=== PATIENT | female | born 1955 | race Caucasian/White ===

== ENCOUNTER 2020-02-05 10:20 | Emergency (ER) | payer OTHER, SELFPAY ==
--- NOTE | ~2020-02-05 | CT_ITS ---
EXAMINATION: CT orbit BI w con DATE: 02/05/2020 13:03 INDICATION: Periorbital swelling. TECHNIQUE: Computed tomography (CT) of the orbits was performed with 75 mL Omnipaque 350 intravenous contrast. Automated exposure control and iterative reconstruction technique were employed. The dose-l ength product was 172.28 mGy-cm. COMPARISON: None. FINDINGS: There is rightward deviation of the nasal septum. No fracture. There is mild mucosal thicke jesse in the ethmoid sinuses. The mastoid air cells are normal. There is left periorbital soft tissue swelling. The ocular globes, extraocular muscles, and optic nerves are normal. IMPRESSION: 1. Left periorbital soft tissue swelling. Normal orbits. Reviewed, dictated and finalized at location B.
[2020-02-05 10:23] VITALS: BP 138/65; PULSE 76; RESP 20; TEMP 36.1; O2SAT 98
--- NOTE | 2020-02-05 10:52 | ED.SKABFB ---
HPI - Skin/Abscess/Foreign Bdy General Chief complaint: Skin/Abscess/Foreign Body Stated complaint: swelling lt eye, sent by pcp Time Seen by Provider: 02/05/20 10:35 Source: patient Mode of arrival: ambulatory Limitations: no limitations History of Present Illness HPI narrative: Patient presents for evaluation of swelling to her upper left eyelid that has been present for approximately 1 week. Patient states that she had swelling to the right upper upper right eyelid around January 09 and was treated with Bactrim and prednisone and the swelling improved besides a small knot still noted. Patient states for the left she has finished a round of Bactrim and was given a injection of Rocephin and TobraDex ointment to apply inside of the eye by her primary care Dr. Garrison yesterday. Patient states she has been managed by Dr. Garrison as well as Dr. Woods mumps developer at [facility]. She states that she was diagnosed by both providers with cellulitis. Patient states when she awoke this morning the swelling was redness to the left eye so she called Dr. Garrison who told her to come to the emergency department for IV antibiotics and further evaluation. Patient states that she has not followed up with Dr. Woods. Patient reports there is occasional tearing from the left eye but denies any changes of vision or pain or erythema to the left eyeball itself. Patient denies any trauma to the eyes, changes in make-ups or any other application chemicals. Patient denies any fever, chills, nausea, vomiting, diarrhea or any other symptoms. Patient states that she does have control rheumatoid arthritis. Related Data Allergies Allergy/AdvReac Type Severity Reaction Status Date / Time tramadol Allergy Mild unknown Verified 02/05/20 10:39 Antihistamines - Alkylamine Allergy Unknown unknown Verified 02/05/20 10:39 Penicillins Allergy Unknown Diarrhea Verified 02/05/20 10:39 ANESTHETICS Allergy Unknown Nausea and Uncoded 02/05/20 08:15 Vomiting ANTIHISTAMINES Allergy Unknown Palpitation Uncoded 02/05/20 08:15 s Review of Systems Review of Systems: Narrative: CONSTITUTIONAL: Denies fever, chills, or sweats. EYES: Reports left eyelid and occasional clear tearing of eyes swelling denies visual changes, redness. ENT: Denies rhinorrhea, congestion, sore throat, or otalgia. CARDIOVASCULAR: Denies chest pain, palpitations, or edema. RESPIRATORY: Denies cough or dyspnea. GASTROINTESTINAL: Denies abdominal pain, nausea, vomiting, or diarrhea. GENITOURINARY: Denies dysuria or hematuria. SKIN: Denies rash or itching. MUSCULOSKELETAL: Denies back pain, joint pain, or myalgia. NEUROLOGIC: Denies headache, numbness, dizziness, or weakness. PSYCHIATRIC: Denies anxiety or depression. [facility] Social History Social History Smoking status: Never smoker Second hand tobacco smoke exposure: No Alcohol intake: current Exam Narrative: Exam Narrative: GENERAL: Well-appearing, well-nourished, and in no acute distress. HEAD: Normocephalic, atraumatic. EYES: Eyelid: left moderately swollen, eye is shut unless manually opened. slightly erythematous, unable to palpate abscess, swelling noted under right eyelid border. Not very warm. No discharge. No erythema or to sclera or sign of trauma. Right eyelid opens and closes naturally. Swelling not appreciated but patient draws attention to slight tissue change to center of right upper eyelid that can be palpated. Sclera and conjuntiva without redness, drainage, or sign of injury. PERRLA and EOMI. ENT: Nares clear, no rhinorrhea or epistaxis. Mucous membranes moist. Oropharynx without tonsillar hypertrophy exudate or other lesions. Bilateral TMs pearly strickland nonbulging CHEST: Clear to auscultation. No respiratory distress. No wheezes rales or rhonchi HEART: Regular rate and rhythm. EXTREMITIES: Normal range of motion. No edema. SKIN: Warm, dry, no rash. NEURO: No focal de
[2020-02-05 12:04] LABS: Basophils Percent Auto 0.6 % (0.2-1.2); Eosinophils Absolute Auto 0.2 K/mm3 (0-0.3); Eosinophils Percent Auto 2.8 % (0-4.4); Hematocrit 39.7 % (37.0-47.0); Hemoglobin 13.4 g/dL (12.0-15.0); Immature Granulocyte Absolute 0.03 K/mm3 (0.00-0.031); Immature Granulocyte Percent A 0.5 % (0-0.5); Lymphocytes Absolute Auto 1.46 K/mm3 (0.9-3.2); Lymphocytes Percent Auto 22.8 % (18.3-44.2); Mean Corpuscular HGB Conc 33.8 g/dl (32-36); Mean Corpuscular Hemoglobin 30.1 pg (26-34); Mean Corpuscular Volume 89.2 fl (80-100); Mean Platelet Volume 9.6 fl (7.4-10.4); Monocytes Absolute Auto 0.5 K/mm3 (0.1-0.6); Monocytes Percent Auto 7.3 % (2.6-8.5); Neutrophils Absolute Auto 4.2 K/mm3 (1.3-6.7); Platelet Count Result 268 k/mm3 (150-375); Red Blood Count 4.45 M/mm3 (4.2-5.4); Red Cell Distribution Width 12.8 % (11.5-14.5); White Blood Count 6.4 K/mm3 (4.5-10.0)
[2020-02-05 12:24] LABS: Alanine Aminotransferase 24 U/L (4-35); Albumin Level 4.2 g/dL (3.5-5.1); Alkaline Phosphatase 89 U/L (38-126); Anion Gap 6 mmol/L (8-16); Aspartate Amino Transferase 30 U/L (14-36); Bilirubin,Total 0.6 mg/dL (0.2-1.3); Blood Urea Nitrogen 16 mg/dL (7-17); Calcium 9.1 mg/dL (8.4-10.2); Carbon Dioxide 24 mmol/L (22-30); Chloride 106 mmol/L (98-107); Estimated CRCL calculation 86 ml/min; Estimated Glomerular Filt Rate > 60; Glucose 125 mg/dL (65-105); Potassium 4.4 mmol/L (3.4-5.0); Sodium 136 mmol/L (137-145)
[2020-02-05] MEDS: methylPREDNISolone SOD SUCC 125 MG VIAL IV PUSH (12:52)
[2020-02-05] MEDS: IBUPROFEN 600 MG TABLET PO (13:00)
[2020-02-05 13:45] VITALS: BP 132/74; PULSE 76; RESP 16; O2SAT 98
== END 2020-02-05 13:45 | disposition home or self-care (01) ==
PROVIDERS: Physician Assistant; Emergency Provider Emergency Medicine; PCP Family Medicine
DX: H00.036 Abscess of eyelid left eye, unspecified eyelid (principal)
CPT/HCPCS: 36415; 70481; 80053; 85025; 96374; 99284; A9270; J2930; Q9967

== ENCOUNTER 2020-06-10 14:54 | Outpatient (CLI) | payer OTHER, SELFPAY ==
--- NOTE | ~2020-06-10 | XR_ITS ---
EXAMINATION: XR chest 2V EXAM DATE: 06/10/2020 15:11 INDICATION: J06.9 - Acute upper respiratory infection, fever and cough. TECHNIQUE: Frontal and lateral projections of the chest obtained and reviewed. Comparison is made to prior examination from 07/16/2015. FINDINGS: The lungs are clear. There are no pleural effusions. The cardiomediastinal silhouette is within normal limits. There is no pneumothorax suspected. The bones and soft tissues are unremarkab le. Cervical fusion hardware. IMPRESSION: No acute cardiopulmonary findings. Reviewed, dictated and finalized at location B. GE MECHANIC
== END 2020-06-10 14:55 | disposition home or self-care (01) ==
LOC: ANHIMG 14:59
PROVIDERS: PCP Family Medicine
DX: J06.9 Acute upper respiratory infection, unspecified (principal)
CPT/HCPCS: 71046

== ENCOUNTER 2020-11-12 16:36 | Outpatient (CLI) | payer OTHER, SELFPAY ==
--- NOTE | ~2020-11-12 | MM_ITS ---
EXAMINATION: MM screening dimitris BI w rene HISTORY: Screening TECHNIQUE: Craniocaudal and mediolateral oblique 3-D tomosynthesis images were obtained and synthetic 2-D images were generated. CAD analysis was submitted and interpreted. COMPARISON: Comparison to multiple prior studies sequentially, with oldest reviewed study dated 03/10. BREAST PARENCHYMAL COMPOSITION: There are scattered areas of fibroglandular density. FINDINGS: There is no evidence of suspicious mass, calcification, or architectural distortion to sugg est malignancy in either breast. There has been no suspicious interval change. IMPRESSION: 1. No mammographic evidence of malignancy. 2. Recommend routine screening mammography in one year. BI-RADS Category 1: Negative Reviewed, dictated and finalized at location A.
== END 2020-11-12 16:37 | disposition home or self-care (01) ==
LOC: ANHIMG 16:37
PROVIDERS: PCP Family Medicine; Visit Provider Obstetrics & Gynecology
DX: Z12.31 Encounter for screening mammogram for malignant neoplasm of breast (principal)
CPT/HCPCS: 77063; 77067

== ENCOUNTER 2021-04-21 07:15 | Outpatient (CLI) | payer OTHER, SELFPAY ==
[2021-04-21 07:33] LABS: Basophils Absolute Auto 0.1 K/mm3 (0.0-0.1); Eosinophils Absolute Auto 0.3 K/mm3 (0-0.3); Eosinophils Percent Auto 5.4 % (0-4.4); Hematocrit 41.7 % (37.0-47.0); Hemoglobin 13.9 g/dL (12.0-15.0); Immature Granulocyte Absolute 0.02 K/mm3 (0.00-0.031); Immature Granulocyte Percent A 0.4 % (0-0.5); Lymphocytes Absolute Auto 1.29 K/mm3 (0.9-3.2); Mean Corpuscular HGB Conc 33.3 g/dl (32-36); Mean Corpuscular Hemoglobin 30.1 pg (26-34); Mean Corpuscular Volume 90.3 fl (80-100); Mean Platelet Volume 8.9 fl (7.4-10.4); Monocytes Absolute Auto 0.5 K/mm3 (0.1-0.6); Monocytes Percent Auto 8.9 % (2.6-8.5); Neutrophils Absolute Auto 3.1 K/mm3 (1.3-6.7); Neutrophils Percent Auto 59.3 % (45.5-73.1); Platelet Count Result 247 k/mm3 (150-375); Red Blood Count 4.62 M/mm3 (4.2-5.4); Red Cell Distribution Width 12.6 % (11.5-14.5); White Blood Count 5.2 K/mm3 (4.5-10.0)
[2021-04-21 07:50] LABS: Alanine Aminotransferase 31 U/L (4-35); Albumin Level 4.1 g/dL (3.5-5.1); Alkaline Phosphatase 117 U/L (38-126); Amylase 59 U/L (30-110); Anion Gap 6 mmol/L (8-16); Aspartate Amino Transferase 31 U/L (14-36); Bilirubin,Total 0.8 mg/dL (0.2-1.3); Blood Urea Nitrogen 15 mg/dL (7-17); CRP < 0.5 mg/dL (<1.0); Calcium 9.3 mg/dL (8.4-10.2); Carbon Dioxide 27 mmol/L (22-30); Chloride 107 mmol/L (98-107); Estimated Glomerular Filt Rate > 60; Glucose 110 mg/dL (65-110); Lipase 75 U/L (23-300); Magnesium 2.1 mg/dL (1.6-2.3); Potassium 4.3 mmol/L (3.4-5.0); Sodium 140 mmol/L (137-145)
[2021-04-21 07:56] LABS: NT Pro B Type Natriuretic Pept 65 pg/mL (5-100)
[2021-04-21 08:04] LABS: Vitamin D 25 Hydroxy 25.8 ng/mL
--- NOTE | 2021-04-21 08:12 | ECG_ITS ---
Measurements Intervals Spur Rate: 64 P: 51 DE: 152 QRS: 58 QRSD: 101 T: 34 QT: 396 QTc: 410 Interpretive Statements SINUS RHYTHM POSSIBLE LEFT ATRIAL ENLARGEMENT BORDERLINE ECG Electronically Signed On 04-21-2021 8:37:41 [facility] [employer] [employer] by Bucky Mondragon D.O.
[2021-04-21 09:28] LABS: Erythrocyte Sedimentation Rate 13 mm/hr (0-20)
[2021-04-21 09:53] LABS: Folic Acid 10.4 ng/mL (2.76->20)
[2021-04-23 17:36] LABS: CMV IgM Antibody <30.00 AU/mL (<30.00)
[2021-04-23 18:36] LABS: CMV IgG Antibody <0.60 U/mL (<0.60)
[2021-04-24 21:15] LABS: EBV Nuclear Ab Interpretation Past; EBV Virus Capsid Ag IgG Ab >750.00 U/mL (<18.00); EBV Virus Capsid Ag IgM Ab <36.00 U/mL (<36.00)
== END 2021-04-21 07:16 | disposition home or self-care (01) ==
PROVIDERS: PCP Family Medicine; Visit Provider Nurse Practitioner Family
DX: R25.2 Cramp and spasm (principal); Z13.29 Encounter for screening for other suspected endocrine disorder; R53.83 Other fatigue; M25.50 Pain in unspecified joint; R10.12 Left upper quadrant pain; Z13.220 Encounter for screening for lipoid disorders; M79.89 Other specified soft tissue disorders; R00.2 Palpitations; R06.02 Shortness of breath; R94.31 Abnormal electrocardiogram [ECG] [EKG]
CPT/HCPCS: 36415; 71046; 80053; 82150; 82306; 82607; 82746; 83690; 83735; 83880; 84443; 85025; 85652; 86038; 86039; 86140; 86644; 86645; 86664; 86665; 93005

== ENCOUNTER 2021-04-21 08:38 | Outpatient (CLI) | payer OTHER, SELFPAY ==
--- NOTE | ~2021-04-21 | XR_ITS ---
EXAMINATION: XR chest 2V 04/21/2021 09:17 INDICATION: Cough and shortness of breath PROCEDURE: 2 view chest COMPARISON: Comparison to multiple prior studies sequentially, with oldest reviewed study dated 11/2006. FINDINGS: The lungs are clear. The cardiomediastinal silhouette is within normal limits. There are no pleural effusions. There is no pneumothorax suspected. IMPRESSION: 1: NO ACUTE CARDIOPULMONARY DISEASE. Reviewed, dictated and finalized at location A. ORK MGR
== END 2021-04-21 08:39 | disposition home or self-care (01) ==
LOC: ANHIMG 08:43
PROVIDERS: PCP Family Medicine; Visit Provider Nurse Practitioner Family
DX: R05.9 Cough, unspecified (principal)
CPT/HCPCS: 71046

== ENCOUNTER → 2021-05-05 01:57 | Outpatient (CLI) | payer OTHER, SELFPAY ==
[2021-05-05 17:55] LABS: SARS-CoV-2 RNA PCR Negative
== END ==
PROVIDERS: PCP Family Medicine; Visit Provider Physician Assistant Medical
DX: R68.89 Other general symptoms and signs (principal); Z20.822 Contact with and (suspected) exposure to COVID-19
CPT/HCPCS: C9803; U0003; U0005

== ENCOUNTER 2021-05-23 11:54 | Outpatient (CLI) | payer OTHER, SELFPAY ==
--- NOTE | ~2021-05-23 | XR_ITS ---
EXAMINATION: XR chest 2V EXAM DATE: 05/23/2021 12:35 INDICATION: Sjogren's syndrome w keratoconjunctivitis sicca. TECHNIQUE: Frontal and lateral projections of the chest obtained and reviewed. Comparison is made to prior examination from 04/21/2021. FINDINGS: Prominent right epicardial fat pad. The lungs are clear. There are no pleural effusions. The cardiomediastinal silhouette is within normal limits. There is no pneumothorax suspected. The bones and soft tissues are unremarkable. Cervical fusion hardware. IMPRESSION: No acute cardiopulmonary findings. Reviewed, dictated and finalized at location A. COVERER
--- NOTE | ~2021-05-23 | XR_ITS ---
EXAMINATION: XR knee RT 2V EXAM DATE: 05/23/2021 12:34 INDICATION: Sjogren's syndrome w keratoconjunctivitis sicca. Multi joint pain. TECHNIQUE: Frontal and lateral projections of the right knee. Correlation is made to . Contralateral knee same date FINDINGS: No right knee joint effusion. There is mild patellofemoral compartment primary osteoarthr itis. There are no acute fractures or dislocations identified. There is no subcutaneous gas. The so ft tissue is unremarkable. There are no radiopaque foreign bodies. IMPRESSION: Mild right patellofemoral compartment osteoarthritis. Reviewed, dictated and finalized at location A. WORKER GRAIN
--- NOTE | ~2021-05-23 | XR_ITS ---
EXAMINATION: XR hand RT 2V EXAM DATE: 05/23/2021 12:35 INDICATION: Sjogren's syndrome w keratoconjunctivitis sicca. Multi joint pain. TECHNIQUE: Frontal and lateral projections of the right hand. Correlation is made to contralateral h and same date. FINDINGS: There is moderate to severe right 1st carpometacarpal joint primary osteoarthritis. There are no bony erosions identified. There are no acute fractures or dislocations identified. There is no subcutaneous gas. The soft tissue is unremarkable. There are no radiopaque foreign bodies. IMPRESSION: Moderate to severe right 1st CMC osteoarthritis. Reviewed, dictated and finalized at location A. GER EXCHANGE
--- NOTE | ~2021-05-23 | XR_ITS ---
EXAMINATION: XR hand LT 2V EXAM DATE: 05/23/2021 12:35 INDICATION: Sjogren's syndrome w keratoconjunctivitis sicca. TECHNIQUE: Frontal and lateral projections of the left hand. Comparison is made to prior examination from 2010. FINDINGS: There is moderate to severe left 1st carpometacarpal, moderate triscaphe primary osteoart hritis. There are no bony erosions identified. There are no acute fractures or dislocations identifi ed. There is no subcutaneous gas. The soft tissue is unremarkable. IMPRESSION: Moderate to severe left 1st CMC, moderate triscaphe osteoarthritis. Reviewed, dictated and finalized at location A. 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
--- NOTE | ~2021-05-23 | XR_ITS ---
EXAMINATION: XR knee LT 2V EXAM DATE: 05/23/2021 12:35 INDICATION: Sjogren's syndrome w keratoconjunctivitis sicca. Multi joint pain. TECHNIQUE: Frontal and lateral projections of the left knee. Correlation is made to contralateral kn ee same date. FINDINGS: No left knee joint fluid. There is mild patellofemoral compartment primary osteoarthritis. There are no acute fractures or dislocations identified. There is no subcutaneous gas. The soft ti ssue is unremarkable. There are no radiopaque foreign bodies. IMPRESSION: Mild left patellofemoral compartment osteoarthritis. Reviewed, dictated and finalized at location A. N FACTORS ERGONOMIST
--- NOTE | ~2021-05-23 | XR_ITS ---
EXAMINATION: XR foot LT 2V EXAM DATE: 05/23/2021 12:35 INDICATION: Sjogren's syndrome w keratoconjunctivitis sicca. TECHNIQUE: Frontal and lateral projections of the left foot. Comparison is made to prior examination from 2013. FINDINGS: There is severe left 1st metatarsophalangeal joint primary osteoarthritis. This has progre ssed compared to 2014. Tiny inferior calcaneal spur. There are no acute fractures or dislocations alfredo ntified. There is no subcutaneous gas. The soft tissue is unremarkable. There are no radiopaque f oreign bodies. IMPRESSION: Severe left 1st MTP osteoarthritis. Reviewed, dictated and finalized at location A. IAL NEEDS CAREGIVER
--- NOTE | ~2021-05-23 | XR_ITS ---
EXAMINATION: XR foot RT 2V EXAM DATE: 05/23/2021 12:35 INDICATION: Sjogren's syndrome w keratoconjunctivitis sicca. TECHNIQUE: Frontal and lateral projections of the right foot. Correlation is made to contralateral f oot same date. FINDINGS: There is right severe 1st metatarsophalangeal joint primary osteoarthritis. Small to moder ate-sized inferior calcaneal spur. There are no acute fractures or dislocations identified. There is no subcutaneous gas. The soft tissue is unremarkable. There are no radiopaque foreign bodies. IMPRESSION: Severe right 1st MTP osteoarthritis. Reviewed, dictated and finalized at location A. T ENERGY SPECIALIST
== END 2021-05-23 11:55 | disposition home or self-care (01) ==
LOC: ANHIMG 11:58
PROVIDERS: PCP Family Medicine; Visit Provider Physician Assistant Medical
DX: M35.01 Sjogren syndrome with keratoconjunctivitis (principal); M25.549 Pain in joints of unspecified hand; M19.072 Primary osteoarthritis, left ankle and foot; M19.071 Primary osteoarthritis, right ankle and foot; M19.042 Primary osteoarthritis, left hand; M19.041 Primary osteoarthritis, right hand
CPT/HCPCS: 71046; 73120; 73560; 73620

== ENCOUNTER 2021-05-25 07:34 | Outpatient (CLI) | payer OTHER, SELFPAY ==
--- NOTE | 2021-05-29 12:43 | WPDHOLTEREM ---
Holter/Event Monitor Holter/Event Monitor Date of procedure: 05/25/21 Holter/Event Procedure: 48 Hr Holter Monitor Indications: Abnormal EKG Conclusion: 1. 48 hour holter monitor on 05/25/21. 2. Predominant rhythm is sinus rhythm. HR range 51-132 bpm; average HR 75 bpm. 3. There are 63 premature supraventricular complexes and 6 supraventricular couplets. One episode of atrial tachycardia at 129 bpm lasting 5 beats. 4. There is 1 premature ventricular complex. No ventricular tachycardia. 5. No sinoatrial or atrioventricular blocks. No significant pauses greater than 2 seconds. 6. No symptoms available for correlation.
== END 2021-05-25 07:35 | disposition home or self-care (01) ==
PROVIDERS: PCP Family Medicine; Visit Provider Nurse Practitioner Family
DX: R00.2 Palpitations (principal); R94.31 Abnormal electrocardiogram [ECG] [EKG]; R06.02 Shortness of breath
CPT/HCPCS: 93225; 93226

== ENCOUNTER 2021-06-15 08:30 | Outpatient (CLI) | payer OTHER, SELFPAY ==
--- NOTE | 2021-06-15 08:43 | EST_ITS ---
Patient Info Name: Christina Edmond Age: 65 years : 1955 Gender: Female Ht: 65 in Wt: 18 lbs BSA: 0.57 m2 HR: 67 bpm BP: 136 / 86 mmHg Heart Rhythm: Sinus Rhythm Exam Date: 06/15/2021 10:26 AM Exam Location: [facility] Patient Status: Outpatient Admit Date: 06/15/2021 Staff Ordering Physician: Nancy Velazquez NP Attending Provider: Nancy Velazquez NP Exercise Technologist: Kimberly Mullins CT Exercise Physician: Bucky Mondragon DO Exam Type: CA stress test treadmill Study Info Indications R00.2 - Palpitations An exercise stress test was performed. Summary 1. 1. Negative Dell exercise stress test for ischemic ST changes by ECG criteria. 2. 2. Reduced functional capacity, achieving 7 METs of workload. 3. 3. Appropriate HR response to exercise. 4. 4. Appropriate HR recovery at 1 minute post exercise. 5. 5. No imaging with stress testing. 6. 6. Patient informed of the above results. Protocol: [facility] ECG Details Stage: REST Duration (min): 2 min : 28 sec Speed (mph): 0.0 Grade (%): 0 HR (bpm): 76 SBP (mmHg): 136 DBP (mmHg): 86 METS: --- Stage: REST Duration (min): 6 min : 59 sec Speed (mph): 0.0 Grade (%): 0 HR (bpm): 73 SBP (mmHg): 136 DBP (mmHg): 86 METS: --- Stage: STAGE 1 Duration (min): 1 min : 0 sec Speed (mph): 1.7 Grade (%): 10 HR (bpm): 114 SBP (mmHg): 136 DBP (mmHg): 86 METS: --- Stage: STAGE 1 Duration (min): 2 min : 0 sec Speed (mph): 1.7 Grade (%): 10 HR (bpm): 130 SBP (mmHg): 136 DBP (mmHg): 86 METS: --- Stage: STAGE 1 Duration (min): 3 min : 0 sec Speed (mph): 1.7 Grade (%): 10 HR (bpm): 133 SBP (mmHg): 136 DBP (mmHg): 86 METS: --- Stage: STAGE 2 Duration (min): 1 min : 0 sec Speed (mph): 2.5 Grade (%): 12 HR (bpm): 134 SBP (mmHg): 136 DBP (mmHg): 86 METS: --- Stage: STAGE 2 Duration (min): 2 min : 0 sec Speed (mph): 2.5 Grade (%): 12 HR (bpm): 142 SBP (mmHg): 170 DBP (mmHg): 101 METS: --- Stage: STAGE 2 Duration (min): 2 min : 59 sec Speed (mph): 3.4 Grade (%): 14 HR (bpm): 145 SBP (mmHg): 170 DBP (mmHg): 101 METS: --- Stage: RECOVERY Duration (min): 1 min : 0 sec Speed (mph): 0.0 Grade (%): 0 HR (bpm): 123 SBP (mmHg): 177 DBP (mmHg): 83 METS: --- Stage: RECOVERY Duration (min): 2 min : 0 sec Speed (mph): 0.0 Grade (%): 0 HR (bpm): 103 SBP (mmHg): 177 DBP (mmHg): 83 METS: --- Stage: RECOVERY Duration (min): 2 min : 38 sec Speed (mph): 0.0 Grade (%): 0 HR (bpm): 97 SBP (mmHg): 144 DBP (mmHg): 74 METS: --- Rest HR: 73 bpm Peak HR: 145 bpm Rest Sys BP: 136 mmHg Peak Sys BP: 177 mmHg Max Pred HR: 156 bpm % Max Pred HR: 93 % Target HR: 133 bpm Max RPP: 25,665 bpm*mmHg Bauer Score: -2 Termination Reason:
--- NOTE | 2021-06-15 08:43 | ECHO_ITS ---
Patient Info Name: Christina Edmond Age: 65 years : 1955 Gender: Female Ht: 65 in Wt: 165 lbs BSA: 1.87 m2 HR: 67 bpm BP: 161 / 93 mmHg Technical Quality: Good Exam Date: 06/15/2021 9:13 AM Exam Location: [facility] Patient Status: Outpatient Admit Date: 06/15/2021 Staff Ordering Physician: Nancy Velazquez NP Septic Cleaner: Safia Siegel RDCS Attending Provider: Nancy Velazquez NP Exam Type: CA echo doppler color flow Study Info Indications R00.2 - Palpitations Complete two-dimensional, color flow and Doppler transthoracic echocardiogram is performed. Summary 1. Complete two-dimensional, color flow and Doppler transthoracic echocardiogram is performed. 2. Left ventricular chamber dimension is normal. 3. Left ventricular systolic function is normal, estimated at 60-65%. 4. The left ventricular diastolic function is grade I diastolic dysfunction. 5. E/e' 12 is mildly elevated. 6. Left atrial chamber dimension is mildly enlarged. 7. There is trace mitral valve regurgitation. 8. There is trace tricuspid valve regurgitation. 9. No pulmonary hypertension, estimated pulmonary arterial systolic pressure is 27 mmHg. 10. There is trace pulmonic regurgitation. Left Ventricle E/e' 12 is mildly elevated. Left ventricular chamber dimension is normal. Left ventricular systolic function is normal, estimated at 60-65%. The left ventricular diastolic function is grade I diastolic dysfunction. Right Ventricle Right ventricular chamber dimension is normal. Right ventricular systolic function is normal. Left Atria Left atrial chamber dimension is mildly enlarged. Right Atria Right atrial chamber dimension is normal. Aortic Valve The aortic valve is trileaflet. There is no aortic valve stenosis. There is no aortic valve regurgitation. Pulmonic Valve There is trace pulmonic regurgitation. Mitral Valve There is no mitral valve stenosis. There is trace mitral valve regurgitation. Tricuspid Valve There is trace tricuspid valve regurgitation. No pulmonary hypertension, estimated pulmonary arterial systolic pressure is 27 mmHg. Pericardium/Pleural There is no pericardial effusion. Inferior Vena Cava Normal inferior vena cava with >50% collapse upon inspiration consistent with normal right atrial pressure, 5 mmHg. Aorta The aortic root size at the sinus of Valsalva is normal. Left Ventricular Outflow Tract Name Value Normal LVOT 2D LVOT Diameter 2.0 cm LVOT Doppler LVOT Peak Gradient 6 mmHg LVOT Mean Gradient 3 mmHg LVOT VTI 22 cm LVOT VTI/AV VTI Ratio 0.8 LVOT Stroke Volume 68 ml LVOT CO 15.0 l/min LVOT CI 8.0 l/min/m2 Pulmonic Valve Name Value Normal PV Doppler ----
== END 2021-06-15 08:31 | disposition home or self-care (01) ==
PROVIDERS: PCP Family Medicine; Visit Provider Nurse Practitioner Family
DX: R00.2 Palpitations (principal); R06.02 Shortness of breath; R94.31 Abnormal electrocardiogram [ECG] [EKG]
CPT/HCPCS: 93017; 93306

== ENCOUNTER 2021-08-31 17:07 | Outpatient (CLI) | payer OTHER, SELFPAY ==
[2021-08-31 17:29] LABS: Basophils Absolute Auto 0.1 K/mm3 (0.0-0.1); Eosinophils Absolute Auto 0.3 K/mm3 (0-0.3); Hematocrit 40.1 % (37.0-47.0); Hemoglobin 13.3 g/dL (12.0-15.0); Immature Granulocyte Absolute 0.01 K/mm3 (0.00-0.031); Immature Granulocyte Percent A 0.2 % (0-0.5); Lymphocytes Absolute Auto 2.11 K/mm3 (0.9-3.2); Lymphocytes Percent Auto 33.8 % (18.3-44.2); Mean Corpuscular HGB Conc 33.2 g/dl (32-36); Mean Corpuscular Hemoglobin 30.4 pg (26-34); Mean Corpuscular Volume 91.8 fl (80-100); Monocytes Absolute Auto 0.5 K/mm3 (0.1-0.6); Monocytes Percent Auto 7.2 % (2.6-8.5); Neutrophils Absolute Auto 3.4 K/mm3 (1.3-6.7); Neutrophils Percent Auto 53.8 % (45.5-73.1); Platelet Count Result 270 k/mm3 (150-375); Red Blood Count 4.37 M/mm3 (4.2-5.4); Red Cell Distribution Width 13.6 % (11.5-14.5); White Blood Count 6.2 K/mm3 (4.5-10.0)
[2021-08-31 17:42] LABS: Alanine Aminotransferase 35 U/L (4-35); Albumin Level 4.4 g/dL (3.5-5.1); Alkaline Phosphatase 122 U/L (38-126); Anion Gap 5 mmol/L (8-16); Aspartate Amino Transferase 37 U/L (14-36); Bilirubin,Total 0.8 mg/dL (0.2-1.3); Blood Urea Nitrogen 17 mg/dL (7-17); CRP < 0.5 mg/dL (<1.0); Calcium 8.8 mg/dL (8.4-10.2); Carbon Dioxide 26 mmol/L (22-30); Chloride 104 mmol/L (98-107); Estimated Glomerular Filt Rate > 60; Glucose 106 mg/dL (65-110); Potassium 4.2 mmol/L (3.4-5.0); Sodium 135 mmol/L (137-145)
[2021-08-31 17:58] LABS: Erythrocyte Sedimentation Rate 11 mm/hr (0-20)
== END 2021-08-31 17:08 | disposition home or self-care (01) ==
LOC: ANHLAB 17:11
PROVIDERS: PCP Family Medicine; Visit Provider Physician Assistant Medical
DX: M06.4 Inflammatory polyarthropathy (principal); Z79.899 Other long term (current) drug therapy
CPT/HCPCS: 36415; 80053; 85025; 85652; 86140

== ENCOUNTER 2022-05-24 07:24 | Outpatient (CLI) | payer MEDICARE, SELFPAY ==
--- NOTE | ~2022-05-24 | DEXA_ITS ---
Bone Density Report Name: MAGEN SEGAL Age: 66 Sex: Female Ethnicity: White Date of : 1955 Indication: postmenopausal; screening for osteoporosis; height loss; hysterectomy; rheumatoid arthritis; Referring Provider: JOSHUA, SUSHIL Pérez Study: Bone densitometry was performed. Exam Date: May 24, 2022 Accession number: [id number] Bone Density: Region BMD T-score Z-score Classification AP Spine(L1-L4) 0.957 -0.8 1.0 Normal Femoral Neck (Left) 0.655 -1.7 -0.2 Osteopenia Total Hip (Left) 0.849 -0.8 0.5 Normal Femoral Neck (Right) 0.674 -1.6 0.0 Osteopenia Total Hip (Right) 0.830 -0.9 0.3 Normal Total Hip Mean 0.839 -0.9 0.4 Normal World Health Organization criteria for BMD impression classify patients as: Normal (T-score at or above -1.0), Osteopenia (T-score between -1.0 and -2.5), or Osteoporosis (T-score at or below -2.5). 10-year Fracture Risk(1): Major Osteoporotic Fracture 12% Hip Fracture 1.6% Reported Risk Factors: [place] (), Neck BMD=0.655, BMI=31.1, rheumatoid arthritis (1) FRAX(R) Version 3.08. Fracture probability calculated for an untreated patient. Fracture probability may be lower if the patient has received treatment. Clinical Information Provided by Patient: Has rheumatoid arthritis Has the following medical conditions: Hysterectomy Patient maximum height was 65 Menopause Age: 51 Drinks caffeinated beverages Onset of menses at age 13 Number of children 5 Impression: The patient has low bone mass, based on the Left Femoral Neck T-score. The patient has an estimated ten-year risk of hip fracture of 1.6% and an estimated ten-year risk of major fracture of 12%, based on the WHO FRAX algorithm. Discussion: BONE DENSITY IS LOW AT ONE OR MORE SKELETAL SITES. This patient's lowest T-score is low at one or more skeletal sites. It meets the World Health Organization's (WHO) criteria for ?low bone mass? (T-score between -1.0 and -2.5). The patient's 10-year risk of fracture as calculated by FRAX is less than the threshold where pharmacological therapy is recommended by the National Osteoporosis Foundation (NOF). However, all treatment decisions require clinical judgment and consideration of individual patient factors, including patient preferences, comorbidities, previous drug use, risk factors not captured in the FRAX model (e.g., frailty, falls, vitamin D deficiency, increased bone turnover, interval significant decline in bone density) and possible under or overestimation of fracture risk by FRAX. The patient should follow a healthful lifestyle (good nutrition with adequate calcium and vitamin D, and appropriate weight-bearing exercise). Follow-Up: Consider repeating this study in 2 to 3 years to reassess this patient's status, or sooner if there
--- NOTE | ~2022-05-24 | MM_ITS ---
EXAMINATION: MM screening dimitris BI w rene HISTORY: Screening TECHNIQUE: Craniocaudal and mediolateral oblique 3-D tomosynthesis images were obtained and synthetic 2-D images were generated. CAD analysis was submitted and interpreted. COMPARISON: Comparison to multiple prior studies sequentially, with oldest reviewed study dated 08/2012. BREAST PARENCHYMAL COMPOSITION: There are scattered areas of fibroglandular density. FINDINGS: There is no evidence of suspicious mass, calcification, or architectural distortion to sugg est malignancy in either breast. There has been no suspicious interval change. IMPRESSION: 1. No mammographic evidence of malignancy. 2. Recommend routine screening mammography in one year. BI-RADS Category 1: Negative Reviewed, dictated and finalized at location B. ESTATE INTERNSHIP
== END 2022-05-24 07:25 | disposition home or self-care (01) ==
LOC: ANHIMG 07:29
PROVIDERS: PCP Family Medicine; Visit Provider Obstetrics & Gynecology
DX: Z12.31 Encounter for screening mammogram for malignant neoplasm of breast (principal); Z78.0 Asymptomatic menopausal state; M85.852 Other specified disorders of bone density and structure, left thigh; M85.851 Other specified disorders of bone density and structure, right thigh
CPT/HCPCS: 77063; 77067; 77080

== ENCOUNTER → 2022-05-28 09:43 | Outpatient (CLI) | payer MEDICARE, SELFPAY ==
--- NOTE | ~2022-05-28 | CT_ITS ---
CT Abdomen and Pelvis with contrast. History: Abdominal pain. Spiral CT of the abdomen and pelvis was performed after the administration of intravenous contrast. 1 00 cc of Omnipaque 350 was administered intravenously without complication. Dose reduction technique was used on this scan by utilizing automated exposure control and iterative reconstruction technique. The dose-length product (DLP) was 820.63 mGy-cm. Findings: Scans through the lung bases demonstrate mild atelectatic change. The liver, spleen, pancreas, gallbladder, adrenals and kidneys are within normal limits. No evidence of aortic aneurysm. No lymphadenopathy is seen. There is no evidence of bowel obstruction. There is no evidence to suggest acute appendicitis or dive rticulitis. Images through the pelvis were performed. Urinary bladder unremarkable. Patient is post hysterectomy. No pelvic mass seen. No ascites is seen. Impression: No significant abnormalities seen. Reviewed, dictated and finalized at location [] WORKER Impression: No significant abnormalities seen.
[2022-05-28 10:01] LABS: Estimated Glomerular Filt Rate > 60
== END ==
PROVIDERS: PCP Family Medicine; Visit Provider Nurse Practitioner Family
DX: R10.12 Left upper quadrant pain (principal); R10.2 Pelvic and perineal pain
CPT/HCPCS: 74177; Q9967

== ENCOUNTER → 2022-11-02 10:33 | Outpatient (CLI) | payer MEDICARE, SELFPAY ==
--- NOTE | ~2022-11-02 | XR_ITS ---
EXAMINATION: XR foot LT min 3V DATE: 11/02/2022 11:10 INDICATION: Left toe pain. TECHNIQUE: 4 views of left foot were obtained. COMPARISON: Left foot radiographs 05/23/2021 FINDINGS: Bone alignment is normal. No fracture. There is severe osteoarthritis of first metatarsopha langeal joint. There is an enthesophyte at plantar aspect of calcaneal tuberosity. IMPRESSION: 1. Severe osteoarthritis of first metatarsophalangeal joint. Reviewed, dictated and finalized at location A.
--- NOTE | ~2022-11-02 | XR_ITS ---
EXAMINATION: XR sacrum coccyx min 2V DATE: 11/02/2022 11:10 INDICATION: Sacrococcygeal disorder, not elsewhere classified. TECHNIQUE: 3 views of the sacrum and coccyx were obtained. COMPARISON: Radiographs 06/02/2015 FINDINGS: There is 4 mm anterolisthesis of L4 on L5 and 3 mm anterolisthesis of L5 on S1. There is mi ld lumbar spondylosis. There is mild osteoarthritis of the sacroiliac joints and hip joints. IMPRESSION: 1. No fracture. 2. Mild osteoarthritis of the sacroiliac joints. No evidence of inflammatory arthropathy. Reviewed, dictated and finalized at location A. IMPRESSION: 1. No fracture. 2. Mild osteoarthritis of the sacroiliac joints. No evidence of inflammatory ar thropathy.
== END ==
PROVIDERS: PCP Family Medicine; Visit Provider Physician Assistant Medical
DX: M53.3 Sacrococcygeal disorders, not elsewhere classified (principal); M19.072 Primary osteoarthritis, left ankle and foot
CPT/HCPCS: 72220; 73630

== ENCOUNTER 2022-11-11 07:47 | Outpatient (CLI) | payer MEDICARE, SELFPAY ==
--- NOTE | ~2022-11-11 | MR_ITS ---
MRI of the brain Clinical History: Headache Technique: Axial and sagittal T1-weighted images were acquired. These were followed by axial T2-weigh radhika, diffusion weighted, gradient, and FLAIR images.. Following intravenous administration of 16 cc M ultiHance gadolinium, T1-weighted fat-sat imaging was performed in the axial and coronal planes. Findings: No abnormal signal seen in the brain parenchyma. No acute infarct, intracranial hemorrhage, or mass lesion. Ventricles and subarachnoid spaces are unremarkable. Orbits are unremarkable. Paranasal sinuses and m astoid air cells are clear. Major intracranial flow voids appear intact. Sagittal midline structures are intact. No abnormal postcontrast enhancement identified. IMPRESSION: Unremarkable exam. Reviewed, dictated and finalized at location M. IMPRESSION: Unremarkable exam.
== END 2022-11-11 07:48 | disposition home or self-care (01) ==
PROVIDERS: PCP Family Medicine; Visit Provider Physician Assistant Medical
DX: R51.9 Headache, unspecified (principal)
CPT/HCPCS: 70553; A9577

== ENCOUNTER 2023-06-20 14:57 | Outpatient (CLI) | payer MEDICARE, SELFPAY ==
--- NOTE | 2023-06-23 12:00 | WPDHOLTEREM ---
Holter/Event Monitor Holter/Event Monitor Date of procedure: 06/20/23 Holter/Event Procedure: 48 Hr Holter Monitor Indications: SVT Conclusion: 1. 48 hour holter monitor on 06/20/22. 2. Predominant rhythm is sinus rhythm. HR range 49-126 bpm; average HR 73 bpm. 3. There are 97 premature supraventricular complexes, 14 supraventricular couplets, 6 supraventricular bigeminy. There are 7 episodes of atrial tachycardia, fastest 185 bpm and longest lasting 10 beats. 4. There is 1 premature ventricular complex. No ventricular tachycardia. 5. No sinoatrial or atrioventricular blocks. No significant pauses greater than 2 seconds. 6. Patient reports palpitations, irregular heart beat, dizziness which demonstrate sinus rhythm, HR range 72-79 bpm.
== END 2023-06-20 14:58 | disposition home or self-care (01) ==
LOC: ANHCARD 14:58
PROVIDERS: PCP Family Medicine; Visit Provider Physician Assistant Medical
DX: I47.19 Other supraventricular tachycardia (principal); I10 Essential (primary) hypertension
CPT/HCPCS: 93225; 93226

== ENCOUNTER 2023-10-20 14:33 | Outpatient (CLI) | payer MEDICARE, SELFPAY ==
--- NOTE | ~2023-10-20 | XR_ITS ---
EXAMINATION: XR shoulder RT min 2V, XR shoulder LT min 2V DATE: 10/20/2023 15:21 INDICATION: Inflammatory polyarthropathy TECHNIQUE: 1. AP internally and externally rotated, AP oblique externally rotated and axillary views of the righ t shoulder were obtained. 2. AP internally and externally rotated, AP oblique externally rotated and axillary views of the lef t shoulder were obtained. COMPARISON: None FINDINGS: Right shoulder: Normal alignment. No fracture. Glenohumeral joint is normal. Minimal right acromioclavicular osteoar thritis. Soft tissues are unremarkable. Partially visualized anterior plate-screw fixation for lower cervical anterior spinal fusion, likely C5-C7. Right lung is clear. Left shoulder: Normal alignment. No fracture. Glenohumeral joint is normal. Mild left acromioclavicular osteoarthri tis. Soft tissues are unremarkable. Visualized portion of the left lung is clear. IMPRESSION: Bilateral acromioclavicular osteoarthritis, mild on the left and minimal on the right. Reviewed, dictated and finalized at location A. IMPRESSION: Bilateral acromioclavicular osteoarthritis, mild on the left and minimal on the right.
--- NOTE | ~2023-10-20 | XR_ITS ---
EXAMINATION: XR lumbar spine 2-3V, XR sacroiliac joints min 3V DATE: 10/20/2023 15:21 INDICATION: Inflammatory polyarthropathy TECHNIQUE: 1. Anteroposterior and lateral views of the lumbar spine, and cone-down lateral view of the lumbosacr al junction were obtained. 2. AP and left and right oblique views of the bilateral sacroiliac joints were obtained. COMPARISON: None. FINDINGS: 10 degrees lumbar dextroscoliosis. For millimeter anterolisthesis L4 on L5. Vertebral body heights ar e normal. Moderate disc height loss at L4-L5 and mild disc height loss at L2-L3, L3-L4 and L5-S1 and a few of the levels in the lower thoracic spine. Moderate bilateral lower lumbar facet osteoarthritis . Sacral arches are intact. Mild osteoarthritis at the bilateral sacroiliac joints. No erosions to jimenez ggest inflammatory cigarette is. A few phleboliths in the pelvis. IMPRESSION: 1. 10 degrees lumbar dextro scoliosis with mild to moderate spondylosis. 2. Mild bilateral sacroiliac osteoarthritis without erosions to suggest an inflammatory sacroiliitis. Reviewed, dictated and finalized at location A. IMPRESSION: 1. 10 degrees lumbar dextro scoliosis with mild to moderate spondylosis. 2. Mild bilateral sacroiliac osteoarthritis without erosions to suggest an infl ammatory sacroiliitis.
--- NOTE | ~2023-10-20 | XR_ITS ---
EXAMINATION: XR foot RT 2V, XR foot LT 2V DATE: 10/20/2023 15:21 INDICATION: Inflammatory polyarthropathy TECHNIQUE: 1. Dorsoplantar and lateral views of the left foot were obtained. 2. Dorsoplantar and lateral views of the right foot were obtained. COMPARISON: Right foot radiographs dated 05/23/2021 and left foot radiograph dated 11/02/2022 FINDINGS: In bone alignment is normal at both feet. No fractures. No significant change in severe osteoarthriti s at the bilateral first metatarsophalangeal joints. Additional minimal to mild osteoarthritis at a f ew of the bilateral tarsometatarsal and interphalangeal joints. No erosions to suggest inflammatory a rthritis. Moderate-sized bilateral plantar calcaneal spurs. Soft tissues are unremarkable. IMPRESSION: 1. Severe osteoarthritis at the bilateral first metatarsophalangeal joints. Reviewed, dictated and finalized at location A. IMPRESSION: 1. Severe osteoarthritis at the bilateral first metatarsophalangeal joints.
--- NOTE | ~2023-10-20 | XR_ITS ---
EXAMINATION: XR hand RT 2V, XR hand LT 2V DATE: 10/20/2023 15:21 INDICATION: Inflammatory polyarthropathy at the bilateral hands TECHNIQUE: 1. Posteroanterior and lateral views of the left hand were obtained. 2. Posteroanterior and lateral views of the right hand were obtained. COMPARISON: None. FINDINGS: Normal alignment at the bilateral hands. No fractures. Typical pattern of polyarticular osteoarthriti s at the bilateral hands. On the left is severe at the first carpometacarpal joint, moderate at the t riscaphe, first interphalangeal and second and third distal interphalangeal joints and mild at the wr ist, midcarpal joint and several metacarpal phalangeal and remaining interphalangeal joints. On the r ight versus moderate severity at the first carpometacarpal joint and the second-fourth distal interph alangeal joints and mild at the wrist, midcarpal, triscaphe and multiple additional metacarpophalange al and interphalangeal joints. No erosions to suggest inflammatory arthritis. Soft tissues are unrema rkable. IMPRESSION: 1. Typical pattern of polyarticular osteoarthritis greatest at the radial aspect of the carpi as deta iled above. Reviewed, dictated and finalized at location A. IMPRESSION: 1. Typical pattern of polyarticular osteoarthritis greatest at the radial aspec t of the carpi as detailed above.
== END 2023-10-20 14:34 ==
LOC: MICIMG 14:36
PROVIDERS: PCP Family Medicine; Visit Provider Physician Assistant Medical
DX: M06.4 Inflammatory polyarthropathy (principal); M35.01 Sjogren syndrome with keratoconjunctivitis; M53.3 Sacrococcygeal disorders, not elsewhere classified; M19.041 Primary osteoarthritis, right hand; M19.042 Primary osteoarthritis, left hand; M19.071 Primary osteoarthritis, right ankle and foot; M19.072 Primary osteoarthritis, left ankle and foot; M19.011 Primary osteoarthritis, right shoulder; M19.012 Primary osteoarthritis, left shoulder
CPT/HCPCS: 72100; 72202; 73030; 73120; 73620

== ENCOUNTER 2024-06-19 08:42 | Outpatient (CLI) | payer MEDICARE, SELFPAY ==
--- NOTE | ~2024-06-19 | DEXA_ITS ---
Bone Density Report Name: MAGEN SEGAL Age: 68 Sex: Female Ethnicity: White Date of : 1955 Indication: postmenopausal; screening for osteoporosis; height loss; hysterectomy; Referring Provider: JOSHUA, SUSHIL Pérez Study: Bone densitometry was performed. Exam Date: June 19, 2024 Accession number: [id number] Bone Density: Region BMD T-score Z-score Classification AP Spine(L1-L4) 0.933 -1.0 0.9 Normal Femoral Neck (Left) 0.668 -1.6 0.0 Osteopenia Total Hip (Left) 0.842 -0.8 0.5 Normal Femoral Neck (Right) 0.658 -1.7 -0.1 Osteopenia Total Hip (Right) 0.817 -1.0 0.3 Normal Total Hip Mean 0.829 -0.9 0.4 Normal World Health Organization criteria for BMD impression classify patients as: Normal (T-score at or above -1.0), Osteopenia (T-score between -1.0 and -2.5), or Osteoporosis (T-score at or below -2.5). 10-year Fracture Risk(1): Major Osteoporotic Fracture 9.7% Hip Fracture 1.3% Reported Risk Factors: [place] (), Neck BMD=0.658, BMI=32.1 (1) FRAX(R) Version 3.08. Fracture probability calculated for an untreated patient. Fracture probability may be lower if the patient has received treatment. Clinical Information Provided by Patient: Has used the following medications: Vitamin D Has the following medical conditions: Hysterectomy Patient maximum height was 65 Menopause Age: 51 No regular weight bearing exercise Onset of menses at age 13 Number of children 5 Impression: The patient has low bone mass, based on the Right Femoral Neck T-score. The patient has an estimated ten-year risk of hip fracture of 1.3% and an estimated ten-year risk of major fracture of 9.7%, based on the WHO FRAX algorithm. Discussion: BONE DENSITY IS LOW AT ONE OR MORE SKELETAL SITES. This patient's lowest T-score is low at one or more skeletal sites. It meets the World Health Organization's (WHO) criteria for ?low bone mass? (T-score between -1.0 and -2.5). The patient's 10-year risk of fracture as calculated by FRAX is less than the threshold where pharmacological therapy is recommended by the National Osteoporosis Foundation (NOF). However, all treatment decisions require clinical judgment and consideration of individual patient factors, including patient preferences, comorbidities, previous drug use, risk factors not captured in the FRAX model (e.g., frailty, falls, vitamin D deficiency, increased bone turnover, interval significant decline in bone density) and possible under or overestimation of fracture risk by FRAX. The patient should follow a healthful lifestyle (good nutrition with adequate calcium and vitamin D, and appropriate weight-bearing exercise). Follow-Up: Consider repeating this study in 2 to 3 years to reassess this patient's status, or sooner if there is some new clinical indication. Reported by: GUSTAVO on 06/19/2024 9:23:00 AM. Reviewed, dictated and finalized at location ARoxanne JUAN
--- NOTE | ~2024-06-19 | MM_ITS ---
EXAMINATION: MM screening dimitris BI w rene HISTORY: Screening TECHNIQUE: Craniocaudal and mediolateral oblique 3-D tomosynthesis images were obtained and synthetic 2-D images were generated. CAD analysis was submitted and interpreted. COMPARISON: Comparison to multiple prior studies sequentially, with oldest reviewed study dated 04/13. BREAST PARENCHYMAL COMPOSITION: Not dense: There are scattered areas of fibroglandular density. FINDINGS: There is no evidence of suspicious mass, calcification, or architectural distortion to sugg est malignancy in either breast. There has been no suspicious interval change. IMPRESSION: 1. No mammographic evidence of malignancy. 2. Recommend routine screening mammography in one year. BI-RADS Category 1: Negative Reviewed, dictated and finalized at location B. LLIGENCE OFFICER
--- OUTSIDE RECORDS SUMMARY | 2024-06-25 23:35 | XMS_ITS | Clinical Summary ---
Author Organization [facility] [employer] Address [address] [place] [address] Care Team Providers Care Layer Out Name Role Phone Luis Oscar MD Primary Care Provider [phone] Source Comments [facility],non-owned Affiliates and Associated Physician Practices is amultiple site organization consisting of ambulatory clinics and hospital sitesin [place], [place], [place] and [place]. This disclosure is being madepursuant to the Care Everywhere program and may not contain all information available regarding this patient. Last updated 18.[facility] [employer] Allergies Active Allergy Reactions Criticality Noted Date Comments Alkylamines Nausea and/or Vomiting 06/15/2019 Other reaction(s): Nausea Anesthesia S-I-60 04/20/2017 Altaryl 04/20/2017 Hydrocodone Nausea and/or Vomiting,Vomiting 06/15/2019 Reaction: Nausea, ??Vomiting, ?? Other reaction(s): Nausea Reaction: Nausea, ??Vomiting, ?? Morphine Nausea and/or Vomiting,Vomiting 06/15/2019 Reaction: Nausea, ??Vomiting, ?? Other reaction(s): Nausea Reaction: Nausea, ??Vomiting, ?? Oxycodone Nausea and/or Vomiting,Vomiting 06/15/2019 Reaction: Nausea, ??Vomiting, ?? Other reaction(s): Nausea Reaction: Nausea, ??Vomiting, ?? Penicillins Nausea and/or Vomiting 06/15/2019 Other reaction(s): Nausea Medications * Be aware that medications may not be up to date on this document. Alwaysverify current medications with the patient. Medication Sig Dispensed Refills Start Date End Date Status LORazepam (ATIVAN) 0.5 MG tablet Take 1 (one) tablet by mouth at bedtime 03/09/2016 Active Cholecalciferol (vitamin D3) 1.25 MG (92743 UT) capsule Take 1 (one) capsule by mouth every 7 days 10/06/2023 Active losartan (Cozaar) 50 MG tablet 25mg AM and 50mg PM 09/23/2023 Active metoprolol succinate XL 24hr (Toprol XL) 25 MG tablet Take 1 (one) tablet by mouth once daily 10/06/2023 Active rimegepant (Nurtec) 75 MG tablet Take 75 mg by mouth once daily as needed for Migraine Active solifenacin (VESIcare) 5 MG tablet Take 1 (one) tablet by mouth once daily 30 tablet 5 12/01/2023 Active Active Problems No known active problems Family History Medical History Relation Name Comments Breast Cancer after age 50 or unknown Paternal Aunt Relation Name Status Comments Paternal Aunt Social History Tobacco Use Types Packs/Day Years Used Date Smoking Tobacco: Never Smokeless Tobacco: Never Tobacco Cessation:Counseling Given: Not Answered Alcohol Use Standard Drinks/Week Comments Yes 7 (1 standard drink = 0.6 oz pur e alcohol) PHQ-2 Answer Date Recorded Patient Health Questionnaire-2 Score 0 11/28/2023 Sex and Gender Information Value Date Recorded Sex Assigned at Not on file Gender Identity Not on file Sexual Orientation Not on file Last Filed Vital Signs Vital Sign Reading Time Taken Comments Blood Pressure 142/80 12/01/2023 2:03 PM CDT Pulse - - Temperature - - Respiratory Rate - - Oxygen Saturation - - Inhaled Oxygen Concentration - - Weight 81.6 kg (180 lb) 12/01/2023 2:03 PM CDT Height 160 cm (5' 3 ) 12/01/2023 2:03 PM CDT Body Mass Index 31.89 12/01/2023 2:03 PM CDT Plan of Treatment Health Maintenance Due Date Last Done Comments COLOGUARD (AGES 45-75) - COLON CA SCREENING 1955 COLON MONITORING 1955 COLONOSCOPY - COLON CA SCREENING 1955 CT COLONOGRAPHY - COLON CA SCREENING 1955 Colorectal Cancer Screening 1955 FIT - COLON CA SCREENING 1955 FLEX SIG - COLON CA SCREENING 1955 LIPID TESTING 1955 HEPATITIS C SCREENING 11/19/1974 DTAP/TDAP/TD VACCINES (1 - Tdap) 11/24/1975 PNEUMOCOCCAL VACCINE 50+ (1 of 1 - PCV) 2006 ZOSTER VACCINE (1 of 2) 2006 SCREENING FOR DIABETES 05/20/2018 MAMMOGRAM 05/24/2023 05/24/2022, 0607/2020, 06/21/2019, Additional history exists COVID-19 VACCINE ( - season) 2024 06/26/2021, 07/28/2020, 07/07/2020 INFLUENZA VACCINE (#1) 2024 03/14/2021 DEPRESSION SCREENING 06/13/2024 11/15/2023, 03/29/20 22 MEDICARE AWV ? CALENDAR YEAR 2024 Respiratory Syncytial Virus (RSV) Vaccine Pt: or over 60 yrs (1 - 1-dose 75+ series) 11/24/2031 BONE DENSITY TESTING Completed 06/19/2024, 05/24/20 22 HEPATITIS B VACCINE Aged Out No longe r eligible based on patient's age to complete this topic HIB VACCINE Aged Out No longer eligi ble based on patient's age to complete this topic HPV VACCINE Aged Out No longer eligi ble based on patient's age to complete this topic MENINGOCOCCAL (Group B) VACCINE Aged Out No longer eligible based on patient's age to complete this topic MENINGOCOCCAL VACCINE Aged Out No rivera partha eligible based on patient's age to complete this topic Procedures Procedure Name Priority Date/Time Associated Diagnosis Comments DEXA BONE DENSITY 2 SITES 06/19/2024 MAMMO BILAT SCREENING Routine 05/24/2022 Well woman exam from Last 3 Months or Most Recently Relevant to Health Maintenance Results * DEXA BONE DENSITY 2 SITES (06/19/2024) Anatomical Region Laterality Modality Other 06/19/2024 Narrative 06/19/2024 Ordered by an unspecified provider. Scanned Document DEXA ORDERABLES * MAMMO BILAT SCREENING (05/24/2022) Anatomical Region Laterality Modality Breast Bilateral Mammography 05/24/2022 Avinash Henderson MD MAMMO ORDERABLES from Last 3 Months or Most Recently Relevant to Health Maintenance Care Teams Layer Out Relationship Specialty Start Date End Date Luis Oscar MD [address] [place] [address] PCP - General Family Medicine 10/17/12
--- OUTSIDE RECORDS SUMMARY | 2024-06-25 23:35 | XMS_ITS | Encounter Summary ---
Author Organization [facility] Address [address] [place] [address] Care Team Providers Care Occupational Therapy Instructor Name Role Phone Luis Oscar MD Primary Care Provider [phone] Encounter Details Date Type Department Care Team (Late st Contact Info) Description 07/09/2004 Orders Only [facility] [address] [place] [id number] ProviderErma MD Social History Tobacco Use Types Packs/Day Years Used Date Smoking Tobacco: Never Assessed Sex and Gender Information Value Date Recorded Sex Assigned at Not on file Gender Identity Not on file Sexual Orientation Not on file documented as of this encounter Plan of Treatment Not on file documented as of this encounter Procedures Procedure Name Priority Date/Time Associated Diagnosis Comments GROSS + MICRO EXAM [facility] 08/09/2006 1: 00 PM VETERINARY MILK SPECIALIST GROSS + MICRO EXAM [facility] 06/21/2006 9: 00 AM VETERINARY MILK SPECIALIST GROSS + MICRO EXAM [facility] 07/09/2004 8: 00 AM VETERINARY MILK SPECIALIST documented in this encounter Results * GROSS + MICRO EXAM (08/09/2006 1:00 PM VETERINARY MILK SPECIALIST) Result CASE NUMBER [id number] Comment: ORDERING PHYSICIAN ??SUSHIL LEWIS SPECIMEN TYPE ?Uterus DATE OF PROCEDURE ?08/09/2006 SPECIMEN LABELED ? Uterus, cervix PRE-OP DIAGNOSIS ? Menometrorrhagia GROSS DESCRIPTION ? GROSS DESCRIPTION The specimen is received in formalin labeled uterus, cervix patient Christina Hannon, and consists of a uterus with a somewhat elongated cervix, 113 grams. The external os measures 5 x 2.5 cm and exudes some blood. The adnexal vessels are tortuous. The serosal surfaces are smooth. There are 1 cm stumps of proximal ampullary tubes. One tube appears to have been previously ligated. There is a rare mesothelial cyst, up to 4 mm. Longitudinal AP cut section through the uterus shows two mucous cysts high in the endocervical canal, 8 and 12 mm. The anterior lower uterine segment is scarred and thin from previous section. The endometrium is smooth and atrophic, 1.5 mm. The myometrium measures 1.5 to 2 cm. There is a white plaque in the anterior fundal endometrium, 5 mm. There are also some mucous cysts in the portio vaginalis of the cervix. On cut section, the white fundal plaque is superficial. Multiple additional cut sections through the myometrium show no additional lesions. Dictated by ?Robert Clifton M.D. MICROSCOPIC DESCRIPTION The sections from the cervix and endocervix are normal the endometrium is proliferative phase. The sections from the myometrium are normal. DIAGNOSIS Uterus, hysterectomy ? cervix and endocervix with Nabothian cyst of the endocervix ? proliferative phase endometrium ? myometrium with no pathologic findings Dictated by ?Robert Cheek M.D. Gravity Prospecting Observer ? DAVID YOUNG Electronically Signed By ? ROBERT CHEEK MISCELLANEOUS SAMPLES / Unknown 08/09/2006 1:00 PM VETERINARY MILK SPECIALIST 08/09/2006 4:32 PM VETERINARY MILK SPECIALIST Historical Provider LAB - PATHOLOGY/C YTOLOGY ORDERABLES * GROSS + MICRO EXAM (06/21/2006 9:00 AM VETERINARY MILK SPECIALIST) Result CASE NUMBER [id number] Comment: ORDERING PHYSICIAN ??SUSHIL LEWIS SPECIMEN TYPE ?Endometrium,Curetti DATE OF PROCEDURE ?06/21/2006 SPECIMEN LABELED ? Endometrial curettage PRE-OP DIAGNOSIS ? Menorrhagia GROSS DESCRIPTION ? GROSS DESCRIPTION Specimen is received in formalin labeled endometrial curettage for patient Christina Hannon. ??It is two Telfa pads together containing 2 grams of blood clots, mucus and multiple brody curetting tissue strips of 12 mm in length, all used in four cassettes A. Dictated by ?? Robert Clifton M.D. MICROSCOPIC DESCRIPTION The sections from the endometrium show mid proliferative phase. DIAGNOSIS Uterus, endometrium, curettage ? mid proliferative phase Dictated by ?Robert Cheek M.D. Gravity Prospecting Observer ? ZURI ALLEN Electronically Signed By ? ROBERT CHEEK MISCELLANEOUS SAMPLES / Unknown 06/21/2006 9:00 AM VETERINARY MILK SPECIALIST 06/21/2006 1:22 PM VETERINARY MILK SPECIALIST Historical Provider MD LAB - PATHOLOGY/C YTOLOGY ORDERABLES * GROSS + MICRO EXAM (07/09/2004 8:00 AM VETERINARY MILK SPECIALIST) Result CASE NUMBER [id number] Comment: ORDERING PHYSICIAN ??SUSHIL LEWIS SPECIMEN TYPE ?Endometrium,Curetti DATE OF PROCEDURE ?07/09/2004 SPECIMEN LABELED ? Endometrial curettage PRE-OP DIAGNOSIS ? Menorrhagia GROSS DESCRIPTION ? GROSS DESCRIPTION The specimen is in a container of formalin labeled endometrial curettings patient ??Christina Hannon, and consists of approximately 5 grams of 1-5 mm pink hemorrhagic t issue fragments. They are submitted in three cassettes. Dictated by ? Robert Cheek M.D. MICROSCOPIC DESCRIPTION The sections show early secretory phase endometrium. DIAGNOSIS Uterus, endometrium, curettage ? early secretory phase Dictated by ??Robert Cheek MD Gravity Prospecting Observer ? DAVID YOUNG Electronically Signed By ? ROBERT CHEEK MISCELLANEOUS SAMPLES / Unknown 07/09/2004 8:00 AM VETERINARY MILK SPECIALIST 07/09/2004 9:16 AM VETERINARY MILK SPECIALIST Historical Provider LAB - PATHOLOGY/C YTOLOGY ORDERABLES documented in this encounter Visit Diagnoses Not on filedocumented in this encounter Care Teams Occupational Therapy Instructor Relationship Specialty Start Date End Date Luis Oscar MD [address] [place] [address] PCP - General Family Medicine 10/17/12 documented as of this encounter
--- OUTSIDE RECORDS SUMMARY | 2024-06-25 23:35 | XMS_ITS | Encounter Summary ---
Author Organization [facility] Address [address] [place] [address] Care Team Providers Care Manager Clinical Pharmacy Name Role Phone Luis Oscar MD Primary Care Provider [phone] Encounter Details Date Type Department Care Team (Late st Contact Info) Description 07/05/2018 Orders Only [facility] - CROZE MACHINE OPERATOR [address] [place] [address], [address] [place] [id number] Shira Renteria A Well woman exam Social History Tobacco Use Types Packs/Day Years Used Date Smoking Tobacco: Never Smokeless Tobacco: Never Alcohol Use Standard Drinks/Week Comments Not Asked 7 (1 standard drink = 0.6 oz pur e alcohol) Sex and Gender Information Value Date Recorded Sex Assigned at Not on file Gender Identity Not on file Sexual Orientation Not on file documented as of this encounter Plan of Treatment Not on file documented as of this encounter Visit Diagnoses Diagnosis Well woman exam Routine general medical examination at a health care facility documented in this encounter Care Teams Manager Clinical Pharmacy Relationship Specialty Start Date End Date Luis Oscar MD [address] [place] [address] PCP - General Family Medicine 10/17/12 documented as of this encounter
--- OUTSIDE RECORDS SUMMARY | 2024-06-25 23:35 | XMS_ITS | Encounter Summary ---
Author Organization [facility] Address [address] [place] [address] Care Team Providers Care Windows Support Engineer Name Role Phone Luis Oscar MD Primary Care Provider [phone] Reason for Visit * Reason Onset Date Comments Appointment 10/20/2020 Encounter Details Date Type Department Care Team (Late st Contact Info) Description 10/20/2020 Telephone [facility] - LENS GENERATING MACHINE TENDER [address] [place] [address], [address] [phone] Avinash Henderson MD [address] [place] [phone] Appointment Social History Tobacco Use Types Packs/Day Years Used Date Smoking Tobacco: Never Smokeless Tobacco: Never Alcohol Use Standard Drinks/Week Comments Yes 7 (1 standard drink = 0.6 oz pur e alcohol) Sex and Gender Information Value Date Recorded Sex Assigned at Not on file Gender Identity Not on file Sexual Orientation Not on file documented as of this encounter Miscellaneous Notes * Telephone Encounter - Amy Ambriz MA - 10/20/2020 3:03 PM CDT Called patient reviewed we're calling to make annual wellness exam with Dr Henderson.Appointment madeon 10/29/2020@2:20pm documented in this encounter Plan of Treatment Not on file documented as of this encounter Visit Diagnoses Not on filedocumented in this encounter Care Teams Windows Support Engineer Relationship Specialty Start Date End Date Luis Oscar MD [address] [place] [address] PCP - General Family Medicine 10/17/12 documented as of this encounter
--- OUTSIDE RECORDS SUMMARY | 2024-06-25 23:35 | XMS_ITS | Encounter Summary ---
Author Organization [facility] Address [address] [place] [address] Care Team Providers Care Non Destructive Evaluation Technician Name Role Phone Luis Oscar MD Primary Care Provider Encounter Details Date Type Department Care Team (Late st Contact Info) Description 05/25/2022 Orders Only [facility] - SPECIAL EDUCATION CURRICULUM SPECIALIST [address] [place] [address], [address] [place] [phone] Avinash Henderson MD [address] [place] [address] [place] [phone] Well woman exam Social History Tobacco Use Types Packs/Day Years Used Date Smoking Tobacco: Never Smokeless Tobacco: Never Alcohol Use Standard Drinks/Week Comments Yes 7 (1 standard drink = 0.6 oz pur e alcohol) PHQ-2 Answer Date Recorded PHQ2 TOTAL SCORE 0 03/29/2022 Sex and Gender Information Value Date Recorded Sex Assigned at Not on file Gender Identity Not on file Sexual Orientation Not on file documented as of this encounter Plan of Treatment Not on file documented as of this encounter Procedures Procedure Name Priority Date/Time Associated Diagnosis Comments MAMMO BILAT SCREENING Routine 05/24/2022 Well woman exam documented in this encounter Results * MAMMO BILAT SCREENING (05/24/2022) Anatomical Region Laterality Modality Breast Bilateral Mammography 05/24/2022 Avinash Henderson MD MAMMO ORDERABLES documented in this encounter Visit Diagnoses Diagnosis Well woman exam Routine general medical examination at a health care facility documented in this encounter Care Teams Non Destructive Evaluation Technician Relationship Specialty Start Date End Date Luis Oscar MD [address] [place] [address] PCP - General Family Medicine 10/17/12 documented as of this encounter
--- OUTSIDE RECORDS SUMMARY | 2024-06-25 23:35 | XMS_ITS | Encounter Summary ---
Author Organization [facility] Address [address] [place] [address] Care Team Providers Care Cpas Name Role Phone Luis Oscar MD Primary Care Provider [phone] Encounter Details Date Type Department Care Team (Latest Contact Info) Description 10/17/2012 2:25 PM CDT - 10/17/2012 11:59 PM CDT Hospital Encounter [facility] [address] [place] [address] Philippe Powell III, MD [address] [place] [phone] Discharge Disposition: Home or Self Care Social History Tobacco Use Types Packs/Day Years Used Date Smoking Tobacco: Never Assessed Sex and Gender Information Value Date Recorded Sex Assigned at Not on file Gender Identity Not on file Sexual Orientation Not on file documented as of this encounter Miscellaneous Notes * Miscellaneous Scans - Document, Scanned - 10/27/2012 12:55 PM CDT * Miscellaneous Scans - Document, Scanned - 10/27/2012 12:55 PM CDT documented in this encounter Plan of Treatment Not on file documented as of this encounter Procedures Procedure Name Priority Date/Time Associated Diagnosis Comments XR HAND BILAT 2VW Routine 10/17/2012 2:4 1 PM CDT Localized Osteoarthrosis Not Specified Whether Primary Or Secondary, Hand documented in this encounter Results * XR HANDS BILATERAL 2 VIEWS (10/17/2012 2:41 PM CDT) Anatomical Region Laterality Modality Wrist / Hand, Upper Extremity Ra diographic Imaging 10/17/2012 3:4 2 PM CDT Narrative 10/17/2012 3:48 PM CDT TWO VIEW BILATERAL HANDS HISTORY: Osteoarthritis. FINDINGS: There are minimal degenerative changes of the distal interphalangeal articulations notably in the middle finger and little finger on the left and index finger and middle finger on the right. There is a degenerative change of the first carpometacarpal articulations bilaterally and symmetrically and degenerative change of the distal pole of the scaphoid bilaterally. The radiocarpal joints appear normal. DIAGNOSIS: Minimal degenerative changes, as described. Procedure Note Adrian Vizcarra MD - 10/17/2012 TWO VIEW BILATERAL HANDS HISTORY: Osteoarthritis. FINDINGS: There are minimal degenerative changes of the distal interphalangeal articulations notably in the middle finger and little finger on the left and index finger and middle finger on the right. There is a degenerative change of the first carpometacarpal articulations bilaterally and symmetrically and degenerative change of the distal pole of the scaphoid bilaterally. The radiocarpal joints appear normal. DIAGNOSIS: Minimal degenerative changes, as described. Philippe Powell III, MD DIAGNOSTIC IMAGING O RDERABLES documented in this encounter Visit Diagnoses Diagnosis Localized osteoarthrosis not specified whether primary or secondary, hand documented in this encounter Care Teams Cpas Relationship Specialty Start Date End Date Luis Oscar MD [address] [place] [address] PCP - General Family Medicine 10/17/12 documented as of this encounter
--- OUTSIDE RECORDS SUMMARY | 2024-06-25 23:35 | XMS_ITS | Encounter Summary ---
Author Organization [facility] Address [address] [facility] [place] [address] Care Team Providers Care Cns Name Role Phone Luis Oscar MD Primary Care Provider [phone] Encounter Details Date Type Department Care Team (Latest Contact Info) Description 11/15/2023 Travel Social History Tobacco Use Types Packs/Day Years Used Date Smoking Tobacco: Never Smokeless Tobacco: Never Alcohol Use Standard Drinks/Week Comments Yes 7 (1 standard drink = 0.6 oz pur e alcohol) PHQ-2 Answer Date Recorded Patient Health Questionnaire-2 Score 0 11/15/2023 Sex and Gender Information Value Date Recorded Sex Assigned at Not on file Gender Identity Not on file Sexual Orientation Not on file documented as of this encounter Plan of Treatment Not on file documented as of this encounter Visit Diagnoses Not on filedocumented in this encounter Care Teams Cns Relationship Specialty Start Date End Date Luis Oscar MD [address] [place] [phone] PCP - General Family Medicine 10/17/12 documented as of this encounter
--- OUTSIDE RECORDS SUMMARY | 2024-06-25 23:35 | XMS_ITS | Patient Health Summary ---
Author Organization [facility] Address [address] [facility] [place] [address] Care Team Providers Care Airborne Operations Superintendent Name Role Phone Luis Oscar MD Primary Care Provider [phone] [facility],non-owned Affiliates and Associated Physician Practices is amultiple site organization consisting of ambulatory clinics and hospital sitesin [place], [place], [place] and [place]. This disclosure is being madepursuant to the Care Everywhere program and may not contain all information available regarding this patient. Last updated 18.[facility] Allergies * Alkylamines(Nausea and/or Vomiting) * Anesthesia S-I-60 * Altaryl * Hydrocodone(Nausea and/or Vomiting,Vomiting) * Morphine(Nausea and/or Vomiting,Vomiting) * Oxycodone(Nausea and/or Vomiting,Vomiting) * Penicillins(Nausea and/or Vomiting) Medications * Be aware that medications may not be up to date on this document. Alwaysverify current medications with the patient. * LORazepam (ATIVAN) 0.5 MG tablet(Started 03/09/2016) Take 1 (one) tablet by mouth at bedtime * Cholecalciferol (vitamin D3) 1.25 MG (04843 UT) capsule(Started 10/06/2023) Take 1 (one) capsule by mouth every 7 days * losartan (Cozaar) 50 MG tablet(Started 09/23/2023) 25mg AM and 50mg PM * metoprolol succinate XL 24hr (Toprol XL) 25 MG tablet(Started 10/06/2023) Take 1 (one) tablet by mouth once daily * rimegepant (Nurtec) 75 MG tablet Take 75 mg by mouth once daily as needed for Migraine * solifenacin (VESIcare) 5 MG tablet(Started 12/01/2023) Take 1 (one) tablet by mouth once daily 5 refills by 11/30/2024 Active Problems No known active problems Social History Tobacco Use Types Packs/Day Years [...] Mass Index 31.89 12/01/2023 2:03 PM CDT Procedures * DEXA BONE DENSITY 2 SITES(Performed 06/19/2024) * PAP IG LB(Performed 11/15/2023) Performed for Well woman exam * OCCULT BLOOD FECES 1-3 SCREEN POINT OF CARE (AMB)(Performed 11/15/2023) Performed for Colon cancer screening * DEXA BONE DENSITY 2 SITES(Performed 05/24/2022) * MAMMO BILAT SCREENING(Performed 05/24/2022) Performed for Well woman exam * OCCULT BLOOD FECES 1-3 SCREEN POINT OF CARE (AMB)(Performed 03/29/2022) Performed for Colon cancer screening * PAP IG LB+HPV APTIMA(Performed 03/29/2022) Performed for Well woman exam * MAMMO BILAT SCREENING(Performed 11/12/2020) Performed for Well woman exam * OCCULT BLOOD FECES 1-3 SCREEN POINT OF CARE (AMB)(Performed 10/29/2020) Performed for Colon cancer screening * PAP IG LB+HPV APTIMA(Performed 10/29/2020) Performed for Well woman exam * MAMMOGRAPHY ORDER(Performed 06/21/2019) * PAP IG LB + HPV HR(Performed 06/15/2019) Performed for Well woman exam * OCCULT BLOOD FECES 1-3 SCREEN POINT OF CARE (AMB)(Performed 06/15/2019) Performed for Colon cancer screening * PAP IG LB + HPV HR(Performed 05/20/2018) Performed for Well woman exam * OCCULT BLOOD FECES 1-3 SCREEN POINT OF CARE (AMB)(Performed 05/20/2018) Performed for Colon cancer screening * PAP IG LB + HPV HR(Performed 04/20/2017) Performed for Well woman exam * OCCULT BLOOD FECES 1-3 SCREEN POC (AMB) STL(Performed 04/20/2017) Performed for Colon cancer screening * MAMMOGRAPHY ORDER(Performed 04/29/2016) * PAP IG LB + HPV HR(Performed 04/15/2016) Performed for Well woman exam * OCCULT BLOOD FECES 1-3 SCREEN POC (AMB) STL(Performed 04/15/2016) Performed for Colon cancer screening * XR HAND BILAT 2VW(Performed 10/17/2012) Performed for Localized Osteoarthrosis Not Specified Whether Primary Or Secondary, Hand * GROSS + MICRO EXAM(Performed 08/09/2006) * GROSS + MICRO EXAM(Performed 06/21/2006) * GROSS + MICRO EXAM(Performed 07/09/2004) Results * DEXA BONE DENSITY 2 SITES (06/19/2024) Only the most recent of2 resultswithin the time period is included. Anatomical Region Laterality Modality Other 06/19/2024 Narrative 06/19/2024 Ordered by an unspecified provider. Scanned Document DEXA ORDERABLES * PAP IG LB (11/15/2023 10:40 AM CDT) Diagnosis [facility] ACCOUNT BILL Comment: NEGATIVE FOR INTRAEPITHELIAL LESION OR MALIGNANCY. CELLULAR CHANGES ASSOCIATED WITH ATROPHY ARE PRESENT. Specimen Adequacy [facility] ACCOUNT BILL Comment: Satisfactory for evaluation. ??Endocervical component may not be distinguished in cases of atrophy. Clinician Provided ICD10 [facility] ACCOUNT BILL Comment: Z01.419 Z12.11 N39.46 Performed by [facility] ACCOUNT BILL Comment:Chente andrew, Network Solutions Architect (ASCP) Comment . [facility] ACCOUNT BILL Note [facility] ACCOUNT BILL Comment: The Pap smear is a screening test designed to aid in the detection of premalignant and malignant conditions of the uterine cervix. ??It is not a diagnostic procedure and should not be used as the sole means of detecting cervical cancer. ??Both false-positive and false-negative reports do occur. ? . IGLBP CPT Code Automation [facility] ACCOUNT BILL Comment: This liquid based ThinPrep(R) pap test was screened with the use of an image guided system. Pathology/Cytolog y ENTIRE VAGINA / Unknown 11/15/2023 10:40 AM CDT 11/15/2023 Narrative [facility] ACCOUNT BILL - 11/18/2023 1:09 PM CDT No. of containers..01 ThinPrep Vial Resulting Agency Comment Lab Testing performed at: [place] [address] ?? [facility] [phone] Avinash Lewis MD LAB - PATHOLOGY/CYT OLOGY ORDERABLES [facility] ACCOUNT BILL [address] [place] [address] * OCCULT BLOOD FECES 1-3 SCREEN POINT OF CARE (AMB) (11/15/2023 10:31 AM CDT) Only the most recent of5 resultswithin the time period is included. Occult Blood 1 neg Negative [facility] Occult Blood 2 [facility] Occult Blood 3 [facility] Card Lot Number [id number] Card Exp Date [facility] Developer Lot Number [facility] Developer Expiration Date [facility] QC Negative [facility] QC Positive [facility] Stool STOOL SPECIMEN / Unknown 11/15/2023 10:31 AM CDT Avinash Lewis MD LAB - POINT OF CARE ORDERABLES [facility] [address], [address] [place] [address], [facility] [phone] * MAMMO BILAT SCREENING (05/24/2022) Only the most recent of2 resultswithin the time period is included. Anatomical Region Laterality Modality Breast Bilateral Mammography 05/24/2022 Avinash Lewis MD MAMMO ORDERABLES * PAP IG LB+HPV APTIMA (03/29/2022 11:20 AM CDT) Only the most recent of2 resultswithin the time period is included. Diagnosis [facility] ACCOUNT BILL Comment: NEGATIVE FOR INTRAEPITHELIAL LESION OR MALIGNANCY. CELLULAR CHANGES ASSOCIATED WITH ATROPHY AND INFLAMMATION ARE PRESENT. Specimen Adequacy [facility] ACCOUNT BILL Comment: Satisfactory for evaluation. ??Endocervical component may not be distinguished in cases of atrophy. Clinician Provided ICD10 [facility] ACCOUNT BILL Comment: Z01.419 Z12.11 Performed by [facility] ACCOUNT BILL Comment:Jennifer Lewis, Cyto technologist Comment . [facility] ACCOUNT BILL Note [facility] ACCOUNT BILL Comment: The Pap smear is a screening test designed to aid in the detection of premalignant and malignant conditions of the uterine cervix. ??It is not a diagnostic procedure and should not be used as the sole means of detecting cervical cancer. ??Both false-positive and false-negative reports do occur. ? . IGLBP CPT Code Automation [facility] ACCOUNT BILL Comment: This liquid based ThinPrep(R) pap test was screened with the use of an image guided system. Human papillomavirus Aptima Negative Negative [facility] ACCOUNT BILL Comment: This nucleic acid amplification test detects fourteen high-risk HPV types (16,18,31,33,35,39,45,51,52,56,58,59,66,68) without differentiation. Pathology/Cytolog y ENTIRE VAGINA / Unknown 03/29/2022 11:20 AM CDT 03/30/2022 Narrative [facility] ACCOUNT BILL - 04/03/2022 10:09 AM CDT No. of containers..01 ThinPrep Vial Resulting Agency Comment Lab Testing performed at: [address] ??[place] [id number] Avinash Lewis MD LAB - PATHOLOGY/CYT OLOGY ORDERABLES [facility] ACCOUNT BILL [address] [place] [address] * MAMMOGRAPHY ORDER (06/21/2019) Only the most recent of2 resultswithin the time period is included. Anatomical Region Laterality Modality Mammography Scanned Document MAMMO ORDERABLES * PAP IG LB + HPV HR (06/15/2019 2:51 PM STEM LEAD FORMER) Only the most recent of4 resultswithin the time period is included. Diagnosis [facility] INSURANCE BILL Comment: NEGATIVE FOR INTRAEPITHELIAL LESION OR MALIGNANCY. CELLULAR CHANGES ASSOCIATED WITH ATROPHY AND INFLAMMATION ARE PRESENT. Specimen Adequacy [facility] INSURANCE BILL Comment: Satisfactory for evaluation. ??Endocervical component may not be distinguished in cases of atrophy. Clinician Provided ICD10 [facility] INSURANCE BILL Comment: Z01.419 Z12.11 N64.4 Performed by [facility] INSURANCE BILL Comment:Emelyn Bingham, Cytot echnologist (ASCP) Comment . [facility] INSURANCE BILL Note [facility] INSURANCE BILL Comment: The Pap smear is a screening test designed to aid in the detection of premalignant and malignant conditions of the uterine cervix. ??It is not a diagnostic procedure and should not be used as the sole means of detecting cervical cancer. ??Both false-positive and false-negative reports do occur. ? . IGLBP CPT Code Automation [facility] INSURANCE BILL Comment: This liquid based ThinPrep(R) pap test was screened with the use of an image guided system. Human papillomavirus High Risk Negative Negative [facility] INSURANCE BILL Comment: This nucleic acid amplification high-risk HPV test detects thirteen high-risk types (16,18,31,33,35,39,45,51,52,56,58,59,68) without differentiation. Pathology/Cytolog y ENTIRE VAGINA / Unknown 06/15/2019 2:51 PM STEM LEAD FORMER 06/15/2019 N[facility]ative [facility] - 06/19/2019 11:09 AM STEM LEAD FORMER No. of containers..01 ThinPrep Vial Resulting Agency Comment Lab Testing performed at: [address] ??[facility] [id number] Avinash Lewis MD LAB - PATHOLOGY/CYT OLOGY ORDERABLES [facility] INSURANCE BILL [address] [place] [address] * OCCULT BLOOD FECES 1-3 SCREEN POC (AMB) STL (04/20/2017) Only the most recent of2 resultswithin the time period is included. Occult Blood 1 neg Negative Occult Blood 2 Negative Occult Blood 3 Negative Card Lot Number z Card Exp Date z Yes Developer Lot Number z Developer Expiration Date z Yes QC Negative z Negative QC Positive z Stool STOOL SPECIMEN / Unknown 04/20/2017 Avinash Lewis MD LAB - POINT OF CARE ORDERABLES * XR HANDS BILATERAL 2 VIEWS (10/17/2012 2:41 PM CDT) Anatomical Region Laterality Modality Wrist / Hand, Upper Extremity Ra diographic Imaging 10/17/2012 3:42 PM CDT Narrative 10/17/2012 3:48 PM CDT [...] Powell III, MD DIAGNOSTIC IMAGING O RDERABLES * GROSS + MICRO EXAM (08/09/2006 1:00 PM STEM LEAD FORMER) Only the most recent of3 resultswithin the time period is included. Result CASE NUMBER [id number] Comment: ORDERING PHYSICIAN ??AVINASH LEWIS SPECIMEN TYPE ?Uterus DATE OF PROCEDURE [...] myometrium show no additional lesions. Dictated by ?Vicenta Clifton M.D. MICROSCOPIC DESCRIPTION The sections from the cervix and endocervix are normal the endometrium is proliferative phase. The sections from the myometrium are normal. DIAGNOSIS Uterus, hysterectomy ? cervix and endocervix with Nabothian cyst of the endocervix ? proliferative phase endometrium ? myometrium with no pathologic findings Dictated by ?Vicenta Cheek M.D. Technologies Division Chair ? DAVID YOUNG Electronically Signed By ? VICENTA CHEEK MISCELLANEOUS SAMPLES / Unknown 08/09/2006 1:00 PM STEM LEAD FORMER 08/09/2006 4:32 PM STEM LEAD FORMER Historical Provider LAB - PATHOLOGY/C YTOLOGY ORDERABLES Care Teams Airborne Operations Superintendent Relationship Specialty Start Date End Date Luis Oscar MD [address] [place] [phone] PCP - General Family Medicine 10/17/12
--- OUTSIDE RECORDS SUMMARY | 2024-06-25 23:35 | XMS_ITS | Encounter Summary ---
Author Organization [facility] Address [address] [place] [address] Care Team Providers Care Ammonia Worker Name Role Phone Luis Oscar MD Primary Care Provider [phone] Encounter Details Date Type Department Care Team (Late st Contact Info) Description 11/13/2020 Orders Only [facility] - LOMBARDI DEVELOPER [address] [place] [address], [address] [place] [phone] Avinash Henderson MD [address] [place] [address] [place] [phone] Well woman exam Social History Tobacco [...] Associated Diagnosis Comments MAMMO BILAT SCREENING Routine 11/12/2020 Well woman exam documented in this encounter Results * MAMMO BILAT SCREENING (11/12/2020) Anatomical Region Laterality Modality Breast Bilateral Mammography Avinash Henderson MD MAMMO ORDERABLES documented in this encounter Visit Diagnoses Diagnosis Well woman exam Routine general medical examination at a health care facility documented in this encounter Care Teams Ammonia Worker Relationship Specialty Start Date End Date Luis Oscar MD [address] [place] [address] PCP - General Family Medicine 10/17/12 documented as of this encounter
--- OUTSIDE RECORDS SUMMARY | 2024-06-25 23:35 | XMS_ITS | Encounter Summary ---
Author Organization [facility] Address [address] [place] [address] Care Team Providers Care Drop Worker Name Role Phone Luis Oscar MD Primary Care Provider [phone] Encounter Details Date Type Department Care Team (Late st Contact Info) Description 05/17/2017 Orders Only [facility] - MANAGER MASSAGE DEPARTMENT [address] [place] [address], [address] [place] [phone] [place], [place] Well woman exam Social History Tobacco Use [...] facility documented in this encounter Care Teams Drop Worker Relationship Specialty Start Date End Date Luis Oscar MD [address] [place] [address] PCP - General Family Medicine 10/17/12 documented as of this encounter
--- OUTSIDE RECORDS SUMMARY | 2024-06-25 23:35 | XMS_ITS | Encounter Summary ---
Author Organization [facility] Address [address] [place] [address] Care Team Providers Care Hook And Eye Sewing Machine Operator Name Role Phone Luis Oscar MD Primary Care Provider [phone] Reason for Referral * Radiology Services (Routine) - Closed Specialty Diagnoses / Procedures Referred By Abdelrahman aguayo Referred To Contact Diagnoses Well woman exam Procedures MAMMO SCREENING DIGITAL IMAGE BILAT Avinash Henderson MD [address] [place] [phone] [facility] Referral ID Status Reason Start Date Expiration Date Visits Re quested Visits Authorized [id number] Closed 04/20/2017 10/17/2017 1 1 ICIANS ASSISTANT Reason for Visit * Reason Comments Well Women Exam Encounter Details Date Type Department Care Team (Late Contact Info) Description 04/20/2017 11:30 AM PHYSICIANS ASSISTANT Office Visit [facility] Medical [facility] - ADULT HEALTH CLINICAL NURSE SPECIALIST [address] [place] [address], [address] [place] [phone] Avinash Henderson MD [address] [place] [phone] Well woman exam (Primary Dx); Colon cancer screening Social History Tobacco Use Types Packs/Day Years Used Date Smoking Tobacco: Never Smokeless Tobacco: Never Alcohol Use Standard Drinks/Week Comments Not Asked 7 (1 standard drink = 0.6 oz pur e alcohol) Sex and Gender Information Value Date Recorded Sex Assigned at Not on file Gender Identity Not on file Sexual Orientation Not on file documented as of this encounter Last Filed Vital Signs Vital Sign Reading Time Taken Comments Blood Pressure 120/80 04/20/2017 11:31 AM PHYSICIANS ASSISTANT Pulse - - Temperature - - Respiratory Rate - - Oxygen Saturation - - Inhaled Oxygen Concentration - - Weight 66.2 kg (146 lb) 04/20/2017 11:31 AM PHYSICIANS ASSISTANT Height 162.6 cm (5' 4 ) 04/20/2017 11:31 AM PHYSICIANS ASSISTANT Body Mass Index 25.06 04/20/2017 11:31 AM PHYSICIANS ASSISTANT documented in this encounter Progress Notes * Avinash Henderson MD - 04/20/2017 11:36 AM CST Well Woman Yearly Exam HISTORY: Christina Edmond is a 61 y.o. female, No LMP recorded. Patient has had a hysterectomy., here for a Well Woman exam. Patient does not have other gynecological issues or concerns. PUMP RUNNER History: Menses: no menstrual cycles for 10 years, menopause at age 51. Menopausal/Vasomotor symptoms: vaginal dryness no, hot flashes no, night sweats no On HRT: no Screening for STD: no Other pertinent PUMP RUNNER history: Denies domestic violence, history of blood transfusion, and previous STD. She got a tatoo at age 61 of a hemlock tree on right ankle Sexual activity: no, libido- zero none nil ROS: Denies breast pain, discharge, skin changes, pelvic pain, discharge, dyspareunia Denies CP, SOB, N/V, F/C, diarrhea or constipation Last Pap: 2015 Last Mammogram or breast ultrasound: 2016 Last Colonoscopy: 2016 Last Bone Density: several years ago OB History: OB History Para Term AB Living 6 5 5 1 5 SAB TAB Ectopic Multiple Live Births 1 Past Medical History: Past Medical History: Diagnosis Date ??? Rheumatoid arthritis 02/2016 Past Surgical History: Past Surgical History: Procedure Laterality Date ??? Section five times ??? HYSTERECTOMY, LAPAROSCOPIC ASSISTED VAGINAL 2008 ovaries left in and bladder perforation and bladder repaired laparoscopically Allergies: Allergies Allergen Reactions ??? Anesthesia S-I-60 ??? Antihistamine [Altaryl] Family History: Breast cancer yes , colon cancer no , uterine cancer no , ovarian cancer no Social History: Social History Social History ??? Marital status: Spouse name: N/A ??? Number of children: N/A ??? Years of education: N/A Occupational History ??? Not on file. Social History Main Topics ??? Smoking status: Never Smoker ??? Smokeless tobacco: Never Used ??? Alcohol use Not on file ??? Drug use: No ??? Sexual activity: No Other Topics Concern ??? Not on file Social History Narrative Current Outpatient Prescriptions on File Prior to Visit Medication Sig Dispense Refill ??? LORazepam (ATIVAN) 0.5 MG tablet Take 0.5 mg by mouth at bedtime ??? zolpidem (AMBIEN) 5 MG tablet Take 5 mg by mouth nightly as needed for Insomnia No current facility-administered medications on file prior to visit. Other pertinent history: Medical, Surgical, Family, and Social History Reviewed. Allergies reviewed. Review of Systems A comprehensive review of systems was negative except as described in HPI. EXAMINATION BP 120/80 Ht 5' 4 Wt 146 lb BMI 25.06 kg/m2 General Appearance: alert, cooperative, no distress Extremities: no clubbing, cyanosis or edema Neck: No masses, thyroid not enlarged. Lymph Nodes: No cervical, axillary, or inguinal adenopathy Breasts: Symmetric, nontender, no masses or discharge, no skin changes or puckering noted Heart: Regular rhythm, normal S1 and S2, without murmurs or gallops. Lungs: Clear to auscultation bilaterally, no wheezes, rales or rhonchi Abdomen: Soft without mass, non-tender, with normal bowel sounds, no rebound, no guarding Pelvic: External genitalia: normal general appearance Urinary system: urethral meatus normal Vaginal: atrophic mucosa Cervix: absent Adnexa: normal bimanual exam Uterus: absent Rectal: good sphincter tone, no masses, guaiac negative Pap performed. Discharge: scant ASSESSMENT Well Woman Exam ICD-10-CM 1. Well woman exam Z01.419 MAMMO SCREENING DIGITAL IMAGE BILAT PAP IG LB + HPV HR 2. Colon cancer screening Z12.11 OCCULT BLOOD FECES 1-3 SCREEN POC (AMB) STL PLAN See orders, medications, patient instruction Discussed issues related to well woman mammograms and BSE Orders Placed This Encounter ??? MAMMO SCREENING DIGITAL IMAGE BILAT Do not schedule. Standing Status: Future Standing Expiration Date: 04/20/2018 Order Specific Question: Reason for Exam Answer: brerast cancer screening Order Specific Question: Perform Diagnostic mamm if screening abnormal? Answer: Yes Order Specific Question: Perform US breast if screening mamm abnormal? Answer: Yes Order Specific Question: Perform Breast Biopsy if screening mamm is abnormal? Answer: Yes ??? OCCULT BLOOD FECES 1-3 SCREEN POC (AMB) STL ??? PAP IG LB + HPV HR Order Specific Question: Collection Method? Answer: BRUSH-SPATULA Return in about 1 year (around 04/20/2018). Avinash Henderson MD ICIANS ASSISTANT documented in this encounter Plan of Treatment Scheduled Orders Name Type Priority Associated Diagnoses Orde r Schedule MAMMO SCREENING DIGITAL IMAGE BILAT Imaging Routine Well woman exam 1 Occurrences starting 04/20/2017 until 04/20/2018 documented as of this encounter Procedures Procedure Name Priority Date/Time Associated Diagnosis Comments PAP IG LB + HPV HR Routine 04/20/2017 11 :53 AM PHYSICIANS ASSISTANT Well woman exam OCCULT BLOOD FECES 1-3 SCREEN POC (AMB) STL Routine 04/20/2017 Colon cancer screening documented in this encounter Results * PAP IG LB + HPV HR (04/20/2017 11:53 AM PHYSICIANS ASSISTANT) Diagnosis [facility] ACCOUNT BILL Comment: NEGATIVE FOR INTRAEPITHELIAL LESION AND MALIGNANCY. CELLULAR CHANGES ASSOCIATED WITH ATROPHY ARE PRESENT. Specimen Adequacy [facility] ACCOUNT BILL Comment: Satisfactory for evaluation. ??Endocervical component may not be distinguished in cases of atrophy. Clinician Provided ICD10 [facility] ACCOUNT BILL Comment: Z01.419 Z12.11 Performed by [facility] ACCOUNT BILL Comment:Dell Granados, Mortgage Sales Manager ([facility]) Comment . [facility] ACCOUNT BILL Note [facility] [...] Human papillomavirus High Risk Negative Negative [facility] ACCOUNT BILL Comment: This high-risk HPV test detects thirteen high-risk types (16/18/31/33/35/39/45/51/52/56/58/59/68) without differentiation. ?. Pathology/Cytolog y ENTIRE VAGINA / Unknown 04/20/2017 11:53 AM PHYSICIANS ASSISTANT 04/20/2017 Narrative [facility] ACCOUNT BILL - 04/22/2017 5:11 PM PHYSICIANS ASSISTANT No. of containers..01 ThinPrep Vial Resulting Agency Comment [facility] [place] [facility] ??[place]ajal [phone] Avinash Henderson MD LAB - PATHOLOGY/CYT OLOGY ORDERABLES [facility] ACCOUNT BILL [address] [place] [address] * OCCULT BLOOD FECES 1-3 SCREEN POC (AMB) STL (04/20/2017) Occult Blood 1 neg Negative Occult Blood 2 Negative Occult Blood 3 Negative Card Lot Number z Card Exp Date z Yes Developer Lot Number z Developer Expiration Date z Yes QC Negative z Negative QC Positive z Stool STOOL SPECIMEN / Unknown 04/20/2017 Avinash Henderson MD LAB - POINT OF CARE ORDERABLES documented in this encounter Visit Diagnoses Diagnosis Well woman exam- Primary Routine general medical examination at a health care facility Colon cancer screening Special screening for malignant neoplasms, colon documented in this encounter Care Teams Hook And Eye Sewing Machine Operator Relationship Specialty Start Date End Date Luis Oscar MD [address] [place] [address] PCP - General Family Medicine 10/17/12 documented as of this encounter
--- OUTSIDE RECORDS SUMMARY | 2024-06-25 23:35 | XMS_ITS | Encounter Summary ---
Author Organization [facility] Address [address] [place] [address] Care Team Providers Care Ballet Professor Name Role Phone Luis Oscar MD Primary Care Provider [phone] Reason for Visit * Reason Comments Well Women Exam Encounter Details Date Type Department Care Team (Late st Contact Info) Description 06/15/2019 2:00 PM MANAGEMENT TRAINEE MARKETING Office Visit [facility] Medical [facility] - ALCOHOLISM WORKER [address] [place] [address], [address] [place] [phone] Sushil Lewis MD [address] [place] [phone] Well woman exam (Primary Dx); Colon cancer screening; Mastalgia Social History Tobacco Use Types Packs/Day Years [...] Sign Reading Time Taken Comments Blood Pressure 124/80 06/15/2019 2:23 PM MANAGEMENT TRAINEE MARKETING Pulse - - Temperature - - Respiratory Rate - - Oxygen Saturation - - Inhaled Oxygen Concentration - - Weight 77.1 kg (170 lb) 06/15/2019 2:23 PM MANAGEMENT TRAINEE MARKETING Height 162.6 cm (5' 4 ) 06/15/2019 2:23 PM MANAGEMENT TRAINEE MARKETING Body Mass Index 29.18 06/15/2019 2:23 PM MANAGEMENT TRAINEE MARKETING documented in this encounter Progress Notes * Sushil Lewis MD - 06/15/2019 2:37 PM CST Well Woman Yearly Exam HISTORY: Christina Edmond is a 63 year old female, No LMP recorded (lmp unknown). Patient has had a hysterectomy., here for a Well Woman exam. Patient does have other gynecological issues or concerns.Since her 6 weeks ago her left breast has been painful. She thinks it was therebefore he . RIPENING ROOM ATTENDANT History: Menses: no menstrual cycles for 12 years, menopause at age 51. Menopausal/Vasomotor symptoms: vaginal dryness no, hot flashes no, night sweats no On HRT: no Screening for STD: no Other pertinent RIPENING ROOM ATTENDANT history: Denies domestic violence, history of blood transfusion, tatoos, and previous STD. Sexual activity: not currently, libido- zero ROS: Denies breast pain, discharge, skin changes, pelvic pain, discharge, dyspareunia Denies CP, SOB, N/V, F/C, diarrhea or constipation Last Pap: 2018 Last Mammogram or breast ultrasound: 2019 Last Colonoscopy: 3 years ago Last Bone Density: in past OB History: OB History 6 Para 5 Term 5 AB 1 Living 5 SAB 1 TAB Ectopic Multiple Live Births 5 Past Medical History: Past Medical History: Diagnosis Date ??? Rheumatoid arthritis 02/2016 Past Surgical History: Past Surgical History: Procedure Laterality Date ??? Section five times ??? HYSTERECTOMY, LAPAROSCOPIC ASSISTED VAGINAL 2008 ovaries left in and bladder perforation and bladder repaired laparoscopically Allergies: Allergies Allergen Reactions ??? Hydrocodone Nausea and/or Vomiting and Vomiting Reaction: Nausea, Vomiting, ??? Morphine Nausea and/or Vomiting and Vomiting Reaction: Nausea, Vomiting, ??? Oxycodone Nausea and/or Vomiting and Vomiting Reaction: Nausea, Vomiting, ??? Penicillins Nausea and/or Vomiting ??? Alkylamines Nausea and/or Vomiting ??? Anesthesia S-I-60 ??? Antihistamine [Altaryl] Family History: Breast cancer yes , colon cancer no , uterine cancer no , ovarian cancer no Social History: Social History Socioeconomic History ??? Marital status: Spouse name: Not on file ??? Number of children: Not on file ??? Years of education: Not on file ??? Highest education level: Not on file Occupational History ??? Not on file Social Needs ??? Financial resource strain: Not on file ??? Food insecurity: Worry: Not on file Inability: Not on file ??? Transportation needs: Medical: Not on file Non-medical: Not on file Tobacco Use ??? Smoking status: Never Smoker ??? Smokeless tobacco: Never Used Substance and Sexual Activity ??? Alcohol use: Yes Alcohol/week: 7.0 standard drinks Types: 7 Standard drinks or equivalent per week ??? Drug use: No ??? Sexual activity: Never control/protection: Hysterectomy Lifestyle ??? Physical activity: Days per week: Not on file Minutes per session: Not on file ??? Stress: Not on file Relationships ??? Social connections: Talks on phone: Not on file Gets together: Not on file Attends presybeterian service: Not on file Active member of club or organization: Not on file Attends meetings of clubs or organizations: Not on file Relationship status: Not on file ??? Intimate partner violence: Fear of current or ex partner: Not on file Emotionally abused: Not on file Physically abused: Not on file Forced sexual activity: Not on file Other Topics Concern ??? Not on file Social History Narrative ??? Not on file Current Outpatient Medications on File Prior to Visit Medication Sig Dispense Refill ??? escitalopram (LEXAPRO) 10 MG tablet TK 1 T PO QD 1 ??? loratadine (CLARITIN) 10 MG tablet 10 mg ??? LORazepam (ATIVAN) 0.5 MG tablet Take [...] except as described in HPI. EXAMINATION BP 124/80 Ht 5' 4 Wt 170 lb BMI 29.18 kg/m2 General Appearance: alert, cooperative, no distress [...] ICD-10-CM 1. Well woman exam Z01.419 MAMMO BILAT SCREENING PAP IG LB + HPV HR 2. Colon cancer screening Z12.11 OCCULT BLOOD FECES 1-3 SCREEN POINT OF CARE (AMB) 3. Mastalgia N64.4 US BREAST BILATERAL COMPLETE PLAN See orders, medications, patient instruction Discussed issues related to well woman mammograms and BSE Discussed will get a mamm first and an US if necessary for the mastalgia and if it persists will need to see a breast specialist. Orders Placed This Encounter ??? MAMMO BILAT SCREENING Standing Status: Future Standing Expiration Date: 06/14/2020 Order Specific Question: Reason for Exam Answer: breast cancer screening Order Specific Question: Perform Diagnostic mamm if screening abnormal? Answer: No Order Specific Question: Perform US breast if screening mamm abnormal? Answer: No Order Specific Question: Perform Breast Biopsy if screening mamm is abnormal? Answer: No ??? US BREAST BILATERAL COMPLETE Do Not schedule. Standing Status: Future Standing Expiration Date: 06/14/2020 Order Specific Question: Exam to be performed? Answer: Per Radiologist protocol ??? OCCULT BLOOD FECES 1-3 SCREEN POINT OF CARE (AMB) ??? PAP IG LB + HPV HR Return in about 1 year (around 06/15/2020). Sushil Lewis MD GEMENT TRAINEE MARKETING documented in this encounter Miscellaneous Notes * Addendum Note - Sushil Lewis MD - 06/15/2019 2:57 PM CSTAddended by: SUSHIL LEWIS on: 06/15/2019 02:57 PM Modules accepted: Orders GEMENT TRAINEE MARKETING documented in this encounter Plan of Treatment Not on file documented as of this encounter Procedures Procedure Name Priority Date/Time Associated Diagnosis Comments PAP IG LB + HPV HR Routine 06/15/2019 2: 51 PM MANAGEMENT TRAINEE MARKETING Well woman exam OCCULT BLOOD FECES 1-3 SCREEN POINT OF CARE (AMB) Routine 06/15/2019 Colon cancer screening documented in this encounter Results * PAP IG LB + HPV HR (06/15/2019 2:51 PM MANAGEMENT TRAINEE MARKETING) Diagnosis [facility] INSURANCE BILL Comment: NEGATIVE FOR INTRAEPITHELIAL LESION OR MALIGNANCY. CELLULAR CHANGES ASSOCIATED WITH ATROPHY AND INFLAMMATION ARE PRESENT. Specimen Adequacy [facility] INSURANCE BILL Comment: Satisfactory for evaluation. ??Endocervical component may not be distinguished in cases of atrophy. Clinician Provided ICD10 [facility] INSURANCE BILL Comment: Z01.419 Z12.11 N64.4 Performed by [facility] INSURANCE BILL Comment:Emelyn Bingham, Cytot echnologist (ASCP) Comment . [facility] INSURANCE BILL Note [facility] INSURANCE BILL Comment: The Pap smear is [...] system. Human papillomavirus High Risk Negative Negative [facility] INSURANCE BILL Comment: This nucleic acid amplification high-risk HPV test detects thirteen high-risk types (16,18,31,33,35,39,45,51,52,56,58,59,68) without differentiation. Pathology/Cytolog y ENTIRE VAGINA / Unknown 06/15/2019 2:51 PM MANAGEMENT TRAINEE MARKETING 06/15/2019 Narrative [facility] INSURANCE BILL - 06/19/2019 11:09 AM MANAGEMENT TRAINEE MARKETING No. of containers..01 ThinPrep Vial Resulting Agency Comment Lab Testing performed at: [address] ??[place] [phone] Sushil Lewis MD LAB - PATHOLOGY/CYT OLOGY ORDERABLES [facility] INSURANCE BILL [address] [address] * OCCULT BLOOD FECES 1-3 SCREEN POINT OF CARE (AMB) (06/15/2019) Occult Blood 1 neg Negative Occult Blood 2 Occult Blood 3 Card Lot Number Card Exp Date Developer Lot Number Developer Expiration Date QC Negative QC Positive Stool STOOL SPECIMEN / Unknown 06/15/2019 Sushil Lewis MD LAB - POINT OF CARE ORDERABLES documented in this encounter Visit Diagnoses Diagnosis Well woman exam- Primary Routine general medical examination at a health care facility Colon cancer screening Special screening for malignant neoplasms, colon Mastalgia Mastodynia documented in this encounter Care Teams Ballet Professor Relationship Specialty Start Date End Date Luis Oscar MD [address] [place] [address] PCP - General Family Medicine 10/17/12 documented as of this encounter
--- OUTSIDE RECORDS SUMMARY | 2024-06-25 23:35 | XMS_ITS | Encounter Summary ---
Author Organization [facility] Address [address] [place] [address] Care Team Providers Care Computer Analyst Supervisor Name Role Phone Luis Oscar MD Primary Care Provider [phone] Reason for Visit * Reason Onset Date Comments Order 03/17/2022 Encounter Details Date Type Department Care Team (Late st Contact Info) Description 03/17/2022 Telephone [facility] - BEEF CATTLE GRAZIER [address] [place] [address], [address] [place] [phone] Avinash Henderson MD [address] [place] [phone] Order Social History Tobacco Use Types Packs/Day Years [...] encounter Miscellaneous Notes * Telephone Encounter - Aayna Orellana RN - 03/17/2022 10:18 AM CDT Pt calls to request Screening mammogram and bone density orders. She was last seen 10/2020. Appt scheduled 03/29/22. Will give orders at appt. documented in this encounter Plan of Treatment Not on file documented as of this encounter Visit Diagnoses Not on filedocumented in this encounter Care Teams Computer Analyst Supervisor Relationship Specialty Start Date End Date Luis Oscar MD [address] [place] [address] PCP - General Family Medicine 10/17/12 documented as of this encounter
--- OUTSIDE RECORDS SUMMARY | 2024-06-25 23:35 | XMS_ITS | Encounter Summary ---
Author Organization [facility] Address [address] [place] [address] Care Team Providers Care Doctor Of Nursing Practice Name Role Phone Luis Oscar MD Primary Care Provider [phone] Reason for Referral * Radiology Services (Routine) - Closed Specialty Diagnoses / Procedures Referred By Abdelrahman aguayo Referred To Contact Mammography Diagnoses Well woman exam Procedures MAMMO BILAT SCREENING Avinash Henderson MD [address] [place] [phone] Referral ID Status Reason Start Date Expiration Date Visits Re quested Visits Authorized [id number] Closed 05/20/2018 11/16/2018 1 1 BAG BUFFER Reason for Visit * Reason Comments Well Women Exam Encounter Details Date Type Department Care Team (Late Contact Info) Description 05/20/2018 10:40 AM AIR BAG BUFFER Office Visit [facility] - DIE ENGRAVING SUPERVISOR [address] [place] [address], [address] [place] [phone] Avinash Henderson MD [address] [place] [phone] Well woman exam (Primary Dx); Colon [...] Sign Reading Time Taken Comments Blood Pressure 100/60 05/20/2018 10:47 AM AIR BAG BUFFER Pulse - - Temperature - - Respiratory Rate - - Oxygen Saturation - - Inhaled Oxygen Concentration - - Weight 70.8 kg (156 lb) 05/20/2018 10:47 AM AIR BAG BUFFER Height 162.6 cm (5' 4 ) 05/20/2018 10:47 AM AIR BAG BUFFER Body Mass Index 26.78 05/20/2018 10:47 AM AIR BAG BUFFER documented in this encounter Patient Instructions * Patient Instructions* Amy Swanson RN - 05/20/2018 10:53 AM AIR BAG BUFFER Don't forget to sign up for MyChart and text message appointment reminders. Text [facility] to [phone]. BAG BUFFER documented in this encounter Progress Notes * Avinash Henderson MD - 05/20/2018 10:59 AM CST Well Woman Yearly Exam HISTORY: Christina Edmond is a 62 y.o. female, No LMP recorded (lmp unknown). Patient has had a hysterectomy., here for a Well Woman exam. Patient does not have other gynecological issues or concerns. FANCY STITCHER History: Menses: no menstrual cycles for 10 years, menopause at age 51. Menopausal/Vasomotor symptoms: vaginal dryness no, hot flashes yes, night sweats no On HRT: no Screening for STD: no Other pertinent FANCY STITCHER history: Denies domestic violence, history of blood transfusion, tatoos, and previous STD. Sexual activity: no, libido- zero I could care less ROS: Denies breast pain, discharge, skin changes, pelvic pain, discharge, dyspareunia Denies CP, SOB, N/V, F/C, diarrhea or constipation Last Pap: 2016 Last Mammogram or breast ultrasound: 2017 Last Colonoscopy: couple of years ago Last Bone Density: several years ago OB History: OB History Para Term AB Living 6 5 5 1 5 SAB TAB Ectopic Multiple Live Births 1 5 Past Medical History: Past Medical History: [...] except as described in HPI. EXAMINATION BP 100/60 Ht 5' 4 Wt 156 lb BMI 26.78 kg/m2 General Appearance: alert, cooperative, no distress [...] FECES 1-3 SCREEN POINT OF CARE (AMB) PLAN See orders, medications, patient instruction Discussed issues related to well woman mammograms and BSE Orders Placed This Encounter ??? MAMMO BILAT SCREENING Standing Status: Future Standing Expiration Date: 05/20/2019 Order Specific Question: Reason for Exam Answer: breast cancer screening Order Specific Question: Perform Diagnostic mamm if screening abnormal? Answer: No Order Specific Question: Perform US breast if screening mamm abnormal? Answer: No Order Specific Question: Perform Breast Biopsy if screening mamm is abnormal? Answer: No ??? OCCULT BLOOD FECES 1-3 SCREEN POINT OF CARE (AMB) ??? PAP IG LB + HPV HR Return in about 1 year (around 05/20/2019). Avinash Henderson MD BAG BUFFER documented in this encounter Plan of Treatment Scheduled Orders Name Type Priority Associated Diagnoses Orde r Schedule MAMMO BILAT SCREENING Imaging Routine Well woman exam 1 Occurrences starting 05/20/2018 until 05/20/2019 documented as of this encounter Procedures Procedure Name Priority Date/Time Associated Diagnosis Comments PAP IG LB + HPV HR Routine 05/20/2018 11 :12 AM AIR BAG BUFFER Well woman exam OCCULT BLOOD FECES 1-3 SCREEN POINT OF CARE (AMB) Routine 05/20/2018 Colon cancer screening documented in this encounter Results * PAP IG LB + HPV HR (05/20/2018 11:12 AM AIR BAG BUFFER) Diagnosis [facility] ACCOUNT BILL Comment:NEGATIVE FOR INTRAEP ITHELIAL LESION AND MALIGNANCY. Specimen Adequacy [facility] ACCOUNT BILL Comment: Satisfactory for evaluation. ??Endocervical component may not be distinguished in cases of atrophy. Clinician Provided ICD10 [facility] ACCOUNT BILL Comment: Z01.419 Z12.11 Performed by [facility] ACCOUNT BILL Comment:Eva hanson, Glass Vial Filler (ASCP) Comment . [facility] ACCOUNT BILL Note [...] ?. Pathology/Cytolog y ENTIRE VAGINA / Unknown 05/20/2018 11:12 AM AIR BAG BUFFER 05/20/2018 Narrative [facility] ACCOUNT BILL - 05/23/2018 9:07 PM AIR BAG BUFFER No. of containers..01 ThinPrep Vial Resulting Agency Comment [facility] [place] [address] [facility] ??[place] [phone] Avinash Henderson MD LAB - PATHOLOGY/CYT OLOGY ORDERABLES [facility] ACCOUNT BILL [address] [place] [address] * OCCULT BLOOD FECES 1-3 SCREEN POINT OF CARE (AMB) (05/20/2018) Occult Blood 1 neg Negative Occult Blood 2 Negative Occult Blood 3 Negative Card Lot Number Card Exp Date Yes Developer Lot Number Developer Expiration Date Yes QC Negative Negative QC Positive Stool STOOL SPECIMEN / Unknown 05/20/2018 Avinash Henderson MD LAB - POINT OF CARE ORDERABLES documented in this encounter Visit Diagnoses Diagnosis Well woman exam- Primary Routine general medical examination at a health care facility Colon cancer screening Special screening for malignant neoplasms, colon documented in this encounter Care Teams Doctor Of Nursing Practice Relationship Specialty Start Date End Date Luis Oscar MD [address] [place] [address] PCP - General Family Medicine 10/17/12 documented as of this encounter
--- OUTSIDE RECORDS SUMMARY | 2024-06-25 23:35 | XMS_ITS | Encounter Summary ---
Author Organization [facility] Address [address] [place] [address] Care Team Providers Care Outside Laborer Name Role Phone Luis Oscar MD Primary Care Provider [phone] Reason for Visit * Reason Comments Follow-up Voiding diary Encounter Details Date Type Department Care Team (Late st Contact Info) Description 12/01/2023 2:00 PM CDT Office Visit [facility] - TRACER CLERK [address] [place] [address], [address] [place] [phone] Avinash Henderson MD [address] [place] [phone] Mixed incontinence urge and stress (Primary Dx) Social History Tobacco Use Types Packs/Day Years [...] Mass Index 31.89 12/01/2023 2:03 PM CDT documented in this encounter Progress Notes * Avinash Henderson MD - 12/01/2023 2:21 PM CDT Subjective: Christina Edmond is a 68 year old female who presents for: follow up of her voiding diary The patient complains of: she brought in her diary and she had 35 ounces out in the day and then over night had 36 in 8 hours. Set her alarm and got up and voided 24 ounces and was able to make it tothe restroom without voiding on herself. Then she went 12 ounces when she arose. Discussed she is retaining fluid during the day and mobilizing it at night. It could be related to her blood pressure issues and she will have to discuss it with her PMD. We will consider a drug for urgency. She has had some episodes of total loss in the daytime with lifting and wet all over herself and not just in the morning. We have discussed her large void in the middle of the night at 24 ounces is quite large.If it does not get any better we will do the urodynamics on her. Past Medical History: Diagnosis Date COVID-19 virus infection 04/2020 Essential (primary) hypertension Migraine Osteopenia Rheumatoid arthritis (HCC) 02/2016 Family History Problem Relation Name Age of Onset Breast Cancer after age 50 or unknown Paternal Aunt Outpatient Medications Marked as Taking for the 12/01/23 encounter (Office Visit) with Avinash Henderson MD Medication Sig Dispense Refill solifenacin (VESIcare) 5 MG tablet Take 1 (one) tablet by mouth once daily 30 tablet 5 Allergies Allergen Reactions Hydrocodone Nausea and/or Vomiting and Vomiting Reaction: Nausea, Vomiting, Other reaction(s): Nausea Reaction: Nausea, Vomiting, Morphine Nausea and/or Vomiting and Vomiting Reaction: Nausea, Vomiting, Other reaction(s): Nausea Reaction: Nausea, Vomiting, Oxycodone Nausea and/or Vomiting and Vomiting Reaction: Nausea, Vomiting, Other reaction(s): Nausea Reaction: Nausea, Vomiting, Penicillins Nausea and/or Vomiting Other reaction(s): Nausea Alkylamines Nausea and/or Vomiting Other reaction(s): Nausea Anesthesia S-I-60 Antihistamine [Altaryl] Review of Systems A comprehensive review of systems was negative except as described in HPI. Objective: BP 142/80 Ht 1.6 m (5' 3 ) Wt 81.6 kg (180 lb) No exam performed today, discussion only . Assessment: Encounter Diagnosis Name Primary? Mixed incontinence urge and stress Yes Plan: Diagnosis explained in detail, including differential. All questions answered. Discussed issues related to urgency and urge incontinence as well as treatment options. Discussed bladder drill and how to do it each week as well as medications using anti-cholinergics as well as some of the newer medications specifically directed to the bladder and this problem. Discussed the management of urgency and the treatment with bladder training and the use of anti cholinergics if the bladder training does not work. Discussed side effects and the use of botox as a last resort. Discussed the side effects of the medications including dry mouth, dry eyes and the effect on sphincters ofthe eye and GI tract as well as glaucoma. Discussed the place of diet and the use of caffeine and it's effects on the bladder. Questions were answered and she seems to understand the problem. Total time spent is 30 minutes. The time was spent discussing her diary and medications. Orders Placed This Encounter solifenacin (VESIcare) 5 MG tablet Sig: Take 1 (one) tablet by mouth once daily Dispense: 30 tablet Refill: 5 Return in about 6 weeks (around 01/12/2024). documented in this encounter Plan of Treatment Not on file documented as of this encounter Visit Diagnoses Diagnosis Mixed incontinence urge and stress- Primary Mixed incontinence urge and stress (male)(female) documented in this encounter Care Teams Outside Laborer Relationship Specialty Start Date End Date Luis Oscar MD [address] [place] [address] PCP - General Family Medicine 10/17/12 documented as of this encounter
--- OUTSIDE RECORDS SUMMARY | 2024-06-25 23:35 | XMS_ITS | Encounter Summary ---
Author Organization [facility] Address [address] [place] [address] Care Team Providers Care Senior Web Applications Developer Name Role Phone Luis Oscar MD Primary Care Provider [phone] Reason for Referral * Radiology Services (Routine) - Closed Specialty Diagnoses / Procedures Referred By Abdelrahman aguayo Referred To Contact Mammography Diagnoses Well woman exam Procedures MAMMO BILAT SCREENING Avinash Henderson MD [address] [place] [phone] Referral ID Status Reason Start Date Expiration Date Visits Re quested Visits Authorized [id number] Closed 10/29/2020 10/29/2021 1 1 Reason for Visit * Reason Comments Well Women Exam Encounter Details Date Type Department Care Team (Late Contact Info) Description 10/29/2020 2:20 PM CDT Office Visit [facility] - STOCK CONTROL SUPERVISOR [address] [place] [address], [address] [place] [phone] Avinash Henderson MD [address] [place] [phone] Well woman exam (Primary Dx); Colon cancer screening; Mixed stress and urge urinary incontinence Social History Tobacco Use Types Packs/Day Years [...] Sign Reading Time Taken Comments Blood Pressure 132/80 10/29/2020 2:11 PM CDT Pulse - - Temperature - - Respiratory Rate - - Oxygen Saturation - - Inhaled Oxygen Concentration - - Weight 82.6 kg (182 lb) 10/29/2020 2:11 PM CDT Height 162.6 cm (5' 4 ) 10/29/2020 2:11 PM CDT Body Mass Index 31.24 10/29/2020 2:11 PM CDT documented in this encounter Progress Notes * Avinash Henderson MD - 10/29/2020 2:37 PM CDT Well Woman Yearly Exam HISTORY: Christina Edmond is a 64 year old female, No LMP recorded (lmp unknown). Patient has had a hysterectomy., here for a Well Woman exam. Patient does have other gynecological issues or concerns.She is having issues with incontinence. She is lifting sneezing or coughing and does have trouble getting to the bathroom. NET MANAGER History: Menses: no menstrual cycles for 13 years, menopause at age 51, Discussed PMB being a sign of early uterine cancer and need for evaluation REHANA. Menopausal/Vasomotor symptoms: vaginal dryness no, hot flashes no, night sweats no On HRT: no Screening for STD: no Other pertinent NET MANAGER history: Denies domestic violence, history of blood transfusion, tatoos, and previous STD. Sexual activity: not currently, libido- zero ROS: Denies breast pain, discharge, skin changes, pelvic pain, discharge, dyspareunia Denies CP, SOB, N/V, F/C, diarrhea or constipation Last Pap: 2019 Last Mammogram or breast ultrasound: 2019 Last Colonoscopy: within last 5 years Last Bone Density: had one in the distant past OB History: OB History 6 Para 5 Term 5 AB 1 Living 5 SAB 1 TAB Ectopic Multiple Live Births 5 Past Medical History: Past Medical History: Diagnosis Date ??? COVID-19 virus infection 04/2020 ??? Rheumatoid arthritis 02/2016 Past Surgical History: [...] file Occupational History ??? Not on file Tobacco Use ??? Smoking status: Never Smoker ??? Smokeless tobacco: Never Used Vaping Use ??? Vaping Use: Never used Substance and Sexual Activity ??? Alcohol use: Yes Alcohol/week: 7.0 standard drinks Types: 7 Standard drinks or equivalent per week ??? Drug use: No ??? Sexual activity: Not Currently control/protection: Hysterectomy Other Topics Concern ??? Not on file Social History Narrative ??? Not on file Social Determinants of Health Financial Resource Strain: ??? Difficulty of Paying Living Expenses: Food Insecurity: ??? Worried About Running Out of Food in the Last Year: ??? Ran Out of Food in the Last Year: Transportation Needs: ??? Lack of Transportation (Medical): ??? Lack of Transportation (Non-Medical): Physical Activity: ??? Days of Exercise per Week: ??? Minutes of Exercise per Session: Stress: ??? Feeling of Stress : Social Connections: ??? Frequency of Communication with Friends and Family: ??? Frequency of Social Gatherings with Friends and Family: ??? Attends Sikh Services: ??? Active Member of Clubs or Organizations: ??? Attends Club or Organization Meetings: ??? Marital Status: Intimate Partner Violence: ??? Fear of Current or Ex-Partner: ??? Emotionally Abused: ??? Physically Abused: ??? Sexually Abused: Current Outpatient Medications on File Prior to Visit Medication Sig Dispense Refill ??? escitalopram (LEXAPRO) 10 MG tablet TK 1 T PO QD 1 ??? loratadine (CLARITIN) 10 MG tablet 10 mg ??? LORazepam (ATIVAN) 0.5 MG tablet Take 0.5 mg by mouth at bedtime No current facility-administered medications on file prior to visit. Other pertinent history: Medical, Surgical, Family, and Social History Reviewed. Allergies reviewed. Review of Systems A comprehensive review of systems was negative except as described in HPI. EXAMINATION BP 132/80 Ht 5' 4 Wt 182 lb BMI 31.24 kg/m2 General Appearance: alert, cooperative, no distress [...] exam Z01.419 MAMMO BILAT SCREENING PAP IG LB+HPV APTIMA 2. Colon cancer screening Z12.11 OCCULT BLOOD FECES 1-3 SCREEN POINT OF CARE (AMB) 3. Mixed stress and urge urinary incontinence N39.46 PLAN See orders, medications, patient instruction Discussed issues related to well woman mammograms and BSE Discussed the work up of incontinence including the voiding diary urodynamics and then possible surgery or the use of medications for the problem. Questions were answered and I feel she understands what to do. We have discussed stress, urge and mixed incontinence and what each term means. Orders Placed This Encounter ??? MAMMO BILAT SCREENING Standing Status: Future Standing Expiration Date: 10/29/2021 Order Specific Question: Reason for Exam Answer: breast cancer screening Order Specific Question: Release to patient Answer: Immediate Order Specific Question: Perform Diagnostic mamm if screening abnormal? Answer: No Order Specific Question: Perform US breast if screening mamm abnormal? Answer: No Order Specific Question: Perform Breast Biopsy if screening mamm is abnormal? Answer: No ??? OCCULT BLOOD FECES 1-3 SCREEN POINT OF CARE (AMB) Order Specific Question: Release to patient Answer: Immediate ??? PAP IG LB+HPV APTIMA Order Specific Question: Release to patient Answer: Immediate Return in about 4 weeks (around 11/26/2020). Avinash Henderson MD documented in this encounter Plan of Treatment Not on file documented as of this encounter Procedures Procedure Name Priority Date/Time Associated Diagnosis Comments OCCULT BLOOD FECES 1-3 SCREEN POINT OF CARE (AMB) Routine 10/29/2020 2:53 PM CDT Colon cancer screening PAP IG LB+HPV APTIMA Routine 10/29/2020 2:51 PM CDT Well woman exam documented in this encounter Results * MAMMO BILAT SCREENING (11/12/2020) Anatomical Region Laterality Modality Breast Bilateral Mammography Avinash Henderson MD MAMMO ORDERABLES * OCCULT BLOOD FECES 1-3 SCREEN POINT OF CARE (AMB) (10/29/2020 2:53 PM CDT) Occult Blood 1 neg Negative [facility] Occult Blood 2 [facility] Occult Blood 3 [facility] Card Lot Number [id number] Card Exp Date [facility] Developer Lot Number [facility] Developer Expiration Date [facility] QC Negative [facility] QC Positive [facility] Stool STOOL SPECIMEN / Unknown 10/29/2020 2:53 PM CDT Avinash Henderson MD LAB - POINT OF CARE ORDERABLES [facility] [address] [place] [address], [facility] [phone] * PAP IG LB+HPV APTIMA (10/29/2020 2:51 PM CDT) Diagnosis [facility] INSURANCE BILL Comment: NEGATIVE FOR INTRAEPITHELIAL LESION OR MALIGNANCY. CELLULAR CHANGES ASSOCIATED WITH ATROPHY ARE PRESENT. Specimen Adequacy [facility] INSURANCE BILL Comment: Satisfactory for evaluation. ??Endocervical component may not be distinguished in cases of atrophy. Clinician Provided ICD10 [facility] INSURANCE BILL Comment: Z01.419 Z12.11 N39.46 Performed by [facility] INSURANCE BILL Comment:Yogesh Burden , Tucking Machine Operator (ASCP) Comment . [facility] INSURANCE BILL Note [...] system. Human papillomavirus Aptima Negative Negative [facility] INSURANCE BILL Comment: This nucleic acid amplification test detects fourteen high-risk HPV types (16,18,31,33,35,39,45,51,52,56,58,59,66,68) without differentiation. Pathology/Cytolog y ENTIRE VAGINA / Unknown 10/29/2020 2:51 PM CDT 10/30/2020 Narrative [facility] INSURANCE BILL - 10/31/2020 3:08 PM CDT No. of containers..01 ThinPrep Vial Resulting Agency Comment Lab Testing performed at: [facility] ??[place] [phone] Avinash Henderson MD LAB - PATHOLOGY/CYT OLOGY ORDERABLES [facility] INSURANCE BILL [address] [place] [address] documented in this encounter Visit Diagnoses Diagnosis Well woman exam- Primary Routine general medical examination at a health care facility Colon cancer screening Special screening for malignant neoplasms, colon Mixed stress and urge urinary incontinence Mixed incontinence urge and stress (male)(female) documented in this encounter Care Teams Senior Web Applications Developer Relationship Specialty Start Date End Date Luis Oscar MD [address] [place] [address] PCP - General Family Medicine 10/17/12 documented as of this encounter
--- OUTSIDE RECORDS SUMMARY | 2024-06-25 23:35 | XMS_ITS | Encounter Summary ---
Author Organization [facility] Address [address] [place] [address] Care Team Providers Care Process Excellence Manager Name Role Phone Luis Oscar MD Primary Care Provider [phone] Reason for Referral * Radiology Services (Routine) - Closed Specialty Diagnoses / Procedures Referred By Abdelrahman aguayo Referred To Contact Mammography Diagnoses Well woman exam Procedures MAMMO BILAT SCREENING Avinash Henderson MD [address] [place] [phone] Referral ID Status Reason Start Date Expiration Date Visits Re quested Visits Authorized [id number] Closed 03/29/2022 03/29/2023 1 1 Reason for Visit * Reason Comments Well Women Exam Encounter Details Date Type Department Care Team (Late Contact Info) Description 03/29/2022 10:50 AM CDT Office Visit [facility] Medical [facility] - CORE DRILLER [address] [place] [address], [address] [place] [phone] Avinash Henderson MD [address] [place] [phone] Well woman exam (Primary Dx); Colon [...] Sign Reading Time Taken Comments Blood Pressure 140/78 03/29/2022 10:59 AM CDT Pulse - - Temperature - - Respiratory Rate - - Oxygen Saturation - - Inhaled Oxygen Concentration - - Weight 81.6 kg (180 lb) 03/29/2022 10:59 AM CDT Height 161 cm (5' 3.39 ) 03/29/2022 10:59 AM CDT Body Mass Index 31.5 03/29/2022 10:59 AM CDT documented in this encounter Progress Notes * Avinash Henderson MD - 03/29/2022 11:10 AM CDT Well Woman Yearly Exam HISTORY: Christina Edmond is a 66 year old female, No LMP recorded (lmp unknown). Patient has had a hysterectomy., here for a Well Woman exam. Patient does not have other gynecological issues or concerns. 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 Discussed PMB being a sign of early uterine cancer and need for evaluation REHANA. Menopausal/Vasomotor symptoms: vaginal dryness yes, hot flashes no, night sweats no On HRT: no Screening for STD: no Other pertinent OFFAL SEPARATOR history: Denies domestic violence, history of blood transfusion, tatoos, and previous STD. Sexual activity: not currently, libido- zero ROS: Denies breast pain, discharge, skin changes, pelvic pain, discharge, dyspareunia Denies CP, SOB, N/V, F/C, diarrhea or constipation Last Pap: 2020 Last Mammogram or breast ultrasound: 2020 Last Colonoscopy: not sure if she is due Last Bone Density: not sure but a long time ago OB History: OB History 6 Para 5 Term 5 AB 1 Living 5 SAB 1 IAB Ectopic Multiple Live Births 5 Past Medical History: Past Medical History: Diagnosis Date ??? COVID-19 virus infection 04/2020 ??? Rheumatoid arthritis (CMS/HCC) 02/2016 Past Surgical History: Past Surgical History: Procedure Laterality Date ??? Section five times ??? HYSTERECTOMY, LAPAROSCOPIC ASSISTED VAGINAL 2008 ovaries left in and bladder perforation and bladder repaired laparoscopically Allergies: Allergies Allergen Reactions ??? Hydrocodone Nausea and/or Vomiting and Vomiting Reaction: Nausea, Vomiting, Other reaction(s): Nausea Reaction: Nausea, Vomiting, ??? Morphine Nausea and/or Vomiting and Vomiting Reaction: Nausea, Vomiting, Other reaction(s): Nausea Reaction: Nausea, Vomiting, ??? Oxycodone Nausea and/or Vomiting and Vomiting Reaction: Nausea, Vomiting, Other reaction(s): Nausea Reaction: Nausea, Vomiting, ??? Penicillins Nausea and/or Vomiting Other reaction(s): Nausea ??? Alkylamines Nausea and/or Vomiting Other reaction(s): Nausea ??? Anesthesia S-I-60 ??? Antihistamine [Altaryl] Family [...] Social Determinants of Health Financial Resource Strain: Not on file Food Insecurity: Not on file Transportation Needs: Not on file Physical Activity: Not on file Stress: Not on file Social Connections: Not on file Intimate Partner Violence: Not on file Housing Stability: Not on file Current Outpatient Medications on File Prior to Visit Medication Sig Dispense Refill ??? escitalopram (LEXAPRO) 10 MG tablet TK 1 T PO QD 1 ??? loratadine (Claritin) 10 MG tablet 10 mg (Patient not taking: Reported on 03/29/2022) ??? LORazepam (ATIVAN) 0.5 MG tablet Take 0.5 mg by mouth at bedtime No current facility-administered medications on file prior to visit. Other pertinent history: Medical, Surgical, Family, and Social History Reviewed. Allergies reviewed. Review of Systems A comprehensive review of systems was negative except as described in HPI. EXAMINATION BP 140/78 Ht 5' 3.39 Wt 180 lb General Appearance: alert, cooperative, no distress Extremities: [...] Exam ICD-10-CM 1. Well woman exam Z01.419 DEXA BONE DENSITY AXIAL SKELETON MAMMO BILAT SCREENING PAP IG LB+HPV APTIMA 2. Colon cancer screening Z12.11 OCCULT BLOOD FECES 1-3 SCREEN POINT OF CARE (AMB) There are no problems to display for this patient. PLAN See orders, medications, patient instructions. Discussed issues related to well woman mammograms and BSE Orders Placed This Encounter ??? DEXA BONE DENSITY AXIAL SKELETON ??? MAMMO BILAT SCREENING ??? OCCULT BLOOD FECES 1-3 SCREEN POINT OF CARE (AMB) ??? PAP IG LB+HPV APTIMA Return in about 1 year (around 03/29/2023). Avinash Henderson MD documented in this encounter Plan of Treatment Not on file documented as of this encounter Procedures Procedure Name Priority Date/Time Associated Diagnosis Comments OCCULT BLOOD FECES 1-3 SCREEN POINT OF CARE (AMB) Routine 03/29/2022 11:22 AM CDT Colon cancer screening PAP IG LB+HPV APTIMA Routine 03/29/2022 11:20 AM CDT Well woman exam documented in this encounter Results * MAMMO BILAT SCREENING (05/24/2022) Anatomical Region Laterality Modality Breast Bilateral Mammography 05/24/2022 Avinash Henderson MD MAMMO ORDERABLES * OCCULT BLOOD FECES 1-3 SCREEN POINT OF CARE (AMB) (03/29/2022 11:22 AM CDT) Occult Blood 1 neg Negative [facility] Occult Blood 2 [facility] Occult Blood 3 [facility] Card Lot Number [facility] Card Exp Date [facility] Developer Lot Number [facility] Developer Expiration Date [facility] QC Negative [facility] TERRITORY SERVICE REPRESENTAT[facility] QC Positive [facility] TERRITORY SERVICE REPRESENTATIVE [facility] Stool STOOL SPECIMEN / Unknown 03/29/2022 11:22 AM CDT Avinash Henderson MD LAB - POINT OF CARE ORDERABLES [facility] [address] , [facility] [address] [place] [address], [facility] [phone] * PAP IG LB+HPV APTIMA (03/29/2022 11:20 AM CDT) Diagnosis [facility] ACCOUNT BILL Comment: [...] Resulting Agency Comment Lab Testing performed at: [address] ??[facility] [phone] Avinash Henderson MD LAB - PATHOLOGY/CYT OLOGY ORDERABLES [facility] ACCOUNT BILL [address] [place] [address] documented in this encounter Visit Diagnoses Diagnosis Well woman exam- Primary Routine general medical examination at a health care facility Colon cancer screening Special screening for malignant neoplasms, colon documented in this encounter Care Teams Process Excellence Manager Relationship Specialty Start Date End Date Luis Oscar MD [address] [place] [address] PCP - General Family Medicine 10/17/12 documented as of this encounter
--- OUTSIDE RECORDS SUMMARY | 2024-06-25 23:35 | XMS_ITS | Encounter Summary ---
Author Organization [facility] Address [address] [place] [address] Care Team Providers Care Skid Man Name Role Phone Luis Oscar MD Primary Care Provider [phone] Reason for Visit * Reason Onset Date Comments Abnormal Mammogram 07/13/2019 called to see if pt was aware that they are suggesting a f/u mamm & u/s in 6 months Encounter Details Date Type Department Care Team (Late st Contact Info) Description 07/13/2019 Telephone [facility] - INSURANCE RISK MANAGER [address] [place] [address], [address] [phone] Avinash Henderson MD [address] [place] [phone] Abnormal Mammogram (called to see if pt was aware that they are suggesting a f/u mamm & u/s in 6 months) Social History Tobacco Use Types Packs/Day Years [...] on filedocumented in this encounter Care Teams Skid Man Relationship Specialty Start Date End Date Luis Oscar MD [address] [place] [phone] PCP - General Family Medicine 10/17/12 documented as of this encounter
--- OUTSIDE RECORDS SUMMARY | 2024-06-25 23:35 | XMS_ITS | Encounter Summary ---
Author Organization [facility] Address [address] [place] [address] Care Team Providers Care Esthetician/Owner Name Role Phone Luis Oscar MD Primary Care Provider [phone] Reason for Referral * Radiology Services (Routine) - Open Specialty Diagnoses / Procedures Referred By Contac t Referred To Contact Mammography Diagnoses Well woman exam Procedures MAMMO BILAT SCREENING Avinash Henderson MD [address] [place] [phone] Referral ID Status Reason Start Date Expiration Date Visits Re quested Visits Authorized [id number] Open 11/15/2023 11/14/2024 1 1 Reason for Visit * Reason Comments Medicare Subsequent Annual Wellness Visi t Encounter Details Date Type Department Care Team (Late st Contact Info) Description 11/15/2023 10:00 AM CDT Office Visit [facility] Medical [facility] - CLINICAL RESEARCH ASSISTANT [address] [place] [address], [address] [place] [phone] Avinash Henderson MD [address] [place] [phone] Well woman exam (Primary Dx); Colon cancer screening; Mixed incontinence urge and stress Social History Tobacco Use Types Packs/Day Years [...] Sign Reading Time Taken Comments Blood Pressure 132/90 11/15/2023 10:01 AM CDT Pulse - - Temperature - - Respiratory Rate - - Oxygen Saturation - - Inhaled Oxygen Concentration - - Weight 81.6 kg (180 lb) 11/15/2023 10:01 AM CDT Height 160 cm (5' 3 ) 11/15/2023 10:01 AM CDT Body Mass Index 31.89 11/15/2023 10:01 AM CDT documented in this encounter Progress Notes * Avinash Henderson MD - 11/15/2023 10:11 AM CDT Well Woman Yearly Exam HISTORY: Christina Edmond is a 67 year old female, No LMP recorded (lmp unknown). Patient has had a hysterectomy., here for a Well Woman exam. Patient does have other gynecological issues or concerns. 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 Menopausal/Vasomotor symptoms: vaginal dryness Yes, hot flashes No, night sweats No On HRT: No Screening for STD: No Other pertinent SHEET ROCK APPLICATOR history: Denies domestic violence, history of blood transfusion, tatoos, and previous STD. Sexual activity: not currently, libido0 zero ROS: Denies breast pain, discharge, skin changes, pelvic pain, discharge, dyspareunia Denies CP, SOB, N/V, F/C, diarrhea or constipation Last Pap: 2022 Last Mammogram or breast ultrasound: 2021 Last Colonoscopy: long time ago and due Last Bone Density: 2021 osteopenia OB History: OB History 6 Para 5 Term 5 AB 1 Living 5 SAB 1 IAB Ectopic Multiple Live Births 5 Past Medical History: Past Medical History: Diagnosis Date COVID-19 virus infection 04/2020 Essential (primary) hypertension Migraine Osteopenia Rheumatoid arthritis (HCC) 02/2016 Past Surgical History: Past Surgical History: Procedure Laterality Date Section five times HYSTERECTOMY, LAPAROSCOPIC ASSISTED VAGINAL 2008 ovaries left in and bladder perforation and bladder repaired laparoscopically Allergies: Allergies Allergen Reactions Hydrocodone Nausea and/or Vomiting [...] Other reaction(s): Nausea Anesthesia S-I-60 Antihistamine [Altaryl] Family History: Breast cancer Yes , colon cancer No , uterine cancer No , ovarian cancer No Social History: Social History Socioeconomic History Marital status: Spouse name: Not on file Number of children: Not on file Years of education: Not on file Highest education level: Not on file Occupational History Not on file Tobacco Use Smoking status: Never Smokeless tobacco: Never Vaping Use Vaping Use: Never used Substance and Sexual Activity Alcohol use: Yes Alcohol/week: 7.0 standard drinks of alcohol Types: 7 Standard drinks or equivalent per week Drug use: No Sexual activity: Not Currently control/protection: Hysterectomy Other Topics Concern Not on file Social History Narrative Not on file Social Determinants of Health Financial Resource Strain: Not on file Food Insecurity: Not on file Transportation Needs: Not on file Stress: Not on file Housing Stability: Not on file Current Outpatient Medications on File Prior to Visit Medication Sig Dispense Refill Cholecalciferol (vitamin D3) 1.25 MG (05788 UT) capsule Take 1 (one) capsule by mouth every 7 days LORazepam (ATIVAN) 0.5 MG tablet Take 1 (one) tablet by mouth at bedtime losartan (Cozaar) 50 MG tablet 25mg AM and 50mg PM metoprolol succinate XL 24hr (Toprol XL) 25 MG tablet Take 1 (one) tablet by mouth once daily rimegepant (Nurtec) 75 MG tablet Take 75 mg by mouth once daily as needed for Migraine No current facility-administered medications on file prior to visit. Other pertinent history: Medical, Surgical, Family, and Social History Reviewed. Allergies reviewed. Review of Systems A comprehensive review of systems was negative except as described in HPI. EXAMINATION BP 132/90 Ht 1.6 m (5' 3 ) Wt 81.6 kg (180 lb) General Appearance: alert, cooperative, no distress Extremities: [...] Z01.419 MAMMO BILAT SCREENING PAP IG LB 2. Colon cancer screening Z12.11 OCCULT BLOOD FECES 1-3 SCREEN POINT OF CARE (AMB) 3. Mixed incontinence urge and stress N39.46 There are no problems to display for this patient. PLAN See orders, medications, patient instructions. Discussed issues related to well woman mammograms and BSE Discussed issues of incontinence and a voiding diary. Discussed the work up of incontinence including the voiding diary urodynamics and then possible surgery or the use of medications for the problem. Questions were answered and I feel she understands what to do. We have discussed stress, urge and mixed incontinence and what each term means. Orders Placed This Encounter MAMMO BILAT SCREENING OCCULT BLOOD FECES 1-3 SCREEN POINT OF CARE (AMB) PAP IG LB Return in about 1 week (around 11/22/2023). Avinash Henderson MD documented in this encounter Plan of Treatment Scheduled Orders Name Type Priority Associated Diagnoses Orde r Schedule MAMMO BILAT SCREENING Imaging Routine Well woman exam 1 Occurrences starting 11/15/2023 until 11/14/2024 documented as of this encounter Procedures Procedure Name Priority Date/Time Associated Diagnosis Comments PAP IG LB Routine 11/15/2023 10:40 AM CDT Well woman exam OCCULT BLOOD FECES 1-3 SCREEN POINT OF CARE (AMB) Routine 11/15/2023 10:31 AM CDT Colon cancer screening documented in this encounter Results * PAP IG LB (11/15/2023 10:40 AM CDT) Diagnosis [facility] ACCOUNT BILL Comment: NEGATIVE FOR INTRAEPITHELIAL LESION OR MALIGNANCY. CELLULAR CHANGES ASSOCIATED WITH ATROPHY ARE PRESENT. Specimen Adequacy [facility] ACCOUNT BILL Comment: Satisfactory for evaluation. ??Endocervical component may not be distinguished in cases of atrophy. Clinician Provided ICD10 [facility] ACCOUNT BILL Comment: Z01.419 Z12.11 N39.46 Performed by [facility] ACCOUNT BILL Comment:Chente andrew, Inventory Taker (ASCP) Comment . [facility] ACCOUNT BILL Note [...] Resulting Agency Comment Lab Testing performed at: [employer] [address] [place] [address] [address] [facility] [phone] Avinash Henderson MD LAB - PATHOLOGY/CYT OLOGY ORDERABLES [facility] ACCOUNT BILL [address] [place] [address] * OCCULT BLOOD FECES 1-3 SCREEN POINT OF CARE (AMB) (11/15/2023 10:31 AM CDT) Occult Blood 1 neg Negative [facility] Occult Blood 2 [facility] Occult Blood 3 [facility] Card Lot Number [facility] Card Exp Date [facility] Developer Lot Number [facility] Developer Expiration Date [facility] QC Negative [facility] FACILITY SERVICE ASSOCIATE [facility] QC Positive [facility] FACILITY SERVICE ASSOCIATE [facility] Stool STOOL SPECIMEN / Unknown 11/15/2023 10:31 AM CDT Avinash Henderson MD LAB - POINT OF CARE ORDERABLES Performing Organization Address [facility] Co de Phone Number [facility] [address], [place] [address] [phone] documented in this encounter Visit Diagnoses Diagnosis Well woman exam- Primary Routine general medical examination at a health care facility Colon cancer screening Special screening for malignant neoplasms, colon Mixed incontinence urge and stress Mixed incontinence urge and stress (male)(female) documented in this encounter Care Teams Esthetician/Owner Relationship Specialty Start Date End Date Luis Oscar MD [address] [place] [address] PCP - General Family Medicine 10/17/12 documented as of this encounter
--- OUTSIDE RECORDS SUMMARY | 2024-06-25 23:35 | XMS_ITS | Referral Summary ---
Author Organization [facility] Address [address] [facility] [place] [address] Care Team Providers Care District Home Economics Agent Name Role Phone Luis Oscar MD Primary Care Provider [phone] Source Comments [facility],non-owned Affiliates and Associated Physician Practices is amultiple site organization consisting of ambulatory clinics and hospital sitesin [place], [place], [place] and [place]. This disclosure is being madepursuant to the Care Everywhere program and may not contain all information available regarding this patient. Last updated 18.[facility] Allergies Active Allergy Reactions Criticality Noted Date [...] 03/09/2016 Active Cholecalciferol (vitamin D3) 1.25 MG (18082 UT) capsule Take 1 (one) capsule by [...] Active Active Problems No known active problems Social [...] 12/01/2023 2:03 PM CDT Plan of Treatment Not on file Procedures Procedure Name Priority Date/Time Associated Diagnosis [...] Recently Relevant to Health Maintenance Care Teams District Home Economics Agent Relationship Specialty Start Date End Date Luis Oscar MD [address] [place] [address] PCP - General Family Medicine 10/17/12
--- OUTSIDE RECORDS SUMMARY | 2024-06-25 23:35 | XMS_ITS | Encounter Summary ---
Author Organization [facility] Address [address] [facility] [place] [address] Care Team Providers Care Storage Manager Name Role Phone Luis Oscar MD Primary Care Provider [phone] Encounter Details Date Type Department Care Team (Latest Contact Info) Description 12/01/2023 Travel Social History Tobacco Use Types Packs/Day [...] on filedocumented in this encounter Care Teams Storage Manager Relationship Specialty Start Date End Date Luis Oscar MD [address] [place] [phone] PCP - General Family Medicine 10/17/12 documented as of this encounter
--- OUTSIDE RECORDS SUMMARY | 2024-06-25 23:35 | XMS_ITS | Encounter Summary ---
Author Organization [facility] Address [address] [place] [address] Care Team Providers Care Vice President Quality Assurance Name Role Phone Luis Oscar MD Primary Care Provider [phone] Reason for Visit * Reason Comments Well Women Exam Encounter Details Date Type Department Care Team (Late st Contact Info) Description 04/15/2016 9:30 AM CDT Office Visit [facility] [address] [place] [address], [address] [place] [phone] Avinash Henderson MD [address] [place] [address] [place] [phone] Well woman exam (Primary Dx); Colon cancer screening Social History Tobacco Use Types Packs/Day Years Used Date Smoking Tobacco: Never Sex and Gender Information Value Date Recorded Sex Assigned at Not on file Gender Identity Not on file Sexual Orientation Not on file documented as of this encounter Last Filed Vital Signs Vital Sign Reading Time Taken Comments Blood Pressure 122/80 04/15/2016 9:40 AM CDT Pulse - - Temperature - - Respiratory Rate - - Oxygen Saturation - - Inhaled Oxygen Concentration - - Weight 76.7 kg (169 lb) 04/15/2016 9:40 AM CDT Height 162.6 cm (5' 4 ) 04/15/2016 9:40 AM CDT Body Mass Index 29.01 04/15/2016 9:40 AM CDT documented in this encounter Progress Notes * Avinash Henderson MD - 04/15/2016 10:00 AM CDT Well Woman Yearly Exam HISTORY: Christina Edmond is a 60 y.o. female, No LMP recorded. Patient has had a hysterectomy., here for a Well Woman exam. Patient does not have other gynecological issues or concerns. SPLUNK CONSULTANT History: Menses: no menstrual cycles for 8 years, menopause at age 53, Discussed PMB being a sign of early uterine cancer and need for evaluation REHANA. Menopausal/Vasomotor symptoms: vaginal dryness yes, hot flashes yes, night sweats yes On HRT: no Screening for STD: no Other pertinent SPLUNK CONSULTANT history: Denies domestic violence, history of blood transfusion, tatoos, and previous STD. Sexual activity: no, libido- zero and it is just fine by me ROS: Denies breast pain, discharge, skin changes, pelvic pain, discharge, dyspareunia Denies CP, SOB, N/V, F/C, diarrhea or constipation Last Pap: 2014 Last Mammogram or breast ultrasound: 2013 Last Colonoscopy: 2015 Last Bone Density: 2010 OB History: OB History Para Term AB TAB SAB Ectopic Multiple Living 6 5 5 1 1 5 Past Medical History: Past Medical History Diagnosis Date ??? Rheumatoid arthritis 02/2016 Past Surgical History: Past Surgical History Procedure Laterality Date ??? section five times ??? Hysterectomy, laparoscopic assisted vaginal 2008 ovaries left in and bladder perforation and bladder repaired laparoscopically Allergies: No Known Allergies Family History: Breast cancer yes , colon cancer no , uterine cancer no , ovarian cancer no Social History: History Social History ??? Marital status: Spouse name: N/A ??? Number of children: N/A ??? Years of education: N/A Occupational History ??? Not on file. Social History Main Topics ??? Smoking status: Never Smoker ??? Smokeless tobacco: Not on file ??? Alcohol use: Not on file ??? Drug use: Not on file ??? Sexual activity: Not on file Other Topics Concern ??? Not on file Social History Narrative ??? No narrative on file No current outpatient prescriptions on file prior to visit. No current facility-administered medications on file prior to visit. Other pertinent history: Medical, Surgical, Family, and Social History Reviewed. Allergies reviewed. Review of Systems A comprehensive review of systems was negative except as described in HPI. EXAMINATION BP 122/80 Wt 169 lb BMI 29.01 kg/m2 General Appearance: alert, cooperative, no distress [...] no masses, guaiac negative Pap performed. Discharge: none ASSESSMENT Well Woman Exam ICD-10-CM 1. Well woman exam Z01.419 MAMMO SCREENING DIGITAL IMAGE BILAT PAP SMEAR IG HPV HR 2. Colon cancer screening Z12.11 OCCULT BLOOD FECES 1-3 SCREEN POC (AMB) STL PLAN See orders, medications, patient instruction Discussed issues related to well woman, mamms and BSE and her continued hot flashes which she stillhas Orders Placed This Encounter ??? MAMMO SCREENING DIGITAL IMAGE BILAT Standing Status: Future Standing Expiration Date: 04/15/2017 Order Specific Question: Reason for Exam Answer: breast cancer screening Order Specific Question: Perform Diagnostic mamm if screening abnormal? Answer: No Order Specific Question: Perform US breast if screening mamm abnormal? Answer: No Order Specific Question: Perform Breast Biopsy if screening mamm is abnormal? Answer: No ??? OCCULT BLOOD FECES 1-3 SCREEN POC (AMB) STL ??? PAP SMEAR IG HPV HR Order Specific Question: Collection Method? Answer: BRUSH-SPATULA Return in about 1 year (around 04/15/2017). Avinash Henderson MD documented in this encounter Plan of Treatment Not on file documented as of this encounter Procedures Procedure Name Priority Date/Time Associated Diagnosis Comments PAP IG LB + HPV HR Routine 04/15/2016 10 :31 AM CDT Well woman exam OCCULT BLOOD FECES 1-3 SCREEN POC (AMB) STL Routine 04/15/2016 Colon cancer screening documented in this encounter Results * PAP SMEAR IG HPV HR (04/15/2016 10:31 AM CDT) Diagnosis [facility] ACCOUNT BILL Comment:UNSATISFACTORY FOR E VALUATION. Recommendation [facility] ACCOUNT BILL Comment:Suggest follow up as clinically appropriate. Specimen Adequacy [facility] ACCOUNT BILL Comment: Specimen processed and examined but unsatisfactory for evaluation of epithelial abnormality because of obscuring inflammatory exudate. Clinician Provided ICD10 [facility] ACCOUNT BILL Comment: Z01.419 Z12.11 Performed by [facility] ACCOUNT BILL Comment:Megan Adamson, Delivery Merchandiser (ASCP) QC Reviewed by [facility] ACCOUNT BILL Comment:Leila Lara Delivery Merchandiser (ASCP) Comment . [facility] ACCOUNT BILL Note [...] occur. ? . IGLBP CPT Code Automation NOT NEEDED [facility] ACCOUNT BILL Comment: The Thin Prep(R) Aircraft Engine Dismantler was unable to read this specimen. ??Therefore a manual review was performed. Ancillary determined the test is not needed Human papillomavirus High Risk Negative Negative [facility] ACCOUNT BILL Comment: This high-risk HPV test detects thirteen high-risk types (16/18/31/33/35/39/45/51/52/56/58/59/68) without differentiation. ?. Pathology/Cytolog y ENTIRE VAGINA / Unknown 04/15/2016 10:31 AM CDT 04/15/2016 Narrative [facility] ACCOUNT BILL - 04/20/2016 3:16 PM GULLET SLITTER No. of containers..01 CYTYC Thin Prep Vial Resulting Agency Comment [facility] [place] [address] [place] ??Selvin BARAJAS [phone] Avinash Henderson MD LAB - PATHOLOGY/CYT OLOGY ORDERABLES [facility] ACCOUNT BILL [address], [place] [address] * OCCULT BLOOD FECES 1-3 SCREEN POC (AMB) STL (04/15/2016) Occult Blood 1 neg Negative Occult Blood 2 Negative Occult Blood 3 Negative Card Lot Number z Card Exp Date z Yes Developer Lot Number z Developer Expiration Date z Yes QC Negative z Negative QC Positive z Stool STOOL SPECIMEN / Unknown 04/15/2016 Avinash Henderson MD LAB - POINT OF CARE ORDERABLES documented in this encounter Visit Diagnoses Diagnosis Well woman exam- Primary Routine general medical examination at a health care facility Colon cancer screening Special screening for malignant neoplasms, colon documented in this encounter Care Teams Vice President Quality Assurance Relationship Specialty Start Date End Date Luis Oscar MD [address] [place] [address] PCP - General Family Medicine 10/17/12 documented as of this encounter
--- OUTSIDE RECORDS SUMMARY | 2024-06-25 23:36 | XMS_ITS | Encounter Summary ---
Author Organization [facility] Address [facility] [place] [address] [place] [address] Care Team Providers Care Optical Manager Name Role Phone Luis Oscar MD Primary Care Provider [phone] Reason for Referral * Imaging (Routine) - Closed Specialty Diagnoses / Procedures Referred By Contac t Referred To Contact RADIOLOGY Diagnoses Atrial tachycardia ([facility] HHS/HCC) Procedures USE ECHOCARDIOGRAM Juan Davis MD [address] [address] Phone: tel: fax: Referral ID Status Reason Start Date Expiration Date Visits Re quested Visits Authorized [id number] Closed 07/19/2023 08/18/2024 1 1 Reason for Visit * Imaging (Routine) - Closed Specialty Diagnoses / Procedures Referred By Contac t Referred To Contact RADIOLOGY Diagnoses Atrial tachycardia ([facility]) Procedures USE ECHOCARDIOGRAM Juan Davis MD [address] [address] Phone: tel: fax: Referral ID Status Reason Start Date Expiration Date Visits Re quested Visits Authorized [id number] Closed 07/19/2023 08/18/2024 1 1 Encounter Details Date Type Department Care Team (Late st Contact Info) Description 08/23/2023 11:59 AM CDT - 08/23/2023 11:59 PM CDT Hospital Encounter [facility] [address] [place] [address] Juan Davis MD Three [facility]. [address] [place], [place] [id number] Discharge Disposition: Home or Self Care (Routine Discharge) Social History Tobacco Use Types Packs/Day Years Used Date Smoking Tobacco: Never Cigarettes 1.5 15 Passive Smoke Exposure: Yes Smokeless Tobacco: Never Comments:Parents both smoked in the home Alcohol Use Standard Drinks/Week Comments Yes 1 (1 standard drink = 0.6 oz pur e alcohol) Comments Unknown Sex and Gender Information Value Date Recorded Sex Assigned at Not on file Legal Sex Female 3:58 PM PORCELAIN TURNER Gender Identity Not on file Sexual Orientation Not on file documented as of this encounter Medications at Time of Discharge escitalopram (LEXAPRO) 10 MG tablet Take 1 tablet (10 mg total) by mouth daily. 11/11/2022 Loratadine (CLARITIN) 10 MG Cap daily. 07/11/2023 LORazepam (ATIVAN) 0.5 MG tablet Take 1 tablet (0.5 mg total) by mouth nightly. 12/11/2022 amLODIPine (NORVASC) 2.5 MG tablet Take 1 tablet (2.5 mg total) by mouth 2 (two) times a day. 30 tablet 08/05/2023 05/01/2024 Ibuprofen 200 MG capsule every 6 (six) hours as needed. 07/18/2023 05/01/2024 metoprolol succinate ER (TOPROL-XL) 25 MG 24 hr tablet Take 1 tablet (25 mg total) by mouth daily. 30 tablet 3 08/05/2023 08/30/2023 documented as of this encounter Plan of Treatment Upcoming Encounters Date Type Department Care Team (Late st Contact Info) Description 06/26/2024 11:45 AM PORCELAIN TURNER Office Visit [facility], [address] [place] [address] Juan Davis MD Three [facility]. [address] [place] [address] documented as of this encounter Procedures Procedure Name Priority Date/Time Associated Diagnosis Comments USE ECHOCARDIOGRAM Routine 08/23/2023 1: 10 PM CDT Atrial tachycardia documented in this encounter Results * USE ECHOCARDIOGRAM (08/23/2023 1:10 PM CDT) Anatomical Region Laterality Modality Cardiac Echocardiogram 08/23/2023 12:3 3 PM CDT Narrative 08/25/2023 4:07 PM CDT ?Echocardiography Report Pat.Name: ??MAGEN SEGAL ? Pat.ID: ?[id number] ? St.Date: ?? 08/23/2023 ? Refer.: ??MENDEZ REED ? Exam Time: 12:33:00 PM ? Study Type:ECHO WITH CARDIAC DOPPLER COMP Height: ?65 in ? Weight: ?184 lb ? BSA: ? 1.91 m2 ?Age: ??1955,67Y ? Sex: ? F ? BP: ?134/70 ? HR: ?67 bpm ?Sonogrphr: Issa Johnson RDCS ? Pat. Stat.:Outpatient ? Reason for Study:Atrial tachycardia Procedures: 2D, M-mode, Doppler, Color Flow, The study quality is technically adequate. Race: ?W ? ++++++++++++++++++++++++++++++++++++ SUMMARY: ++++++++++++++++++++++++++++++++++++ The left ventricular size is normal. The left ventricular systolic function is normal. Estimated left ventricular ejection fraction is 60-65%. Mild concentric left ventricular hypertrophy. Left ventricular diastolic function is abnormal (grade 1 - impaired relaxation). The right ventricular size is normal. Right ventricular systolic function is normal. No significant valve abnormalities. ++++++++++++++++++++++++++++++++++++ FINDINGS: ++++++++++++++++++++++++++++++++++++ LV: ? The left ventricular size is normal. The left ventricular ?systolic function is normal. Estimated left ventricular ?ejection fraction is 60-65%. Mild concentric left ?ventricular hypertrophy. Left ventricular diastolic function ?is abnormal (grade 1 - impaired relaxation). WM: ? Wall motion appears normal in all segments. RV: ? The right ventricular size is normal. Right ventricular ?systolic function is normal. IVS: ?No evidence of ventricular septal defect. LA: ? The left atrial volume is normal ( less than 34 ml/M2). RA: ? Right atrial size is normal. IAS: ?Atrial septum appears intact. ANASTASIA: ? No evidence of pericardial effusion. AO: ? Normal aortic root. PA: ? Estimated right atrial pressure of 8 mmHg. SVn: ?Inferior vena cava is mildly enlarged. Inferior vena cava ?shows >50% collapse with respiration consistent with normal ?right atrial pressure. AV: ? The aortic valve is trileaflet. No evidence of aortic valve ?stenosis. No evidence of aortic valve regurgitation. MV: ? Trace mitral regurgitation. No evidence of mitral valve ?stenosis. PV: ? No evidence of pulmonic valve stenosis. A trace of pulmonic ?regurgitation. TV: ? A trace of tricuspid regurgitation. Right ventricular ?systolic pressure is 25-30 mmHg. No evidence of tricuspid ?valve stenosis. ++++++++++++++++++++++++++++++++++++ MEASUREMENTS: ++++++++++++++++++++++++++++++++++++ ?DOPPLER LVOT ?? LVOTpkPG ? 6 mmHg ?LVOTmnPG ? 3 mmHg LVOTpkVel ?121 cm/s (70-110)+* LVOT SV ? 79 ml ?? LVOT TVI ?25.1 cm ? Right Atrium ?? RA Press ? 8 mmHg ?José's Disk ? 20 ? Pulmonary Veins ?? PVnpkVeld ? 35.7 cm/s ?PVnVs/Vd ? 1.7 ? PVnpkVels ? 59.5 cm/s ?PVn A Dur ?120 msec AV Forward Flow AV TVI ?31.6 cm ?AV pkPG ? 10 mmHg AV pkVel ? 158 cm/s (100-170)+ Area (TVI) ?2.49 cm2 ??(3-5)* AV mnPG ?5 mmHg ?Area (Lj) ? 2.4 cm2 ??(3- 5)* MV Forward Flow MV DeTm ?201 msec ?MV pkE ?84.6 cm/s (60- 130) MV E/A ? 0.9 ? MV pkA ?93.2 cm/s PV Forward Flow PV pkVel ?82.2 cm/s (60-90)+ PV AC ? 92 msec PV pkPG ?3 mmHg ? TV Regurg Flow TV pkPG ? 17 mmHg ?TV pkVel ? 204 cm/s (30- 70)* Right Ventricle ?? RVsys P ? 25 mmHg ?Right Ventricle ??19.6 cm/s TV Forward Flow TV pkE ?41.4 cm/s ? Lat E' ?? Lat e ?8.5 cm/s ? Lat E/E' ?? Lat E/e ? 10 ? Med E' ?? Med e ? 6.22 cm/s ? Med E/E' ?? Med E/e ? 13.6 ? Aortic Valve ?? Aortic Valve Ar ?? 1.3 ?Aortic Valve Ve ??0.77 ? PV Antegrade Flow Acceleration Sl ?? 861 cm/s2 ?2D Left Ventricle ?? LVIDd ? 4.89 cm ?? (3.6-5.2) LV ESV ?28.3 ml ?? LVIDs ? 2.33 cm ?? (2.3-3.9) LV ESV ?26.1 ml ?? LngAxd ?7.59 cm ?LVESV BP ?28.3 ml ?? LngAxd ?6.82 cm ?LV EF ? 60.3 % ?? LV EDV ?71.2 ml ?LV EF ? 60.5 % ?? LV EDV ?66 ml ?LV EF BP ?60.6 % ?? LVEDV BP ?71.8 ml ?LV SV ? 42.9 ml ?? LngAxs ?6.51 cm ?LV SV ? 39.9 ml ?? LngAxs ?5.94 cm ?LV SV BP ?43.5 ml ?? LVPW ?? LVPWd ? 1.16 cm ? Right Ventricle ?? RVIDd ? 2.76 cm ?? (2.6-4.3) Right Ventricle ??19.3 mm ?? Right Ventricle ??27.7 mm ? Right and Left ??0.564 ? Major Sunbury ?71 mm ? Ventricular Septum ?? IVSd ?1.21 cm ? Left Atrium ?? LA VOLBP ?47.9 ml ? LVOT ?? LVOT ? 2 cm ?LVOTArea ?3.14 cm2 Ratios ?? IVS Inferior vena cava ?? IVC Diam ?21.6 mm ? LA Biplane LAVol I BP ?25.1 ml/m2 ? RA Single Plane Right Atrium MO ??8.27 mm ? Right Atrium Sy ??22.7 ml ?? Right Atrium Sy ??52.6 mm ? Right Atrium Sy ??11.9 ml/m2 Right Atrium Sy ?12 cm2 ?MMODE Ventricular Septum ?? IVSd ?3.07 cm ?? (zsc 8.3)* Left Atrium ?? LAIDs ?3.7 cm ? TA ?? Tricuspid Annul ??22.1 mm ? <Electronic Signature> 08/25/2023 04:07 PM Bon Enamorado M.D. Procedure Note Bon Enamorado MD - 08/25/2023 Echocardiography Report Pat.Name: MAGEN SEGAL Pat.ID: [id number] .Date: 08/23/2023 Refer.: MENDEZ REED Exam Time: 12:33:00 PM Study Type:ECHO WITH CARDIAC DOPPLER COMP Height: 65 in Weight: 184 lb BSA: 1.91 m2 Age: 6 1955,67Y Sex: F BP: 134/70 HR: 67 bpm Sonogrphr: Issa Johnson [facility] Pat. Stat.:Outpatient Reason for Study:Atrial tachycardia Procedures: 2D, M-mode, Doppler, Color Flow, The study quality is technically adequate. Race: W ++++++++++++++++++++++++++++++++++++ SUMMARY: ++++++++++++++++++++++++++++++++++++ The left ventricular size is normal. The left ventricular systolic function is normal. Estimated left ventricular ejection fraction is 60-65%. Mild concentric left ventricular hypertrophy. Left ventricular diastolic function is abnormal (grade 1 - impaired relaxation). The right ventricular size is normal. Right ventricular systolic function is normal. No significant valve abnormalities. ++++++++++++++++++++++++++++++++++++ FINDINGS: ++++++++++++++++++++++++++++++++++++ LV: The left ventricular size is normal. The left ventricular systolic function is normal. Estimated left ventricular ejection fraction is 60-65%. Mild concentric left ventricular hypertrophy. Left ventricular diastolic function is abnormal (grade 1 - impaired relaxation). WM: Wall motion appears normal in all segments. RV: The right ventricular size is normal. Right ventricular systolic function is normal. IVS: No evidence of ventricular septal defect. LA: The left atrial volume is normal ( less than 34 ml/M2). RA: Right atrial size is normal. IAS: Atrial septum appears intact. ANASTASIA: No evidence of pericardial effusion. AO: Normal aortic root. PA: Estimated right atrial pressure of 8 mmHg. SVn: Inferior vena cava is mildly enlarged. Inferior vena cava shows >50% collapse with respiration consistent with normal right atrial pressure. AV: The aortic valve is trileaflet. No evidence of aortic valve stenosis. No evidence of aortic valve regurgitation. MV: Trace mitral regurgitation. No evidence of mitral valve stenosis. PV: No evidence of pulmonic valve stenosis. A trace of pulmonic regurgitation. TV: A trace of tricuspid regurgitation. Right ventricular systolic pressure is 25-30 mmHg. No evidence of tricuspid valve stenosis. ++++++++++++++++++++++++++++++++++++ MEASUREMENTS: ++++++++++++++++++++++++++++++++++++ DOPPLER LVOT LVOTpkPG 6 mmHg LVOTmnPG 3 mmHg LVOTpkVel 121 cm/s (70-110)+* LVOT SV 79 ml LVOT TVI 25.1 cm Right Atrium RA Press 8 mmHg José's Disk 20 Pulmonary Veins PVnpkVeld 35.7 cm/s PVnVs/Vd 1.7 PVnpkVels 59.5 cm/s PVn A Dur 120 msec AV Forward Flow AV TVI 31.6 cm AV pkPG 10 mmHg AV pkVel 158 cm/s (100-170)+ Area (TVI) 2.49 cm2 (3-5)* AV mnPG 5 mmHg Area (Lj) 2.4 cm2 (3-5)* MV Forward Flow MV DeTm 201 msec MV pkE 84.6 cm/s (60-130) MV E/A 0.9 MV pkA 93.2 cm/s PV Forward Flow PV pkVel 82.2 cm/s (60-90)+ PV AC 92 msec PV pkPG 3 mmHg TV Regurg Flow TV pkPG 17 mmHg TV pkVel 204 cm/s (30-70)* Right Ventricle RVsys P 25 mmHg Right Ventricle 19.6 cm/s TV Forward Flow TV pkE 41.4 cm/s Lat E' Lat e 8.5 cm/s Lat E/E' Lat E/e 10 Med E' Med e 6.22 cm/s Med E/E' Med E/e 13.6 Aortic Valve Aortic Valve Ar 1.3 Aortic Valve Ve 0.77 PV Antegrade Flow Acceleration Sl 861 cm/s2 2D Left Ventricle LVIDd 4.89 cm (3.6-5.2) LV ESV 28.3 ml LVIDs 2.33 cm (2.3-3.9) LV ESV 26.1 ml LngAxd 7.59 cm LVESV BP 28.3 ml LngAxd 6.82 cm LV EF 60.3 % LV EDV 71.2 ml LV EF 60.5 % LV EDV 66 ml LV EF BP 60.6 % LVEDV BP 71.8 ml LV SV 42.9 ml LngAxs 6.51 cm LV SV 39.9 ml LngAxs 5.94 cm LV SV BP 43.5 ml LVPW LVPWd 1.16 cm Right Ventricle RVIDd 2.76 cm (2.6-4.3) Right Ventricle 19.3 mm Right Ventricle 27.7 mm Right and Left 0.564 Major Sunbury 71 mm Ventricular Septum IVSd 1.21 cm Left Atrium LA VOLBP 47.9 ml LVOT LVOT 2 cm LVOTArea 3.14 cm2 Ratios IVS Inferior vena cava IVC Diam 21.6 mm LA Biplane LAVol I BP 25.1 ml/m2 RA Single Plane Right Atrium MO 8.27 mm Right Atrium Sy 22.7 ml Right Atrium Sy 52.6 mm Right Atrium Sy 11.9 ml/m2 Right Atrium Sy 12 cm2 MMODE Ventricular Septum IVSd 3.07 cm (zsc 8.3)* Left Atrium LAIDs 3.7 cm TA Tricuspid Annul 22.1 mm <Electronic Signature> 08/25/2023 04:07 PM Bon Enamorado M.D. us Juan Davis MD ECHO Final Resul t documented in this encounter Visit Diagnoses Diagnosis Atrial tachycardia (CMS/HCC HHS/HCC) Other specified cardiac dysrhythmias documented in this encounter Care Teams Optical Manager Relationship Specialty Start Date End Date Luis Oscar MD [address] [place], [place] [id number] PCP - General FAMILY PRACTICE 06/27/23 documented as of this encounter
--- OUTSIDE RECORDS SUMMARY | 2024-06-25 23:36 | XMS_ITS | Encounter Summary ---
Author Organization [facility] Address [address] [place] [address]. [place] [address] [place] [address] Care Team Providers Care Hairspring Setter Name Role Phone Luis Oscar MD Primary Care Provider [phone] Encounter Details Date Type Department Care Team (Late st Contact Info) Description 09/13/[address] [facility], [address] [place], [place] [phone] Brit Floyd PA 3 [facility] [address] [place], [place] [phone] Blood Pressure Social History Tobacco Use Types Packs/Day Years [...] on file Legal Sex Female 3:58 PM MANAGER GAME Gender Identity Not on file Sexual Orientation Not on file documented as of this encounter Progress Notes * Arti Matamoros RN - 09/30/2023 1:15 PM CDT BMP order faxed to [employer] ([place]) - [phone]. * CAS Hairston - 09/29/2023 11:52 AM CDT Please send order to [employer] in [place] please. * Arti Matamoros RN - 09/28/2023 12:00 PM CDTAddended by: ARTI MATAMOROS on: 09/28/2023 12:00 PM Modules accepted: Orders * CAS Hairston - 09/28/2023 8:44 AM CDT Arti can you please put in an order for BMP please? I am not aware of any worsening of arthritis with losartan. Maybe she needs a follow up with PCP. * Arti Matamoros RN - 09/23/2023 2:47 PM CDTAddended by: ARTI MATAMOROS on: 09/23/2023 02:47 PM Modules accepted: Orders * Arti Matamoros RN - 09/23/2023 2:47 PM CDT Capigami message sent to the patient with the above information from Sue CARDOZO. * CAS Hairston - 09/23/2023 2:42 PM CDT Please have her increase losartan to 50 mg BID and continue other meds the same for now. Continue to monitor BP. Have her check in again in a few weeks. documented in this encounter Plan of Treatment Upcoming Encounters Date Type Department Care Team (Late st Contact Info) Description 06/26/2024 11:45 AM MANAGER GAME Office Visit [facility], [address] [place] [address] Juan Davis MD Three [facility]. [address] [place] [address] Scheduled Orders Name Type Priority Associated Diagnoses Orde r Schedule BASIC METABOLIC PANEL Lab Routine Essential hypertension Expected: 09/28/2023 (Approximate), Expires: 09/27/2024 documented as of this encounter Visit Diagnoses Diagnosis Essential hypertension- Primary Unspecified essential hypertension documented in this encounter Care Teams Hairspring Setter Relationship Specialty Start Date End Date Luis Oscar MD [address] [place] [address] PCP - General FAMILY PRACTICE 06/27/23 documented as of this encounter
--- OUTSIDE RECORDS SUMMARY | 2024-06-25 23:36 | XMS_ITS | Encounter Summary ---
Author Organization [facility] Address [address] [place] [address]. [place] [address] [place] [address] Care Team Providers Care Cleater Name Role Phone Luis Oscar MD Primary Care Provider [phone] Encounter Details Date Type Department Care Team (Late st Contact Info) Description 07/26/2023 MyChart Message Enc [facility] [place] [address] [place], [place] [id number] Juan Davis MD [facility]. [facility] [address] [place], [place] [phone] Sleep Study Social History Tobacco Use Types Packs/Day Years [...] on file Legal Sex Female 3:58 PM ADJUNCT TRAINER Gender Identity Not on file Sexual Orientation Not on file documented as of this encounter Plan of Treatment Upcoming Encounters Date Type Department Care Team (Late Contact Info) Description 06/26/2024 11:45 AM ADJUNCT TRAINER Office Visit [facility] [place] [address] [place] [address] Juan Davis MD Three [facility]. [facility] [address] [place] [address] documented as of this encounter Visit Diagnoses Not on filedocumented in this encounter Care Teams Cleater Relationship Specialty Start Date End Date Luis Oscar MD [address] [address] PCP - General FAMILY PRACTICE 06/27/23 documented as of this encounter
--- OUTSIDE RECORDS SUMMARY | 2024-06-25 23:36 | XMS_ITS | Encounter Summary ---
Author Organization [facility] Address [address] [place] [address]. [place] [address] [place] [address] Care Team Providers Care Welding Machine Operator Friction Name Role Phone Luis Oscar MD Primary Care Provider [phone] Reason for Referral * Sleep Lab (Routine) - Closed Specialty Diagnoses / Procedures Referred By Contac t Referred To Contact CARDIOLOGY Diagnoses Fatigue Atrial tachycardia ([facility] HHS/HCC) Procedures Home Sleep Study - WatchPat ([id number]) Juan Davis MD [address] [address] Phone: tel: fax: Referral ID Status Reason Start Date Expiration Date Visits Re quested Visits Authorized [id number] Closed 07/19/2023 07/18/2024 1 1 ER ROLLER HANDLER PRINTING Reason for Visit * Reason Comments Tachycardia Excessive Sleepiness Daytime * Sleep Lab (Routine) - Closed Specialty Diagnoses / Procedures Referred By Contac t Referred To Contact CARDIOLOGY Diagnoses Fatigue Atrial tachycardia ([facility]/HCC) Procedures Home Sleep Study - WatchPat ([id number]) Juan Davis MD [address] [address] Phone: tel: fax: Referral ID Status Reason Start Date Expiration Date Visits Re quested Visits Authorized [id number] Closed 07/19/2023 07/18/2024 1 1 Encounter Details Date Type Department Care Team (Late st Contact Info) Description 08/09/2023 10:39 AM COPPER ROLLER HANDLER PRINTING - 08/09/2023 11:59 PM COPPER ROLLER HANDLER PRINTING Hospital Encounter [facility] Sleep Lab [address] [place] [address] Juan Davis MD Three [facility]. Jose [facility] [place] [address] Tachycardia; Excessive Sleepiness Daytime Discharge Disposition: Home or Self Care (Routine [...] on file Legal Sex Female 3:58 PM COPPER ROLLER HANDLER PRINTING Gender Identity Not on file Sexual Orientation Not on file documented as of this encounter Last Filed Vital Signs Vital Sign Reading Time Taken Comments Blood Pressure - - Pulse - - Temperature - - Respiratory Rate - - Oxygen Saturation - - Inhaled Oxygen Concentration - - Weight 83.5 kg (184 lb) 08/09/2023 11:32 AM COPPER ROLLER HANDLER PRINTING Height 165.1 cm (5' 5 ) 08/09/2023 11:32 AM COPPER ROLLER HANDLER PRINTING Body Mass Index 30.62 08/09/2023 11:32 AM COPPER ROLLER HANDLER PRINTING documented in this encounter Discharge Instructions * Patient Instructions* CHIDI Guadalupe - 08/09/2023 11:00 AM COPPER ROLLER HANDLER PRINTING Written and verbal SS instructions given to patient. Also, observed video. ER ROLLER HANDLER PRINTING documented in this encounter Medications at Time of Discharge [...] 08/05/2023 08/30/2023 documented as of this encounter Progress Notes * CHIDI Guadalupe - 08/09/2023 11:00 AM CSTEncounter addended by: CHIDI Guadalupe on: 08/10/2023 12:27 PM Actions taken: Multistep and multistep collection tasks completed, Charge Capture section accepted ER ROLLER HANDLER PRINTING * Leonard Naranjo MD - 08/09/2023 11:00 AM CSTEncounter addended by: Leonard Naranjo MD on: 08/15/2023 11:15 AM Actions taken: Pend clinical note, Clinical Note Signed ER ROLLER HANDLER PRINTING documented in this encounter Procedure Notes * Leonard Naranjo MD - 08/09/2023 11:00 AM CSTAssociated Order(s): HOME SLEEP STUDY - WATCHPAT [place], [place] HOME SLEEP STUDY INTERPRETATION PATIENT NAME: Christina Edmond DATE OF : 1955 DATE OF SERVICE: 08/09/2023 Ordering Phys. Exam Description Juan Davis M.D. Home Sleep Study ATTENDING PHYSICIAN: Dr. Leonard Naranjo REFERRING PHYSICIAN: Dr. Juan Davis SUMMARY DATA Sleep Study/ Architecture: This patient was studied using WatchPAT home sleep testing device. The evaluation was initiated on 08/09/2023 at 9:31 PM and was stopped on 08/10/2023 at 6:30 AM. The total recording time was 539.0 minutes with total sleep evaluation 428.0 minutes. DIAGNOSTIC Total pAHI (Apnea-Hypopnea Index) (4%): Total pRDI (Respiratory Disturbance Index): 3.5/hr 7.2/hr Average Sleep Oxygen Saturation: 95 Minimum Sleep Oxygen Saturation: Mean Heart Rate during Sleep: 90 62.0 bpm Assessment/Plan: No Evidence of Obstructive Sleep Apnea. Mild snoring was noted during this study. Treatment for primary snoring may be considered as clinically indicated. This patient should maintain good sleep hygiene techniques, maintain a consistent sleep/wake schedule with adequate hours of sleep, and avoid hazardous activities when sleepy. The patient should be cautioned about factors that may potentially exacerbate snoring and sleep-related problems, such as SHERIFF depressants, especially at bedtime. This document was electronically signed by: Leonard Naranjo M.D. on 08/11/2023 at 9:02 AM. ER ROLLER HANDLER PRINTING documented in this encounter Plan of Treatment Upcoming Encounters Date Type Department Care Team (Late st Contact Info) Description 06/26/2024 11:45 AM COPPER ROLLER HANDLER PRINTING Office Visit [facility] THREE [facility], [facility] [address] [place], [place] [phone] Juan Davis MD [facility]. [facility] [address] [place], [place] [address] documented as of this encounter Procedures Procedure Name Priority Date/Time Associated Diagnosis Comments HOME SLEEP STUDY - WATCHPAT Routine 08/09/2023 11:00 AM COPPER ROLLER HANDLER PRINTING Other fatigue Atrial tachycardia documented in this encounter Results * Home Sleep Study - WatchPat ([id number]) (08/09/2023 11:00 AM COPPER ROLLER HANDLER PRINTING) Narrative [facility] - 08/09/2023 11:00 AM COPPER ROLLER HANDLER PRINTING Leonard Naranjo MD ? 08/15/2023 11:15 AM [place], [place] HOME SLEEP STUDY INTERPRETATION PATIENT NAME: Christina Edmond DATE OF : 1955 DATE OF SERVICE: 08/09/2023 ?? Ordering Phys. Exam Description Juan Davis M.D. Home Sleep Study ATTENDING PHYSICIAN: Dr. Leonard Naranjo REFERRING PHYSICIAN: Dr. Juan Davis SUMMARY DATA Sleep Study/ Architecture: This patient was studied using WatchPAT home sleep testing device. The evaluation was initiated on 08/09/2023 at 9:31 PM and was stopped on 08/10/2023 at 6:30 AM. The total recording time was 539.0 minutes with total sleep evaluation 428.0 minutes. DIAGNOSTIC Total pAHI (Apnea-Hypopnea Index) (4%): Total pRDI (Respiratory Disturbance Index): 3.5/hr 7.2/hr Average Sleep Oxygen Saturation: 95 Minimum Sleep Oxygen Saturation: Mean Heart Rate during Sleep: 90 62.0 bpm Assessment/Plan: No Evidence of Obstructive Sleep Apnea. Mild snoring was noted during this study. Treatment for primary snoring may be considered as clinically indicated. This patient should maintain good sleep hygiene techniques, maintain a consistent sleep/wake schedule with adequate hours of sleep, and avoid hazardous activities when sleepy. The patient should be cautioned about factors that may potentially exacerbate snoring and sleep-related problems, such as SHERIFF depressants, especially at bedtime. This document was electronically signed by: Leonard Naranjo M.D. on 08/11/2023 at 9:02 AM. Juan Davis MD SLEEP CENTER ORDERABLES Fin al Result [facility] () [facility] [address] [place] [address], documented in this encounter Visit Diagnoses Diagnosis Other fatigue Atrial tachycardia (CMS/HCC HHS/HCC) Other specified cardiac dysrhythmias documented in this encounter Care Teams Welding Machine Operator Friction Relationship Specialty Start Date End Date Luis Oscar MD [address] [place] [address] PCP - General FAMILY PRACTICE 06/27/23 documented as of this encounter
--- OUTSIDE RECORDS SUMMARY | 2024-06-25 23:36 | XMS_ITS | Encounter Summary ---
Author Organization [facility] Address [address] [place] [address]. [place] [address] [place] [address] Care Team Providers Care Silk Screen Etcher Name Role Phone Luis Oscar MD Primary Care Provider [phone] Encounter Details Date Type Department Care Team (Late st Contact Info) Description 08/03/2023 [facility] Message Enc [place] [facility] [facility] THREE [facility], [facility] [address] [place], [place] [phone] Juan Davis MD Three [facility]. [place] [address] [place], [place] [id number] Please Advise BP is High / Headache Daily Social History Tobacco Use Types Packs/Day Years [...] on file Legal Sex Female 3:58 PM SKI EDGE PAINTER Gender Identity Not on file Sexual Orientation Not on file documented as of this encounter Progress Notes * Neeryda Ybarra RN - 08/05/2023 1:11 PM CST Allergy list updated./ E. Amada EDGE PAINTER * Deandra Matamoros RN - 08/05/2023 11:35 AM CST I left a voicemail for the patient to call our office and I will send a [facility] message. Our officenumber and my extension were provided. [employer]hart message sent to the patient with the above information from Sue CARDOZO. Message to the Rx desk. EDGE PAINTER * CAS Hairston - 08/05/2023 10:02 AM CST Stop diltiazem. Resume amlodipine for BP. We can add a trial of metoprolol er 25 mg daily. EDGE PAINTER * Deandra Matamoros RN - 08/05/2023 9:57 AM CST I received a voicemail from the patient stating that she cannot tolerate Diltiazem. The patient states that she is weak, having bad headaches and feels nauseous. The patient states that the medication is not improving her BP. Even after doubling the dose of Diltiazem, her BP remains elevated. Message to Sue CARDOZO. EDGE PAINTER documented in this encounter Plan of Treatment Upcoming Encounters Date Type Department Care Team (Late st Contact Info) Description 06/26/2024 11:45 AM SKI EDGE PAINTER Office Visit [facility] THREE [facility], [facility] [address] [place], [place] [phone] Juan Davis MD [facility]. Jose [address] [place], [place] [phone] documented as of this encounter Visit Diagnoses Not on filedocumented in this encounter Care Teams Silk Screen Etcher Relationship Specialty Start Date End Date Luis Oscar MD [address] [facility] [place] [address] PCP - General FAMILY PRACTICE 06/27/23 documented as of this encounter
--- OUTSIDE RECORDS SUMMARY | 2024-06-25 23:36 | XMS_ITS | Encounter Summary ---
Author Organization [facility] Address [address] [place] [address]. [place] [address] [place] [address] Care Team Providers Care Child Care Sitter Name Role Phone Luis Oscar MD Primary Care Provider [phone] Encounter Details Date Type Department Care Team (Latest Contact Info) Description 08/09/2023 Travel Social History Tobacco Use Types Packs/Day [...] on file Legal Sex Female 3:58 PM DIRECTOR OF COLLECTIONS AND ARCHIVES Gender Identity Not on file Sexual Orientation Not on file documented as of this encounter Plan of Treatment Upcoming Encounters Date Type Department Care Team (Late st Contact Info) Description 06/26/2024 11:45 AM DIRECTOR OF COLLECTIONS AND ARCHIVES Office Visit [facility] THREE [facility], [address] [place], [place] [phone] Juan Davis MD [facility]. Jose [address] [place], [place] [phone] documented as of this encounter Visit Diagnoses Not on filedocumented in this encounter Care Teams Child Care Sitter Relationship Specialty Start Date End Date Luis Oscar MD [address] [place] [address] PCP - General FAMILY PRACTICE 06/27/23 documented as of this encounter
--- OUTSIDE RECORDS SUMMARY | 2024-06-25 23:36 | XMS_ITS | Encounter Summary ---
Author Organization [facility] Address [address] [place] [address]. [place] [address] [place] [address] Care Team Providers Care Motorcycle Sales Associate Name Role Phone Luis Oscar MD Primary Care Provider [phone] Encounter Details Date Type Department Care Team (Latest Contact Info) Description 07/19/2023 Travel Social History Tobacco Use Types Packs/Day [...] on file Legal Sex Female 3:58 PM STAMPING BENCH DIE MAKER Gender Identity Not on file Sexual Orientation Not on file documented as of this encounter Plan of Treatment Upcoming Encounters Date Type Department Care Team (Late st Contact Info) Description 06/26/2024 11:45 AM STAMPING BENCH DIE MAKER Office Visit [facility] THREE [facility], [address] [place], [place] [phone] Juan Davis MD [facility]. Jose [address] [place], [place] [phone] documented as of this encounter Visit Diagnoses Not on filedocumented in this encounter Care Teams Motorcycle Sales Associate Relationship Specialty Start Date End Date Luis Oscar MD [address] [facility] [address] PCP - General FAMILY PRACTICE 06/27/23 documented as of this encounter
--- OUTSIDE RECORDS SUMMARY | 2024-06-25 23:36 | XMS_ITS | Encounter Summary ---
Author Organization [facility] Address [address] [place] [address]. [place] [address] [place] [address] Care Team Providers Care Metal Fabricator Name Role Phone Luis Oscar MD Primary Care Provider [phone] Encounter Details Date Type Department Care Team (Late st Contact Info) Description 04/21/2021 Scan [facility], [facility] [address] [place], [place] [phone] Scanned, Doc Pccl Social History Tobacco Use Types Packs/Day Years Used Date Smoking Tobacco: Never Assessed Comments Unknown Sex and Gender Information Value Date Recorded Sex Assigned at Not on file Legal Sex Female 3:58 PM WELDING MACHINE TENDER Gender Identity Not on file Sexual Orientation Not on file documented as of this encounter Plan of Treatment Upcoming Encounters Date Type Department Care Team (Late st Contact Info) Description 06/26/2024 11:45 AM WELDING MACHINE TENDER Office Visit [facility], [facility] [address] [place], [place] [phone] Juan Davis MD [facility]. [facility] [address] [place], [place] [phone] documented as of this encounter Procedures Procedure Name Priority Date/Time Associated Diagnosis Comments ECG GENERIC (SCAN ORDER) Routine 04/21/2021 documented in this encounter Results * ECG (04/21/2021) 04/21/2021 us Doc Pccl Scanned SCANNING Edited Result - Final [facility] ONBASE documented in this encounter Visit Diagnoses Not on filedocumented in this encounter Care Teams Metal Fabricator Relationship Specialty Start Date End Date Luis Oscar MD [address] [address] PCP - General FAMILY PRACTICE 06/27/23 documented as of this encounter
--- OUTSIDE RECORDS SUMMARY | 2024-06-25 23:36 | XMS_ITS | Encounter Summary ---
Author Organization [facility] Address [address] [place] [address]. [place] [address] [place] [address] Care Team Providers Care Warehouse Assembly Worker Name Role Phone Harrison Oscar MD Primary Care Provider [phone] Reason for Visit * Reason Comments Palpitations Follow up ECHO Encounter Details Date Type Department Care Team (Late st Contact Info) Description 08/30/2023 10:00 AM CDT Office Visit Annemarie Diana-Yuan mcgarry [facility], [address] [place] [address] Juan Davis MD [facility]. [address] [place], [place] [address] Brit Floyd PA 3 [facility] [address] [place], [place] [id number] Palpitations (Follow up ECHO) Social History Tobacco Use Types Packs/Day Years [...] on file Legal Sex Female 3:58 PM SALVAGE MEND WORKER Gender Identity Not on file Sexual Orientation Not on file documented as of this encounter Last Filed Vital Signs Vital Sign Reading Time Taken Comments Blood Pressure 140/78 08/30/2023 9:52 AM CDT Pulse 78 08/30/2023 9:52 AM CDT Temperature - - Respiratory Rate - - Oxygen Saturation 96% 08/30/2023 9:52 AM CDT Inhaled Oxygen Concentration - - Weight 82.1 kg (181 lb) 08/30/2023 9:52 AM CDT Height 162.6 cm (5' 4 ) 08/30/2023 9:52 AM CDT Body Mass Index 31.07 08/30/2023 9:52 AM CDT documented in this encounter Progress Notes * CAS Hairston - 08/30/2023 10:00 AM CDT Images from the original note were not included. [place], [place] [address] Cardiac Electrophysiology History and Physical Examination Patient name: Christina Edmond Primary Care Provider: HARRISON OSCAR MD Reason for Visit: Follow up palpitations History of Present Illness Christina Edmond is a 67-year-old female with a history of anxiety, Arthritis, depression, murmur, and hypertension presents today for follow up of palpitations. She has a prior diagnosis of mitral valve prolapse years ago. She reports a prior evaluation years ago by Dr. Mondragon at [facility]. She has had an irregular heart beat on her BP cuff on multiple occasions correlating with symptoms. She reports daily symptoms of pounding sensation and fatigued. She did have some issues on a trail hiking two years ago. She had some intermittent issues since. She reports she is scared to do some activities that it could happen again. She has not had overt syncope. Since her last visit she tried taking diltiazem. Her BP was elevated and she had a headache. She felt nauseated, shaky and weak. Diltizem was stopped. We offered to trial metoprolol for her palpations and BP. She declined because she is concerned about memory loss with beta blockers. She when back on amlodipine 5 mg daily. She notes her BP is still elevated. Sleep study was negative for sleep apnea. Assessment and Plan Mrs. Edmond is a 67-year-old female here today for evaluation of palpitations. Palpitations: I did review her recent holter monitor dated 06/20/2023. This revealed occasional premature atrial complees and brief non sustained runs of atrial tachycardia which I suspect is leading to her symptoms. She has no known atrial fibrillation in the past. Her ECG today demonstrates normal sinus rhythm. Echo shows normal LVEF and mild diastolic dysfunction. Reviewed importance of getting her BP under control. We had discussed trial of HCTZ however she was concerned about becoming dehydrated. Hypertension: BP borderline. She is on amlodipine 5 mg daily. Will add losartan 25 mg daily. BMP in2-3 weeks. Continue to trend her ambulatory blood pressures. Follow up 6 months History Review of Systems Constitutional: Positive for malaise/fatigue. HENT: Negative. Eyes: Negative. Respiratory: Negative. Cardiovascular: Positive for palpitations. Gastrointestinal: Negative. Genitourinary: Negative. Musculoskeletal: Positive for joint pain. Skin: Negative. Neurological: Positive for weakness. Endo/Heme/Allergies: Negative. Psychiatric/Behavioral: The patient is nervous/anxious. Current Problems: Patient Active Problem List Diagnosis Depression Atrial arrhythmia Raynaud disease Sjogren's syndrome with keratoconjunctivitis sicca ([facility]/HCC) ([facility]) Past Medical History: Past Medical History: Diagnosis Date Anxiety lol Arthritis 10 years ago Depression 30 years ago Not a current issue on Lexapro Heart murmur 10 years ago First diagnosed with a mitral valve prolapse, now irregular heartbeat noted on holter monitor, and home blood pressure monitor. Hypertension 8. Past Surgical History: Past Surgical History: Procedure Laterality Date SECTION 75,79,81,84,86 HYSTERECTOMY 20 years ago SPINE SURGERY 2014 Cervical spine fusion TONSILLECTOMY TUBAL LIGATION 20 years ago Social History: Social History Tobacco Use Smoking status: Never Passive exposure: Yes Smokeless tobacco: Never Tobacco comments: Parents both smoked in the home Substance Use Topics Alcohol use: Yes Alcohol/week: 1.0 standard drink of alcohol Types: 1 Standard drinks or equivalent per week Drug use: Never Family History: Family History Problem Relation Name Age of Onset Depression Mother Diana Early Mother Diana 66 years lung cancer Early Father Issa Rich Lewey Body dementia Drug Abuse Brother Paramjit Diabetes Son Lui Bundy DX at 12 years insulun dependant Allergies: Allergies Allergen Reactions Antihistamines, Loratadine-Type Unknown Diltiazem Headache and Other (see comment) Weakness, nausea Diphenhydramine Unknown Ether Nausea Only Hydrocodone Nausea and Vomiting, Nausea Only and Vomiting Reaction: Nausea, Vomiting, Reaction: Nausea, Vomiting, Other reaction(s): Nausea Reaction: Nausea, Vomiting, Morphine Nausea and Vomiting, Nausea Only and Vomiting Reaction: Nausea, Vomiting, Reaction: Nausea, Vomiting, Other reaction(s): Nausea Reaction: Nausea, Vomiting, Oxycodone Nausea and Vomiting, Nausea Only and Vomiting Reaction: Nausea, Vomiting, Reaction: Nausea, Vomiting, Other reaction(s): Nausea Reaction: Nausea, Vomiting, Penicillins Nausea and Vomiting and Nausea Only Other reaction(s): Nausea Propofol Unknown Current Medications: Patient's Medications New Prescriptions No medications on file Previous Medications AMLODIPINE (NORVASC) 2.5 MG TABLET Take 1 tablet (2.5 mg total) by mouth 2 (two) times a day. ESCITALOPRAM (LEXAPRO) 10 MG TABLET Take 1 tablet (10 mg total) by mouth daily. IBUPROFEN 200 MG CAPSULE every 6 (six) hours as needed. LORATADINE (CLARITIN) 10 MG CAP daily. LORAZEPAM (ATIVAN) 0.5 MG TABLET Take 1 tablet (0.5 mg total) by mouth nightly. Modified Medications No medications on file Discontinued Medications METOPROLOL SUCCINATE ER (TOPROL-XL) 25 MG 24 HR TABLET Take 1 tablet (25 mg total) by mouth daily. Physical Exam Filed Vitals: 08/30/23 0952 BP: (!) 140/78 Pulse: 78 SpO2: 96% Weight: 82.1 kg (181 lb) Height: 1.626 m (5' 4 ) Physical Exam: In general, Ms. Edmond sitting in a chair in no acute distress. Appears stated age. Mucous membranes moist. No oropharyngeal exudates. Sclera anicteric. Neck is supple. Normal carotid upstroke. No carotid bruits. JVP is not elevated at 90 degrees. Cardiac exam reveals a regular rate and rhythm. Normal S1 and S2 without murmurs, rubs, gallops. Radial pulses are 2+. Lungs clear to auscultation bilaterally without wheezes, rales, or rhonchi. Abdomen is soft, nontender, and non distended with normoactive bowel sounds. There is no guarding or rebound tenderness. No abdominal bruit.There are no skin lesions or significant ecchymosis. No lower extremity edema. Her mood is normal with a normal affect and she is alert and oriented x 3. Relevant Data Reviewed: Labs: No results found for: NA , K , CR , AST , ALT , HGB , HCT , PLT , WBC , TROP , TSH , INR , BNP Echo: 08/23/23 The left ventricular size is normal. The left ventricular systolic function is normal. Estimated left ventricular ejection fraction is 60-65%. Mild concentric left ventricular hypertrophy. Left ventricular diastolic function is abnormal (grade 1 - impaired relaxation). The right ventricular size is normal. Right ventricular systolic function is normal. No significant valve abnormalities. EKG: NSR, low QRS duration Other Imaging: SID Miller MD [facility] Cardiac Electrophysiology ; ext. [id number] 08/30/2023 10:13 AM documented in this encounter Plan of Treatment Upcoming Encounters Date Type Department Care Team (Late st Contact Info) Description 06/26/2024 11:45 AM SALVAGE MEND WORKER Office Visit [facility], [facility] [address] [place] [address] Juan Davis MD [facility]. [facility] [address] [place] [address] documented as of this encounter Visit Diagnoses Diagnosis Essential hypertension- Primary Unspecified essential hypertension Heart palpitations Palpitations documented in this encounter Care Teams Warehouse Assembly Worker Relationship Specialty Start Date End Date Harrison Oscar MD [address] [place], [place] [id number] PCP - General FAMILY PRACTICE 1/15/24 documented as of this encounter
--- OUTSIDE RECORDS SUMMARY | 2024-06-25 23:36 | XMS_ITS | Encounter Summary ---
Author Organization [facility] Address [address] [place] [address]. [place] [address] [place] [address] Care Team Providers Care City Assessor Name Role Phone Luis Oscar MD Primary Care Provider [phone] Reason for Visit * Reason Onset Date Comments Lab Results 10/06/2023 Encounter Details Date Type Department Care Team (Late st Contact Info) Description 10/06/2023 Telephone [place] [facility]-[address] [id number] Deandra Matamoros RN Lab Results Social History Tobacco Use Types Packs/Day Years [...] on file Legal Sex Female 3:58 PM PRESSURIZER Gender Identity Not on file Sexual Orientation Not on file documented as of this encounter Progress Notes * Deandra Matamoros RN - 10/06/2023 11:47 AM CDT Stable normal BMP. Continue same medications. Above message from Sue CARDOZO. Digital Room, Incdede message sent to the patient with the above information. documented in this encounter Plan of Treatment Upcoming Encounters Date Type Department Care Team (Late st Contact Info) Description 06/26/2024 11:45 AM PRESSURIZER Office Visit [facility], [place] [address] [place] [address] Juan Davis MD Three [facility]. [facility] [address] [place] [address] documented as of this encounter Visit Diagnoses Not on filedocumented in this encounter Care Teams City Assessor Relationship Specialty Start Date End Date Luis Oscar MD [address] [place] [address] PCP - General FAMILY PRACTICE 06/27/23 documented as of this encounter
--- OUTSIDE RECORDS SUMMARY | 2024-06-25 23:36 | XMS_ITS | Encounter Summary ---
Author Organization [facility] Address [address] [place] [address]. [place] [address] [place] [address] Care Team Providers Care It Technical Support Specialist Name Role Phone Luis Oscar MD Primary Care Provider [phone] Reason for Visit * Reason Onset Date Comments Blood Pressure 07/23/2023 Encounter Details Date Type Department Care Team (Late st Contact Info) Description 07/23/2023 Telephone [facility] [phone] Jose J Garcia MD [facility]. 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 The patient states that she does feel tired with the medication. She is still having palpitations but not as strong. The patient will increase Diltiazem and if her fatigue is worse then she will contact our office. The patient had no further questions and verbalized understanding. Message to Sue CARDOZO. NESS PROCESS SPECIALIST * CAS Hairston - 07/25/2023 2:30 PM CST She can try taking the diltizem 120 mg BID instead of daily. NESS PROCESS SPECIALIST * Jose J Garcia MD - 07/23/2023 9:58 PM CST Patient called with elevated BPs, asymptomatic. Initially 180/100, dropped to 169/90s on recheck I encouraged her to monitor over the weekend, twice a day, and call the office Tuesday/Tuesday Should go to ED if having BUSBY/CP/SOB. NESS PROCESS SPECIALIST documented in this encounter Plan of Treatment Upcoming Encounters Date Type Department Care Team (Late st Contact Info) Description 06/26/2024 11:45 AM BUSINESS PROCESS SPECIALIST Office Visit [facility], [address] [place] [address] Juan Davis MD [facility]. [address] [place] [address] documented as of this encounter Visit Diagnoses Not on filedocumented in this encounter Care Teams It Technical Support Specialist Relationship Specialty Start Date End Date Luis Oscar MD [address] [place] [address] PCP - General FAMILY PRACTICE 06/27/23 documented as of this encounter
--- OUTSIDE RECORDS SUMMARY | 2024-06-25 23:36 | XMS_ITS | Encounter Summary ---
Author Organization [facility] Address [address] [place] [address]. 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 [facility] [address] [place], [place] [phone] documented as of this encounter Procedures Procedure Name Priority Date/Time Associated Diagnosis Comments STRESS TEST (SCAN ORDER) Routine 06/15/2021 documented in this encounter Results * STRESS TEST (06/15/2021) 06/15/2021 us Doc Pccl Scanned SCANNING Edited Result - Final [facility] ONBASE documented in this encounter Visit Diagnoses Not on filedocumented in this encounter Care Teams Sharebroker Relationship Specialty Start Date End Date Luis Oscar MD [address] [address] PCP - General FAMILY PRACTICE 06/27/23 documented as of this encounter
--- OUTSIDE RECORDS SUMMARY | 2024-06-25 23:36 | XMS_ITS | Encounter Summary ---
Author Organization [facility] Address [address] [place] [address]. [place] [address] [place] [address] Care Team Providers Care Chemical Handler Name Role Phone Luis Oscar MD Primary Care Provider [phone] Encounter Details Date Type Department Care Team (Late st Contact Info) Description 08/02/[address] [facility], [facility] [address] [place], [place] [phone] Juan Davis MD Three [facility]. 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 TRIC SCREW DRIVER OPERATOR documented in this encounter Plan of Treatment Upcoming Encounters Date Type Department Care Team (Late st Contact Info) Description 06/26/2024 11:45 AM ELECTRIC SCREW DRIVER OPERATOR Office Visit [facility], [facility] [address] [place], [place] [phone] Juan Davis MD [facility]. [facility] [address] [place] [address] documented as of this encounter Visit Diagnoses Not on filedocumented in this encounter Care Teams Chemical Handler Relationship Specialty Start Date End Date Luis Oscar MD [address] [address] PCP - General FAMILY PRACTICE 06/27/23 documented as of this encounter
--- OUTSIDE RECORDS SUMMARY | 2024-06-25 23:36 | XMS_ITS | Encounter Summary ---
Author Organization [facility] Address [address] [place] [address]. 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, [address] [place], [place] [phone] Juan Davis MD [facility]. Jose [address] [place], [place] [id number] documented as of this encounter Visit Diagnoses Not on filedocumented in this encounter Care Teams Fine Arts Teacher Relationship Specialty Start Date End Date Luis Oscar MD [address] [place] [address] PCP - General FAMILY PRACTICE 06/27/23 documented as of this encounter
--- OUTSIDE RECORDS SUMMARY | 2024-06-25 23:36 | XMS_ITS | Encounter Summary ---
Author Organization [facility] Address [address] [place] [address]. 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 [address] [place] [address] documented as of this encounter Procedures Procedure Name Priority Date/Time Associated Diagnosis Comments BASIC METABOLIC PANEL Routine 09/30/2023 documented in this encounter Results * BASIC METABOLIC PANEL (09/30/2023) SODIUM S/P/B 142 POTASSIUM S/P/B 4.2 CO2 23 CHLORIDE S/P/B 106 GLUCOSE 99 mg/dL CALCIUM S/P/B 9.3 BUN 17 CREATININE S/P/B 0.74 0.5 - 1.0 EGFR NON-AFR. AMER. 89 <=90 09/30/2023 us Default History Genericprovider LABORATORY Final Result documented in this encounter Visit Diagnoses Not on filedocumented in this encounter Care Teams Branch Operations Coordinator Relationship Specialty Start Date End Date Luis Oscar MD [address] [address] PCP - General FAMILY PRACTICE 06/27/23 documented as of this encounter
--- OUTSIDE RECORDS SUMMARY | 2024-06-25 23:36 | XMS_ITS | Encounter Summary ---
Author Organization [facility] Address [address] [place] [address]. 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 Patient voiced understanding. PRODUCTION FIELD SUPERVISOR * CAS Hairston - 05/16/2024 12:28 PM CST Lets give it some more time. Continue to monitor for now. Bring list to follow up appt. PRODUCTION FIELD SUPERVISOR * Yamileth Acosta RN - 05/16/2024 12:06 PM CST Patient informed of result and voiced understanding. Patient stated her blood pressure was lower for 1 week after starting hydrochlorothiazide. However,now her blood pressure is back up. She does not have her exact reading in front of her. B/P readingis typically 150/90's and 50's-60's heart rate. PRODUCTION FIELD SUPERVISOR * Yamileth Acosta RN - 05/16/2024 12:04 PM CST ----- Message from Brit Floyd sent at 05/15/2024 3:22 PM SEED PRODUCTION FIELD SUPERVISOR ----- Stable bmp, continue same medications. PRODUCTION FIELD SUPERVISOR documented in this encounter Plan of Treatment Upcoming Encounters Date Type Department Care Team (Late st Contact Info) Description 06/26/2024 11:45 AM SEED PRODUCTION FIELD SUPERVISOR Office Visit [facility], [facility] [address] [place], [place] [phone] Juan Davis MD [facility]. Jose [address] [place], [place] [phone] documented as of this encounter Visit Diagnoses Not on filedocumented in this encounter Care Teams Shrinker Relationship Specialty Start Date End Date Luis Oscar MD [address] [facility] [place] [address] PCP - General FAMILY PRACTICE 06/27/23 documented as of this encounter
--- OUTSIDE RECORDS SUMMARY | 2024-06-25 23:36 | XMS_ITS | Encounter Summary ---
Author Organization [facility] Address [address] [place] [address]. [place] [address] [place] [address] Care Team Providers Care Slack Line Yarder Name Role Phone Luis Oscar MD Primary Care Provider [phone] Encounter Details Date Type Department Care Team (Latest Contact Info) Description 08/30/2023 Travel Social History Tobacco Use Types Packs/Day [...] on file Legal Sex Female 3:58 PM SYSTEMS SPEC Gender Identity Not on file Sexual Orientation Not on file documented as of this encounter Plan of Treatment Upcoming Encounters Date Type Department Care Team (Late st Contact Info) Description 06/26/2024 11:45 AM SYSTEMS SPEC Office Visit [facility], [address] [place], [place] [phone] Juan Davis MD [facility]. [address] [place], [place] [phone] documented as of this encounter Visit Diagnoses Not on filedocumented in this encounter Care Teams Slack Line Yarder Relationship Specialty Start Date End Date Luis Oscar MD [address] [place] [address] PCP - General FAMILY PRACTICE 06/27/23 documented as of this encounter
--- OUTSIDE RECORDS SUMMARY | 2024-06-25 23:36 | XMS_ITS | Encounter Summary ---
Author Organization [facility] Address [address] [place] [address]. [place] [address] [place] [address] Care Team Providers Care Grinder Hand Name Role Phone Luis Oscar MD Primary Care Provider Encounter Details Date Type Department Care Team (Late st Contact Info) Description 06/15/2021 Scan [place] [facility], [facility] [address] [place], [place] [id number] Scanned, Doc Pccl Social History Tobacco Use Types Packs/Day Years Used Date Smoking Tobacco: Never Assessed Comments Unknown Sex and Gender Information Value Date Recorded Sex Assigned at Not on file Legal Sex Female 3:58 PM ROCK MASON Gender Identity Not on file Sexual Orientation Not on file documented as of this encounter Plan of Treatment Upcoming Encounters Date Type Department Care Team (Late st Contact Info) Description 06/26/2024 11:45 AM ROCK MASON Office Visit [place] [facility] [facility], [facility] [address] [place], [place] [id number] Juan Davis MD [facility]. [facility] [address] [place], [place] [phone] documented as of this encounter Procedures Procedure Name Priority Date/Time Associated Diagnosis Comments ECHO GENERIC (SCAN ORDER) Routine 06/15/2021 documented in this encounter Results * ECHO (06/15/2021) Anatomical Region Laterality Modality Other us Doc Pccl Scanned SCANNING Final Result documented in this encounter Visit Diagnoses Not on filedocumented in this encounter Care Teams Grinder Hand Relationship Specialty Start Date End Date Luis Oscar MD [address] [address] PCP - General FAMILY PRACTICE 06/27/23 documented as of this encounter
--- OUTSIDE RECORDS SUMMARY | 2024-06-25 23:36 | XMS_ITS | Encounter Summary ---
Author Organization [facility] Address [address] [place] [address]. 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 [address] [place], [place] [phone] documented as of this encounter Visit Diagnoses Not on filedocumented in this encounter Care Teams Pediatric Np Relationship Specialty Start Date End Date Luis Oscar MD [address] [facility] [place] [address] PCP - General FAMILY PRACTICE 06/27/23 documented as of this encounter
--- OUTSIDE RECORDS SUMMARY | 2024-06-25 23:36 | XMS_ITS | Encounter Summary ---
Author Organization [facility] Address [address] [place] [address]. [place] [address] [place] [address] Care Team Providers Care Humanities Instructor Name Role Phone Luis Oscar MD Primary Care Provider [phone] Encounter Details Date Type Department Care Team (Late st Contact Info) Description 06/20/[address] 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, [facility] [address] [place], [place] [phone] Juan Davis MD [facility]. [facility] [address] [place], [place] [phone] documented as of this encounter Procedures Procedure Name Priority Date/Time Associated Diagnosis Comments HOLTER DOCUMENT (SCAN ORDER) Routine 06/20/2023 documented in this encounter Results * HOLTER DOCUMENT (06/20/2023) 06/20/2023 us Doc Pccl Scanned SCANNING Edited Result - Final [facility] documented in this encounter Visit Diagnoses Not on filedocumented in this encounter Care Teams Humanities Instructor Relationship Specialty Start Date End Date Luis Oscar MD [address] [address] PCP - General FAMILY PRACTICE 06/27/23 documented as of this encounter
--- OUTSIDE RECORDS SUMMARY | 2024-06-25 23:36 | XMS_ITS | Encounter Summary ---
Author Organization [facility] Address [address] [place] [address]. [place] [address] [place] [address] Care Team Providers Care Set Up Mechanic Coating Machines Name Role Phone Harrison Oscar MD Primary Care Provider [phone] Reason for Visit * Reason Comments Hypertension Follow up Tachycardia Shortness Of Breath Encounter Details Date Type Department Care Team (Late st Contact Info) Description 05/01/2024 2:00 PM SECOND BUTLER Office Visit [facility] [facility], [facility] [address] [place], [place] [phone] Sandra Simms MD [facility]. [facility] [address] [place], [place] [phone] Hypertension (Follow up); Tachycardia; Shortness Of Breath Social History Tobacco Use Types Packs/Day Years [...] on file Legal Sex Female 3:58 PM SECOND BUTLER Gender Identity Not on file Sexual Orientation Not on file documented as of this encounter Last Filed Vital Signs Vital Sign Reading Time Taken Comments Blood Pressure 142/84 05/01/2024 1:59 PM SECOND BUTLER Pulse 66 05/01/2024 1:59 PM SECOND BUTLER Temperature - - Respiratory Rate - - Oxygen Saturation 96% 05/01/2024 1:59 PM SECOND BUTLER Inhaled Oxygen Concentration - - Weight 83.5 kg (184 lb) 05/01/2024 1:59 PM SECOND BUTLER Height 162.6 cm (5' 4 ) 05/01/2024 1:59 PM SECOND BUTLER Body Mass Index 31.58 05/01/2024 1:59 PM SECOND BUTLER documented in this encounter Progress Notes * Sandra Simms MD - 05/01/2024 2:00 PM CST Images from the original note were not included. [place], [place] [address] Cardiac Electrophysiology Outpatient Progress Note Patient name: Magen Segal Primary Care Provider: HARRISON OSCAR MD Reason for Visit: Hypertension History of Present Illness Magen Segal is a 68-year-old female with a history of anxiety, Arthritis, depression, murmur, and hypertension presents today for hypertension and palpitations. She has a prior diagnosis of mitralvalve prolapse years ago. She reports a prior evaluation years ago by Dr. Mondragon at [facility]. She has had an irregular heart beat on her BP cuff on multiple occasions correlating with symptoms. She reports daily symptoms of pounding sensation and fatigued. Prior holter noted some PACs and brief PAT. She has tried diltiazem but this caused side effects. She was ultimately transitioned to metoprolol. Today she reports that she is currently taking metoprolol XL 50 in am and 25 mg at night. She is also on losartan. She had severe headache with amlodipine. She has had a swooshing sound in her right ear the last two weeks. She feels she is having some more deeper palpitations. She feels the need to cough. It lasts a second. She feels its more. She has the symptoms all day. Assessment and Plan Mrs. Segal is a 68-year-old female here today for follow up evaluation of palpitations. Palpitations: I did review her recent holter monitor dated 06/20/2023. This revealed occasional premature atrial complees and brief non sustained runs of atrial tachycardia which I suspect is leading to her symptoms. She has no known atrial fibrillation in the past. Her ECG today was with normal sinus rhythm. Symptoms are relatively stable. Continue metoprolol XL 50 mg in am and 25 mg in pm. Hypertension: BP remains elevated. Now with headaches. Continue losartan 25 mg daily. Start HCTZ 12.5 mg daily. Will check BMP in one week. Follow up 2 months History Review of Systems Constitutional: Positive for malaise/fatigue. HENT: Negative. Eyes: Negative. Respiratory: Negative. Cardiovascular: Positive for palpitations. Gastrointestinal: Negative. Genitourinary: Negative. Musculoskeletal: Positive for joint pain. Skin: Negative. Neurological: Positive for weakness and headaches. Endo/Heme/Allergies: Negative. Psychiatric/Behavioral: The patient is nervous/anxious. Current Problems: Patient Active Problem List Diagnosis Depression Atrial arrhythmia Raynaud disease Sjogren's syndrome with keratoconjunctivitis sicca ([facility]) Past Medical History: Past Medical History: Diagnosis [...] 66 years lung cancer Early Father Issa 69 [place]wey Body dementia Drug Abuse Brother Paramjit Diabetes Son Lui Bundy DX at 12 years insulun dependant Allergies: Review of patient's allergies indicates: Allergen Reactions Antihistamines, Loratadine-Type Nausea Only Diltiazem Nausea Only, Headache and Fatigue Diphenhydramine Unknown Ether Nausea Only Hydrocodone Nausea and Vomiting Morphine Nausea and Vomiting Oxycodone Nausea and Vomiting , Penicillins Nausea and Vomiting Propofol Unknown Current Medications: Patient's Medications New Prescriptions No medications on file Previous Medications ESCITALOPRAM (LEXAPRO) 10 MG TABLET Take 1 tablet (10 mg total) by mouth daily. LORATADINE (CLARITIN) 10 MG CAP daily. LORAZEPAM (ATIVAN) 0.5 MG TABLET Take 1 tablet (0.5 mg total) by mouth nightly. LOSARTAN (COZAAR) 50 MG TABLET Take 1 tablet (50 mg total) by mouth 2 (two) times daily. METOPROLOL SUCCINATE ER (TOPROL-XL) 50 MG 24 HR TABLET 50 mg in AM and 25 mg PM Modified Medications No medications on file Discontinued Medications AMLODIPINE (NORVASC) 2.5 MG TABLET Take 1 tablet (2.5 mg total) by mouth 2 (two) times a day. IBUPROFEN 200 MG CAPSULE every 6 (six) hours as needed. Physical Exam Filed Vitals: 05/01/24 1359 BP: (!) 142/84 Pulse: 66 SpO2: 96% Weight: 83.5 kg (184 lb) Height: 1.626 m (5' 4 ) Physical Exam: In general, Ms. Segal sitting in a chair in no acute [...] oriented x 3. Relevant Data Reviewed: Labs: Lab Results Component Value Date/Time NA 142 09/30/2023 12:00 AM K 4.2 09/30/2023 12:00 AM CR 0.74 09/30/2023 12:00 AM Echo: 08/23/23 The left ventricular size is normal. The left ventricular systolic function is normal. Estimated left ventricular ejection fraction is 60-65%. Mild concentric left ventricular hypertrophy. Left ventricular diastolic function is abnormal (grade 1 - impaired relaxation). The right ventricular size is normal. Right ventricular systolic function is normal. No significant valve abnormalities. EKG: NSR, LAE Other Imaging: MD [facility] Cardiac Electrophysiology ; ext. [phone] 05/01/2024 2:28 PM ND BUTLER documented in this encounter Plan of Treatment Upcoming Encounters Date Type Department Care Team (Late st Contact Info) Description 06/26/2024 11:45 AM SECOND BUTLER Office Visit [facility], [address] [place], [place] [phone] Sandra Simms MD [facility]. [address] [place], [place] [phone] Scheduled Orders Name Type Priority Associated Diagnoses Orde r Schedule BASIC METABOLIC PANEL Lab Routine Essential hypertension Expected: 05/01/2024 (Approximate), Expires: 05/01/2025 documented as of this encounter Procedures Procedure Name Priority Date/Time Associated Diagnosis Comments ELECTROCARDIOGRAM (NON MIDMARK ACQUIRED) Routine 05/01/2024 2:07 PM SECOND BUTLER Atrial arrhythmia documented in this encounter Results * ELECTROCARDIOGRAM (05/01/2024 2:07 PM SECOND BUTLER) 05/01/2024 2:07 PM SECOND BUTLER Narrative [facility] - 05/02/2024 8:53 PM SECOND BUTLER ?[facility], O? [place] ? Test Date: ?2024-05-01 Pat Name: ? MAGEN TODOROFF ? Department: ?? 112 ? Room: ? Gender: ? Female ? Sandal Parts Assembler: ?? : ?1955 ? Requested By: SANDRA SIMMS Order Number: [id number] ?Reading MD: ?? Sandra Hushion ? Measurements Intervals ?[place] ? Rate: ? 61 ? P: ?28 AL: ? 152 ?QRS: ?21 QRSD: ? 102 ?T: ?17 QT: ? 395 ? QTc: ?400 ? Interpretive Statements SINUS RHYTHM POSSIBLE LEFT ATRIAL ENLARGEMENT ND BUTLER Procedure Note Sandra Simms MD - 05/02/2024 [facility], O? [facility] Test Date: 2024-05-01 Pat Name: MAGEN SEGAL Department: 112 Room: Gender: Female Sandal Parts Assembler: : 1955 Requested By: SANDRA SIMMS Order Number: [id number] Reading MD: Sandra Simms Measurements Intervals [place] Rate: 61 P: 28 AL: 152 QRS: 21 QRSD: 102 T: 17 QT: 395 QTc: 400 Interpretive Statements SINUS RHYTHM POSSIBLE LEFT ATRIAL ENLARGEMENT ND BUTLER us Sandra Simms MD PROCEDURES-ORDERABLE NO BRITTA RGE Final Result [facility] documented in this encounter Visit Diagnoses Diagnosis Atrial arrhythmia- Primary Cardiac dysrhythmia, unspecified Essential hypertension Unspecified essential hypertension documented in this encounter Care Teams Set Up Mechanic Coating Machines Relationship Specialty Start Date End Date Harrison Oscar MD [address] [address] PCP - General FAMILY PRACTICE 06/27/23 documented as of this encounter
--- OUTSIDE RECORDS SUMMARY | 2024-06-25 23:36 | XMS_ITS | Clinical Summary ---
Author Organization [facility] Address [address] [place] [address]. [place] [address] [place] [address] Care Team Providers Care Stock Holder Name Role Phone Luis Oscar MD Primary Care Provider [phone] Allergies Active Allergy Reactions Criticality Noted Date Comments Antihistamines, Loratadine-Type Nausea Only 07/19/2023 Diltiazem Nausea Only,Headache,Fatigue 08/05/2023 Diphenhydramine Unknown 04/20/2017 Ether Nausea Only 04/20/2017 Hydrocodone Nausea and Vomiting 06/15/2019 ?? Morphine Nausea and Vomiting 06/15/2019 Oxycodone Nausea and Vomiting 06/15/2019 , Penicillins Nausea and Vomiting 06/15/2019 Propofol Unknown 04/20/2017 Medications escitalopram (LEXAPRO) 10 MG tablet Take 1 tablet (10 mg total) by mouth daily. 11/11/2022 Active Loratadine (CLARITIN) 10 MG Cap daily. 07/11/2023 Active LORazepam (ATIVAN) 0.5 MG tablet Take 1 tablet (0.5 mg total) by mouth nightly. 12/11/2022 Active losartan (COZAAR) 50 MG tablet Take 1 tablet (50 mg total) by mouth 2 (two) times daily. 60 tablet 6 09/23/2023 Active metoprolol succinate ER (TOPROL-XL) 50 MG 24 hr tablet 50 mg in AM and 25 mg PM 04/14/2024 Active hydroCHLOROthia zide (MICROZIDE) 12.5 MG capsule Take 1 capsule (12.5 mg total) by mouth every morning. 30 capsule 3 05/01/2024 Active Active Problems Problem Noted Date Diagnosed Date Depression 07/18/2023 Raynaud disease 07/18/2023 Atrial arrhythmia 06/11/2021 Overview (07/19/2023): Last Assessment & Plan: Seeing cardiology for further eval Sjogren's syndrome with john toconjunctivitis sicca ([facility]) 05/21/2021 Overview (07/19/2023): AVISE 06/02: +ANAMIKA 1:160 Xrays 06/02: bilat 1st mtp oa. bilat 1st cmc oa. Mild patellofemoral oa. R hand u/s 06/02/21: The impression at this time is: 1) 2nd MCP erosion. Mild synovial thickening/effusion with grade 2 power Doppler at the wrist. Mild/moderate 2nd MCP and moderate 3rd MCP synovial thickening with grade 2 power Doppler in 2nd and grade 1 in 3rd MCPs. Moderate 2nd PIP and mild/moderate 3rd PIP synovial thickening on examination which will have to be correlated clinically. 2) 4th compartment effusion. No prior hand US study available for comparison. Last Assessment & Plan: Severe dry eyes, dry mouth. Noted on recent eye exam. Started on new drops per eye doctor recently along with steroid ointment. Advised to continue liberal use of lubricating drops. Repeated serologies and she has +ANAMIKA 1:160 only. Other markers all negative. Could consider pilocarpine/cevimeline Resolved Problems Problem Noted Date Diagnosed Date Resolved Date Edema, lower extremity 08/27/202108/29 Overview (07/19/2023): Last Assessment & Plan: Consider peripheral edema due to venous insufficiency vs medication. Suggested wearing compression stockings with prolonged sitting. Also, take frequent breaks to move walk around or elevate legs during the day. Follow up with PCP Encounters Date Type Department Care Team Description 05/16/2024 Telephone [facility] [address], [facility] [address] [place] [address] Brit Floyd PA Lab Results 05/15/2024 Abstract [facility] [address], [facility] [address] [place] [address] Nereyda Webber CMA 05/01/2024 2:00 PM NURSE NAVIGATOR Office Visit [facility] [address] [facility], [address] [address] Sandra Simms MD Hypertension (Follow up); Tachycardia; Shortness Of Breath 05/01/2024 Travel from Last 3 Months Family History Medical History Relation Comments Drug Abuse Brother Early Father 69 [place] Body de mentia Depression Mother Early Mother 66 years lung ca ncer Diabetes Son DX at 12 years i nsulun dependant Relation Status Comments Brother Father Mother Son Social History Tobacco Use Types Packs/Day Years Used Date Smoking Tobacco: Never Cigarettes 1.5 15 Passive Smoke Exposure: Yes Smokeless Tobacco: Never Tobacco Cessation:Counseling Given: Not Answered Comments:Parents both smoked in the home Alcohol Use Standard Drinks/Week Comments Yes 1 (1 standard drink = 0.6 oz pur e alcohol) Comments Unknown Sex and Gender Information Value Date Recorded Sex Assigned at Not on file Legal Sex Female 3:58 PM NURSE NAVIGATOR Gender Identity Not on file Sexual Orientation Not on file Last Filed Vital Signs Vital Sign Reading Time Taken Comments Blood Pressure 142/84 05/01/2024 1:59 PM NURSE NAVIGATOR Pulse 66 05/01/2024 1:59 PM NURSE NAVIGATOR Temperature - - Respiratory Rate - - Oxygen Saturation 96% 05/01/2024 1:59 PM NURSE NAVIGATOR Inhaled Oxygen Concentration - - Weight 83.5 kg (184 lb) 05/01/2024 1:59 PM NURSE NAVIGATOR Height 162.6 cm (5' 4 ) 05/01/2024 1:59 PM NURSE NAVIGATOR Body Mass Index 31.58 05/01/2024 1:59 PM NURSE NAVIGATOR Plan of Treatment Upcoming Encounters Date Type Department Care Team (Late st Contact Info) Description 06/26/2024 11:45 AM NURSE NAVIGATOR Office Visit [facility], [address] [place], [place] [phone] Sandra Simms MD [facility]. [address] [place], [place] [id number] Health Maintenance Due Date Last Done Comments Colorectal Cancer Screening Colonoscopy (10 Years) 1955 Hepatitis C 1974 DTaP, Tdap and Td Vaccines ( 1 - Tdap) 11/24/1975 Lung Cancer Screening 2006 Zoster Vaccines (1 of 2) 2006 Annual Medicare Wellness Visit 2021 Dexa Scan (General) 2021 Pneumococcal Vaccine: 65+ Years (1 of 1 - PCV) 2021 COVID-19 Vaccine (4 - 2023-2 5 season) 2024 06/26/2021, 07/28/2020, 07/07/2020 Influenza Adult (#1) 2024 04/06/2022, 03/14/2021 Mammogram Screening 05/24/2024 05/24/2022, 11/12/2020, 06/18/2014 RSV Immunization or 60+ Years (1 - 1-dose 75+ series) 11/24/2031 Meningococcal Vaccine Aged Out No rivera partha eligible based on patient's age to complete this topic RSV Immunizations Under 20 Months Aged Out No longer eligible b ased on patient's age to complete this topic Procedures Procedure Name Priority Date/Time Associated Diagnosis Comments BASIC METABOLIC PANEL Routine 05/14/2024 ELECTROCARDIOGRAM (NON MIDMARK ACQUIRED) Routine 05/01/2024 2:07 PM NURSE NAVIGATOR Atrial arrhythmia from Last 3 Months Results * BASIC METABOLIC PANEL (05/14/2024) SODIUM S/P/B 139 134 - 144 POTASSIUM S/P/B 4.5 3.5 - 5.2 CO2 26 20 - 29 CHLORIDE S/P/B 100 96 - 106 GLUCOSE 90 70 - 99 mg/dL CALCIUM S/P/B 9.5 8.7 - 10.3 BUN 20 8 - 27 CREATININE S/P/B 0.84 0.57 - 1.00 GFR ESTIMATE 76 >60 05/14/2024 us Default History Genericprovider LABORATORY Final Result * ELECTROCARDIOGRAM (05/01/2024 2:07 PM NURSE NAVIGATOR) 05/01/2024 2:07 PM NURSE NAVIGATOR Narrative [facility] - 05/02/2024 8:53 PM NURSE NAVIGATOR ?[facility], O? [place] ? Test Date: ?2024-05-01 Pat Name: ? MAGEN SEGAL ? Department: ?? 112 ? Room: ? Gender: ? Female ? Customer Consulting Manager: ?? : ?1955 ? Requested By: SANDRA SIMMS Order Number: [id number] ?Reading : ?? Sandra Simms ? Measurements Intervals ?[place] ? Rate: ? 61 ? P: ?28 ME: ? 152 ?QRS: ?21 QRSD: ? 102 ?T: ?17 QT: ? 395 ? QTc: ?400 ? Interpretive Statements SINUS RHYTHM POSSIBLE LEFT ATRIAL ENLARGEMENT E NAVIGATOR Procedure Note Sandra Simms MD - 05/02/2024 [facility], O? [facility] Test Date: 2024-05-01 Pat Name: MAGEN SEGAL Department: 112 Room: Gender: Female Customer Consulting Manager: : 1955 Requested By: SANDRA SIMMS Order Number: [id number] [place] WILLS: Sandra Simms Measurements Intervals [place] Rate: 61 P: 28 ME: 152 QRS: 21 QRSD: 102 T: 17 QT: 395 QTc: 400 Interpretive Statements SINUS RHYTHM POSSIBLE LEFT ATRIAL ENLARGEMENT E NAVIGATOR us Sandra Simms MD PROCEDURES-ORDERABLE NO BRITTA RGE Final Result [facility] from Last 3 Months Insurance [facility] Care Teams Stock Holder Relationship Specialty Start Date End Date Luis Oscar MD [address] [place] [address] PCP - General FAMILY PRACTICE 06/27/23
--- OUTSIDE RECORDS SUMMARY | 2024-06-25 23:36 | XMS_ITS | Encounter Summary ---
Author Organization [facility] Address [address] [place] [address]. [place] [address] [place] [address] Care Team Providers Care Fiscal Manager Name Role Phone Harrison Oscar MD Primary Care Provider [phone] Reason for Referral * Imaging (Routine) - Closed Specialty Diagnoses / Procedures Referred By Contac t Referred To Contact RADIOLOGY Diagnoses Atrial tachycardia ([facility]) Procedures USE ECHOCARDIOGRAM Sandra Simms MD [address] [address] Phone: tel: fax: Referral ID Status Reason Start Date Expiration Date Visits Re quested Visits Authorized [id number] Closed 07/19/2023 08/18/2024 1 1 LER * Sleep Lab (Routine) - Closed Specialty Diagnoses / Procedures Referred By Contac t Referred To Contact CARDIOLOGY Diagnoses Fatigue Atrial tachycardia ([facility]) Procedures Home Sleep Study - WatchPat ([id number]/[id number]) Sandra Simms MD [address] [place] [address] Phone: tel: fax: Referral ID Status Reason Start Date Expiration Date Visits Re quested Visits Authorized [id number] Closed 07/19/2023 07/18/2024 1 1 LER Reason for Visit * Reason Comments Arrhythmia New Consult Encounter Details Date Type Department Care Team (Late st Contact Info) Description 07/19/2023 10:00 AM SMELLER Office Visit [facility] [facility], [address] [place] [address] Sandra Simms MD [facility]. [address] [place], [place] [id number] Arrhythmia (New Consult ) Social History Tobacco Use Types Packs/Day Years [...] on file Legal Sex Female 3:58 PM SMELLER Gender Identity Not on file Sexual Orientation Not on file documented as of this encounter Last Filed Vital Signs Vital Sign Reading Time Taken Comments Blood Pressure 130/82 07/19/2023 10:11 AM SMELLER Pulse 79 07/19/2023 10:11 AM SMELLER Temperature - - Respiratory Rate - - Oxygen Saturation 97% 07/19/2023 10:11 AM SMELLER Inhaled Oxygen Concentration - - Weight 82.6 kg (182 lb) 07/19/2023 10:11 AM SMELLER Height 162.6 cm (5' 4 ) 07/19/2023 10:11 AM SMELLER Body Mass Index 31.24 07/19/2023 10:11 AM SMELLER documented in this encounter Progress Notes * Sandra Simms MD - 07/19/2023 10:00 AM CSTAddended by: SANDRA SIMMS on: 07/21/2023 08:27 AM Modules accepted: Level of Service LER * Sandra Simms MD - 07/19/2023 10:00 AM CST Images from the original note were not included. [place], [place] [address] Cardiac Electrophysiology History and Physical Examination Patient name: Magen Segal Referring Provider: Russ Primary Care Provider: HARRISON OSCAR MD Reason for Consultation: Reason for consultation diagnosis: palpitations/abnormal holter Chief Complaint: palpitations History of Present Illness Magen Segal is a 67-year-old female with a history of anxiety, Arthritis, depression, murmur, and hypertension referred for consultation regarding evaluation of an abnormal holter and palpitations. She also reports a prior diagnosis of mitral valve prolapse years ago. She is here for evaluation of palpitation symptoms. She reports a prior evaluation years ago by Dr. Mondragon at [facility]. She has had an irregular heart beat on her BP cuff on multiple occasions correlating with symptoms. She reports daily symptoms. She even felt them even coming in to her visit today. Its usually a pounding sensation but recently been a lot more fatigued. She feels her heart quivering and overall weak. She reports this is not incapaciting. She did have some issues on a trail hiking two years ago. She had some intermittent issues since. She reports she is scared to do some activities it could recurthat severely again. She feels her blood sugar could be low at times. She has not had overt syncope. Assessment and Plan Mrs. Segal is a 67-year-old female here today for evaluation of palpitations. Palpitations: I did review her recent holter monitor dated 06/20/2023. This revealed occasional premature atrial complees and brief non sustained runs of atrial tachycardia which I suspect is leading to her symptoms. She has no known atrial fibrillation in the past. Her ECG today demonstrates normal sinus rhythm. Given her prior history of mitral valve prolapse, I did recommend an echocardiogram for risk stratification and to ensure valvular heart disease is not playing a role here. She was also referred for sleep study given her recent hypertension and symptoms. I expressed my concern she may have undiagnosed GUS. We will also start on her on low dose diltiazem for symptom relief. Diltiazem CD 120 mg daily was prescribed. We will follow up with her after the echo to see if this is helping her symptoms. Hypertension: BP borderline. I did discontinue her amlodipine now she is starting diltiazem. She may ultimately need another agent but will trend her ambulatory blood pressures. History Review of Systems Constitutional: Positive for malaise/fatigue. HENT: Negative. Eyes: Negative. Respiratory: Negative. Cardiovascular: Positive for palpitations. Gastrointestinal: Negative. Genitourinary: Negative. Musculoskeletal: Positive for joint pain. Skin: Negative. Neurological: Positive for weakness. Endo/Heme/Allergies: Negative. Psychiatric/Behavioral: The patient is nervous/anxious. Current Problems: Patient Active Problem List Diagnosis Depression Atrial arrhythmia Edema, lower extremity Raynaud disease Sjogren's syndrome with keratoconjunctivitis sicca ([facility]/HCC) ([facility]) Past Medical History: Past Medical History: Diagnosis [...] Allergies: Allergies Allergen Reactions Antihistamines, Loratadine-Type Unknown Diphenhydramine Unknown Ether Nausea Only Hydrocodone Nausea [...] total) by mouth 2 (two) times daily. ESCITALOPRAM (LEXAPRO) 10 MG TABLET Take 1 tablet (10 mg total) by mouth daily. IBUPROFEN 200 MG CAPSULE every 6 (six) hours as needed. LORATADINE (CLARITIN) 10 MG CAP daily. LORAZEPAM (ATIVAN) 0.5 MG TABLET Take 1 tablet (0.5 mg total) by mouth nightly. Modified Medications No medications on file Discontinued Medications No medications on file Physical Exam Filed Vitals: 07/19/23 1011 BP: 130/82 Pulse: 79 SpO2: 97% Weight: 82.6 kg (182 lb) Height: 1.626 m (5' 4 ) [...] , TSH , INR , BNP Echo: EKG: NSR, low QRS duration Other Imaging: Sandra Simms MD [facility] Cardiac Electrophysiology ; ext. [phone] 07/19/2023 10:34 AM LER documented in this encounter Plan of Treatment Upcoming Encounters Date Type Department Care Team (Late st Contact Info) Description 06/26/2024 11:45 AM SMELLER Office Visit [facility] [facility], [address] [place] [address] Sandra Simms MD [address] [place], [place] [address] documented as of this encounter Procedures Procedure Name Priority Date/Time Associated Diagnosis Comments ELECTROCARDIOGRAM (NON MIDMARK ACQUIRED) Routine 07/19/2023 10:16 AM SMELLER Atrial arrhythmia documented in this encounter Results * USE ECHOCARDIOGRAM (08/23/2023 1:10 PM CDT) Anatomical Region Laterality Modality Cardiac Echocardiogram 08/23/2023 12:3 3 PM CDT Narrative 08/25/2023 4:07 PM CDT ?Echocardiography Report Pat.Name: ??MAGEN SEGAL ? Pat.ID: ?[id number] ? St.Date: ?? 08/23/2023 ? Refer.: ??MENDEZ REED ? Exam Time: 12:33:00 PM ? Study Type:ECHO WITH CARDIAC DOPPLER COMP Height: ?65 in ? Weight: ?184 lb ? BSA: ? 1.91 m2 ?Age: ??1955,67Y ? Sex: ? F ? BP: ?134/70 ? HR: ?67 bpm ?Sonogrphr: Issa Johnson RD ? Pat. Stat.:Outpatient ? Reason for Study:Atrial [...] ? Right and Left ??0.564 ? Major [place] ?71 mm ? Ventricular Septum ?? IVSd [...] 08/25/2023 Echocardiography Report Pat.Name: MAGEN SEGAL Pat.ID: [id number] .Date: 08/23/2023 Refer.MD: MENDEZ REED Exam Time: 12:33:00 PM Study Type:ECHO WITH CARDIAC DOPPLER COMP Height: 65 in Weight: 184 lb BSA: 1.91 m2 Age: 6 1955,67Y Sex: F BP: 134/70 HR: 67 bpm Sonogrphr: Issa Johnson [facility] Pat. Stat.:Outpatient Reason for Study:Atrial tachycardia Procedures: [...] 27.7 mm Right and Left 0.564 Major [place] 71 mm Ventricular Septum IVSd 1.21 cm [...] 08/25/2023 04:07 PM Bon Enamorado M.D. us Sandra Simms MD ECHO Final Resul t * Home Sleep Study - WatchPat ([id number]) (08/09/2023 11:00 AM SMELLER) Narrative [facility] - 08/09/2023 11:00 AM SMELLER Leonard Naranjo MD ? 08/15/2023 11:15 AM [place], [place] HOME SLEEP STUDY INTERPRETATION PATIENT NAME: Magen Segal DATE OF : 1955 DATE OF SERVICE: 08/09/2023 ?? Ordering Phys. Exam Description Sandra iSmms M.D. Home Sleep Study ATTENDING PHYSICIAN: Dr. Leonard Naranjo REFERRING PHYSICIAN: Dr. Sandra Simms SUMMARY DATA Sleep Study/ Architecture: This patient [...] exacerbate snoring and sleep-related problems, such as DRILL PRESS OPERATOR depressants, especially at bedtime. This document was electronically signed by: Leonard Naranjo M.D. on 08/11/2023 at 9:02 AM. us Sandra Simms MD SLEEP CENTER ORDERABLES Fin al Result Performing Organization Address City/State/[facility] Co de Phone Number [facility] [address] [place] [address], * ELECTROCARDIOGRAM (07/19/2023 10:16 AM SMELLER) 07/19/2023 10:1 6 AM SMELLER Narrative [facility] - 07/19/2023 9:35 PM SMELLER ?[facility], O? [place] ? Test Date: ?2023-07-19 Pat Name: ? MAGEN TODOROFF ? Department: ?? 112 ? Room: ? Gender: ? Female ? Woodwind Reeds Cutter: ?? : ?1955 ? Requested By: SANDRA SINGHHION Order Number: [id number] ?Reading MD: ?? Sandra Hushion ? Measurements Intervals ?[place] ? Rate: ? 70 ? P: ?57 MI: ? 148 ?QRS: ?82 QRSD: ? 93 ? T: ?27 QT: ? 362 ? QTc: ?393 ? Interpretive Statements SINUS RHYTHM LOW QRS VOLTAGE IN PRECORDIAL LEADS LER Procedure Note Sandra Simms MD - 07/19/2023 [facility], O? [place] Test Date: 2023-07-19 Pat Name: MAGEN SEGAL Department: 112 Room: Gender: Female Woodwind Reeds Cutter: : 1955 Requested By: SANDRA SIMMS Order Number: [id number] Reading MD: Sandra Simms Measurements Intervals [place] Rate: 70 P: 57 MI: 148 QRS: 82 QRSD: 93 T: 27 QT: 362 QTc: 393 Interpretive Statements SINUS RHYTHM LOW QRS VOLTAGE IN PRECORDIAL LEADS LER us Sandra Simms MD PROCEDURES-ORDERABLE NO BRITTA RGE Final Result [facility] documented in this encounter Visit Diagnoses Diagnosis Atrial arrhythmia- Primary Cardiac dysrhythmia, unspecified Other fatigue Atrial tachycardia (CMS/HCC HHS/HCC) Other specified cardiac dysrhythmias Essential hypertension Unspecified essential hypertension Other fatigue Atrial tachycardia (CMS/HCC HHS/HCC) Other specified cardiac dysrhythmias Atrial tachycardia (CMS/HCC HHS/HCC) Other specified cardiac dysrhythmias documented in this encounter Care Teams Fiscal Manager Relationship Specialty Start Date End Date Harrison Oscar MD [address] [address] PCP - General FAMILY PRACTICE 06/27/23 documented as of this encounter
--- OUTSIDE RECORDS SUMMARY | 2024-06-25 23:36 | XMS_ITS | Encounter Summary ---
Author Organization [facility] Address [address] [place] [address]. [place] [address] [place] [address] Care Team Providers Care Applications Analyst Name Role Phone Luis Oscar MD Primary Care Provider Encounter Details Date Type Department Care Team (Late Contact Info) Description 05/15/2024 Abstract [facility] [address] [place], [place] [id number] Nereyda Webber CMA Social History Tobacco Use Types Packs/Day Years [...] on file Legal Sex Female 3:58 PM CONTRACT TECHNICIAN Gender Identity Not on file Sexual Orientation Not on file documented as of this encounter Plan of Treatment Upcoming Encounters Date Type Department Care Team (Late Contact Info) Description 06/26/2024 11:45 AM CONTRACT TECHNICIAN Office Visit [facility] [facility], [address] [place], [place] [address] Juan Davis MD [facility]. [address] [place] [address] documented as of this encounter Procedures Procedure Name Priority Date/Time Associated Diagnosis Comments BASIC METABOLIC PANEL Routine 05/14/2024 documented in this encounter Results * BASIC METABOLIC PANEL (05/14/2024) SODIUM [...] on filedocumented in this encounter Care Teams Applications Analyst Relationship Specialty Start Date End Date Luis Oscar MD [address] [place] [address] PCP - General FAMILY PRACTICE 06/27/23 documented as of this encounter
--- OUTSIDE RECORDS SUMMARY | 2024-06-25 23:36 | XMS_ITS | Encounter Summary ---
Author Organization [facility] Address [address] [place] [address]. [place] [address] [place] [address] Care Team Providers Care Baggage Clerk Name Role Phone Luis Oscar MD Primary Care Provider [phone] Encounter Details Date Type Department Care Team (Late st Contact Info) Description 05/27/2023 Scan [facility], [facility] [address] [place], [place] [phone] Scanned, Doc Pccl Social History Tobacco Use Types Packs/Day Years Used Date Smoking Tobacco: Never Assessed Comments Unknown Sex and Gender Information Value Date Recorded Sex Assigned at Not on file Legal Sex Female 3:58 PM SCALP SPECIALIST Gender Identity Not on file Sexual Orientation Not on file documented as of this encounter Plan of Treatment Upcoming Encounters Date Type Department Care Team (Late st Contact Info) Description 06/26/2024 11:45 AM SCALP SPECIALIST Office Visit [facility], [facility] [address] [place], [place] [id number] Juan Davis MD [facility]. [facility] [address] [place], [place] [id number] documented as of this encounter Visit Diagnoses Not on filedocumented in this encounter Care Teams Baggage Clerk Relationship Specialty Start Date End Date Luis Oscar MD [address] [facility] [place] [address] PCP - General FAMILY PRACTICE 06/27/23 documented as of this encounter
--- OUTSIDE RECORDS SUMMARY | 2024-06-25 23:36 | XMS_ITS | Encounter Summary ---
Author Organization [facility] Address [address] [place] [address]. [place] [address] [place] [address] Care Team Providers Care Offal Separator Name Role Phone Luis Oscar MD Primary Care Provider [phone] Encounter Details Date Type Department Care Team (Late st Contact Info) Description 08/05/2023 [employer] Message Enc [facility] [facility], [facility] [address] [place], [place] [phone] Juan Davis MD Three [facility]. [facility] [address] [place], [place] [id number] Metoprolol question Social History Tobacco Use Types Packs/Day Years [...] file Legal Sex Female 3:58 PM MANAGER BACKGROUND Gender Identity Not on file Sexual Orientation Not on file documented as of this encounter Progress Notes * Deandra Matamoros RN - 08/05/2023 3:57 PM CST [employer] message sent to the patient with the above information from Sue CARDOZO. GER BACKGROUND * CAS Hairston - 08/05/2023 1:59 PM CST The metoprolol was for her symptoms of palpitations. She does not have to take if she doesn't want too. GER BACKGROUND documented in this encounter Plan of Treatment Upcoming Encounters Date Type Department Care Team (Late st Contact Info) Description 06/26/2024 11:45 AM MANAGER BACKGROUND Office Visit [facility], [facility] [address] [place] [address] Juan Davis MD [facility]. [facility] [address] [place] [address] documented as of this encounter Visit Diagnoses Not on filedocumented in this encounter Care Teams Offal Separator Relationship Specialty Start Date End Date Luis Oscar MD [address] [place], [place] [id number] PCP - General FAMILY PRACTICE 06/27/23 documented as of this encounter
--- OUTSIDE RECORDS SUMMARY | 2024-06-25 23:36 | XMS_ITS | Encounter Summary ---
Author Organization [facility] Address [address] [place] [address]. [place] [address] [place] [address] Care Team Providers Care Mobile Sales Technician Name Role Phone Luis Oscar MD Primary Care Provider [phone] Reason for Visit * Reason Onset Date Comments Results 08/24/2023 Encounter Details Date Type Department Care Team (Late st Contact Info) Description 08/24/2023 Telephone [place] [address] [id number] Deandra Matamoros RN Results Social History Tobacco Use Types Packs/Day [...] on file Legal Sex Female 3:58 PM LAST MODEL MAKER Gender Identity Not on file Sexual Orientation Not on file documented as of this encounter Progress Notes * Deandra Matamoros RN - 08/24/2023 1:29 PM CDT Negative sleep study. Above message from Sue CARDOZO. [employer] message sent to the patient with the above information. documented in this encounter Plan of Treatment Upcoming Encounters Date Type Department Care Team (Late st Contact Info) Description 06/26/2024 11:45 AM LAST MODEL MAKER Office Visit [facility], [place] [address] [place] [address] Juan Davis MD Three [facility]. [facility] [address] [place] [address] documented as of this encounter Visit Diagnoses Not on filedocumented in this encounter Care Teams Mobile Sales Technician Relationship Specialty Start Date End Date Luis Oscar MD [address] [address] PCP - General FAMILY PRACTICE 06/27/23 documented as of this encounter
--- OUTSIDE RECORDS SUMMARY | 2024-06-25 23:36 | XMS_ITS | Encounter Summary ---
Author Organization [facility] Address [address] [place] [address]. [place] [address] [place] [address] Care Team Providers Care Pathology Technician Name Role Phone Luis Oscar MD Primary Care Provider [phone] Reason for Visit * Reason Onset Date Comments Information 07/18/2023 Encounter Details Date Type Department Care Team (Late st Contact Info) Description 07/18/2023 Telephone [place] [address] [address] Deandra Matamoros, RN Information Social History Tobacco Use Types Packs/Day Years Used Date Smoking Tobacco: Never Assessed Comments Unknown Sex and Gender Information Value Date Recorded Sex Assigned at Not on file Legal Sex Female 3:58 PM SHIPYARD PAINTER HELPER Gender Identity Not on file Sexual Orientation Not on file documented as of this encounter Progress Notes * Deandra Matamoros RN - 07/18/2023 5:11 PM CST I left a voicemail for the patient that we do have her monitor strips. Our office number and my extension were provided. YARD PAINTER HELPER * Beth Lopez - 07/18/2023 3:28 PM CST Yes, I just got them from the fax from [facility] YARD PAINTER HELPER * Deandra Matamoros RN - 07/18/2023 2:51 PM CST I received a phone call from the patient stating that she has an appt tomorrow. The patient asked if we received her monitor strips. I informed the patient that we do not have the strips in her chart but will need to ask the secretary specialist. I instructed the patient, if able, to contact [facility] to request the strips so she canbring with her to the appt. The patient verbalized understanding and had no further questions. Message to the secretary specialist. YARD PAINTER HELPER documented in this encounter Plan of Treatment Upcoming Encounters Date Type Department Care Team (Late st Contact Info) Description 06/26/2024 11:45 AM SHIPYARD PAINTER HELPER Office Visit [place] [facility] [address] [place] [address] Juan Davis MD [facility]. [facility] [address] [place] [address] documented as of this encounter Visit Diagnoses Not on filedocumented in this encounter Care Teams Pathology Technician Relationship Specialty Start Date End Date Luis Oscar MD [address] [address] PCP - General FAMILY PRACTICE 06/27/23 documented as of this encounter
--- OUTSIDE RECORDS SUMMARY | 2024-06-25 23:38 | XMS_ITS | Encounter Summary ---
Author Organization [facility] Address [address] [place] [address] Phone Care Team Providers Care Technical Solution Architect Name Role Phone Luis Oscar MD Primary Care Provider [phone] Encounter Details Date Type Department Care Team (Late st Contact Info) Description 10/26/2023 Orders Only [facility] [address] [place] [phone] Rosa Trivedi PA [address] [place] [address] Social History Tobacco Use Types Packs/Day Years Used Date Smoking Tobacco: Never Assessed Alcohol Use Standard Drinks/Week Comments Yes 0 (1 standard drink = 0.6 oz pur e alcohol) Comments Unknown Sex and Gender Information Value Date Recorded Sex Assigned at Not on file 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 CARBIDE GRINDER Gender Identity Not on file Sexual Orientation Not on file documented as of this encounter Miscellaneous Notes * Result Encounter Note - Rosa Trivedi PA - 10/28/2023 3:07 PM CDT Xrays show severe OA of 1st toes, milder arthritis in the midfeet, and moderate sized plantar spurs. Minimal R shoulder AC joint osteoarthritis, and mild L shoulder AC joint osteoarthritis Hands with polyarticular osteoarthritis, worst at thumbs, and no erosions Lumbar spine with mild scoliosis, listhesis (offset) of L4 on L5, other mild- moderate degenerative changes. SI joints with mild osteoarthritis. Will go over ultrasound results and rest of labs once we see them documented in this encounter Plan of Treatment Not on file documented as of this encounter Procedures Procedure Name Priority Date/Time Associated Diagnosis Comments SCAN - RADIOLOGY/IMAGING 10/26/2023 9:40 AM CDT documented in this encounter Results * SCAN - RADIOLOGY/IMAGING (10/26/2023 9:40 AM CDT) Anatomical Region Laterality Modality Other us Rosa CARDOZO Edited R esult - Final documented in this encounter Visit Diagnoses Not on filedocumented in this encounter Care Teams Technical Solution Architect Relationship Specialty Start Date End Date Luis Oscar MD PCP - General 06/21/14 documented as of this encounter
--- OUTSIDE RECORDS SUMMARY | 2024-06-25 23:38 | XMS_ITS | Encounter Summary ---
Author Organization [facility] Address [address] [place] [address] Phone Care Team Providers Care Sack Sorter Name Role Phone Luis Oscar MD Primary Care Provider [phone] Andre SOLIS MD, Philippe Jones Unavailable [phone] Encounter Details Date Type Department Care Team (Late st Contact Info) Description 07/03/2021 Orders Only [facility] [address] [place] [phone] Rosa Trivedi PA [address] [place] [address] Social History Tobacco Use Types Packs/Day Years Used Date Smoking Tobacco: Never Assessed Alcohol Use Standard Drinks/Week Comments Yes 0 (1 standard drink = 0.6 oz pur e alcohol) Comments Unknown Sex and Gender Information Value Date Recorded Sex Assigned at Not on file 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 MID LEVEL CLINICIAN Gender Identity Not on file Sexual Orientation Not on file documented as of this encounter Ordered Prescriptions Prescription Sig Dispense Quantity Refills Last Filled Start Date End Date ondansetron ODT (ZOFRAN-ODT) 4 mg disintegrating tablet Take 1 tablet (4 mg total) by mouth every 8 (eight) hours as needed for nausea or vomiting 20 tablet 07/03/2021 2 documented in this encounter Plan of Treatment Not on file documented as of this encounter Visit Diagnoses Not on filedocumented in this encounter Discontinued Medications Medication Sig Discontinue Reason Start Date End Da te ondansetron ODT (ZOFRAN ODT) 8 mg disintegrating tablet take 1 tablet by oral route every 8 hours as needed and place on top of the tongue where it will dissolve, then swallow 04/27/2016 07/03/2021 documented as of this encounter Care Teams Sack Sorter Relationship Specialty Start Date End Date Luis Oscar MD PCP - General 06/21/14 Philippe Powell III, MD [address] [place] [address] Consulting Physician Rheumatology 06/10/20 10/10/23 documented as of this encounter
--- OUTSIDE RECORDS SUMMARY | 2024-06-25 23:38 | XMS_ITS | Encounter Summary ---
Author Organization [facility] Address [address] [place] [address] Phone Care Team Providers Care Plater Supervisor Name Role Phone Luis Oscar MD Primary Care Provider [phone] Reason for Referral * Diagnostic Imaging (Routine) - Authorized Specialty Diagnoses / Procedures Referred By Abdelrahman aguayo Referred To Contact Diagnoses Inflammatory polyarthritis (CMS/HCC) (HCC) Sjogren's syndrome with keratoconjunctivitis sicca (HCC) Procedures XR Shoulder Left 2 or More Views Rosa Trivedi PA [address] [place] [address] Phone: tel: fax: External Order Referral ID Status Reason Start Date Expiration Date V isits Requested Visits Authorized [id number] Authorized 10/18/2023 11/16/2024 1 1 * Diagnostic Imaging (Routine) - Authorized Specialty Diagnoses / Procedures Referred By Abdelrahman aguayo Referred To Contact Diagnoses Inflammatory polyarthritis (CMS/HCC) (HCC) Sjogren's syndrome with keratoconjunctivitis sicca (HCC) Procedures XR Spine Lumbar 2 or 3 Views Rosa Trivedi PA [address] [place] [address] Phone: tel: fax: External Order Referral ID Status Reason Start Date Expiration Date V isits Requested Visits Authorized [id number] Authorized 10/18/2023 11/16/2024 1 1 * Diagnostic Imaging (Routine) - Authorized Specialty Diagnoses / Procedures Referred By Contac t Referred To Contact Diagnoses Inflammatory polyarthritis (CMS/HCC) (HCC) Sjogren's syndrome with keratoconjunctivitis sicca (HCC) Procedures XR Sacroiliac Joints 3 or More Views Rosa Trivedi PA [address] [place] [address] Phone: tel: fax: External Order Referral ID Status Reason Start Date Expiration Date V isits Requested Visits Authorized [id number] Authorized 10/18/2023 11/16/2024 1 1 * Diagnostic Imaging (Routine) - Authorized Specialty Diagnoses / Procedures Referred By Contac t Referred To Contact Diagnoses Inflammatory polyarthritis (CMS/HCC) (HCC) Sjogren's syndrome with keratoconjunctivitis sicca (HCC) Procedures XR Hand Right 2 Views Rosa Trivedi PA [address] [place] [address] Phone: tel: fax: External Order Referral ID Status Reason Start Date Expiration Date V isits Requested Visits Authorized [id number] Authorized 10/18/2023 11/16/2024 1 1 * Diagnostic Imaging (Routine) - Authorized Specialty Diagnoses / Procedures Referred By Contac t Referred To Contact Diagnoses Inflammatory polyarthritis (CMS/HCC) (HCC) Sjogren's syndrome with keratoconjunctivitis sicca (HCC) Procedures XR Hand Left 2 Views Rosa Trivedi PA [address] [place] [address] Phone: tel: fax: External Order Referral ID Status Reason Start Date Expiration Date V isits Requested Visits Authorized [id number] Authorized 10/18/2023 11/16/2024 1 1 * Diagnostic Imaging (Routine) - Authorized Specialty Diagnoses / Procedures Referred By Abdelrahman aguayo Referred To Contact Diagnoses Inflammatory polyarthritis (CMS/HCC) (HCC) Sjogren's syndrome with keratoconjunctivitis sicca (HCC) Procedures XR Foot Right 2 Views Rosa Trivedi PA [address] [place] [address] Phone: tel: fax: External Order Referral ID Status Reason Start Date Expiration Date V isits Requested Visits Authorized [id number] Authorized 10/18/2023 11/16/2024 1 1 * Diagnostic Imaging (Routine) - Closed Specialty Diagnoses / Procedures Referred By Abdelrahman aguayo Referred To Contact Diagnoses Inflammatory polyarthritis (CMS/HCC) (HCC) Sjogren's syndrome with keratoconjunctivitis sicca (HCC) Procedures US Hand Complete Rosa Trivedi PA [address] [place] [address] Phone: tel: fax: External Order Referral ID Status Reason Start Date Expiration Date Visits Re quested Visits Authorized [id number] Closed 10/18/2023 11/16/2024 1 1 * Diagnostic Lab (Routine) - Pending Review Specialty Diagnoses / Procedures Referred By Abdelrahman aguayo Referred To Contact Lab Diagnoses Inflammatory polyarthritis (CMS/HCC) (HCC) Sjogren's syndrome with keratoconjunctivitis sicca (HCC) Procedures AVISE CTD + SLE monitor - Miscellaneous Test Rosa Trivedi PA [address] [place] [address] Phone: tel: fax: Referral ID Status Reason Start Date Expiration Date V isits Requested Visits Authorized [id number] Pending Review 10/18/2023 11/16/2024 1 1 Encounter Details Date Type Department Care Team (Latest Contact Info) Description 10/18/2023 2:00 PM CDT Office Visit [facility] [address] [place] [phone] Rosa Trivedi PA [address] [place] [address] Inflammatory polyarthritis (CMS/HCC) (HCC) (Primary Dx); Sjogren's syndrome with keratoconjunctivitis sicca (HCC) Social History Tobacco Use Types Packs/Day Years Used Date Smoking Tobacco: Never Assessed Alcohol Use Standard Drinks/Week Comments Yes 0 (1 standard drink = 0.6 oz pur e alcohol) Comments Unknown Sex and Gender Information Value Date Recorded Sex Assigned at Not on file 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 Gender Identity Not on file Sexual Orientation Not on file documented as of this encounter Last Filed Vital Signs Vital Sign Reading Time Taken Comments Blood Pressure 126/82 10/18/2023 1:52 PM CDT Pulse 63 10/18/2023 1:52 PM CDT Temperature - - Respiratory Rate - - Oxygen Saturation 97% 10/18/2023 1:52 PM CDT Inhaled Oxygen Concentration - - Weight 83 kg (183 lb) 10/18/2023 1:52 PM CDT Height 162.6 cm (5' 4 ) 10/18/2023 1:52 PM CDT Body Mass Index 31.41 10/18/2023 1:52 PM CDT documented in this encounter Progress Notes * Rosa Trivedi PA - 10/18/2023 2:00 PM CDT Images from the original note were not included. Subjective/Objective Patient ID: Christina Edmond is a 67 y.o. female. Chief Complaint Joint pain HPI Last visit here was in 09/01. Was on mtx at that time but later stopped due to side effects - felt weak and fatigued all the time. She managed ok for a while without any treatment. The last 4-5 monthshas started to go downhill again. Has more joint stiffness in the morning. Uses ibuprofen rarely, cut back on this due to blood pressure. R hand is the worst. Hard to hold her phone for any length of time. Hips, knees are stiff/painful. Feet are painful. Rolls over all night long due to pain in hips, shoulders, elbows. Also has to get up to urinate a few times per night. Has been having difficult to manage high blood pressure. Changed meds multiple times and has had side effects. Has been having other cardiac issues, atrial tachycardia/SVT. Sees cardiology. Wakes up with a rash on cheeks in the morning. Sometimes the rash comes back in the afternoon. Red bumps/pimples. Has not seen derm. Very dry eyes and dry mouth. Using systane drops. Drinking doesn't help with the dry mouth. Hasn't seen eye doctor in a while. Vit D was low on recent labs. Started on a weekly vit D. Has a mouth sore on lower inner lip. Hx raynauds. Would like to be out hiking and camping but is nervous about an issue she had a few years ago in which she got weak on a trail and required help from another hiking couple to get back to the trailhead. Pain 5/10 Previous: Was experiencing extreme fatigue on MTX 15mg. Increased folic acid dose to 2mg/day. She admits thatthis helped her fatigue immensely and she was able to do what she wants to do. However, she did skip a dose of MTX last Tuesday08/21/21. She had plans to go hiking that weekend and she did not want tomiss it from being fatigued. No increase in symptoms this week. Overall, her joint pain and stiffness is much improved. AM stiffness only lasts a few mins. Able to do activities such as kneeling downand lying on the floor that she was not able to do before. Experiencing new Jaw pain started about 2 weeks ago. Hearing a clicking sound and catching sensation. Mostly RT side. Bilateral swelling in legs x 2 weeks and worsening. Brought it up to visiting professor who said it was not concerning. Pt feels right is worse than left. No pain. No change to diet or salt intake. No chest pain, trouble breathing. Was seeing cardio for arrhythmia. H/o mitral valve prolapse. Dr. Mondragon is c ardiologist. Increased GERD, started taking famotidine which helped a lot. 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 No moth sores, rashes. No nausea, diarrhea, abdominal pain. No cough, trouble breathing. Just resolved a sinus infection that started 2 weeks ago, no antibiotic needed. Chronic drainage. Pain 0/10 when sitting, 5/10 first thing in the AM, improves throughout the day AM stiffness couple mins, much better since mtx. Past Medical History: +remote kidney stone, anxiety/depression, OA, inflammatory arthritis, fibromyalgia, migraines, atrial tachycardia/SVT, htn Surgeries: 5 c-sections, cervical fusion, partial hysterectomy, tubal ligation Family: No FH autoimmune disease or arthritis. Social: . 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 Nonsmoker. Occasional drinking. Less than 1 per week. 5 children Med History Medication Taking/taken Comments Hydroxychloroquine Methotrexate (po/SQ) x Took in [id number]. Stopped due to severe fatigue/weakness Leflunomide Azathioprine Sulfasalazine CellCept Adalimumab Enbrel Simponi Cimzia Simponi aria Infliximab Orencia (IV/SQ) Cosentyx (IV/SQ) Taltz Skyrizi Tremfya Stelara Xeljanz Rinvoq Olumiant Actemra (IV/SQ) Kevzara Kineret Saphnelo Benlysta Rituximab Otezla Nsaids x Took multiple: ibuprofen, meloxicam, sulindac Steroids Savella x Had n/v on higher doses Bold 'X' indicates a current medication Review of Systems Constitutional: positive for fatigue. Negative for fever. HENT: positive for mouth sores. Positive for dry mouth. +mouth sores Eyes: Negative for redness. Positive for dry eyes Respiratory: Negative for shortness of breath. Cardiovascular: Negative for chest pain. Gastrointestinal: Negative for blood in stool and diarrhea. No Dysphagia. Positive for GERD. Genitourinary: hx renal stones Musculoskeletal: Positive for arthralgias. Skin: + for rash. Neurological: Negative for seizures. Positive for migraines Vitals BP 126/82 Pulse 63 Ht 162.6 cm (5' 4 ) Wt 83 kg (183 lb) SpO2 97% BMI 31.41 kg/m?? Body mass index is 31.41 kg/m??. Physical Exam Constitutional: appears well-developed and well-nourished. Mouth/Throat: Dry mucosa and fissured tongue. Aphthous ulcer to lower inner lip Eyes: Conjunctivae and EOM are normal. Pupils are equal, round, and reactive to light. Right eye exhibits no discharge. Left eye exhibits no discharge. No scleral icterus. Neck: Normal range of motion. Neck supple. No thyromegaly present. Cardiovascular: Normal rate, regular rhythm, normal heart sounds. No murmur heard. Pulmonary/Chest: Effort normal. No respiratory distress. no wheezes. no rales. Musculoskeletal: see CD[facility]. Bony changes to CMC joints and multiple DIPs bilat. Mild mallet deformity to L 5th DIP and DIP is tender. 1st mtps with hallux limitus and bony changes. No dactylitis. Lymphadenopathy: no cervical adenopathy. Neurological: alert. No cranial nerve deficit or sensory deficit. normal muscle tone. Coordination normal. Skin: Skin is warm and dry. Telangiectasis to bilat malar region. Pics on phone demonstrate erythematous papules and some pustules Psychiatric: normal mood and affect. behavior is normal. Cdai = 14 Labs/Imaging xrays 05/27/21: Patellofemoral oa dhruv. cmc mod/sev oa. Severe 1st mtp oa R hand u/s 06/02/21: The impression at [...] prior hand US study available for comparison. AVISE 06/02: +ANAMIKA 1:160 Hand u/s 2016: moderate synovitis with effusions and synovial thickening. Mild spurring of volar MCPs, consider hemochromatosis. Labs in 2016 - neg for hemochromatosis mutations No visits with results within 1 Month(s) from this visit. Latest known visit with results is: Office Visit on 07/31/2021 Component Date Value Ref Range Status WBC 07/31/2021 6.2 3.8 - 10.8 Thousand/uL Final RBC, POC 07/31/2021 4.45 3.80 - 5.10 Million/uL Final Hgb 07/31/2021 13.3 11.7 - 15.5 g/dL Final Hct 07/31/2021 39.9 35.0 - 45.0 % Final MCV 07/31/2021 89.7 80.0 - 100.0 fL Final MCH 07/31/2021 29.9 27.0 - 33.0 pg Final MCHC 07/31/2021 33.3 32.0 - 36.0 g/dL Final Rdw 07/31/2021 13.1 11.0 - 15.0 % Final Platelets 07/31/2021 281 140 - 400 Thousand/uL Final MPV 07/31/2021 9.8 7.5 - 12.5 fL Final Neutrophils, abs 07/31/2021 3,664 1,500 - 7,800 cells/uL Final Lymphocytes, abs 07/31/2021 1,786 850 - 3,900 cells/uL Final Monocyte abs 07/31/2021 521 200 - 950 cells/uL Final Eosinophils, abs 07/31/2021 180 15 - 500 cells/uL Final Basophils, abs 07/31/2021 50 0 - 200 cells/uL Final Neutrophils 07/31/2021 59.1 % Final Lymphocyte pct 07/31/2021 28.8 % Final Monocytes 07/31/2021 8.4 % Final Eosinophils 07/31/2021 2.9 % Final Basophils 07/31/2021 0.8 % Final Glucose 07/31/2021 92 65 - 99 mg/dL Final Comment: Fasting reference interval BUN 07/31/2021 17 7 - 25 mg/dL Final Creatinine 07/31/2021 0.94 0.50 - 0.99 mg/dL Final Comment: For patients >49 years of age, the reference limit for Creatinine is approximately 13% higher for people identified as -Maldivian. eGFR NON-AFR. W[place]ISIAN 07/31/2021 64 > OR = 60 mL/min/1.73m2 Final EGFR 07/31/2021 74 > OR = 60 mL/min/1.73m2 Final BUN/creat ratio 07/31/2021 NOT APPLICABLE (calc) Final Sodium 07/31/2021 140 135 - 146 mmol/L Final Potassium, pl 07/31/2021 4.3 3.5 - 5.3 mmol/L Final Chloride 07/31/2021 104 98 - 110 mmol/L Final CO2 07/31/2021 30 20 - 32 mmol/L Final Calcium 07/31/2021 9.2 8.6 - 10.4 mg/dL Final Protein, sr 07/31/2021 6.4 6.1 - 8.1 g/dL Final Albumin 07/31/2021 4.2 3.6 - 5.1 g/dL Final GLOBULIN 07/31/2021 2.2 1.9 - 3.7 g/dL (calc) Final Alb/glob ratio 07/31/2021 1.9 1.0 - 2.5 (calc) Final Bilirubin, total 07/31/2021 0.8 0.2 - 1.2 mg/dL Final Alk phos 07/31/2021 127 37 - 153 U/L Final AST 07/31/2021 22 10 - 35 U/L Final ALT (SGPT) 07/31/2021 28 6 - 29 U/L Final C-RP 07/31/2021 4.5 <8.0 mg/L Final Erythrocyte sedimentation rate 07/31/2021 2 < OR = 30 mm/h Final Assessment/Plan Diagnoses and all orders for this visit: Inflammatory polyarthritis (CMS/HCC) ([facility]) (Primary) Assessment & Plan: Last visit in 09/01; comes back to re-evaluate joint symptoms and other new issues. At the time of last visit she was on mtx but had to stop due to intolerable fatigue/weakness. Symptoms today includeincreasing joint pain/stiffness, intermittent facial rash, dry eyes/dry mouth, mouth sores. Has also been having blood pressure issues and cardiac arrhythmias. hx possible dactylitis to R 2nd toe by her description. Suspect sjogren's and may have overlap withspondyloarthropathy or seronegative RA. Results of last lab workup in 2020 showed +ANAMIKA 1:160. Xrays 06/02 mild patellofemoral OA bilat knees, mod-severe OA of CMCs and 1st mtps. R hand u/s 06/02/21: The impression at [...] prior hand US study available for comparison. Has many tender joints on exam and bony changes of thumbs, PIPs, DIPs without much obvious synovitis. She had labs with pcp in September and ANAMIKA was +1:80, RF was neg, and ESR was normal. Will get updated AVISE panel to evaluate for other CTD markers again, xrays of hands, feet, back/SI jts, shoulders,and u/s of R hand to look for active inflammation/erosions/progressive disease. Will discuss treatme nt options in more detail next. Seen with Dr. Garcia. Orders: - AVISE CTD + SLE monitor - Miscellaneous Test; Future - Comprehensive metabolic panel; Future - CRP (acute phase); Future - US Hand Complete; Future - XR Foot Left 2 Views; Future - XR Foot Right 2 Views; Future - XR Hand Left 2 Views; Future - XR Hand Right 2 Views; Future - XR Sacroiliac Joints 3 or More Views; Future - XR Spine Lumbar 2 or 3 Views; Future - XR Shoulder Right 2 or More Views; Future - XR Shoulder Left 2 or More Views; Future Sjogren's syndrome with keratoconjunctivitis sicca (HCC) Assessment & Plan: Severe dry eyes, dry mouth. Noted on a past eye exam. Using systane drops and frequent sips of water. +ANAMIKA, Other markers all negative. Could consider pilocarpine/cevimeline Orders: - AVISE CTD + SLE monitor - Miscellaneous Test; Future - Comprehensive metabolic panel; Future - CRP (acute phase); Future - US Hand Complete; Future - XR Foot Left 2 Views; Future - XR Foot Right 2 Views; Future - XR Hand Left 2 Views; Future - XR Hand Right 2 Views; Future - XR Sacroiliac Joints 3 or More Views; Future - XR Spine Lumbar 2 or 3 Views; Future - XR Shoulder Right 2 or More Views; Future - XR Shoulder Left 2 or More Views; Future documented in this encounter Miscellaneous Notes * Result Encounter Note - Rosa Trivedi PA - 10/28/2023 5:06 PM CDT AVISE is essentially negative. Borderline ANAMIKA by JE only, neg by IFA. Awaiting ultrasound next week to complete the workup. * Result Encounter Note - Rosa Trivedi PA - 10/20/2023 4:41 PM CDT Cmp and crp ok. Awaiting autoimmune panel * Assessment & Plan Note - Rosa Trivedi PA - 10/18/2023 4:09 PM CDT Associated Problem(s): Sjogren's syndrome with keratoconjunctivitis sicca (HCC) Severe dry eyes, dry mouth. Noted on a past eye exam. Using systane drops and frequent sips of water. +ANAMIKA, Other markers all negative. Could consider pilocarpine/cevimeline * Assessment & Plan Note - Rosa Trivedi PA - 10/18/2023 4:09 PM CDT Associated Problem(s): Inflammatory polyarthritis (CMS/HCC) (HCC) Last visit in 09/01; comes back to re-evaluate joint symptoms and other new issues. At the time of last visit she was on mtx but had to stop due to intolerable fatigue/weakness. Symptoms today includeincreasing joint pain/stiffness, intermittent facial rash, dry eyes/dry mouth, mouth sores. Has also been having blood pressure issues and cardiac arrhythmias. hx possible dactylitis to R 2nd toe by her description. Suspect sjogren's and may have overlap withspondyloarthropathy or seronegative RA. Results of last lab workup in 2020 showed +ANAMIKA 1:160. Xrays 06/02 mild patellofemoral OA bilat knees, mod-severe OA of CMCs and 1st mtps. R hand u/s 06/02/21: The impression at [...] prior hand US study available for comparison. Has many tender joints on exam and bony changes of thumbs, PIPs, DIPs without much obvious synovitis. She had labs with pcp in September and ANAMIKA was +1:80, RF was neg, and ESR was normal. Will get updated AVISE panel to evaluate for other CTD markers again, xrays of hands, feet, back/SI jts, shoulders,and u/s of R hand to look for active inflammation/erosions/progressive disease. Will discuss treatme nt options in more detail next. Seen with Dr. Garcia. documented in this encounter Plan of Treatment Pending Results Name Type Priority Associated Diagnoses Date /Time US Hand Complete Imaging Routine Inflammatory polyarthritis (CMS/HCC) (HCC) Sjogren's syndrome with keratoconjunctivitis sicca (HCC) 11/01/2023 10:01 AM CDT Scheduled Orders Name Type Priority Associated Diagnoses Orde r Schedule US Hand Complete Imaging Routine Inflammatory polyarthritis (CMS/HCC) (HCC) Sjogren's syndrome with keratoconjunctivitis sicca (HCC) Expected: 10/18/2023, Expires: 10/17/2024 XR Foot Left 2 Views Imaging Routine Inflammatory polyarthritis (CMS/HCC) (HCC) Sjogren's syndrome with keratoconjunctivitis sicca (HCC) Expected: 10/18/2023, Expires: 10/17/2024 XR Foot Right 2 Views Imaging Routine Inflammatory polyarthritis (CMS/HCC) (HCC) Sjogren's syndrome with keratoconjunctivitis sicca (HCC) Expected: 10/18/2023, Expires: 10/17/2024 XR Hand Left 2 Views Imaging Routine Inflammatory polyarthritis (CMS/HCC) (HCC) Sjogren's syndrome with keratoconjunctivitis sicca (HCC) Expected: 10/18/2023, Expires: 10/17/2024 XR Hand Right 2 Views Imaging Routine Inflammatory polyarthritis (CMS/HCC) (HCC) Sjogren's syndrome with keratoconjunctivitis sicca (HCC) Expected: 10/18/2023, Expires: 10/17/2024 XR Sacroiliac Joints 3 or More Views Imaging Routine Inflammatory polyarthritis (CMS/HCC) (HCC) Sjogren's syndrome with keratoconjunctivitis sicca (HCC) Expected: 10/18/2023, Expires: 10/17/2024 XR Spine Lumbar 2 or 3 Views Imaging Routine Inflammatory polyarthritis (CMS/HCC) (HCC) Sjogren's syndrome with keratoconjunctivitis sicca (HCC) Expected: 10/18/2023, Expires: 10/17/2024 XR Shoulder Right 2 or More Views Imaging Schedule Routine, Read Routine (OP Routine) Inflammatory polyarthritis (CMS/HCC) (HCC) Sjogren's syndrome with keratoconjunctivitis sicca (HCC) Expected: 10/18/2023, Expires: 10/17/2024 XR Shoulder Left 2 or More Views Imaging Schedule Routine, Read Routine (OP Routine) Inflammatory polyarthritis (CMS/HCC) (HCC) Sjogren's syndrome with keratoconjunctivitis sicca (HCC) Expected: 10/18/2023, Expires: 10/17/2024 documented as of this encounter Procedures Procedure Name Priority Date/Time Associated Diagnosis Comments MISCELLANEOUS LAB TEST Routine 10/27/2023 8:59 AM CDT Inflammatory polyarthritis (CMS/HCC) (HCC) Sjogren's syndrome with keratoconjunctivitis sicca (HCC) CRP (ACUTE PHASE) Routine 10/18/2023 3:2 7 PM CDT Inflammatory polyarthritis (CMS/HCC) (HCC) Sjogren's syndrome with keratoconjunctivitis sicca (HCC) COMPREHENSIVE METABOLIC PANEL Routine 10/18/2023 3:27 PM CDT Inflammatory polyarthritis (CMS/HCC) (HCC) Sjogren's syndrome with keratoconjunctivitis sicca (HCC) documented in this encounter Results * AVISE CTD + SLE monitor - Miscellaneous Test (10/27/2023 8:59 AM CDT) Miscellaneous Rosa CARDOZO LAB BLOOD ORDERABLES Fin al Result Performing Organization Address City/[facility]/ZIP Co de Phone Number EXTERNAL LAB * CRP (acute phase) (10/18/2023 3:27 PM CDT) C-RP 4.2 <8.0 mg/L [facility] Blood 10/18/2023 3:27 PM CDT 10/18/2023 3:28 PM CDT Narrative [facility] - 10/19/2023 2:38 PM CDT PATIENT REFUSED SOME TESTING; PATIENT ENCOURAGED TO RETURN. Rosa CARDOZO LAB BLOOD ORDERABLES Fin al Result Performing Organization Address City/[facility]/ZIP Co de Phone Number [facility] [address] [place] [address] * Comprehensive metabolic panel (10/18/2023 3:27 PM CDT) Glucose 87 65 - 99 mg/dL [facility] Comment: ? Fasting reference interval BUN 17 7 - 25 mg/dL [facility] Creatinine 0.81 0.50 - 1.05 mg/dL [facility] eGFR 80 > OR = 60 mL/min/1.7 3m2 [facility] BUN/creat ratio SEE NOTE: 6 - 22 (calc) [facility] Comment: ?? Not Reported: BUN and Creatinine are within ?? reference range. ? Sodium 139 135 - 146 mmol/L [facility] Potassium, pl 4.8 3.5 - 5.3 mmol/L [facility] Chloride 104 98 - 110 mmol/L [facility] CO2 27 20 - 32 mmol/L [facility] Calcium 9.6 8.6 - 10.4 mg/dL [facility] Protein, sr 6.8 6.1 - 8.1 g/dL [facility] Albumin 4.6 3.6 - 5.1 g/dL [facility] GLOBULIN 2.2 1.9 - 3.7 g/dL (calc) [facility] Alb/glob ratio 2.1 1.0 - 2.5 (calc) [facility] Bilirubin, total 0.7 0.2 - 1.2 mg/dL [facility] Alk phos 127 37 - 153 U/L [facility] AST 24 10 - 35 U/L [facility] ALT (SGPT) 29 6 - 29 U/L [facility] Blood 10/18/2023 3:27 PM CDT 10/18/2023 3:28 PM CDT Narrative [facility] - 10/19/2023 2:38 PM CDT PATIENT REFUSED SOME TESTING; PATIENT ENCOURAGED TO RETURN. us Rosa CARDOZO LAB BLOOD ORDERABLES Fin al Result [facility] [id number] [phone] documented in this encounter Visit Diagnoses Diagnosis Inflammatory polyarthritis (CMS/HCC) (HCC)- Primary Unspecified inflammatory polyarthropathy Sjogren's syndrome with keratoconjunctivitis sicca (HCC) documented in this encounter Discontinued Medications Medication Sig Discontinue Reason Start Date End Da te methotrexate 2.5 mg tabletIndications:Rheuma toid Arthritis TAKE 6 TABLETS BY MOUTH ALL AT ONCE ONE DAY A WEEK 07/31/2021 10/18/2023 folic acid (FOLVITE) 1 mg tablet Take 2 tablets (2 mg total) by mouth daily 08/21/2021 10/18/2023 omeprazole (PriLOSEC) 20 mg capsule take 1 capsule (20MG) by oral route every day 08/10/2011 10/18/2023 zolpidem (AMBIEN) 5 mg tablet take 1 Tablet by oral route every day at bedtime 07/17/2015 10/18/2023 documented as of this encounter Historical Medications * This list may reflect changes made after this encounter. escitalopram (LEXAPRO) 10 mg tablet Take 0.5 tablets (5 mg total) by mouth daily 04/27/2019 metoprolol XL (TOPROL-XL) 25 mg extended release tablet Take 1 tablet (25 mg total) by mouth daily 10/06/2023 losartan (COZAAR) 50 mg tablet 25mg AM and 50mg PM 10/16/2023 added in this encounter Care Teams Plater Supervisor Relationship Specialty Start Date End Date Luis Oscar MD PCP - General 06/21/14 documented as of this encounter
--- OUTSIDE RECORDS SUMMARY | 2024-06-25 23:38 | XMS_ITS | Clinical Summary ---
Author Organization [facility] [address] [facility] Address [address] [place] [id number] Care Team Providers Care Bioprocess Engineer Name Role Phone Luis Oscar MD Primary Care Provider [phone] Allergies Active Allergy Reactions Criticality Noted Date Comments Antihistamines - Alkylamine Hydrocodone Nausea only,Vomiting Reaction: Nausea, Vomiting, Morphine Nausea only,Vomiting Reaction: Nausea, Vomiting, Oxycodone Nausea only,Vomiting Reaction: Nausea, Vomiting, Penicillins Medications loratadine (CLARITIN) 10 mg tablet take 1 tablet by oral route every day 0 0 11/19/2014 Active LORazepam (ATIVAN) 0.5 mg tablet take 1 Tablet by oral route every bedtime as needed 0 0 07/17/2015 Active losartan (COZAAR) 50 mg tablet 25mg AM and 50mg PM 10/16/2023 Active metoprolol XL (TOPROL-XL) 25 mg extended release tablet Take 1 tablet (25 mg total) by mouth daily 10/06/2023 Active escitalopram (LEXAPRO) 10 mg tablet Take 0.5 tablets (5 mg total) by mouth daily 04/27/2019 Active Active Problems Problem Noted Date Diagnosed Date Intractable headache 11/30/2023 Rash 11/30/2023 Primary osteoarthritis involving multiple joints 11/29/2023 Edema, lower extremity 08/27/2021 Assessment & Plan (08/27/2021 2:20 PM CDT): Consider peripheral edema due to venous insufficiency vs medication. Suggested wearing compression stockings with prolonged sitting. Also, take frequent breaks to move walk around or elevate legs during the day. Follow up with PCP GERD (gastroesophageal reflux disease) Assessment & Plan (08/27/2021 4:52 PM CDT): Discussed that GERD and heartburn is a side effect some people experience from methotrexate. Famotidine is a fine option for symptomatic relief. Follow up with PCP for further evaluation including possible upper GI scope or other options for treatment. High risk medications (not anticoagulants) long- term use 07/31/2021 Overview (07/31/2021): Neg hepatitis 06/02 Assessment & Plan (08/27/2021 4:49 PM CDT): Monitor labs on mtx Assessment & Plan (07/31/2021 3:06 PM TESTING DIRECTOR): Monitor labs on mtx Primary osteoarthritis of both knees 06/11/2021 Assessment & Plan (06/11/2021 3:30 PM TESTING DIRECTOR): Mild patellofemoral OA bilat. Discussed tx options including nsaids (oral, topical), steroid injections, PT, and then eventually replacement Atrial arrhythmia 06/11/2021 Assessment & Plan (06/11/2021 3:30 PM TESTING DIRECTOR): Seeing cardiology for further eval Sjogren's syndrome with keratoconjunctivitis sic ca 05/21/2021 Overview (06/11/2021): AVISE 06/02: +ANAMIKA 1:160 Xrays 06/02: bilat [...] prior hand US study available for comparison. Assessment & Plan (11/30/2023 11:32 AM CDT): Severe dry eyes, dry mouth. Noted on a past eye exam. Using systane drops and frequent sips of water. Hx +ANAMIKA, now not significantly abnormal. Other markers all negative. Could consider pilocarpine/cevimeline Assessment & Plan (10/18/2023 4:09 PM CDT): Severe dry eyes, dry mouth. Noted on a past eye exam. Using systane drops and frequent sips of water. +ANAMIKA, Other markers all negative. Could consider pilocarpine/cevimeline Assessment & Plan (08/27/2021 10:49 AM CDT): Severe dry eyes, dry mouth. Noted on recent eye exam. Started on new drops per eye doctor recently along with steroid ointment. Advised to continue liberal use of lubricating drops. Repeated serologies and she has +ANAMIKA 1:160 only. Other markers all negative. Could consider pilocarpine/cevimeline Assessment & Plan (07/31/2021 3:06 PM TESTING DIRECTOR): Severe dry eyes, dry mouth. Noted on recent eye exam. Started on new drops per eye doctor recently along with steroid ointment. Advised to continue liberal use of lubricating drops. Repeated serologies and she has +ANAMIKA 1:160 only. Other markers all negative. Could consider pilocarpine/cevimeline Assessment & Plan (06/11/2021 3:28 PM TESTING DIRECTOR): Severe dry eyes, dry mouth. Noted on recent eye exam. Started on new drops per eye doctor recently along with steroid ointment. Advised to continue liberal use of lubricating drops. Repeated serologies and she has +ANAMIKA 1:160 only. Other markers all negative. Could consider pilocarpine/cevimeline next Assessment & Plan (05/21/2021 4:36 PM TESTING DIRECTOR): Severe dry eyes, dry mouth. Started on new drops per eye doctor recently along with steroid ointment. Advised to continue liberal use of lubricating drops. Will repeat serologies. Consider pilocarpine/cevimeline next Inflammatory polyarthritis (CMS/HCC) 05/21/2021 Overview (11/11/2023): R hand u/s 06/02/21: The impression at [...] prior hand US study available for comparison. R hand/wrist US 11/01/23: 1. Mild synovial thickening of the dorsal wrist with grade 1 effusion and grade 2 power Doppler 2. Cortical irregularity of the 2nd metacarpal head with possible erosion but could not confirm 3. Grade 1 power Doppler of the 3rd flexor tendon at the MCPJ 4. Moderate synovial thickening of the 2nd and 3rd PIPJ 5. Synovial thickening of the 2nd DIPJ with grade 1 power Doppler, the 3rd DIPJ was unremarkable 6. Moderate spurring of the 1st CMC joint Findings are compared to previous exam dated 06/02/21 showing resolution of previous 4th extensor compartment effusion. Increased synovial thickening of the wrist with continued grade 2 power Doppler. Improvement in synovial thickening of the 2nd and 3rd MCPJ with resolution of power Doppler. Continued stable synovial thickening of the 2nd and 3rd PIPJ. New power Doppler within the 2nd DIPJ. Xrays 11/03 show severe OA of 1st toes, milder arthritis in the midfeet, and moderate sized plantar spurs. Minimal R shoulder AC joint osteoarthritis, and mild L shoulder AC joint osteoarthritis Hands with polyarticular osteoarthritis, worst at thumbs, and no erosions Lumbar spine with mild scoliosis, listhesis (offset) of L4 on L5, other mild- moderate degenerative changes. SI joints with mild osteoarthritis. Labs 11/03: AVISE is essentially negative. Borderline ANAMIKA by JE only, neg by IFA. Assessment & Plan (11/30/2023 11:30 AM CDT): Last visit in 09/01; comes back to re-evaluate joint symptoms and other new issues. At the time of last visit she was on mtx but had to stop due to intolerable fatigue/weakness. Symptoms today include increasing joint pain/stiffness, intermittent facial rash, dry eyes/dry mouth, mouth sores. Has also been having blood pressure issues and cardiac arrhythmias. hx possible dactylitis to R 2nd toe by her description. Suspect sjogren's and may have overlap with spondyloarthropathy or seronegative RA. Results of last lab [...] RF was neg, and ESR was normal. Reviewed updated test results:R hand/wrist US 11/01/23: 1. Mild synovial thickening of the dorsal wrist with grade 1 effusion and grade 2 power Doppler 2. Cortical irregularity of the 2nd metacarpal head with possible erosion but could not confirm 3. Grade 1 power Doppler of the 3rd flexor tendon at the MCPJ 4. Moderate synovial thickening of the 2nd and 3rd PIPJ 5. Synovial thickening of the 2nd DIPJ with grade 1 power Doppler, the 3rd DIPJ was unremarkable 6. Moderate spurring of the 1st CMC joint Findings are compared to previous exam dated 06/02/21 showing resolution of previous 4th extensor compartment effusion. Increased synovial thickening of the wrist with continued grade 2 power Doppler. Improvement in synovial thickening of the 2nd and 3rd MCPJ with resolution of power Doppler. Continued stable synovial thickening of the 2nd and 3rd PIPJ. New power Doppler within the 2nd DIPJ. Xrays 11/03 show severe OA of 1st toes, milder arthritis in the midfeet, and moderate sized plantar spurs. Minimal R shoulder AC joint osteoarthritis, and mild L shoulder AC joint osteoarthritis Hands with polyarticular osteoarthritis, worst at thumbs, and no erosions Lumbar spine with mild scoliosis, listhesis (offset) of L4 on L5, other mild- moderate degenerative changes. SI joints with mild osteoarthritis. Labs 11/03: AVISE is essentially negative. Borderline ANAMIKA by JE only, neg by IFA. Lengthy conversation about significance of test results and how they may or may not relate to her current symptoms. She clearly has a lot of OA. I do not feel that the borderline ANAMIKA by JE method only is significant. Her malar rashes appear more consistent with rosacea to me than a lupus rash. Her other recent rashes on arms and legs could have been triggered by exposure to a new med (nurtec) vs photosensitive drug eruption? We discussed she could see derm to try to help more with diagnosis (biopsy?) and treatment. She prefers to hold off on this for now as it is not her most pressing issue. We also discussed her recent severe headaches. I do not think these sound like a rheumatologic etiology (GCA). Hx migraines, consider cluster BUSBY or some other type of BUSBY? She has eye symptoms which get worse during the headaches, but a recent eye exam was reported to be fine, so I do not think scleritis/uveitis would be the explanation either. I do think neuro eval is warranted, and she has a referral from PCP for this. Then we discussed her joint symptoms some more. In addition to OA she does have some mild inflammatory findings on ultrasound. Fortunately, this does not appear to have worsened significantly since last examined 3 years ago. She tried mtx in the past but did not tolerate. I discussed potentially trying HCQ. She decided that her joint symptoms are manageable enough at this time and wants to focus more on her blood pressure and BUSBY issues first. She can follow up with us again anytime she wants to re-evaluate or discuss trying the HCQ. We could recheck an ultrasound in 6-12 months to look for stability or progression. She is satisfied with this plan and will let us know when she is ready to follow up. Assessment & Plan (10/18/2023 4:09 PM CDT): Last visit in 09/01; comes back to re-evaluate joint symptoms and other new issues. At the time of last visit she was on mtx but had to stop due to intolerable fatigue/weakness. Symptoms today include increasing joint pain/stiffness, intermittent facial rash, dry eyes/dry mouth, mouth sores. Has also been having blood pressure issues and cardiac arrhythmias. hx possible dactylitis to R 2nd toe by her description. Suspect sjogren's and may have overlap with spondyloarthropathy or seronegative RA. Results of last lab [...] again, xrays of hands, feet, back/SI jts, shoulders, and u/s of R hand to look for active inflammation/erosions/progressive disease. Will discuss treatment options in more detail next. Seen with Dr. Garcia. Assessment & Plan (08/27/2021 4:49 PM CDT): Synovitis seen on hand u/s >5 yrs ago. Had discussed starting mtx at that time but pt decided not to take it. She recently had labs done with pcp and had +ANAMIKA 1:80, along with new symptoms of fatigue/weakness, increased dry eyes/dry mouth. Mild pain in fingers and hx possible dactylitis to R 2nd toe by her description. Suspect sjogren's and may have overlap with spondyloarthropathy. Our recent labs also showed +ANAMIKA 1:160. Xrays 06/02 showed mild patellofemoral OA bilat knees, mod-severe OA [...] prior hand US study available for comparison. She likely has seronegative RA vs SpA with OA, Sjogren's overlap. Due to presence of erosive disease we recommended mtx. Pt is on 15mg weekly and increased folic acid to 2mg daily due to profound fatigue for 2 days after taking mtx. Tolerating much better now. Adverse effects may resolve as she takes the drug for a couple months. Can increase folic acid 1 mg to 3 mg total as well. Consider another medication if adverse effects don't resolve. Continue mtx 15 mg weekly. Can eventually increase to 20mg if she tolerates that dose and consider increasing it at next visit in 1 month. Labs today. F/u 1 month Assessment & Plan (07/31/2021 3:04 PM TESTING DIRECTOR): Synovitis seen on hand u/s >5 yrs ago. Had discussed starting mtx at that time but pt decided not to take it. She recently had labs done with pcp and had +ANAMIKA 1:80, along with new symptoms of fatigue/weakness, increased dry eyes/dry mouth. Mild pain in fingers and hx possible dactylitis to R 2nd toe by her description. Suspect sjogren's and may have overlap with spondyloarthropathy. Our recent labs also showed +ANAMIKA 1:160. Xrays 06/02 showed mild patellofemoral OA bilat knees, mod-severe OA [...] prior hand US study available for comparison. Discussed all results and she likely has seronegative RA vs SpA with OA, Sjogren's overlap. Due to presence of erosive disease we recommended mtx. Pt is tolerating 10mg weekly so will check labs and increase to 15mg weekly. Continue folic acid 1mg daily. She is hurting worse today but advised it will take more time to see benefit from mtx. F/u 1 month Assessment & Plan (06/11/2021 3:29 PM TESTING DIRECTOR): Synovitis seen on hand u/s >5 yrs ago. Had discussed starting mtx at that time but pt decided not to take it. She recently had labs done with pcp and had +ANAMIKA 1:80, along with new symptoms of fatigue/weakness, increased dry eyes/dry mouth. Mild pain in fingers and hx possible dactylitis to R 2nd toe by her description. Suspect sjogren's and may have overlap with spondyloarthropathy. Our recent labs also showed +ANAMIKA 1:160. Xrays 06/02 showed mild patellofemoral OA bilat knees, mod-severe OA [...] prior hand US study available for comparison. Discussed all results and she likely has seronegative RA vs SpA with OA, Sjogren's overlap. Due to presence of erosive disease we recommend beginning mtx. Dr. Powell reviewed risks, benefits. Pt agreeable to try. Will begin 10mg weekly with folic acid 1mg daily. F/u [address] Powell. Assessment & Plan (05/21/2021 4:34 PM TESTING DIRECTOR): Synovitis seen on hand u/s >5 yrs ago. Had discussed starting mtx at that time but pt decided not to take it. She recently had labs done with pcp and had +ANAMIKA 1:80, along with new symptoms of fatigue/weakness, increased dry eyes/dry mouth. Mild pain in fingers and hx possible dactylitis to R 2nd toe by her description. Suspect sjogren's and may have overlap with spondyloarthropathy. Will repeat serologies, hands, and R hand u/s. F/u 2-3 weeks to go over results. Seen with Dr. Powell. Degeneration of intervertebral disc of cervical region 10/27/2013 Overview (09/15/2016): DDD (degenerative disc disease), cervical Osteoarthritis of ankle or foot 10/27/2013 Overview (09/17/2016): DJD (degenerative joint disease), ankle and foot Assessment & Plan (05/21/2021 4:35 PM TESTING DIRECTOR): Hallux limitus to bilat 1st MTPs. Also possible history of dactylitis to R 2nd toe a few weeks ago. Dry eyes 10/27/2013 Overview (09/17/2016): Dry eyes Fibrositis 10/27/2013 Overview (09/17/2016): Fibromyalgia Localized osteoarthrosis 10/27/2013 Overview (09/17/2016): Osteoarthritis, localized, hand Anxiety 10/27/2013 Overview (09/17/2016): Anxiety Raynaud's phenomenon 10/27/2013 Overview (09/17/2016): Raynaud phenomenon Surgical History Surgery Date Site/Laterality Comments OTHER SURGICAL HISTORY fusion of c5-6 SECTION section TONSILLECTOMY Tonsillectomy VAGINAL HYSTERECTOMY Hysterectomy, vaginal Family History Medical History Relation Name Comments Other Brother 2 Alive and well; Other Father 2 Lewy body demen tia; Cause of : Lewy body dementia Lung cancer Mother 2 Cancer -lung; C ause of : Cancer -lung Other Sister 2 Alive and well; Relation Name Status Comments Brother 1 Alive Brother 2 Father 1 (Age 69) Father 2 Mother 1 (Age 67) Mother 2 Sister 1 Alive Sister 2 Social History Tobacco Use Types Packs/Day Years Used Date Smoking Tobacco: Never Assessed Alcohol Use Standard Drinks/Week Comments Yes 0 (1 standard drink = 0.6 oz pur e alcohol) Comments Unknown Sex and Gender Information Value Date Recorded Sex Assigned at Not on file 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 TESTING DIRECTOR Gender Identity Not on file Sexual Orientation Not on file Obstetrics History Last Filed Vital Signs Vital Sign Reading Time Taken Comments Blood Pressure 126/82 10/18/2023 1:52 PM CDT Pulse 63 10/18/2023 1:52 PM CDT Temperature 36.6 ??C (97.9 ??F) 08/27/2021 1:37 PM CD T Respiratory Rate - - Oxygen Saturation 97% 10/18/2023 1:52 PM CDT Inhaled Oxygen Concentration - - Weight 83 kg (183 lb) 10/18/2023 1:52 PM CDT Height 162.6 cm (5' 4 ) 10/18/2023 1:52 PM CDT Body Mass Index 31.41 10/18/2023 1:52 PM CDT Plan of Treatment Health Maintenance Due Date Last Done Comments Colon Cancer Screening-Colonoscopy 1955 Depression Screening 1955 Fall Risk Assessment 1955 Hepatitis C Screening 1955 Osteoporosis Screening-Bone Density Scan 1955 DTaP/Tdap/Td Vaccine (1 - Tdap) 11/24/1967 Zoster Vaccine (1 of 2) 2006 Pneumococcal vaccine 65+ (1 of 1 - PCV) 2021 Well Visit 65+ 2021 Breast Cancer Screening-Mammogram 05/24/2023 05/24/2022, 11/12/2020, 06/18/2014 Covid-19 Vaccine ( season) 2024, 07/07/2020 Influenza Vaccine (#1) 2024 03/14/2021 Hepatitis B Screening Completed 05/21/2021 Procedures Procedure Name Priority Date/Time Associated Diagnosis Comments SCREENING MAMMOGRAM 2D BILATERAL Routine 06/18/2014 4:43 PM TESTING DIRECTOR from Last 3 Months or Most Recently Relevant to Health Maintenance Results * Screening Mammogram 2D Bilateral (06/18/2014 4:43 PM TESTING DIRECTOR) Anatomical Region Laterality Modality Breast Bilateral Mammography 06/18/2014 4:43 PM TESTING DIRECTOR Impressions 06/21/2014 11:33 AM TESTING DIRECTOR BIRADS 1: ??NEGATIVE There is no mammographic evidence of malignancy. A 1 year screening mammogram is recommended. ?? The patient has been or will be contacted. ?? The patient will be entered into an automated reminder system to schedule a mammogram in one year. Electronically signed by: Dr. Galdino Le nh/:06/21/2014 11:32:49 ?? Museum Guide: Ruma LR(R)(M), [facility] letter sent: Normal Exam ?? Reading location: BI-RADS: 1 Negative [EOD] Narrative 06/21/2014 11:33 AM TESTING DIRECTOR - AMITA BILATERAL SCREENING W/CAD BILATERAL DIGITAL SCREENING MAMMOGRAM 3D/2D WITH CAD: 06/18/2014 The study was acquired using full field digital technology and interpreted from soft copy. ?? Current study was also evaluated with ICAD version 7.2. COMPARISONS: Comparison is made to exams dated: ??03/10/2012 mammogram and 03/15/2013 mammogram - [facility]. ?? BREAST TISSUE: There are scattered areas of fibroglandular density. ?? FINDINGS: No significant masses, calcifications, or other findings are seen in either breast. ?? There has been no significant interval change. Procedure Note Provider, MD Erma - 10/29/2020 - AMITA BILATERAL SCREENING W/CAD BILATERAL DIGITAL SCREENING MAMMOGRAM 3D/2D WITH CAD: 06/18/2014 The study was acquired using full field digital technology and interpretedfrom soft copy. Current study was also evaluated with ICAD version 7.2. COMPARISONS: Comparison is made to exams dated: 03/10/2012 mammogram and 03/15/2013 mammogram [facility]. BREAST TISSUE: There are scattered areas of fibroglandular density. FINDINGS: No significant masses, calcifications, or other findings areseen in either breast. There has been no significant interval change. IMPRESSION: BIRADS 1: NEGATIVE There is no mammographic evidence of malignancy. A 1 year screeningmammogram is recommended. The patient has been or will be contacted. The patient will be entered into an automated reminder system to schedulea mammogram in one year. Electronically signed by: Dr. Galdino Le nh/:06/21/2014 11:32:49 Museum Guide: Ruma Wilson RT(R)(M), [facility] letter sent: Normal Exam Reading location: BI-RADS: 1 Negative [EOD] us Avinash Henderson MD IMG MAMMO PROCEDURES Final Result from Last 3 Months or Most Recently Relevant to Health Maintenance Insurance [employer] Care Teams Bioprocess Engineer Relationship Specialty Start Date End Date Luis Oscar MD PCP - General 06/21/14
--- OUTSIDE RECORDS SUMMARY | 2024-06-25 23:38 | XMS_ITS | Encounter Summary ---
Author Organization [facility] Address [address] [place] [address] Phone Care Team Providers Care Fly Rail Operator Name Role Phone Luis Oscar MD Primary Care Provider [phone] Encounter Details Date Type Department Care Team (Late st Contact Info) Description 11/11/2023 Telephone [facility] [address] [place] [address] Rosa Trivedi PA [address] [place] [address] Social History Tobacco Use Types Packs/Day Years Used Date Smoking Tobacco: Never Assessed Alcohol Use Standard Drinks/Week Comments Yes 0 (1 standard drink = 0.6 oz pur e alcohol) Comments Unknown Sex and Gender Information Value Date Recorded Sex Assigned at Not on file 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 Schedule at her convenience * Telephone Encounter - Kashif Gonzalez - 11/11/2023 12:10 PM CDT Spoke to pt, saw results and says doesn't look like she has RA or lupus. Looks like osteoarthritis.Says unless you have a better way to treat the pain but a phone visit would be ok * Telephone Encounter - Rosa Trivedi PA - 11/11/2023 11:57 AM CDT Jose, can you check with pt and see how she wants to do her follow up. We have all her test results back. We can do a phone visit to go over results, or she can come back in person if she prefers. - ----- Message from Gordy Garcia MD sent at 11/02/2023 8:57 AM CDT ----- Regarding: US result Rosa, it looks as though patient did not make a follow up and her lab work up has been unremarkable and US shows stable findings in the wrist but is otherwise improved from previous exam in 2020. R hand/wrist US 11/01/23: 1. Mild synovial [...] New power Doppler within the 2nd DIPJ. Not sure if we wanted to call patient with results or have her return looks like blood pressure andtachycardia have been an issue; not seeing much evidence she would have to be on immunosuppressive medications at this time. Last exam did not show much synovitis but she mentioned AM stiffness though also more OA complaints. documented in this encounter Plan of Treatment Not on file documented as of this encounter Visit Diagnoses Not on filedocumented in this encounter Care Teams Fly Rail Operator Relationship Specialty Start Date End Date Luis Oscar MD PCP - General 06/21/14 documented as of this encounter
--- OUTSIDE RECORDS SUMMARY | 2024-06-25 23:38 | XMS_ITS | Clinical Summary ---
Author Organization [facility] Address [address] [place] [id number] Phone Care Team Providers Care Scientific Publications Editor Name Role Phone Luis Oscar MD Primary Care Provider [phone] Allergies Active Allergy Reactions Criticality Noted Date Comments Antihistamines, Chlorpheniramine-Type Nausea 06/15/2019 Ether Nausea 04/20/2017 Hydrocodone Nausea,Vomiting 06/15/2019 Reaction: Nausea, Vomiting, Morphine Nausea,Vomiting 06/15/2019 Reaction: Nausea, Vomiting, Oxycodone Nausea,Vomiting 06/15/2019 Reaction: Nausea, Vomiting, Penicillins Nausea 06/15/2019 Medications albuterol 108 (90 Base) MCG/ACT Aerosol Solution 05/04/2021 Active azithromycin (ZITHROMAX) 250 MG Tablet 05/04/2021 Active Cholecalciferol (Vitamin D3) 1.25 MG (24541 UT) Capsule TAKE 1 CAPSULE BY MOUTH WEEKLY 04/21/2021 Active escitalopram (LEXAPRO) 10 MG Tablet Take 10 mg by mouth daily. 04/28/2021 Active LORazepam (ATIVAN) 0.5 MG Tablet TAKE 1 TABLET BY MOUTH THREE TIMES DAILY NEEDED FOR ANXIETY 04/28/2021 Active predniSONE (DELTASONE) 10 MG TabletIndicatio ns:Cough,Bronch itis Take 4 tab PO daily x 2 days, 3 tab PO daily x 2 days, 2 tab PO daily x 2 day, 1 tab PO daily x 2 days. 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 ASSISTANT Gender Identity Not on file Sexual Orientation Not on file Last Filed Vital Signs Vital Sign Reading Time Taken Comments Blood Pressure 118/82 05/05/2021 9:01 AM SALES OPERATIONS ASSISTANT Pulse 85 05/05/2021 9:01 AM SALES OPERATIONS ASSISTANT Temperature 37.3 ??C (99.1 ??F) 05/05/2021 9:01 AM CS T Respiratory Rate 18 05/05/2021 9:01 AM SALES OPERATIONS ASSISTANT Oxygen Saturation 95% 05/05/2021 9:01 AM SALES OPERATIONS ASSISTANT Inhaled Oxygen Concentration - - Weight - - Height - - Body Mass Index - - Plan of Treatment Health Maintenance Due Date Last Done Comments DEXA Bone Density 1955 Hepatitis C Virus (HCV) Screening 1955 TdaP Immunization 1955 Colonoscopy 2001 Colorectal Cancer Screening 2001 Cologuard 2006 Immunochemical Fecal Occult Blood 2006 Mammogram 2006 Pneumococcal Immunization (5 0+ years) (1 of 1 - PCV) 2006 Zoster Immunization (1 of 2) 2006 Influenza Immunization (#1) 2024 03/14/2021 SARS-COV-2 Immunization ( - season) 2024 07/28/2020, 07/07/2020 Respiratory Syncytial Virus (RSV) Immunization (Adult) (1 - 1-dose 75+ series) 11/24/2031 Hepatitis B Immunization Aged Out No longer eligible based on patient's age to complete this topic Meningococcal Immunization (ACWY) Aged Out No longer eligible b ased on patient's age to complete this topic Rotavirus Immunization Aged Out No lo nger eligible based on patient's age to complete this topic Care Teams Scientific Publications Editor Relationship Specialty Start Date End Date Luis Oscar MD [address] [address] PCP - General Family Medicine 11/23/21
--- OUTSIDE RECORDS SUMMARY | 2024-06-25 23:38 | XMS_ITS | Encounter Summary ---
Author Organization [facility] Address [address] [place] [address] Phone Care Team Providers Care Sales Office Administrator Name Role Phone Luis Oscar MD Primary Care Provider [phone] Encounter Details Date Type Department Care Team (Latest Contact Info) Description 11/29/2023 1:45 PM CDT Office Visit [facility] [address] [place] [phone] Rosa Trivedi PA [address] [place] [address] Inflammatory polyarthritis (CMS/HCC) (HCC) (Primary Dx); Sjogren's syndrome with keratoconjunctivitis sicca (HCC); Primary osteoarthritis involving multiple joints; Intractable headache, unspecified chronicity pattern, unspecified headache type; Rash Social History Tobacco Use Types Packs/Day Years Used Date Smoking Tobacco: Never Assessed Alcohol Use Standard Drinks/Week Comments Yes 0 (1 standard drink = 0.6 oz pur e alcohol) Comments Unknown Sex and Gender Information Value Date Recorded Sex Assigned at Not on file 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 SENIOR ADMINISTRATIVE ASSISTANT Gender Identity Not on file Sexual Orientation Not on file documented as of this encounter Progress Notes * Rosa Trivedi PA - 11/29/2023 1:45 PM CDT Subjective/Objective Patient ID: Christina Edmond is a 68 y.o. female. Chief Complaint Joint pain ~~ This was a telemedicine visit which took place via telephone. During the visit, I was located at [facility] [place] and the patient was located [place]. The patient verbally consented to proceeding with this type of visit. The visit began at 2:16PM andended at 2:46PM ~~ HPI Visit to discuss results. PCP gave nurtec to help with severe daily BUSBY. 2 days after starting it she developed rash on face, arms, and legs. Rash was worst on the underside of both arms, especially on the L. Rash was not itchy or painful. Does work in the yard frequently and has sun exposure. BUSBY did get some better with nurtec. She then held nurtec at our suggestion in case it had caused a drug reaction/photosensitivity. Gradually the BUSBY and rash improved. She had 7 days of no headache but last night she had another badHA, BP was 170s systolic. She took her evening dose of BP meds and laid down, BP better this morning. During the headache her R eye sometimes looks droopier and blurrier. Had recent eye exam and was told she has some floaters which could be contributing to a cloudy area. There is another problem which she can't remember the name of that is associated with aging. Her BUSBY is always located to the R side/crown, pain radiates down the R side of her face and ear. she has year-round rhinorrhea/congestion on the R side. Is using flonase for this. She recalls 4-5 episodes of migraine in her life where she had to go to bed, had vomiting. This recent BUSBY feels different. Pcp gave her referral to neurologist. Denies scalp tenderness. Previous: Last visit here was in 09/01. Was [...] weeks and worsening. Brought it up to dredge mate who said it was not concerning. Pt feels right is worse than left. No pain. No change to diet or salt intake. No chest pain, trouble breathing. Was seeing cardio for arrhythmia. H/o mitral valve prolapse. Dr. Mondragon is c ardiologist. Increased GERD, started taking famotidine which helped a lot. 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 No moth sores, rashes. No nausea, diarrhea, [...] autoimmune disease or arthritis. Social: . 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 Nonsmoker. Occasional drinking. Less than 1 per week. 5 children Med History Medication Taking/taken Comments Hydroxychloroquine Methotrexate (po/SQ) x Took in [id number]. Stopped due to severe fatigue/weakness Leflunomide Azathioprine [...] Eyes: Negative for redness. Positive for dry eyes, red eye, blurry vision Respiratory: Negative for shortness of breath. Cardiovascular: Negative for chest pain. Gastrointestinal: Negative for blood in stool and diarrhea. No Dysphagia. Positive for GERD. Genitourinary: hx renal stones Musculoskeletal: Positive for arthralgias. Skin: + for rash. Neurological: Negative for seizures. Positive for migraines/BUSBY There were no vitals taken for this visit. There is no height or weight on file to calculate BMI. Physical Exam Not performed There is currently no information documented on the homunculus. Go to the Rheumatology activity andcomplete the homunculus joint exam. Cdai = not performed Labs/Imaging Xrays 11/03 show severe OA of 1st toes, milder arthritis in the midfeet, and moderate sized plantar spurs. Minimal R shoulder AC joint osteoarthritis, and mild L shoulder AC joint osteoarthritis Hands with polyarticular osteoarthritis, worst at thumbs, and no erosions Lumbar spine with mild scoliosis, listhesis (offset) of L4 on L5, other mild- moderate degenerative changes. SI joints with mild osteoarthritis. R hand/wrist US 11/01/23: 1. Mild synovial [...] New power Doppler within the 2nd DIPJ. Labs 11/03: AVISE is essentially negative. Borderline ANAMIKA by JE only, neg by IFA. xrays 05/27/21: Patellofemoral oa dhruv. cmc mod/sev [...] visit with results is: Office Visit on 10/18/2023 Component Date Value Ref Range Status Glucose 10/18/2023 87 65 - 99 mg/dL Final Comment: Fasting reference interval BUN 10/18/2023 17 7 - 25 mg/dL Final Creatinine 10/18/2023 0.81 0.50 - 1.05 mg/dL Final eGFR 10/18/2023 80 > OR = 60 mL/min/1.73m2 Final BUN/creat ratio 10/18/2023 SEE NOTE: (calc) Final Comment: Not Reported: BUN and Creatinine are within reference range. Sodium 10/18/2023 139 135 - 146 mmol/L Final Potassium, pl 10/18/2023 4.8 3.5 - 5.3 mmol/L Final Chloride 10/18/2023 104 98 - 110 mmol/L Final CO2 10/18/2023 27 20 - 32 mmol/L Final Calcium 10/18/2023 9.6 8.6 - 10.4 mg/dL Final Protein, sr 10/18/2023 6.8 6.1 - 8.1 g/dL Final Albumin 10/18/2023 4.6 3.6 - 5.1 g/dL Final GLOBULIN 10/18/2023 2.2 1.9 - 3.7 g/dL (calc) Final Alb/glob ratio 10/18/2023 2.1 1.0 - 2.5 (calc) Final Bilirubin, total 10/18/2023 0.7 0.2 - 1.2 mg/dL Final Alk phos 10/18/2023 127 37 - 153 U/L Final AST 10/18/2023 24 10 - 35 U/L Final ALT (SGPT) 10/18/2023 29 6 - 29 U/L Final C-RP 10/18/2023 4.2 <8.0 mg/L Final Assessment/Plan Diagnoses and all orders for this visit: Inflammatory polyarthritis (CMS/HCC) ([facility]) (Primary) Assessment & Plan: Last [...] type of BUSBY? She has eye symptoms whichget worse during the headaches, but a recent [...] when she is ready to follow up. Sjogren's syndrome with keratoconjunctivitis sicca (HCC) Assessment & Plan: Severe dry eyes, dry mouth. Noted on a past eye exam. Using systane drops and frequent sips of water. Hx +ANAMIKA, now not significantly abnormal. Other markers all negative. Could consider pilocarpine/cevimeline Primary osteoarthritis involving multiple joints Intractable headache, unspecified chronicity pattern, unspecified headache type Rash 45 minutes spent reviewing patient's records, gathering pertinent medical history, counseling/educating patient about diagnosis and treatment plan, and documenting today's office visit in the EMR. Cosigned by Gordy Garcia MD at 11/30/2023 5:31 PM CDT documented in this encounter Miscellaneous Notes * Assessment & Plan Note - Rosa Trivedi PA - 11/30/2023 11:32 AM CDT Associated Problem(s): Sjogren's syndrome with keratoconjunctivitis sicca (HCC) Severe dry eyes, dry mouth. Noted on a past eye exam. Using systane drops and frequent sips of water. Hx +ANAMIKA, now not significantly abnormal. Other markers all negative. Could consider pilocarpine/cevimeline * Assessment & Plan Note - Rsoa Trivedi PA - 11/30/2023 11:30 AM CDT Associated Problem(s): Inflammatory polyarthritis (CMS/HCC) (HCC) [...] type of BUSBY? She has eye symptoms whichget worse during the headaches, but a recent [...] when she is ready to follow up. documented in this encounter Plan of Treatment Not on file documented as of this encounter Visit Diagnoses Diagnosis Inflammatory polyarthritis (CMS/HCC) (HCC)- Primary Unspecified inflammatory polyarthropathy Sjogren's syndrome with keratoconjunctivitis sicca (HCC) Primary osteoarthritis involving multiple joints Intractable headache, unspecified chronicity pattern, unspecified headache type Rash Rash and other nonspecific skin eruption documented in this encounter Care Teams Sales Office Administrator Relationship Specialty Start Date End Date Luis Ocsar MD PCP - General 06/21/14 documented as of this encounter
--- OUTSIDE RECORDS SUMMARY | 2024-06-25 23:38 | XMS_ITS | Encounter Summary ---
Author Organization [facility] Address [address] [place] [address] Phone Care Team Providers Care Medical Chief Technician Name Role Phone Luis Oscar MD Primary Care Provider [phone] Encounter Details Date Type Department Care Team (Late st Contact Info) Description 11/18/2023 Telephone [facility] [address] [place] [address] Kashif Gonzalez Social History Tobacco Use Types Packs/Day Years Used Date Smoking Tobacco: Never Assessed Alcohol Use Standard Drinks/Week Comments Yes 0 (1 standard drink = 0.6 oz pur e alcohol) Comments Unknown Sex and Gender Information Value Date Recorded Sex Assigned at Not on file 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 TOW OPERATOR Gender Identity Not on file Sexual Orientation Not on file documented as of this encounter Miscellaneous Notes * Telephone Encounter - Kashif Gonzalez - 11/21/2023 9:59 AM CDT Spoke to pt, informed. Pt says the rash is gradually leaving, slow but is improving and today so far she is 99% BUSBY free. Pt will keep us informed and monitor sxs if she decides to try Nurtec again. Pt has phone visit 11/28 * Telephone Encounter - Kashif Gonzalez - 11/18/2023 4:12 PM CDT [facility] providers response and instruction. Asked to cb if any questions. * Telephone Encounter - Rosa Trivedi PA - 11/18/2023 3:58 PM CDT Does she have any rash on areas of skin that were not exposed to sun (ie - under clothing)? I thinkout of caution I would not take any more nurtec right now. I know it is frustrating to have to see multiple docs, but I do really think it is important to get a derm opinion as we are not rash experts (even though we do treat autoimmune diseases that can cause rashes). Also in the meantime make sure to wear sunscreen of SPF 30 anytime she is going to be outside, wear sun protective clothing, wide-brimmed hats, limit sun during peak UV hours (10am- 3pm). Will still leave this message for Dr. Garcia to review next week also. * Telephone Encounter - Kashif Gonzalez - 11/18/2023 3:29 PM CDT Spoke to pt, says she works in the yard everyday. Pt says she thinks the nurtec is helping as it helps w/the pain but pt says she has pressure in the R side of her crown that is still there. Pt has not seen a rolls baker as she says she sees so many docs already. Pt asking should she take the nurtec as she hasn't had 1 since Tuesday, advised as this was the last thing she took before the rash to ask her pcp. Says since it was a rash pcp told her to ask rheum. Pt very frustrated. * Telephone Encounter - Rosa Trivedi PA - 11/18/2023 3:15 PM CDT If the rash developed after starting a new med I am concerned that the rash could be a drug reaction. Did she have recent sun exposure? Did the nurtec help with the headaches? The facial rash is something that can be seen in lupus, but also can be seen with rosacea. When she was last here and I looked at her skin, I thought it looked a little more like rosacea. Rosacea is actually also frequentlyassociated with +JULIANN and can wax and wane in severity. Does she have a rolls baker she could see for help with the rashes also? Let her know my thoughts, and then will also have Dr. Garcia review message/photos when he is in the office next week and get his thoughts as well. * Telephone Encounter - Kashif Gonzalez - 11/18/2023 2:30 PM CDT Pt called as she sent mychart msg as well w/photos but says for last couple days she has had a rashthis is day 3, not itchy or painful and very bad daily headaches that pcp has been dealing with. Ptsays she is not well. Pt was given nurtec otc samples Tue for BUSBY and she took on Tuesday and and Tuesday is when rash developed. Pt hasn't taken a nurtec since . Rash is on face arms as photos suggest. Pt very frustrated as she doesn't know what is wrong as she just has positive juliann. Please advise documented in this encounter Plan of Treatment Not on file documented as of this encounter Visit Diagnoses Not on filedocumented in this encounter Care Teams Medical Chief Technician Relationship Specialty Start Date End Date Luis Oscar MD PCP - General 06/21/14 documented as of this encounter
--- OUTSIDE RECORDS SUMMARY | 2024-06-25 23:38 | XMS_ITS | Encounter Summary ---
Author Organization [facility] Address [address] [place] [address] Phone Care Team Providers Care Pilot Fuel Engineer Name Role Phone Luis Oscar MD Primary Care Provider [phone] Reason for Visit * Reason Comments Cough Encounter Details Date Type Department Care Team (Late st Contact Info) Description 05/05/2021 8:25 AM PUBLICATIONS WRITER Urgent Care Visit [facility] [address] [place] [address] Eva Celeste, SLOT OPERATIONS DIRECTOR, [employer] [address] [place] [address] Bronchitis (Primary Dx); Cough; Sore throat Discharge Disposition: Discharged to home or Selfcare Social History Tobacco Use Types Packs/Day Years Used Date Smoking Tobacco: Never Smokeless Tobacco: Never Alcohol Use Standard Drinks/Week Comments Yes 0 (1 standard drink = 0.6 oz pur e alcohol) occasionally Comments No Sex and Gender Information Value Date Recorded Sex Assigned at Not on file Legal Sex Female 8:22 AM PUBLICATIONS WRITER Gender Identity Not on file Sexual Orientation Not on file COVID-19 Exposure Response Date Recorded In the last month, have you been in contact with someone who was confirmed or suspected to have Coronavirus / COVID-19? No / Unsure 05/05/2021 8:24 AM PUBLICATIONS WRITER documented as of this encounter Last Filed Vital Signs Vital Sign Reading Time Taken Comments Blood Pressure 118/82 05/05/2021 9:01 AM PUBLICATIONS WRITER Pulse 85 05/05/2021 9:01 AM PUBLICATIONS WRITER Temperature 37.3 ??C (99.1 ??F) 05/05/2021 9:01 AM CS T Respiratory Rate 18 05/05/2021 9:01 AM PUBLICATIONS WRITER Oxygen Saturation 95% 05/05/2021 9:01 AM PUBLICATIONS WRITER Inhaled Oxygen Concentration - - Weight - - Height - - Body Mass Index - - documented in this encounter Patient Instructions * Patient Instructions* Eva Celeste APRN, TOM - 05/05/2021 8:25 AM PUBLICATIONS WRITER Images from the original note were not included. Viral Bronchitis (Adult) You have a viral bronchitis. Bronchitis is inflammation and swelling of the lining of the lungs. This is often caused by an infection. Symptoms include a dry, hacking cough that is worse at night. The cough may bring up yellow-green mucus. You may also feel short of breath or wheeze. Other symptomsmay include tiredness, chest discomfort, and chills. Bronchitis that is caused by a virus is not treated with antibiotics. Instead, medicines may be given to help relieve symptoms. Symptoms can last up to 2 weeks, although the cough may last much longer. This illness is contagious during the first few days and is spread through the air by coughing and sneezing, or by direct contact (touching the sick person and then touching your own eyes, nose, or mouth). Most viral illnesses resolve within 10 to 14 days with rest and simple home remedies, although theymay sometimes last for several weeks. Home care ?? If symptoms are severe, rest at home for the first 2 to 3 days. When you go back to your usual activities, don't let yourself get too tired. ?? Do not smoke. Also avoid being exposed to secondhand smoke. ?? You may use cvsa-plj-mevdrqo medicine to control fever or pain, unless another pain medicine wasprescribed.??If you have chronic liver or kidney disease or have ever had a stomach ulcer or gastrointestinal bleeding, talk with your healthcare provider before using these medicines. Also talk to your provider if you are taking medicine to prevent blood clots. Aspirin should never be given to anyone younger than 18 years of age who is ill with a viral infection or fever. It may cause severe liver or brain damage. ?? Your appetite may be poor, so a light diet is fine. Avoid dehydration by drinking 6 to 8 glassesof fluids per day (such as water, soft drinks, sports drinks, juices, tea, or soup). Extra fluids will help loosen secretions in the nose and lungs. ?? Ysqs-xys-ruskvav cough, cold, and sore-throat medicines will not shorten the length of the illness, but they may help to reduce symptoms. Don't use decongestants if you have high blood pressure. Follow-up care Follow up with your healthcare provider, or as advised. If you had an X-ray or ECG (electrocardiogram), a specialist will review it. You will be notified of any new findings that may affect your care. If you are age 65 or older, or if you have a chronic lung disease or condition that affects your immune system, or you smoke, ask your healthcare provider about??getting a??pneumococcal vaccine and ayearly flu shot (influenza vaccine). When to seek medical advice Call your healthcare provider right away if any of these occur: ?? Fever of 100.4??F (38??C) or higher, or as directed by??your healthcare provider ?? Coughing up increased amounts of colored sputum ?? Weakness, drowsiness, headache, facial pain, ear pain, or a stiff neck Call 911 Call 911 if any of these occur: ?? Coughing up blood ?? Worsening weakness, drowsiness, headache, or stiff neck ?? Trouble breathing, wheezing, or pain with breathing Iagnosis last reviewed this educational content on 11/11/2017 ?? [id number] The [employer]. All rights reserved. This information is not intended as a substitute for professional medical care. Always follow your healthcare professional's instructions. ICATIONS WRITER documented in this encounter Progress Notes * Galdino Joe RMA - 05/05/2021 8:25 AM CST Christina Edmond comes in today to discuss the following signs/symptoms that started 3 days ago on 05/02, and have progressively worsened. She states that it all started with a cough, followed by a sore throat and headache. Had a PCR Covid test done earlier today; results pending. Today's Review of Systems Constitutional: Positive for chills and malaise/fatigue. HENT: Positive for sore throat. Respiratory: Positive for cough and shortness of breath. Neurological: Positive for headaches. All other systems reviewed and are negative. ICATIONS WRITER * Eva Celeste APRN, CNP - 05/05/2021 8:25 AM CST Subjective: Chief complaint, ROS, and all history documented by ancillary staff, and any copy/pasted information were reviewed and verified, with additions or corrections, as appropriate. Available past family, social, medical history was reviewed. Christina Edmond is a 65 y.o. female in the clinic for cough, sore throat, headache. Started in the last 3 days. She has a history of bronchitis. She was sent in a zpak and albuterol inhaler by her PCP1 day ago. She states the inhaler is not helping. Cough is productive. She believes she had a feverlast night. Review of Systems Constitutional: Positive for fever. HENT: Positive for congestion and sore throat. Respiratory: Positive for cough and wheezing. Neurological: Positive for headaches. Objective: Physical Exam Vitals and nursing note reviewed. Constitutional: General: She is not in acute distress. HENT: Right Ear: Tympanic membrane and ear canal normal. Left Ear: Tympanic membrane and ear canal normal. Ears: Comments: TMs are injected Mouth/Throat: Pharynx: Posterior oropharyngeal erythema present. Cardiovascular: Rate and Rhythm: Normal rate. Pulmonary: Effort: Pulmonary effort is normal. Breath sounds: Wheezing present. Neurological: Mental Status: She is alert. Vitals: 05/05/21 0901 BP: 118/82 BP Location: Right Arm BP Position: Sitting BP Cuff Size: Regular Pulse: 85 Resp: 18 Temp: 99.1 ??F (37.3 ??C) TempSrc: Oral SpO2: 95% Assessment and Plan See Diagnoses, Orders, Follow-up, and Instructions Diagnoses and all orders for this visit: Bronchitis - predniSONE (DELTASONE) 10 MG Tablet; Take 4 tab PO daily x 2 days, 3 tab PO daily x 2 days, 2 tabPO daily x 2 day, 1 tab PO daily x 2 days. Cough - POCT SARS ANTIGEN PROSPER - ipratropium-albuterol (DUO-NEB) 0.5-2.5 (3) MG/3ML nebulizer solution 3 mL - predniSONE (DELTASONE) 10 MG Tablet; Take 4 tab PO daily x 2 days, 3 tab PO daily x 2 days, 2 tabPO daily x 2 day, 1 tab PO daily x 2 days. Sore throat Other orders - albuterol 108 (90 Base) MCG/ACT Aerosol Solution - azithromycin (ZITHROMAX) 250 MG Tablet - Cholecalciferol (Vitamin D3) 1.25 MG (12135 UT) Capsule; TAKE 1 CAPSULE BY MOUTH WEEKLY - escitalopram (LEXAPRO) 10 MG Tablet; Take 10 mg by mouth daily. - LORazepam (ATIVAN) 0.5 MG Tablet; TAKE 1 TABLET BY MOUTH THREE TIMES DAILY NEEDED FOR ANXIETY Care as instructed on AVS Continue the Zpak and albuterol inhaler that your PCP sent out. If medication was prescribed it was sent to the pharmacy. Take all medication as prescribed. Do not skip a dose and take until completed. Follow up with PCP if the symptoms do not improve Go to the ER if symptoms become severe AVS from today was printed, discussed with patient/family and given to patient/family ICATIONS WRITER * Sahara Sesay RN - 05/05/2021 8:25 AM CST Per order of Eva Celeste APN, CNP bilateral nasal swab collected for POCT COVID. Patient tolerated well. ICATIONS WRITER * Sahara Sesay RN - 05/05/2021 8:25 AM CST Per order of Eva Celeste APN, CNP Hand held nebulizer of Duoneb given. Patient tolerated well. ICATIONS WRITER documented in this encounter Miscellaneous Notes * Addendum Note - Eav Celeste APRN, CNP - 05/05/2021 8:25 AM PUBLICATIONS WRITER Addended by: EVA CELESTE on: 05/05/2021 01:44 PM Modules accepted: Level of Service ICATIONS WRITER documented in this encounter Plan of Treatment Not on file documented as of this encounter Procedures Procedure Name Priority Date/Time Associated Diagnosis Comments POCT SARS ANTIGEN PROSPER Routine 05/05/2021 9:38 AM PUBLICATIONS WRITER Cough documented in this encounter Results * POCT SARS ANTIGEN PROSPER (05/05/2021 9:38 AM PUBLICATIONS WRITER) POC SARS ANTIGEN PROSPER Negative Negative POC SARS ANTIGEN PROSPER CONTROL Spray [place] Swab 05/05/2021 9:38 AM PUBLICATIONS WRITER Eva Celeste APRN, CNP POINT OF CARE SALVADOR TING (MANUAL) Final Result documented in this encounter Visit Diagnoses Diagnosis Bronchitis- Primary Bronchitis, not specified as acute or chronic Cough Sore throat Acute pharyngitis documented in this encounter Administered Medications Inactive Administered Medications - up to 3 most recent administrations Medication Order MAR Action Action Date Dose Rate Site ipratropium-albuterol (DUO-NEB) 0.5-2.5 (3) MG/3ML nebulizer solution 3 mL 3 mL, Nebulization, ONCE, 1 dose, On Tue05/05/21 at 1000Indications:Cough Given 05/05/2021 9:40 AM PUBLICATIONS WRITER 3 mL documented in this encounter Additional Health Concerns Infection Onset Date Last Indicated Resolved Time COVID - 19 05/05/2021 05/05/2021 05/25/2021 12:1 6 AM PUBLICATIONS WRITER documented as of this encounter Care Teams Pilot Fuel Engineer Relationship Specialty Start Date End Date Luis Oscar MD [address] [place], [place] [id number] PCP - General Family Medicine 05/05/21 documented as of this encounter
--- OUTSIDE RECORDS SUMMARY | 2024-06-25 23:38 | XMS_ITS | Referral Summary ---
Author Organization [facility] [address] [facility] Address [address] [place] [address] Care Team Providers Care Special Education Teacher Name Role Phone Luis Oscar MD Primary Care Provider [phone] Allergies Active Allergy Reactions Criticality Noted Date [...] mtx Assessment & Plan (07/31/2021 3:06 PM AUTOMOBILE SERVICE ADVISOR): Monitor labs on mtx Primary osteoarthritis of both knees 06/11/2021 Assessment & Plan (06/11/2021 3:30 PM AUTOMOBILE SERVICE ADVISOR): Mild patellofemoral OA bilat. Discussed tx options including nsaids (oral, topical), steroid injections, PT, and then eventually replacement Atrial arrhythmia 06/11/2021 Assessment & Plan (06/11/2021 3:30 PM AUTOMOBILE SERVICE ADVISOR): Seeing cardiology for further eval Sjogren's syndrome [...] pilocarpine/cevimeline Assessment & Plan (07/31/2021 3:06 PM AUTOMOBILE SERVICE ADVISOR): Severe dry eyes, dry mouth. Noted on recent eye exam. Started on new drops per eye doctor recently along with steroid ointment. Advised to continue liberal use of lubricating drops. Repeated serologies and she has +ANAMIKA 1:160 only. Other markers all negative. Could consider pilocarpine/cevimeline Assessment & Plan (06/11/2021 3:28 PM AUTOMOBILE SERVICE ADVISOR): Severe dry eyes, dry mouth. Noted on recent eye exam. Started on new drops per eye doctor recently along with steroid ointment. Advised to continue liberal use of lubricating drops. Repeated serologies and she has +ANAMIKA 1:160 only. Other markers all negative. Could consider pilocarpine/cevimeline next Assessment & Plan (05/21/2021 4:36 PM AUTOMOBILE SERVICE ADVISOR): Severe dry eyes, dry mouth. Started on [...] month Assessment & Plan (07/31/2021 3:04 PM AUTOMOBILE SERVICE ADVISOR): Synovitis seen on hand u/s >5 yrs [...] month Assessment & Plan (06/11/2021 3:29 PM AUTOMOBILE SERVICE ADVISOR): Synovitis seen on hand u/s >5 yrs [...] Powell. Assessment & Plan (05/21/2021 4:34 PM AUTOMOBILE SERVICE ADVISOR): Synovitis seen on hand u/s >5 yrs [...] foot Assessment & Plan (05/21/2021 4:35 PM AUTOMOBILE SERVICE ADVISOR): Hallux limitus to bilat 1st MTPs. Also possible history of dactylitis to R 2nd toe a few weeks ago. Dry eyes 10/27/2013 Overview (09/17/2016): Dry eyes Fibrositis 10/27/2013 Overview (09/17/2016): Fibromyalgia Localized osteoarthrosis 10/27/2013 Overview (09/17/2016): Osteoarthritis, localized, hand Anxiety 10/27/2013 Overview (09/17/2016): Anxiety Raynaud's phenomenon 10/27/2013 Overview (09/17/2016): Raynaud phenomenon Social History Tobacco Use Types Packs/Day Years Used Date Smoking Tobacco: Never Assessed Alcohol Use Standard Drinks/Week Comments Yes 0 (1 standard drink = 0.6 oz pur e alcohol) Comments Unknown Sex and Gender Information Value Date Recorded Sex Assigned at Not on file 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 AUTOMOBILE SERVICE ADVISOR Gender Identity Not on file Sexual Orientation [...] 10/18/2023 1:52 PM CDT Plan of Treatment Not on file Procedures Procedure Name Priority Date/Time Associated Diagnosis Comments SCREENING MAMMOGRAM 2D BILATERAL Routine 06/18/2014 4:43 PM AUTOMOBILE SERVICE ADVISOR from Last 3 Months or Most Recently Relevant to Health Maintenance Results * Screening Mammogram 2D Bilateral (06/18/2014 4:43 PM AUTOMOBILE SERVICE ADVISOR) Anatomical Region Laterality Modality Breast Bilateral Mammography 06/18/2014 4:43 PM AUTOMOBILE SERVICE ADVISOR Impressions 06/21/2014 11:33 AM AUTOMOBILE SERVICE ADVISOR BIRADS 1: ??NEGATIVE There is no mammographic evidence of malignancy. A 1 year screening mammogram is recommended. ?? The patient has been or will be contacted. ?? The patient will be entered into an automated reminder system to schedule a mammogram in one year. Electronically signed by: Dr. Galdino Le nh/:06/21/2014 11:32:49 ?? Front Office Help: Ruma Wilson RT(R)(M), [facility] letter sent: Normal Exam ?? Reading location: BI-RADS: 1 Negative [EOD] Narrative 06/21/2014 11:33 AM AUTOMOBILE SERVICE ADVISOR - AMITA BILATERAL SCREENING W/CAD BILATERAL DIGITAL SCREENING MAMMOGRAM 3D/2D WITH CAD: 06/18/2014 The study was acquired using full field digital technology and interpreted from soft copy. ?? Current study was also evaluated with ICAD version 7.2. COMPARISONS: Comparison is made to exams dated: ??03/10/2012 mammogram and 03/15/2013 mammogram - [facility]. ?? BREAST TISSUE: There are scattered areas [...] exams dated: 03/10/2012 mammogram and 03/15/2013 mammogram - [facility]. BREAST TISSUE: There are scattered areas of [...] signed by: Dr. Galdino Le nh/:06/21/2014 11:32:49 Front Office Help: Ruma Wilson RT(R)(M), [facility] letter sent: Normal Exam Reading location: BI-RADS: 1 Negative [EOD] us Avinash Henderson MD IMG MAMMO PROCEDURES Final Result from Last 3 Months or Most Recently Relevant to Health Maintenance Insurance [facility] Address: [facility] [address] [place] [address] Care Teams Special Education Teacher Relationship Specialty Start Date End Date Luis Oscar MD PCP - General 06/21/14
--- OUTSIDE RECORDS SUMMARY | 2024-06-25 23:38 | XMS_ITS | Encounter Summary ---
Author Organization [facility] Address [address] [place] [phone] Phone Care Team Providers Care Museum Service Scheduler Name Role Phone Luis Oscar MD Primary Care Provider [phone] Andre SOLIS MD, Philippe Jones Unavailable [phone] Encounter Details Date Type Department Care Team (Late st Contact Info) Description 08/13/2021 Telephone [facility] [address] [place] [phone] Kashif Gonzalez Social History Tobacco Use Types Packs/Day Years Used Date Smoking Tobacco: Never Assessed Alcohol Use Standard Drinks/Week Comments Yes 0 (1 standard drink = 0.6 oz pur e alcohol) Comments Unknown Sex and Gender Information Value Date Recorded Sex Assigned at Not on file 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 POWERED BRIDGE SPECIALIST Gender Identity Not on file Sexual Orientation Not on file documented as of this encounter Miscellaneous Notes * Telephone Encounter - Kashif Gonzalez - 08/24/2021 10:02 AM CDT Spoke to pt, informed. * Telephone Encounter - Rosa Trivedi PA - 08/21/2021 5:05 PM POWERED BRIDGE SPECIALIST Mtx can deplete folate levels, which can cause the side effects of fatigue, mouth sores, nausea, hair loss. Increasing folic acid counteracts this problem. Will send script [facility] RED BRIDGE SPECIALIST * Telephone Encounter - Kashif Gonzalez - 08/21/2021 2:08 PM CST Pt called back, says the increase in FA has made a world of difference. Pt says she was functional but still a little fatigued. Pt asking why the increase in FA works like this (just curious)? Pt requesting new rx for FA 2 tabs for 90 day supply [facility]. Pt says she is going on hike w/12 year old grandson tomorrow so she will be skipping her dose of MTX today as she doesn't want to risk being tired tomorrow. RED BRIDGE SPECIALIST * Telephone Encounter - Kashif Gonzalez - 08/20/2021 9:56 AM CST LMVM checking how she's doing w/MTX and FA increase. Asked to cb and let me know. RED BRIDGE SPECIALIST * Telephone Encounter - Rosa Trivedi PA - 08/13/2021 5:10 PM POWERED BRIDGE SPECIALIST Ok will wait to hear back RED BRIDGE SPECIALIST * Telephone Encounter - Kashif Gonzalez - 08/13/2021 4:29 PM CST Spoke to pt, says she can't change days as she works and the next 2 weekends she has family so she'll be really busy. Pt will try increasing FA and let us know next week how she is feeling RED BRIDGE SPECIALIST * Telephone Encounter - Rosa Trivedi PA - 08/13/2021 4:14 PM POWERED BRIDGE SPECIALIST Would it help to move dosing to Tuesday or a different day of the week when she has time to sleep?Could also increase folic acid to 2mg daily which can help reduce side effects to mtx RED BRIDGE SPECIALIST * Telephone Encounter - Kashif Gonzalez - 08/13/2021 3:53 PM CST Pt left vm stating she increased MTX to 6 tabs weekly and she doses on Tuesday. Says the fatigue andfoggy brain is so great she can't take it especially at work and she sleeps so much after dosing. Please advise. RED BRIDGE SPECIALIST documented in this encounter Plan of Treatment Not on file documented as of this encounter Visit Diagnoses Not on filedocumented in this encounter Care Teams Museum Service Scheduler Relationship Specialty Start Date End Date Luis Oscar MD PCP - General 06/21/14 Philippe Powell III, MD [address] [place] [address] Consulting Physician Rheumatology 06/10/20 10/10/23 documented as of this encounter
--- OUTSIDE RECORDS SUMMARY | 2024-06-25 23:38 | XMS_ITS | Encounter Summary ---
Author Organization [facility] Address [address] [place] [address] Phone Care Team Providers Care Ben Day Artist Name Role Phone Luis Oscar MD Primary Care Provider [phone] Andre SOLIS MD, Philippe Jones Unavailable [phone] Encounter Details Date Type Department Care Team (Late st Contact Info) Description 07/10/2021 Telephone [facility] [address] [place] [phone] Kashif Gonzalez Social History Tobacco Use Types Packs/Day Years Used Date Smoking Tobacco: Never Assessed Alcohol Use Standard Drinks/Week Comments Yes 0 (1 standard drink = 0.6 oz pur e alcohol) Comments Unknown Sex and Gender Information Value Date Recorded Sex Assigned at Not on file 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 STATION TENDER Gender Identity Not on file Sexual Orientation Not on file documented as of this encounter Miscellaneous Notes * Telephone Encounter - Kashif Gonzalez - 07/10/2021 4:29 PM CST Spoke to pt, informed. ION TENDER * Telephone Encounter - Rosa Trivedi PA - 07/10/2021 4:16 PM STATION TENDER I would advise either taking them all with one meal, or divide in half in morning (2 tabs) and evening (2 tabs) of the same day. Would not split it into 4 separate doses. ION TENDER * Telephone Encounter - Kashif Gonzalez - 07/10/2021 2:31 PM CST Pt left vm stating she doses MTX on fridays and asking if it's ok to take the 4 tabs across the span of the day like w/meals instead of all at once? ION TENDER documented in this encounter Plan of Treatment Not on file documented as of this encounter Visit Diagnoses Not on filedocumented in this encounter Care Teams Ben Day Artist Relationship Specialty Start Date End Date Luis Oscar MD PCP - General 06/21/14 Philippe Powell III, MD [address] [place] [address] Consulting Physician Rheumatology 06/10/20 10/10/23 documented as of this encounter
--- OUTSIDE RECORDS SUMMARY | 2024-06-25 23:38 | XMS_ITS | Encounter Summary ---
Author Organization [facility] Address [address] [place] [phone] Phone Care Team Providers Care Packing And Wrapping Supervisor Name Role Phone Luis Oscar MD Primary Care Provider [phone] Andre SOLIS MD, Philippe Jones Unavailable [phone] Reason for Visit * Reason Onset Date Comments Stopping MTX 09/28/2021 Encounter Details Date Type Department Care Team (Late st Contact Info) Description 09/28/2021 Telephone [facility] [address] [place] [phone] Kashif Gonzalez Stopping MTX Social History Tobacco Use Types Packs/Day Years Used Date Smoking Tobacco: Never Assessed Alcohol Use Standard Drinks/Week Comments Yes 0 (1 standard drink = 0.6 oz pur e alcohol) Comments Unknown Sex and Gender Information Value Date Recorded Sex Assigned at Not on file 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 STRIPER Gender Identity Not on file Sexual Orientation Not on file documented as of this encounter Miscellaneous Notes * Telephone Encounter - Rosa Trivedi PA - 09/28/2021 7:39 PM CDT noted * Telephone Encounter - Kashif Gonzalez - 09/28/2021 3:23 PM CDT Pt left vm stating that after careful thought she has decided to stop MTX that she has been taking since June. Says for majority of the time she has been sick fatigued, constipation. And stomach upset. Pt says she is not willing to do this any longer. Pt says she will be trying an anti inflammatory diet and see how she does. Pt wants to cxl 10/01 appt and will cb if sxs change to be seen. documented in this encounter Plan of Treatment Not on file documented as of this encounter Visit Diagnoses Not on filedocumented in this encounter Care Teams Packing And Wrapping Supervisor Relationship Specialty Start Date End Date Luis Oscar MD PCP - General 06/21/14 Philippe Powell III, MD [address] [place] [address] Consulting Physician Rheumatology 06/10/20 10/10/23 documented as of this encounter
--- OUTSIDE RECORDS SUMMARY | 2024-06-25 23:38 | XMS_ITS | Encounter Summary ---
Author Organization [facility] Care Team Providers Care Commercial Sales Specialist Name Role Phone Luis Oscar MD Primary Care Provider [phone] Encounter Details Date Type Department Care Team (Latest Contact Info) Description 05/05/2021 Travel Social History Tobacco Use Types Packs/Day Years Used Date Smoking Tobacco: Never Smokeless Tobacco: Never Alcohol Use Standard Drinks/Week Comments Yes 0 (1 standard drink = 0.6 oz pur e alcohol) occasionally Comments No Sex and Gender Information Value Date Recorded Sex Assigned at Not on file Legal Sex Female 8:22 AM INFANTRY OPERATIONS SPECIALIST Gender Identity Not on file Sexual Orientation Not on file COVID-19 Exposure Response Date Recorded In the last month, have you been in contact with someone who was confirmed or suspected to have Coronavirus / COVID-19? No / Unsure 05/05/2021 8:24 AM INFANTRY OPERATIONS SPECIALIST documented as of this encounter Plan of Treatment Not on file documented as of this encounter Visit Diagnoses Not on filedocumented in this encounter Additional Health Concerns Infection Onset Date Last Indicated Resolved Time COVID - 19 05/05/2021 05/05/2021 05/25/2021 12:1 6 AM INFANTRY OPERATIONS SPECIALIST documented as of this encounter Care Teams Commercial Sales Specialist Relationship Specialty Start Date End Date Luis Oscar MD [address] [place] [address] PCP - General Family Medicine 05/05/21 documented as of this encounter
--- OUTSIDE RECORDS SUMMARY | 2024-06-25 23:38 | XMS_ITS | Encounter Summary ---
Author Organization [facility] Address [address] [place] [address] Phone Care Team Providers Care Outdoor Recreation Specialist Name Role Phone Luis Oscar MD Primary Care Provider [phone] Andre SOLIS MD, Philippe Jones Unavailable [phone] Encounter Details Date Type Department Care Team (Late st Contact Info) Description 09/04/2021 Orders Only [facility] [address] [place] [phone] Rosa Trivedi PA [address] [place] [address] Social History Tobacco Use Types Packs/Day Years Used Date Smoking Tobacco: Never Assessed Alcohol Use Standard Drinks/Week Comments Yes 0 (1 standard drink = 0.6 oz pur e alcohol) Comments Unknown Sex and Gender Information Value Date Recorded Sex Assigned at Not on file 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 POPCORN MACHINE OPERATOR Gender Identity Not on file Sexual Orientation Not on file documented as of this encounter Plan of Treatment Not on file documented as of this encounter Procedures Procedure Name Priority Date/Time Associated Diagnosis Comments SCAN - LABS 09/04/2021 3:54 PM CDT documented in this encounter Results * SCAN - LABS (09/04/2021 3:54 PM CDT) Rosa CARDOZO Edited R esult - Final documented in this encounter Visit Diagnoses Not on filedocumented in this encounter Care Teams Outdoor Recreation Specialist Relationship Specialty Start Date End Date Luis Oscar MD PCP - General 06/21/14 Philippe Powell III, MD [facility] [place] [address] Consulting Physician Rheumatology 06/10/20 10/10/23 documented as of this encounter
--- OUTSIDE RECORDS SUMMARY | 2024-06-25 23:38 | XMS_ITS | Encounter Summary ---
Author Organization [facility] Address [address] [place] [address] Phone Care Team Providers Care Radiotelegrapher Name Role Phone Luis Oscar MD Primary Care Provider [phone] Encounter Details Date Type Department Care Team (Late st Contact Info) Description 11/30/2023 Telephone [facility] [address] [place] [phone] Kashif Gonzalez Social History Tobacco Use Types Packs/Day Years Used Date Smoking Tobacco: Never Assessed Alcohol Use Standard Drinks/Week Comments Yes 0 (1 standard drink = 0.6 oz pur e alcohol) Comments Unknown Sex and Gender Information Value Date Recorded Sex Assigned at Not on file 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 EMERGENCY MANAGEMENT SPECIALIST Gender Identity Not on file Sexual Orientation Not on file documented as of this encounter Miscellaneous Notes * Telephone Encounter - Kashif Gonzalez - 11/30/2023 11:55 AM CDT OV note printed and faxed to pcp documented in this encounter Plan of Treatment Not on file documented as of this encounter Visit Diagnoses Not on filedocumented in this encounter Care Teams Radiotelegrapher Relationship Specialty Start Date End Date Luis Oscar MD PCP - General 06/21/14 documented as of this encounter
--- OUTSIDE RECORDS SUMMARY | 2024-06-25 23:38 | XMS_ITS | Encounter Summary ---
Author Organization [facility] Address [address] [place] [address] Phone Care Team Providers Care Fork Repairer Name Role Phone Luis Oscar MD Primary Care Provider [phone] Andre SOLIS MD, Philippe Jones Unavailable [phone] Encounter Details Date Type Department Care Team (Latest Contact Info) Description 07/31/2021 1:45 PM NETWORK CONTROL TECHNICIAN Office Visit [facility] [address] [place] [phone] Rosa Trivedi PA [address] [place] [address] Inflammatory polyarthritis (CMS/HCC) (HCC) (Primary Dx); Sjogren's syndrome with keratoconjunctivitis sicca (HCC); High risk medications (not anticoagulants) long-term use Social History Tobacco Use Types Packs/Day Years Used Date Smoking Tobacco: Never Assessed Alcohol Use Standard Drinks/Week Comments Yes 0 (1 standard drink = 0.6 oz pur e alcohol) Comments Unknown Sex and Gender Information Value Date Recorded Sex Assigned at Not on file 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 NETWORK CONTROL TECHNICIAN Gender Identity Not on file Sexual Orientation Not on file documented as of this encounter Last Filed Vital Signs Vital Sign Reading Time Taken Comments Blood Pressure - - Pulse - - Temperature 36.1 ??C (96.9 ??F) 07/31/2021 1:54 PM CS T Respiratory Rate - - Oxygen Saturation - - Inhaled Oxygen Concentration - - Weight 84.9 kg (187 lb 3.2 oz) 07/31/2021 1:54 P M NETWORK CONTROL TECHNICIAN Height - - Body Mass Index 31.15 04/27/2016 9:41 AM NETWORK CONTROL TECHNICIAN documented in this encounter Ordered Prescriptions Prescription Sig Dispense Quantity Refills Last Filled Start Date End Date methotrexate 2.5 mg tabletIndications: Rheumatoid Arthritis TAKE 6 TABLETS BY MOUTH ALL AT ONCE ONE DAY A WEEK 30 tablet 07/31/2021 4 documented in this encounter Progress Notes * Rosa Trivedi PA - 07/31/2021 1:45 PM CST Subjective/Objective Patient ID: Christina Edmond is a 65 y.o. female. Chief Complaint No chief complaint on file. HPI Here for routine f/u. Started mtx a month ago. Tolerating fine. No nausea. No rashes, mouth sores. No fever. Joints are hurting. L 2nd mcp, R fingers stiff and painful after holding phone. Knees, hips, L shoulder painful. Sometimes gets throbbing pain in L finger. Had normal stress test. Had echo which showed some left atrial enlargement and some arrhythmia. Trying to get in with cardiology. She still has had some episodes of fatigue and dyspnea on exertion. Pain 0/10 at times but also up to 6/10 Previous: Here for C2. Hands are not too painful today, DIPs are the most symptomatic. Mcps, pips not painful. Knees hurt with stairs and sometimes feel like they will buckle. Is seeing cardiology for workup of possible arrhythmia. ekg showed possible atrial enlargement. 48hr holter showed numerous supraventricular complexes/couplets, and a bout of atrial tach. She is going for stress test, echo next. Still c/o generalized fatigue and low energy. Sleeps more than she used to and has less energy doing activities that she wants to do. Previous: Previous patient of ours, last seen in 2015. She reports that her R thumb pain is not as bad as it used to be. She is reporting mild pain in her fingers, knees, and feet. Her PCP recommended she comeback to repeat evaluation due to some abnormal labs (+ANAMIKA 1:80 speckled and EBV serologies neg IgM and +IgG, neg CMV). She had been hiking in March and developed fatigue, weakness, dyspnea when she was 3 hours in thehike and couldn't make it back to the end of the trail. She waited where she was until other hikerscame along and they had to help her back. She saw her pcp after that and had labs. Was diagnosed/treated for UTI with macrobid. Also has had worsening stress incontinence over the past year and has discussed with her events associate Dr. Flores. Doesn't want any surgery or tx for this yet. She reports redness, swelling and pain in the R 2nd toe about 3 weeks ago. She has had recent bronchitis/sinus symptoms and had 2 negative tests for COVID recently. 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 Negative serologies in 2014. Discussed trial of mtx. Took sulindac for years but stopped due to abnormal liver enzymes. Also used to take savella for fibromyalgia. +occasional mouth sores, on tongue +very dry mouth, severe dry eyes. oph started on RegenerEyes drops. She was also using a steroid ointment for a couple of weeks and has finished that. +raynauds worse in L hand in cold weather Denies rashes, photosensitivity, dyspnea, pleuritic pains. Also denies hx thyroid disease, kidney disease, gout, blood clots, transfusions, or hepatitis. No hx cancer or TB. 1 miscarriage at 16 weeks. 6 pregnancies. 5 live births. No AZ, CVA. Past Medical History: +remote kidney stone, anxiety/depression, fibromyalgia, migraines Surgeries: 5 c-sections, cervical fusion, partial hysterectomy, tubal ligation Family: No FH autoimmune disease or arthritis. 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 Nonsmoker. Occasional drinking. Less than 1 per week. 5 children Review of Systems Constitutional: positive for fatigue. Negative for fever. HENT: positive for mouth sores. Positive for dry mouth Eyes: Negative for redness. Positive for dry eyes Respiratory: Negative for shortness of breath. Positive for cough Cardiovascular: Negative for chest pain. Gastrointestinal: Negative for blood in stool and diarrhea. No Dysphagia Genitourinary: hx renal stones Musculoskeletal: Positive for arthralgias. Skin: Negative for rash. Neurological: Negative for seizures. Positive for migraines Vitals Temp 36.1 ??C (96.9 ??F) Wt 84.9 kg (187 lb 3.2 oz) BMI 31.15 kg/m?? Body mass index is 31.15 kg/m??. Physical Exam Constitutional: appears well-developed and well-nourished. HENT: Head: Normocephalic. Right Ear: External ear normal. Left Ear: External ear normal. Nose: Nose normal. Mouth/Throat: No oropharyngeal exudate. Dry mucosa and tongue Eyes: Conjunctivae and EOM are normal. Pupils are equal, round, and reactive to light. Right eye exhibits no discharge. Left eye exhibits no discharge. No scleral icterus. Neck: Normal range of motion. Neck supple. No tracheal deviation present. No thyromegaly present. Cardiovascular: Normal rate, regular rhythm, normal heart sounds and intact distal pulses. Exam reveals no gallop and no friction rub. No murmur heard. Pulmonary/Chest: Effort normal. No respiratory distress. no wheezes. no rales. Musculoskeletal: see CDAI. Bony changes to CMC joints and 2,3 DIPs bilat. bilat lateral epicondylestender. Shoulders tender. Hips FROM nontender. Knees tender. Ankles nontender. 1st mtps with halluxlimitus and bony changes. R 2nd PIP tender. Lymphadenopathy: no cervical adenopathy. Neurological: alert. normal reflexes. No cranial nerve deficit or sensory deficit. normal muscle tone. Coordination normal. Skin: Skin is warm and dry. No rash noted. No erythema. No pallor. Psychiatric: normal mood and affect. behavior is normal. Cdai = 24 Labs/Imaging xrays 05/27/21: Patellofemoral oa dhruv. cmc [...] available for comparison. AVISE 06/02: +ANAMIKA 1:160 No visits with results within 1 Month(s) from this visit. Latest known visit with results is: Office Visit on 05/21/2021 Component Date Value Ref Range Status ??? Complement component C3C 05/21/2021 128 83 - 193 mg/dL Final ??? Complement component C4C 05/21/2021 33 15 - 57 mg/dL Final ??? WBC 05/21/2021 6.6 3.8 - 10.8 Thousand/uL Final ??? RBC, POC 05/21/2021 4.61 3.80 - 5.10 Million/uL Final ??? Hgb 05/21/2021 13.5 11.7 - 15.5 g/dL Final ??? Hct 05/21/2021 40.6 35.0 - 45.0 % Final ??? MCV 05/21/2021 88.1 80.0 - 100.0 fL Final ??? MCH 05/21/2021 29.3 27.0 - 33.0 pg Final ??? MCHC 05/21/2021 33.3 32.0 - 36.0 g/dL Final ??? Rdw 05/21/2021 12.6 11.0 - 15.0 % Final ??? Platelets 05/21/2021 267 140 - 400 Thousand/uL Final ??? MPV 05/21/2021 10.0 7.5 - 12.5 fL Final ??? Neutrophils, abs 05/21/2021 3,848 1,500 - 7,800 cells/uL Final ??? Lymphocytes, abs 05/21/2021 1,934 850 - 3,900 cells/uL Final ??? Monocyte abs 05/21/2021 554 200 - 950 cells/uL Final ??? Eosinophils, abs 05/21/2021 224 15 - 500 cells/uL Final ??? Basophils, abs 05/21/2021 40 0 - 200 cells/uL Final ??? Neutrophils 05/21/2021 58.3 % Final ??? Lymphocyte pct 05/21/2021 29.3 % Final ??? Monocytes 05/21/2021 8.4 % Final ??? Eosinophils 05/21/2021 3.4 % Final ??? Basophils 05/21/2021 0.6 % Final ??? Glucose 05/21/2021 87 65 - 99 mg/dL Final Comment: Fasting reference interval ??? BUN 05/21/2021 20 7 - 25 mg/dL Final ??? Creatinine 05/21/2021 0.81 0.50 - 0.99 mg/dL Final Comment: For patients >49 years of age, the reference limit for Creatinine is approximately 13% higher for people identified as -Moroccan. ? ? eGFR NON-AFR. ANDORRAN 05/21/2021 77 > OR = 60 mL/min/1.73m2 Final ? ? EGFR 05/21/2021 89 > OR = 60 mL/min/1.73m2 Final ??? BUN/creat ratio 05/21/2021 NOT APPLICABLE 6 - 22 (calc) Final ??? Sodium 05/21/2021 139 135 - 146 mmol/L Final ??? Potassium, pl 05/21/2021 4.5 3.5 - 5.3 mmol/L Final ??? Chloride 05/21/2021 106 98 - 110 mmol/L Final ??? CO2 05/21/2021 24 20 - 32 mmol/L Final ??? Calcium 05/21/2021 9.2 8.6 - 10.4 mg/dL Final ??? Protein, sr 05/21/2021 6.3 6.1 - 8.1 g/dL Final ??? Albumin 05/21/2021 4.2 3.6 - 5.1 g/dL Final ??? GLOBULIN 05/21/2021 2.1 1.9 - 3.7 g/dL (calc) Final ??? Alb/glob ratio 05/21/2021 2.0 1.0 - 2.5 (calc) Final ??? Bilirubin, total 05/21/2021 0.8 0.2 - 1.2 mg/dL Final ??? Alk phos 05/21/2021 117 37 - 153 U/L Final ??? AST 05/21/2021 31 10 - 35 U/L Final ??? ALT (SGPT) 05/21/2021 37 (A) 6 - 29 U/L Final ? ? C-RP 05/21/2021 5.1 <8.0 mg/L Final ? ? DNA (DS) ab 05/21/2021 <1 IU/mL Final Comment: IU/mL Interpretation < or = 4 Negative 5-9 Indeterminate > or = 10 Positive ? ? Erythrocyte sedimentation rate 05/21/2021 6 < OR = 30 mm/h Final ??? Creatinine, ur 05/21/2021 104 20 - 275 mg/dL Final ??? Protein/creatinine ratio 05/21/2021 67 21 - 161 mg/g creat Final ??? Protein/Creatinine Ratio 05/21/2021 0.067 0.021 - 0.161 mg/mg creat Final ??? Protein, ur, quant 05/21/2021 7 5 - 24 mg/dL Final ??? Hep A total 05/21/2021 NON-REACTIVE NON-REACTIVE Final Comment: For additional information, please refer to http://Hightail.fg microtec/faq/WSW083 (This link is being provided for informational/ educational purposes only.) ??? HBsAb (immune status) 05/21/2021 NON-REACTIVE NON-REACTIVE Final ??? HepBsAg 05/21/2021 NON-REACTIVE NON-REACTIVE Final ??? Hep B core IgG/IgM 05/21/2021 NON-REACTIVE NON-REACTIVE Final ??? Hep C Ab 05/21/2021 NON-REACTIVE NON-REACTIVE Final ? ? SIGNAL TO CUT-OFF 05/21/2021 0.01 <1.00 Final Comment: HCV antibody was non-reactive. There is no laboratory evidence of HCV infection. In most cases, no further action is required. However, if recent HCV exposure is suspected, a test for HCV RNA (test code 26580) is suggested. For additional information please refer to http://Hightail.[employer] microtec/faq/EEG00c5 (This link is being provided for informational/ educational purposes only.) ??? CK 05/21/2021 56 29 - 143 U/L Final Assessment/Plan Diagnoses and all orders for this visit: Inflammatory polyarthritis (CMS/HCC) (HCC) (Primary) Assessment & Plan: Synovitis seen on hand u/s >5 yrs ago. Had discussed starting mtx at that time but pt decided not to take it. She recently had labs done with pcp and had +ANAMIKA 1:80, along with new symptoms of fatigue/weakness, increased dry eyes/dry mouth. Mild pain in fingers and hx possible dactylitis to R 2ndtoe by her description. Suspect sjogren's and may [...] see benefit from mtx. F/u 1 month Orders: - CBC with auto differential; Future - Comprehensive metabolic panel; Future - CRP (acute phase); Future - Erythrocyte sedimentation rate; Future Sjogren's syndrome with keratoconjunctivitis sicca (HCC) Assessment & Plan: Severe dry eyes, dry mouth. Noted on recent eye exam. Started on new drops per eye doctor recently along with steroid ointment. Advised to continue liberal use of lubricating drops. Repeated serologies and she has +ANAMIKA 1:160 only. Other markers all negative. Could consider pilocarpine/cevimeline Orders: - CBC with auto differential; Future - Comprehensive metabolic panel; Future - CRP (acute phase); Future - Erythrocyte sedimentation rate; Future High risk medications (not anticoagulants) long-term use Assessment & Plan: Monitor labs on mtx Orders: - CBC with auto differential; Future - Comprehensive metabolic panel; Future - CRP (acute phase); Future - Erythrocyte sedimentation rate; Future Other orders - methotrexate 2.5 mg tablet; TAKE 6 TABLETS BY MOUTH ALL AT ONCE ONE DAY A WEEK Cosigned by Philippe Powell III, MD at 07/31/2021 3:43 PM NETWORK CONTROL TECHNICIAN ORK CONTROL TECHNICIAN ORK CONTROL TECHNICIAN documented in this encounter Miscellaneous Notes * Result Encounter Note - Rosa Trivedi PA - 08/03/2021 4:52 PM NETWORK CONTROL TECHNICIAN Labs look fine. Continue with methotrexate as discussed ORK CONTROL TECHNICIAN * Assessment & Plan Note - Rosa Trivedi PA - 07/31/2021 3:06 PM NETWORK CONTROL TECHNICIAN Associated Problem(s): High risk medications (not anticoagulants) long-term use Monitor labs on mtx ORK CONTROL TECHNICIAN * Assessment & Plan Note - Rosa Trivedi PA - 07/31/2021 3:04 PM NETWORK CONTROL TECHNICIAN Associated Problem(s): Sjogren's syndrome with keratoconjunctivitis sicca (HCC) Severe dry eyes, dry mouth. Noted on recent eye exam. Started on new drops per eye doctor recently along with steroid ointment. Advised to continue liberal use of lubricating drops. Repeated serologies and she has +ANAMIKA 1:160 only. Other markers all negative. Could consider pilocarpine/cevimeline ORK CONTROL TECHNICIAN * Assessment & Plan Note - Rosa Trivedi PA - 07/31/2021 1:52 PM NETWORK CONTROL TECHNICIAN Associated Problem(s): Inflammatory polyarthritis (CMS/HCC) (HCC) Synovitis seen on hand u/s >5 yrs ago. Had discussed starting mtx at that time but pt decided not to take it. She recently had labs done with pcp and had +ANAMIKA 1:80, along with new symptoms of fatigue/weakness, increased dry eyes/dry mouth. Mild pain in fingers and hx possible dactylitis to R 2ndtoe by her description. Suspect sjogren's and may [...] see benefit from mtx. F/u 1 month ORK CONTROL TECHNICIAN ORK CONTROL TECHNICIAN documented in this encounter Plan of Treatment Not on file documented as of this encounter Procedures Procedure Name Priority Date/Time Associated Diagnosis Comments CBC WITH AUTO DIFFERENTIAL Routine 07/31/2021 2:34 PM NETWORK CONTROL TECHNICIAN Inflammatory polyarthritis (CMS/HCC) (HCC) Sjogren's syndrome with keratoconjunctivitis sicca (HCC) High risk medications (not anticoagulants) long-term use ERYTHROCYTE SEDIMENTATION RATE Routine 07/31/2021 2:34 PM NETWORK CONTROL TECHNICIAN Inflammatory polyarthritis (CMS/HCC) (HCC) Sjogren's syndrome with keratoconjunctivitis sicca (HCC) High risk medications (not anticoagulants) long-term use CRP (ACUTE PHASE) Routine 07/31/2021 2:3 4 PM NETWORK CONTROL TECHNICIAN Inflammatory polyarthritis (CMS/HCC) (HCC) Sjogren's syndrome with keratoconjunctivitis sicca (HCC) High risk medications (not anticoagulants) long-term use COMPREHENSIVE METABOLIC PANEL Routine 07/31/2021 2:34 PM NETWORK CONTROL TECHNICIAN Inflammatory polyarthritis (CMS/HCC) (HCC) Sjogren's syndrome with keratoconjunctivitis sicca (HCC) High risk medications (not anticoagulants) long-term use documented in this encounter Results * Erythrocyte sedimentation rate (07/31/2021 2:34 PM NETWORK CONTROL TECHNICIAN) Erythrocyte sedimentation rate 2 < OR = 30 mm/h [facility] Blood specimen (specimen) 07/31/2021 2:34 PM NETWORK CONTROL TECHNICIAN 07/31/2021 2:35 PM NETWORK CONTROL TECHNICIAN Rosa Trivedi ID LAB BLOOD ORDERABLES Fin al Result Performing Organization Address [facility] de Phone Number [facility] [address] [place] [address] * CRP (acute phase) (07/31/2021 2:34 PM NETWORK CONTROL TECHNICIAN) C-RP 4.5 <8.0 mg/L [facility] Blood specimen (specimen) 07/31/2021 2:34 PM NETWORK CONTROL TECHNICIAN 07/31/2021 2:35 PM NETWORK CONTROL TECHNICIAN Rosa Kerry Trivedi ID LAB BLOOD ORDERABLES Fin al Result Performing Organization Address [facility] de Phone Number [facility] [address] [place] [address] * Comprehensive metabolic panel (07/31/2021 2:34 PM NETWORK CONTROL TECHNICIAN) Glucose 92 65 - 99 mg/dL [facility] Comment: ? Fasting reference interval BUN 17 7 - 25 mg/dL [facility] Creatinine 0.94 0.50 - 0.99 mg/dL [facility] Comment: For patients >49 years of age, the reference limit for Creatinine is approximately 13% higher for people identified as -Moroccan. eGFR NON-AFR. ANDORRAN 64 > OR = 60 mL/min/1 .73m2 [facility] EGFR 74 > OR = 60 mL/min/1 .73m2 [facility] BUN/creat ratio NOT APPLICABLE 6 - 22 (calc) [facility] Sodium 140 135 - 146 mmol/L [facility] Potassium, pl 4.3 3.5 - 5.3 mmol/L [facility] Chloride 104 98 - 110 mmol/L [facility] CO2 30 20 - 32 mmol/L [facility] Calcium 9.2 8.6 - 10.4 mg/dL [facility] Protein, sr 6.4 6.1 - 8.1 g/dL [facility] Albumin 4.2 3.6 - 5.1 g/dL [facility] GLOBULIN 2.2 1.9 - 3.7 g/dL (calc) [facility] Alb/glob ratio 1.9 1.0 - 2.5 (calc) [facility] Bilirubin, total 0.8 0.2 - 1.2 mg/dL [facility] Alk phos 127 37 - 153 U/L [facility] AST 22 10 - 35 U/L [facility] ALT (SGPT) 28 6 - 29 U/L [facility] Blood specimen (specimen) 07/31/2021 2:34 PM NETWORK CONTROL TECHNICIAN 07/31/2021 2:35 PM NETWORK CONTROL TECHNICIAN us Rosa CARDOZO LAB BLOOD ORDERABLES Fin al Result [facility] [address] [place] [phone] * CBC with auto differential (07/31/2021 2:34 PM NETWORK CONTROL TECHNICIAN) WBC 6.2 3.8 - 10.8 Thousand/u L [facility] RBC, POC 4.45 3.80 - 5.10 Million/uL [facility] Hgb 13.3 11.7 - 15.5 g/dL [facility] Hct 39.9 35.0 - 45.0 % [facility] MCV 89.7 80.0 - 100.0 fL [facility] MCH 29.9 27.0 - 33.0 pg [facility] MCHC 33.3 32.0 - 36.0 g/dL [facility] Rdw 13.1 11.0 - 15.0 % [facility] Platelets 281 140 - 400 Thousand/u L [facility] MPV 9.8 7.5 - 12.5 fL [facility] Neutrophils, abs 3,664 1,500 - 7,800 cells/uL [facility] Lymphocytes, abs 1,786 850 - 3,900 cells/uL [facility] Monocyte abs 521 200 - 950 cells/uL [facility] Eosinophils, abs 180 15 - 500 cells/uL [facility] Basophils, abs 50 0 - 200 cells/uL [facility] Neutrophils 59.1 % [facility] Lymphocyte pct 28.8 % [facility] Monocytes 8.4 % [facility] Eosinophils 2.9 % [facility] Basophils 0.8 % [facility] Blood specimen (specimen) 07/31/2021 2:34 PM NETWORK CONTROL TECHNICIAN 07/31/2021 2:35 PM NETWORK CONTROL TECHNICIAN us Rosa CARDOZO LAB BLOOD ORDERABLES Fin al Result [facility] [address] [phone] documented in this encounter Visit Diagnoses Diagnosis Inflammatory polyarthritis (CMS/HCC) (HCC)- Primary Unspecified inflammatory polyarthropathy Sjogren's syndrome with keratoconjunctivitis sicca (HCC) High risk medications (not anticoagulants) long-term use Encounter for long-term (current) use of other medications documented in this encounter Discontinued Medications Medication Sig Discontinue Reason Start Date End Da te methotrexate 2.5 mg tabletIndications:Rheumat oid Arthritis TAKE 4 TABLETS BY MOUTH ALL AT ONCE ONE DAY A WEEK Reorder 07/20/2021 07/31/2021 ondansetron ODT (ZOFRAN-ODT) 4 mg disintegrating tablet Take 1 tablet (4 mg total) by mouth every 8 (eight) hours as needed for nausea or vomiting 07/03/2021 07/31/2021 documented as of this encounter Care Teams Fork Repairer Relationship Specialty Start Date End Date Luis Oscar MD PCP - General 06/21/14 Philippe Powell III, MD [address] [place] [address] Consulting Physician Rheumatology 06/10/20 10/10/23 documented as of this encounter
--- OUTSIDE RECORDS SUMMARY | 2024-06-25 23:38 | XMS_ITS | Encounter Summary ---
Author Organization [facility] Address [address] [place] [address] Phone Care Team Providers Care Cell Room Supervisor Name Role Phone Luis Oscar MD Primary Care Provider [phone] Reason for Visit * Diagnostic Imaging (Routine) - Closed Specialty Diagnoses / Procedures Referred By Contnevaeh t Referred To Contact Diagnoses Inflammatory polyarthritis (CMS/HCC) (HCC) Sjogren's syndrome with keratoconjunctivitis sicca (HCC) Procedures US Hand Complete Rosa Trivedi PA [address] [place] [address] Phone: tel: fax: External Order Referral ID Status Reason Start Date Expiration Date Visits Re quested Visits Authorized [id number] Closed 10/18/2023 11/16/2024 1 1 Encounter Details Date Type Department Care Team (Latest Contact Info) Description 11/01/2023 9:26 AM CDT - 11/01/2023 11:59 PM CDT Hospital Encounter [facility] [address] [place] [phone] Discharge Disposition: Discharge to home or self care Social History Tobacco Use Types Packs/Day Years Used Date Smoking Tobacco: Never Assessed Alcohol Use Standard Drinks/Week Comments Yes 0 (1 standard drink = 0.6 oz pur e alcohol) Comments Unknown Sex and Gender Information Value Date Recorded Sex Assigned at Not on file 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 ACTIVITIES OFFICER Gender Identity Not on file Sexual Orientation Not on file documented as of this encounter Medications at Time of Discharge escitalopram (LEXAPRO) 10 mg tablet Take 0.5 tablets (5 mg total) by mouth daily 04/27/2019 loratadine (CLARITIN) 10 mg tablet take 1 tablet by oral route every day 0 0 11/19/2014 LORazepam (ATIVAN) 0.5 mg tablet take 1 Tablet by oral route every bedtime as needed 0 0 07/17/2015 losartan (COZAAR) 50 mg tablet 25mg AM and 50mg PM 10/16/2023 metoprolol XL (TOPROL-XL) 25 mg extended release tablet Take 1 tablet (25 mg total) by mouth daily 10/06/2023 documented as of this encounter Discharge Disposition Disposition Code Departure Means Destination Discharge to home or self care documented in this encounter Plan of Treatment Not on file documented as of this encounter Procedures Procedure Name Priority Date/Time Associated Diagnosis Comments SCAN - RADIOLOGY/IMAGING 11/01/2023 9:26 AM CDT documented in this encounter Results * SCAN - RADIOLOGY/IMAGING (11/01/2023 9:26 AM CDT) Anatomical Region Laterality Modality Ultrasound us Provider Scanning Final Result documented in this encounter Visit Diagnoses Not on filedocumented in this encounter Care Teams Cell Room Supervisor Relationship Specialty Start Date End Date Luis Oscar MD PCP - General 06/21/14 documented as of this encounter
--- OUTSIDE RECORDS SUMMARY | 2024-06-25 23:38 | XMS_ITS | Encounter Summary ---
Author Organization [facility] Address [address] [place] [address] Phone Care Team Providers Care Fish Machine Feeder Name Role Phone Luis Oscar MD Primary Care Provider [phone] Andre SOLIS MD, Philippe Jones Unavailable [phone] Encounter Details Date Type Department Care Team (Latest Contact Info) Description 08/27/2021 1:30 PM CDT Office Visit [facility] [address] [place] [phone] Rosa Trivedi PA [address] [place] [address] Inflammatory polyarthritis (CMS/HCC) (HCC) (Primary Dx); Edema, lower extremity; Gastroesophageal reflux disease, unspecified whether esophagitis present; High risk medications (not anticoagulants) long-term use Social History Tobacco Use Types Packs/Day Years Used Date Smoking Tobacco: Never Assessed Alcohol Use Standard Drinks/Week Comments Yes 0 (1 standard drink = 0.6 oz pur e alcohol) Comments Unknown Sex and Gender Information Value Date Recorded Sex Assigned at Not on file 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 DECORATOR LIGHTING FIXTURES Gender Identity Not on file Sexual Orientation Not on file documented as of this encounter Last Filed Vital Signs Vital Sign Reading Time Taken Comments Blood Pressure - - Pulse - - Temperature 36.6 ??C (97.9 ??F) 08/27/2021 1:37 PM CD T Respiratory Rate - - Oxygen Saturation - - Inhaled Oxygen Concentration - - Weight 85.4 kg (188 lb 3.2 oz) 08/27/2021 1:37 P M CDT Height - - Body Mass Index 31.32 04/27/2016 9:41 AM DECORATOR LIGHTING FIXTURES documented in this encounter Progress Notes * Rosa Trivedi PA - 08/27/2021 1:30 PM CDT Images from the original note were not included. Subjective/Objective Patient ID: Christina Edmond is a 65 y.o. female. Chief Complaint No chief complaint on file. HPI Pt presents for routine follow up. Was experiencing extreme fatigue on MTX 15mg. [...] weeks and worsening. Brought it up to duralumin mechanic who said it was not concerning. Pt feels right is worse than left. No pain. No change to diet or salt intake. No chest pain, trouble breathing. Was seeing cardio for arrhythmia. H/o mitral valve prolapse. Dr. Mondragon is c ardiologist. Increased GERD, started taking famotidine which helped a lot. Wondering if she should continue using this termite helper? No moth sores, rashes. No nausea, diarrhea, abdominal pain. No cough, trouble breathing. Just resolved a sinus infection that started 2 weeks ago, no antibiotic needed. Chronic drainage. Pain 0/10 when sitting, 5/10 first thing in the AM, improves throughout the day AM stiffness couple mins, much better since mtx. Previous: Here for routine f/u. Started mtx a [...] at times but also up to 6/10 Past Medical History: +remote kidney stone, anxiety/depression, [...] hx renal stones Musculoskeletal: Positive for arthralgias. Pitting edema bilaterally. Skin: Negative for rash. Neurological: Negative for seizures. Positive for migraines Vitals Temp 36.6 ??C (97.9 ??F) Wt 85.4 kg (188 lb 3.2 oz) BMI 31.32 kg/m?? Body mass index is 31.32 kg/m??. Physical Exam Constitutional: appears well-developed and well-nourished. Mouth/Throat: Dry mucosa and tongue Eyes: Conjunctivae and [...] to CMC joints and 2,3 DIPs bilat. 1st mtps with hallux limitus and bony changes. Lymphadenopathy: no cervical adenopathy. Neurological: alert. normal reflexes. No cranial nerve deficit or sensory deficit. normal muscle tone. Coordination normal. Skin: Skin is warm and dry. No rash noted. No erythema. No pallor. Psychiatric: normal mood and affect. behavior is normal. Cdai = 18 Labs/Imaging xrays 05/27/21: Patellofemoral oa dhruv. cmc [...] available for comparison. AVISE 06/02: +ANAMIKA 1:160 Office Visit on 07/31/2021 Component Date Value Ref Range Status ??? WBC 07/31/2021 6.2 3.8 - 10.8 Thousand/uL Final ??? RBC, POC 07/31/2021 4.45 3.80 - 5.10 Million/uL Final ??? Hgb 07/31/2021 13.3 11.7 - 15.5 g/dL Final ??? Hct 07/31/2021 39.9 35.0 - 45.0 % Final ??? MCV 07/31/2021 89.7 80.0 - 100.0 fL Final ??? MCH 07/31/2021 29.9 27.0 - 33.0 pg Final ??? MCHC 07/31/2021 33.3 32.0 - 36.0 g/dL Final ??? Rdw 07/31/2021 13.1 11.0 - 15.0 % Final ??? Platelets 07/31/2021 281 140 - 400 Thousand/uL Final ??? MPV 07/31/2021 9.8 7.5 - 12.5 fL Final ??? Neutrophils, abs 07/31/2021 3,664 1,500 - 7,800 cells/uL Final ??? Lymphocytes, abs 07/31/2021 1,786 850 - 3,900 cells/uL Final ??? Monocyte abs 07/31/2021 521 200 - 950 cells/uL Final ??? Eosinophils, abs 07/31/2021 180 15 - 500 cells/uL Final ??? Basophils, abs 07/31/2021 50 0 - 200 cells/uL Final ??? Neutrophils 07/31/2021 59.1 % Final ??? Lymphocyte pct 07/31/2021 28.8 % Final ??? Monocytes 07/31/2021 8.4 % Final ??? Eosinophils 07/31/2021 2.9 % Final ??? Basophils 07/31/2021 0.8 % Final ??? Glucose 07/31/2021 92 65 - 99 mg/dL Final Comment: Fasting reference interval ??? BUN 07/31/2021 17 7 - 25 mg/dL Final ??? Creatinine 07/31/2021 0.94 0.50 - 0.99 mg/dL Final Comment: For patients >49 years of age, the reference limit for Creatinine is approximately 13% higher for people identified as -Micronesian. ? ? eGFR NON-AFR. PALESTINIAN 07/31/2021 64 > OR = 60 mL/min/1.73m2 Final ? ? EGFR 07/31/2021 74 > OR = 60 mL/min/1.73m2 Final ??? BUN/creat ratio 07/31/2021 NOT APPLICABLE 6 - (calc) Final ??? Sodium 07/31/2021 140 135 - 146 mmol/L Final ??? Potassium, pl 07/31/2021 4.3 3.5 - 5.3 mmol/L Final ??? Chloride 07/31/2021 104 98 - 110 mmol/L Final ??? CO2 07/31/2021 30 20 - 32 mmol/L Final ??? Calcium 07/31/2021 9.2 8.6 - 10.4 mg/dL Final ??? Protein, sr 07/31/2021 6.4 6.1 - 8.1 g/dL Final ??? Albumin 07/31/2021 4.2 3.6 - 5.1 g/dL Final ??? GLOBULIN 07/31/2021 2.2 1.9 - 3.7 g/dL (calc) Final ??? Alb/glob ratio 07/31/2021 1.9 1.0 - 2.5 (calc) Final ??? Bilirubin, total 07/31/2021 0.8 0.2 - 1.2 mg/dL Final ??? Alk phos 07/31/2021 127 37 - 153 U/L Final ??? AST 07/31/2021 22 10 - 35 U/L Final ??? ALT (SGPT) 07/31/2021 28 6 - 29 U/L Final ? ? C-RP 07/31/2021 4.5 <8.0 mg/L Final ? ? Erythrocyte sedimentation rate 07/31/2021 2 < OR [...] couple months. Can increase folic acid 1 mgto 3 mg total as well. Consider another medication if adverse effects don't resolve. Continue mtx 15 mg weekly. Can eventually increase to 20mg if she tolerates that dose and consider increasing it at next visit in 1 month. Labs today. F/u 1 month Orders: - CBC with auto differential; Future - Comprehensive metabolic panel; Future - CRP (acute phase); Future - Erythrocyte sedimentation rate; Future Edema, lower extremity Assessment & Plan: Consider peripheral edema due to venous insufficiency vs medication. Suggested wearing compression stockings with prolonged sitting. Also, take frequent breaks to move walk around or elevate legs during the day. Follow up with PCP Gastroesophageal reflux disease, unspecified whether esophagitis present Assessment & Plan: Discussed that GERD and heartburn is a side effect some people experience from methotrexate. Famotidine is a fine option for symptomatic relief. Follow up with PCP for further evaluation including possible upper GI scope or other options for treatment. High risk medications (not anticoagulants) long-term use Assessment & Plan: Monitor labs on mtx Orders: - CBC with auto differential; Future - Comprehensive metabolic panel; Future - CRP (acute phase); Future - Erythrocyte sedimentation rate; Future Seen with CHRISTINE FreireS Cosigned by Philippe Powell III, MD at 08/28/2021 9:43 AM CDT documented in this encounter Miscellaneous Notes * Assessment & Plan Note - Rosa Trivedi PA - 08/27/2021 4:49 PM CDT Associated Problem(s): High risk medications (not anticoagulants) long-term use Monitor labs on mtx * Assessment & Plan Note - Rosa Trivedi PA - 08/27/2021 2:20 PM CDT Associated Problem(s): GERD (gastroesophageal reflux disease) Discussed that GERD and heartburn is a side effect some people experience from methotrexate. Famotidine is a fine option for symptomatic relief. Follow up with PCP for further evaluation including possible upper GI scope or other options for treatment. * Assessment & Plan Note - Rosa Trivedi PA - 08/27/2021 2:19 PM CDT Associated Problem(s): Edema, lower extremity Consider peripheral edema due to venous insufficiency vs medication. Suggested wearing compression stockings with prolonged sitting. Also, take frequent breaks to move walk around or elevate legs during the day. Follow up with PCP * Assessment & Plan Note - Rosa Trivedi PA - 08/27/2021 10:48 AM CDT Associated Problem(s): Sjogren's syndrome with [...] Plan Note - Rosa Trivedi PA - 08/27/2021 10:47 AM CDT Associated Problem(s): Inflammatory polyarthritis (CMS/HCC) (HCC) Synovitis [...] couple months. Can increase folic acid 1 mgto 3 mg total as well. Consider another medication if adverse effects don't resolve. Continue mtx 15 mg weekly. Can eventually increase to 20mg if she tolerates that dose and consider increasing it at next visit in 1 month. Labs today. F/u 1 month documented in this encounter Plan of Treatment Scheduled Orders Name Type Priority Associated Diagnoses Orde r Schedule CBC with auto differential Lab Routine High risk medications (not anticoagulants) long-term use Inflammatory polyarthritis (CMS/HCC) (HCC) 1 Occurrences starting 08/27/2021 until 08/27/2022 Comprehensive metabolic panel Lab Routine High risk medications (not anticoagulants) long-term use Inflammatory polyarthritis (CMS/HCC) (HCC) 1 Occurrences starting 08/27/2021 until 08/27/2022 CRP (acute phase) Lab Routine High risk medications (not anticoagulants) long-term use Inflammatory polyarthritis (CMS/HCC) ([facility]) 1 Occurrences starting 08/27/2021 until 08/27/2022 Erythrocyte sedimentation rate Lab Routine High risk medications (not anticoagulants) long-term use Inflammatory polyarthritis (CMS/HCC) ([facility]) 1 Occurrences starting 08/27/2021 until 08/27/2022 documented as of this encounter Visit Diagnoses Diagnosis Inflammatory polyarthritis (CMS/HCC) ([facility])- Primary Unspecified inflammatory polyarthropathy Edema, lower extremity Gastroesophageal reflux disease, unspecified whether esophagitis present High risk medications (not anticoagulants) long-term use Encounter for long-term (current) use of other medications documented in this encounter Care Teams Fish Machine Feeder Relationship Specialty Start Date End Date Luis Oscar MD PCP - General 06/21/14 Philippe Powell III, MD [address] [place] [address] Consulting Physician Rheumatology 06/10/20 10/10/23 documented as of this encounter
--- OUTSIDE RECORDS SUMMARY | 2024-06-25 23:38 | XMS_ITS | Encounter Summary ---
Author Organization [facility] Address [address] [place] [address] Phone Care Team Providers Care Department Mgr Name Role Phone Luis Oscar MD Primary Care Provider [phone] Andre SOLIS MD, Philippe Jones Unavailable [phone] Encounter Details Date Type Department Care Team (Late st Contact Info) Description 08/21/2021 Orders Only [facility] [address] [place] [phone] Rosa Trivedi PA [address] [place] [address] Social History Tobacco Use Types Packs/Day Years Used Date Smoking Tobacco: Never Assessed Alcohol Use Standard Drinks/Week Comments Yes 0 (1 standard drink = 0.6 oz pur e alcohol) Comments Unknown Sex and Gender Information Value Date Recorded Sex Assigned at Not on file 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 Gender Identity Not on file Sexual Orientation Not on file documented as of this encounter Ordered Prescriptions Prescription Sig Dispense Quantity Refills Last Filled Start Date End Date folic acid (FOLVITE) 1 mg tablet Take 2 tablets (2 mg total) by mouth daily 180 tablet 1 08/21/2021 4 documented in this encounter Plan of Treatment Not on file documented as of this encounter Visit Diagnoses Not on filedocumented in this encounter Discontinued Medications Medication Sig Discontinue Reason Start Date End Da te folic acid (FOLVITE) 1 mg tablet Take 1 tablet (1 mg total) by mouth daily Reorder 06/11/2021 08/21/2021 documented as of this encounter Care Teams Department Mgr Relationship Specialty Start Date End Date Luis Oscar MD PCP - General 06/21/14 Philippe Powell III, MD [address] [place] [address] Consulting Physician Rheumatology 06/10/20 10/10/23 documented as of this encounter
--- OUTSIDE RECORDS SUMMARY | 2024-06-25 23:39 | XMS_ITS | Encounter Summary ---
Author Organization [facility] Address [address] [place] [address] Phone Care Team Providers Care Brim Pouncing Machine Operator Name Role Phone Luis Oscar MD Primary Care Provider [phone] Andre SOLIS MD, Philippe Jones Unavailable [phone] Encounter Details Date Type Department Care Team (Late st Contact Info) Description 06/22/2021 Telephone [facility] [address] [place] [phone] Kashif Gonzalez Social History Tobacco Use Types Packs/Day Years Used Date Smoking Tobacco: Never Assessed Alcohol Use Standard Drinks/Week Comments Yes 0 (1 standard drink = 0.6 oz pur e alcohol) Comments Unknown Sex and Gender Information Value Date Recorded Sex Assigned at Not on file 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 DITCHER Gender Identity Not on file Sexual Orientation Not on file documented as of this encounter Miscellaneous Notes * Telephone Encounter - Kashif Gonzalez - 06/22/2021 9:13 AM CST Spoke to pt, informed. HER * Telephone Encounter - Rosa Trivedi PA - 06/22/2021 8:56 AM DITCHER These are all fine to take with methotrexate HER * Telephone Encounter - Gregorio Gonzalezdany - 06/22/2021 8:14 AM CST Christina Edmond <[email or web address]> 06/21/2021 6:38 PM ? To: Rosa Trivedi I'm not sure I'm in the right place to communicate, but hope I'm getting close! I am just verifyingwhich medications are OK to take with the methotrexate and folic acid which I will be starting a week from Tuesday. Currently taking: *Ibuprofen 2 in am and 2 in pm *.5 Ativan @bedtime * 10 mgs. Lexapro * Regener Eyes eye drops Thanks for reviewing! HER documented in this encounter Plan of Treatment Not on file documented as of this encounter Visit Diagnoses Not on filedocumented in this encounter Care Teams Brim Pouncing Machine Operator Relationship Specialty Start Date End Date Luis Oscar MD PCP - General 06/21/14 Philippe Powell III, MD [address] [place] [address] Consulting Physician Rheumatology 06/10/20 10/10/23 documented as of this encounter
--- OUTSIDE RECORDS SUMMARY | 2024-06-25 23:39 | XMS_ITS | Encounter Summary ---
Author Organization [facility] Address [address] [place] [address] Phone Care Team Providers Care Paper Inserter Name Role Phone Luis Oscar MD Primary Care Provider [phone] Andre SOLIS MD, Philippe Jones Unavailable [phone] Encounter Details Date Type Department Care Team (Late st Contact Info) Description 05/27/2021 Orders Only [facility] [address] [place] [phone] Rosa Trivedi PA [address] [place] [address] Social History Tobacco Use Types Packs/Day Years Used Date Smoking Tobacco: Never Assessed Alcohol Use Standard Drinks/Week Comments Yes 0 (1 standard drink = 0.6 oz pur e alcohol) Comments Unknown Sex and Gender Information Value Date Recorded Sex Assigned at Not on file 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 TELEGRAPHIC TYPEWRITER OPERATOR Gender Identity Not on file Sexual Orientation Not on file documented as of this encounter Plan of Treatment Not on file documented as of this encounter Procedures Procedure Name Priority Date/Time Associated Diagnosis Comments SCAN - RADIOLOGY/IMAGING 05/27/2021 1:38 PM TELEGRAPHIC TYPEWRITER OPERATOR documented in this encounter Results * SCAN - RADIOLOGY/IMAGING (05/27/2021 1:38 PM TELEGRAPHIC TYPEWRITER OPERATOR) Anatomical Region Laterality Modality Other us Rosa CARDOZO Final Re sult documented in this encounter Visit Diagnoses Not on filedocumented in this encounter Care Teams Paper Inserter Relationship Specialty Start Date End Date Luis Oscar MD PCP - General 06/21/14 Philippe Powell III, MD [address] [place] [address] Consulting Physician Rheumatology 06/10/20 10/10/23 documented as of this encounter
--- OUTSIDE RECORDS SUMMARY | 2024-06-25 23:39 | XMS_ITS | Encounter Summary ---
Author Organization [facility] Address [address] [place] [address] Phone Care Team Providers Care Service Tester Name Role Phone Luis Oscar MD Primary Care Provider [phone] Andre SOLIS MD, Philippe Jones Unavailable [phone] Encounter Details Date Type Department Care Team (Latest Contact Info) Description 06/11/2021 1:30 PM BUSINESS TEST ANALYST Office Visit [facility] [address] [place] [phone] Rosa Trivedi PA [address] [place] [address] Inflammatory polyarthritis (CMS/HCC) (HCC) (Primary Dx); Sjogren's syndrome with keratoconjunctivitis sicca (HCC); Osteoarthritis of ankle or foot, unspecified laterality; Atrial arrhythmia Social History Tobacco Use Types Packs/Day Years Used Date Smoking Tobacco: Never Assessed Alcohol Use Standard Drinks/Week Comments Yes 0 (1 standard drink = 0.6 oz pur e alcohol) Comments Unknown Sex and Gender Information Value Date Recorded Sex Assigned at Not on file 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 BUSINESS TEST ANALYST Gender Identity Not on file Sexual Orientation Not on file documented as of this encounter Last Filed Vital Signs Vital Sign Reading Time Taken Comments Blood Pressure - - Pulse 52 06/11/2021 1:20 PM BUSINESS TEST ANALYST Temperature 36.4 ??C (97.6 ??F) 06/11/2021 1:20 PM CS T Respiratory Rate - - Oxygen Saturation 97% 06/11/2021 1:20 PM BUSINESS TEST ANALYST Inhaled Oxygen Concentration - - Weight 85.4 kg (188 lb 3.2 oz) 06/11/2021 1:20 P M BUSINESS TEST ANALYST Height - - Body Mass Index 31.32 04/27/2016 9:41 AM BUSINESS TEST ANALYST documented in this encounter Ordered Prescriptions Prescription Sig Dispense Quantity Refills Last Filled Start Date End Date folic acid (FOLVITE) 1 mg tablet Take 1 tablet (1 mg total) by mouth daily 30 tablet 5 06/11/2021 08/21/2021 methotrexate 2.5 mg tabletIndications: autoimmune disease Take 4 tabs by mouth all at once one day per week 20 tablet 06/11/2021 07/20/2021 documented in this encounter Progress Notes * Rosa Trivedi PA - 06/11/2021 1:30 PM CST Images from the original note were not included. Subjective/Objective Patient ID: Christina Edmond is a 65 y.o. female. Chief Complaint No chief complaint on file. HPI Here for C2. Hands are not too [...] knees, and feet. Her PCP recommended she come back to repeat evaluation due to some abnormal labs (+ANAMIKA 1:80 speckled and EBV serologies neg IgMand +IgG, neg CMV). She had been hiking [...] past year and has discussed with her renal medicine physician Dr. Flores. Doesn't want any surgery or [...] and normal SI joints. Negative serologies in 2015. Discussed trial of mtx. Took sulindac for [...] weeks. 6 pregnancies. 5 live births. No MA, CVA. Past Medical History: +remote kidney stone, [...] Negative for seizures. Positive for migraines Vitals Pulse 52 Temp 36.4 ??C (97.6 ??F) Wt 85.4 kg (188 lb 3.2 oz) SpO2 97% BMI 31.32 kg/m?? Body mass index is [...] to CMC joints and 2,3 DIPs bilat. Elbows, shoulders nontender. Hips FROM nontender. Knees tender. Ankles nontender. 1st mtps with hallux limitus and bony changes. R 2nd PIP tender. Lymphadenopathy: no cervical adenopathy. Neurological: alert. normal reflexes. No cranial nerve deficit or sensory deficit. normal muscle tone. Coordination normal. Skin: Skin is warm and dry. No rash noted. No erythema. No pallor. Psychiatric: normal mood and affect. behavior is normal. Cdai = 9 Labs/Imaging xrays 05/27/21: Patellofemoral oa dhruv. cmc [...] AVISE 06/02: +ANAMIKA 1:160 Office Visit on 05/21/2021 Component Date Value [...] approximately 13% higher for people identified as -Barbadian. ? ? eGFR NON-AFR. GERMAN 05/21/2021 77 > OR = 60 mL/min/1.73m2 [...] 35 U/L Final ??? ALT (SGPT) 05/21/2021 37* 6 - 29 U/L Final ? ? [...] Comment: For additional information, please refer to http://[employer]/faq/OOH646 (This link is being provided for informational/ [...] a test for HCV RNA (test code 38252) is suggested. For additional information please refer to http://[employer]/faq/HEQ55a2 (This link is being provided for informational/ [...] F/u [address] Powell. Sjogren's syndrome with keratoconjunctivitis sicca (HCC) Assessment & Plan: Severe dry eyes, dry mouth. Noted on recent eye exam. Started on new drops per eye doctor recently along with steroid ointment. Advised to continue liberal use of lubricating drops. Repeated serologies and she has +ANAMIKA 1:160 only. Other markers all negative. Could consider pilocarpine/cevimeline next Osteoarthritis of ankle or foot, unspecified laterality Atrial arrhythmia Assessment & Plan: Seeing cardiology for further eval Other orders - methotrexate 2.5 mg tablet; Take 4 tabs by mouth all at once one day per week - folic acid (FOLVITE) 1 mg tablet; Take 1 tablet (1 mg total) by mouth daily Cosigned by Philippe Powell III, MD at 06/11/2021 3:33 PM BUSINESS TEST ANALYST NESS TEST ANALYST NESS TEST ANALYST documented in this encounter Miscellaneous Notes * Assessment & Plan Note - Rosa Trivedi PA - 06/11/2021 3:30 PM BUSINESS TEST ANALYST Associated Problem(s): Atrial arrhythmia Seeing cardiology for further eval NESS TEST ANALYST * Assessment & Plan Note - Rosa Trivedi PA - 06/11/2021 3:29 PM BUSINESS TEST ANALYST Associated Problem(s): Primary osteoarthritis of both knees Mild patellofemoral OA bilat. Discussed tx options including nsaids (oral, topical), steroid injections, PT, and then eventually replacement NESS TEST ANALYST * Assessment & Plan Note - Rosa Trivedi PA - 06/11/2021 1:02 PM BUSINESS TEST ANALYST Associated Problem(s): Inflammatory polyarthritis (CMS/HCC) (HCC) Synovitis [...] F/u [address] Powell. NESS TEST ANALYST NESS TEST ANALYST NESS TEST ANALYST * Assessment & Plan Note - Rosa Trivedi PA - 06/11/2021 1:00 PM BUSINESS TEST ANALYST Associated Problem(s): Sjogren's syndrome with keratoconjunctivitis sicca (HCC) Severe dry eyes, dry mouth. Noted on recent eye exam. Started on new drops per eye doctor recently along with steroid ointment. Advised to continue liberal use of lubricating drops. Repeated serologies and she has +ANAMIKA 1:160 only. Other markers all negative. Could consider pilocarpine/cevimeline next NESS TEST ANALYST NESS TEST ANALYST documented in this encounter Plan of Treatment Not on file documented as of this encounter Visit Diagnoses Diagnosis Inflammatory polyarthritis (CMS/HCC) (HCC)- Primary Unspecified inflammatory polyarthropathy Sjogren's syndrome with keratoconjunctivitis sicca (HCC) Osteoarthritis of ankle or foot, unspecified laterality Atrial arrhythmia Unspecified cardiac dysrhythmia documented in this encounter Care Teams Service Tester Relationship Specialty Start Date End Date Luis Oscar MD PCP - General 06/21/14 Philippe Powell III, MD [address] [place] [address] Consulting Physician Rheumatology 06/10/20 10/10/23 documented as of this encounter
--- OUTSIDE RECORDS SUMMARY | 2024-06-25 23:39 | XMS_ITS | Encounter Summary ---
Author Organization [facility] Facility Care Team Providers Care Packaging Sales Name Role Phone Luis Oscar MD Primary Care Provider + [phone] Encounter Details Date Type Department Care Team (Latest Contact Info) Description 02/16/2013 6:36 PM CDT - 02/16/2013 11:59 PM CDT Hospital Encounter [facility] Philippe Powell III, MD [address] [address] Rosa Trivedi PA [address] [place] [address] Localized osteoarthrosis, hand Social History Tobacco Use Types Packs/Day Years Used Date Smoking Tobacco: Never Assessed Alcohol Use Standard Drinks/Week Comments Yes 0 (1 standard drink = 0.6 oz pur e alcohol) Comments Unknown Sex and Gender Information Value Date Recorded Sex Assigned at Not on file 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 TECHNICAL ADVISOR Gender Identity Not on file Sexual Orientation Not on file documented as of this encounter Medications at Time of Discharge milnacipran (SAVELLA) 25 mg tablet TAKE 1/2 TABLET IN THE MORNING AND 1 TABLET IN THE EVENING 60 0 08/10/2011 05/21/2021 omeprazole (PriLOSEC) 20 mg capsule take 1 capsule (20MG) by oral route every day 30 3 08/10/2011 10/18/2023 documented as of this encounter Plan of Treatment Not on file documented as of this encounter Procedures Procedure Name Priority Date/Time Associated Diagnosis Comments PLASMA C-REACTIVE PROTEIN Routine 02/16/2013 1:52 PM CDT PLASMA COMPREHENSIVE METABOLIC PANEL Routine 02/16/2013 1:52 PM CDT BLOOD ERYTHROCYTE SEDIMENTATION RATE (ESR) Routine 02/16/2013 1:52 PM CDT BLOOD CELL COUNT (CBC), MORPHOLOGIC EXAM Routine 02/16/2013 1:52 PM CDT DISCHARGE LABORATORY CUMULATIVE REPORT 02/16/2013 documented in this encounter Results * Blood erythrocyte sedimentation rate (ESR) (02/16/2013 1:52 PM CDT) Erythrocyte sedimentation rate 7.0 0.0 - 20.0 mm/hr HISTORICAL RESULTS Blood specimen (specimen) 02/16/2013 1:52 PM CDT Rosa CARDOZO LAB BLOOD ORDERABLES [facility] Result HISTORICAL RESULTS * Blood cell count (CBC), morphologic exam (02/16/2013 1:52 PM CDT) WBC 7.2 4.5 - 11.0 K/cumm HISTORICAL RESULTS RBC 4.45 3.80 - 5.40 M/cumm HISTORICAL RESULTS Hgb 13.4 11.5 - 16.0 g/dl HISTORICAL RESULTS Comment:As of June 27, the hemoglobin alert value has changed from less than 7.0 g/dL to less than or equal to 6.5 g/dL, first time per admission. Hct 40.5 34.0 - 48.0 % HISTORICAL RESULTS Comment:As of June 27, the hematocrit alert value has changed from less than 21% to less than or equal to 19.5%, first time per admission. MCV 91.1 80.0 - 100.0 fl HISTORICAL RESULTS MCH 30.1 27.0 - 33.0 pg HISTORICAL RESULTS MCHC 33.1 32.0 - 36.0 g/dl HISTORICAL RESULTS Rdw 13.1 11.5 - 14.5 % HISTORICAL RESULTS Platelets 252 140 - 400 K/cumm HISTORICAL RESULTS MPV 8.2 7.4 - 10.4 fl HISTORICAL RESULTS Neutrophils 66.7 42.0 - 75.0 % HISTORICAL RESULTS Lymphocytes 22.7 21.0 - 51.0 % HISTORICAL RESULTS Monos 7.6 2.0 - 9.0 % HISTORICAL RESULTS Eosinophils 2.5 0.0 - 10.0 % HISTORICAL RESULTS Basophils 0.5 0.0 - 1.0 % HISTORICAL RESULTS Neutrophils, abs 4.8 1.8 - 7.7 K/cumm HISTORICAL RESULTS Lymphocytes, abs 1.6 1.0 - 4.8 K/cumm HISTORICAL RESULTS Monocytes, absolute 0.5 0.0 - 0.8 K/cumm HISTORICAL RESULTS Eosinophils, abs 0.2 0.0 - 0.5 K/cumm HISTORICAL RESULTS Basophils, abs 0.0 0.0 - 0.2 K/cumm HISTORICAL RESULTS Blood specimen (specimen) 02/16/2013 1:52 PM CDT Rosa CARDOZO LAB BLOOD ORDERABLES Fin al Result HISTORICAL RESULTS * (ABNORMAL) Plasma comprehensive metabolic panel (02/16/2013 1:52 PM CDT) Sodium 137 136 - 146 mmol/L HISTORICAL RESULTS K, pl 3.9 3.3 - 4.9 mmol/L HISTORICAL RESULTS Chloride 105 98 - 108 mmol/L HISTORICAL RESULTS CO2 26 22 - 33 mmol/L HISTORICAL RESULTS BUN 23(H) 7 - 18 mg/dl HISTORICAL RESULTS Glucose 84 70 - 140 mg/dl HISTORICAL RESULTS Comment: Glucose is assumed to be non-fasting. ?? Fasting Glucose normal ranges are: 0 days - 2 months: ? 40 mg/dL - 100 mg/dL 2 months - 999 years: ?70 mg/dL - 99 mg/dL Creatinine 0.72 0.50 - 1.50 mg/dl HISTORICAL RESULTS eGFR >60 ml/min/1.7 3 m2 HISTORICAL RESULTS Comment: GFR Reference Range: = > 60 mL/min/1.73 m2 This result has been calculated assuming the patient is Non-. ??If the patient is , please multiply this result by 1.21. The GFR value is not recommended for medication dose adjustment for renal function, creatinine clearance values should be used. Calcium 9.5 8.5 - 10.5 mg/dl HISTORICAL RESULTS Bilirubin 0.9 0.1 - 1.2 mg/dl HISTORICAL RESULTS Protein, pl 6.8 6.0 - 8.5 g/dl HISTORICAL RESULTS Alb 4.4 3.4 - 5.0 g/dl HISTORICAL RESULTS Alk phos 74 38 - 126 IUnits/L HISTORICAL RESULTS ALT 25 14 - 54 IUnits/L HISTORICAL RESULTS AST 20 15 - 41 IUnits/L HISTORICAL RESULTS Plasma 02/16/2013 1:52 PM CDT Result [facility] Rosa CARDOZO LAB BLOOD ORDERABLES Fin al Result Performing Organization Address City/[facility] Co de Phone Number HISTORICAL RESULTS * Plasma C-reactive protein (02/16/2013 1:52 PM CDT) C-RP 2.2 0.00 - 10.00 mg/L HISTORICAL RESULTS Comment:Please Note: As of 0 07/20/2011, C-Reactive Protein testing is performed at [facility] Laboratory. The Reference Range has changed. Plasma 02/16/2013 1:52 PM CDT Result [facility] Rosa CARDOZO LAB BLOOD ORDERABLES Fin al Result Performing Organization Address City/State/[facility] Co de Phone Number HISTORICAL RESULTS * DISCHARGE LABORATORY CUMULATIVE REPORT (02/16/2013) Narrative 02/16/2013 Ordered by an unspecified provider. Result [facility] Historical Provider LAB BLOOD ORDERABLES Ashley l Result documented in this encounter Visit Diagnoses Diagnosis Localized osteoarthrosis, hand Localized osteoarthrosis not specified whether primary or secondary, hand documented in this encounter Care Teams Packaging Sales Relationship Specialty Start Date End Date Luis Oscar MD PCP - General 11/17/12 10/25/13 documented as of this encounter
--- OUTSIDE RECORDS SUMMARY | 2024-06-25 23:39 | XMS_ITS | Encounter Summary ---
Author Organization [facility] Address [address] [place] [phone] Phone Care Team Providers Care Manager Heavy Duty Name Role Phone Luis Oscar MD Primary Care Provider [phone] Andre SOILS MD, Philippe Jones Unavailable [phone] Encounter Details Date Type Department Care Team (Late st Contact Info) Description 06/16/2021 Telephone [facility] [address] [place] [phone] Kashif Gonzalez Social History Tobacco Use Types Packs/Day Years Used Date Smoking Tobacco: Never Assessed Alcohol Use Standard Drinks/Week Comments Yes 0 (1 standard drink = 0.6 oz pur e alcohol) Comments Unknown Sex and Gender Information Value Date Recorded Sex Assigned at Not on file 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 COMPRESSOR STATION ENGINEER CHIEF Gender Identity Not on file Sexual Orientation Not on file documented as of this encounter Miscellaneous Notes * Telephone Encounter - Kashif Gonzalez - 06/16/2021 10:37 AM CST Spoke to pt, informed. RESSOR STATION ENGINEER CHIEF * Telephone Encounter - Rosa Trivedi PA - 06/16/2021 10:31 AM COMPRESSOR STATION ENGINEER CHIEF I would recommend getting booster first, then wait a week to start methotrexate RESSOR STATION ENGINEER CHIEF * Telephone Encounter - Kashif Gonzalez - 06/16/2021 10:07 AM CST Pt left vm regarding covid booster and MTX. Should she start med and get booster or get booster first then start med? RESSOR STATION ENGINEER CHIEF documented in this encounter Plan of Treatment Not on file documented as of this encounter Visit Diagnoses Not on filedocumented in this encounter Care Teams Manager Heavy Duty Relationship Specialty Start Date End Date Luis Oscar MD PCP - General 06/21/14 Philippe Powell III, MD [address] [place] [address] Consulting Physician Rheumatology 06/10/20 10/10/23 documented as of this encounter
--- OUTSIDE RECORDS SUMMARY | 2024-06-25 23:39 | XMS_ITS | Encounter Summary ---
Author Organization [facility] Healthcare Address [address] [place] [address] Care Team Providers Care Die Reamer Name Role Phone Luis Oscar MD Primary Care Provider [phone] Encounter Details Date Type Department Care Team (Latest Contact Info) Description 06/18/2014 4:39 PM DUMP ATTENDANT Hospital Encounter [facility] OP Avinash Henderson MD [address] [facility] [address] [place] [address] Other screening mammogram Social History Tobacco Use Types Packs/Day Years Used Date Smoking Tobacco: Never Assessed Alcohol Use Standard Drinks/Week Comments Yes 0 (1 standard drink = 0.6 oz pur e alcohol) Comments Unknown Sex and Gender Information Value Date Recorded Sex Assigned at Not on file 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 DUMP ATTENDANT Gender Identity Not on file Sexual Orientation [...] Procedure Name Priority Date/Time Associated Diagnosis Comments GENERAL RADIOLOGY REPORT 06/21/2014 12:00 AM DUMP ATTENDANT SCREENING MAMMOGRAM 2D BILATERAL Routine 06/18/2014 4:43 PM DUMP ATTENDANT documented in this encounter Results * GENERAL RADIOLOGY REPORT (06/21/2014 12:00 AM DUMP ATTENDANT) Anatomical Region Laterality Modality Radiographic Amanda ging Narrative 06/21/2014 12:00 AM DUMP ATTENDANT Ordered by an unspecified provider. us Historical Provider MD CARPENTER XR PROCEDURES Final R esult * Screening Mammogram 2D Bilateral (06/18/2014 4:43 PM DUMP ATTENDANT) Anatomical Region Laterality Modality Breast Bilateral Mammography 06/18/2014 4:43 PM DUMP ATTENDANT Impressions 06/21/2014 11:33 AM DUMP ATTENDANT BIRADS 1: ??NEGATIVE There is no mammographic evidence of malignancy. A 1 year screening mammogram is recommended. ?? The patient has been or will be contacted. ?? The patient will be entered into an automated reminder system to schedule a mammogram in one year. Electronically signed by: Dr. Galdino Le nh/:06/21/2014 11:32:49 ?? Record Filing Clerk: Ruma LR(R)(M), [facility] letter sent: Normal Exam ?? Reading location: BI-RADS: 1 Negative [EOD] Narrative 06/21/2014 11:33 AM DUMP ATTENDANT - AMITA BILATERAL SCREENING W/CAD BILATERAL DIGITAL SCREENING MAMMOGRAM 3D/2D WITH CAD: 06/18/2014 The study was acquired using full field digital technology and interpreted from soft copy. ?? Current study was also evaluated with ICAD version 7.2. COMPARISONS: Comparison is made to exams dated: ??03/10/2012 mammogram and 03/15/2013 mammogram - [facility]. ?? BREAST TISSUE: There are scattered [...] dated: 03/10/2012 mammogram and 03/15/2013 mammogram - [facility]. BREAST TISSUE: There are scattered areas [...] signed by: Dr. Galdino Le nh/:06/21/2014 11:32:49 Record Filing Clerk: Ruma Wilson RT(R)(M), [facility] letter sent: Normal Exam Reading location: BI-RADS: 1 Negative [EOD] us Avinash Henderson MD IMG MAMMO PROCEDURES Final Result documented in this encounter Visit Diagnoses Diagnosis Other screening mammogram documented in this encounter Care Teams Die Reamer Relationship Specialty Start Date End Date Luis Oscar MD PCP - General 10/26/13 06/20/14 documented as of this encounter
--- OUTSIDE RECORDS SUMMARY | 2024-06-25 23:39 | XMS_ITS | Encounter Summary ---
Author Organization [facility] Address [address] [place] [phone] Phone Care Team Providers Care Plating Engineer Name Role Phone Luis Oscar MD Primary Care Provider [phone] Andre SOLIS MD, Philippe Jones Unavailable [phone] Encounter Details Date Type Department Care Team (Late st Contact Info) Description 07/03/2021 Telephone [facility] [address] [place] [phone] Kashif Gonzalez Social History Tobacco Use Types Packs/Day Years Used Date Smoking Tobacco: Never Assessed Alcohol Use Standard Drinks/Week Comments Yes 0 (1 standard drink = 0.6 oz pur e alcohol) Comments Unknown Sex and Gender Information Value Date Recorded Sex Assigned at Not on file 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 DRYWALL FINISHER FOREMAN Gender Identity Not on file Sexual Orientation Not on file documented as of this encounter Miscellaneous Notes * Telephone Encounter - Kashif Gonzalez - 07/03/2021 12:47 PM CST Spoke to pt, informed ALL FINISHER FOREMAN * Telephone Encounter - Rosa Trivedi PA - 07/03/2021 12:43 PM DRYWALL FINISHER FOREMAN I will give her some zofran but my hope is that she won't need it. Usually if people have nausea when starting mtx it does go away after the first few doses. ALL FINISHER FOREMAN * Telephone Encounter - Kashif Gonzalez - 07/03/2021 12:25 PM CST Pt left stating she is going to start MTX tonight and requesting to have a rx [facility] [place] ALL FINISHER FOREMAN documented in this encounter Plan of Treatment Not on file documented as of this encounter Visit Diagnoses Not on filedocumented in this encounter Care Teams Plating Engineer Relationship Specialty Start Date End Date Luis Oscar MD PCP - General 06/21/14 Philippe Powell III, MD [facility] [place] [place] [address] Consulting Physician Rheumatology 06/10/20 10/10/23 documented as of this encounter
--- OUTSIDE RECORDS SUMMARY | 2024-06-25 23:39 | XMS_ITS | Encounter Summary ---
Author Organization [facility] Facility Care Team Providers Care Instrument Room Technician Name Role Phone Luis Osacr MD Primary Care Provider [phone] Encounter Details Date Type Department Care Team (Latest Contact Info) Description 10/17/2012 6:40 PM CDT - 10/17/2012 11:59 PM CDT Hospital Encounter [facility] Philippe Powell III, MD [address] [place] [address] Localized osteoarthrosis, hand Social History Tobacco Use Types Packs/Day Years Used Date Smoking Tobacco: Never Assessed Alcohol Use Standard Drinks/Week Comments Yes 0 (1 standard drink = 0.6 oz pur e alcohol) Comments Unknown Sex and Gender Information Value Date Recorded Sex Assigned at Not on file 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 Gender Identity Not on file Sexual Orientation [...] Procedure Name Priority Date/Time Associated Diagnosis Comments SERUM RHEUMATOID FACTOR Routine 10/17/2012 1:58 PM CDT SERUM DOUBLE-STRANDED DNA AB Routine 10/17/2012 1:58 PM CDT SERUM ANTINUCLEAR AB (ANAMIKA) Routine 10/17/2012 1:58 PM CDT SERUM ANTI-EXTRACTABLE NUCLEAR AG (VIRGILIO), SM/DOCK HAND AB Routine 10/17/2012 1:58 PM CDT PLASMA C-REACTIVE PROTEIN Routine 10/17/2012 1:58 PM CDT PLASMA COMPREHENSIVE METABOLIC PANEL Routine 10/17/2012 1:58 PM CDT PLASMA COMPLEMENT C4 Routine 10/17/2012 1:58 PM CDT PLASMA COMPLEMENT C3 Routine 10/17/2012 1:58 PM CDT BLOOD ERYTHROCYTE SEDIMENTATION RATE (ESR) Routine 10/17/2012 1:58 PM CDT BLOOD CELL COUNT (CBC), MORPHOLOGIC EXAM Routine 10/17/2012 1:58 PM CDT SERUM CYCLIC CITRULLINATED PEPTIDE IGG 3RD GENERATION Routine 10/17/2012 8:58 AM CDT DISCHARGE LABORATORY CUMULATIVE REPORT 10/17/2012 documented in this encounter Results * Serum anti-extractable nuclear ag (VIRGILIO), SM/DOCK HAND ab (10/17/2012 1:58 PM CDT) Anti-VIRGILIO, SM <1.0 NEG <1.0NEG AI HISTORICAL RESULTS VIRGILIO, SM/DOCK HAND Ab <1.0 NEG <1.0NEG AI HISTORICAL RESULTS Comment: Test performed at [facility] [address] [place] [place], [place] ??[phone] VICENTA TUTTLE DO,MPH Serum 10/17/2012 1:58 PM CDT Rosa Swannhellne CARDOZO LAB BLOOD ORDERABLES Fin al Result Performing Organization Address [facility] de Phone Number HISTORICAL RESULTS * Serum rheumatoid factor (10/17/2012 1:58 PM CDT) Pathologist [facility] Rheumatoid factor, quant 10 <14 IUnits/ml HISTORICAL RESULTS Comment: Test performed at [facility] [address] ??[phone] VICENTA TUTTLE DO,MPH Serum 10/17/2012 1:58 PM CDT Rosa Swannhellen CARDOZO LAB BLOOD ORDERABLES Fin al Result Performing Organization Address [facility] de Phone Number HISTORICAL RESULTS * Serum antinuclear ab (ANAMIKA) (10/17/2012 1:58 PM CDT) [facility] ANAMIKA, qual Negative NEGATIVE HISTORICAL RESULTS Comment: Test performed at [facility] [address] ??[phone] VIECNTA TUTTLE DO,MPH Serum 10/17/2012 1:58 PM CDT Rosa Swannhellen CARDOZO LAB BLOOD ORDERABLES Fin al Result Performing Organization Address [facility] de Phone Number HISTORICAL RESULTS * Serum double-stranded DNA ab (10/17/2012 1:58 PM CDT) Pathologist [facility] Anti-double stranded DNA, quant 1 IUnits/ml HISTORIC AL RESULTS Comment: IU/mL ? Interpretation ? < or = 4 ?Negative ? 5-9 ? Indeterminate ? > or = 10 ?? Positive Test performed at [facility] [address] [place], [place] ??[phone] VICENTA TUTTLE DO,MPH Serum 10/17/2012 1:58 PM CDT Rosa Kerry CARDOZO LAB BLOOD ORDERABLES Fin al Result Performing Organization Address City/[facility]/ZIP Co de Phone Number HISTORICAL RESULTS * Blood erythrocyte sedimentation rate (ESR) (10/17/2012 1:58 PM CDT) Erythrocyte sedimentation rate 7.0 0.0 - 20.0 mm/hr HISTORICAL RESULTS Blood specimen (specimen) 10/17/2012 1:58 PM CDT Rosa Kerry CARDOZO LAB BLOOD ORDERABLES Fin al Result Performing Organization Address [facility]/ZIP Co de Phone Number HISTORICAL RESULTS * Blood cell count (CBC), morphologic exam (10/17/2012 1:58 PM CDT) WBC 6.4 4.5 - 11.0 K/cumm HISTORICAL RESULTS RBC 4.69 3.80 - 5.40 M/cumm HISTORICAL RESULTS Hgb 14.3 11.5 - 16.0 g/dl HISTORICAL RESULTS Comment:As of June 27, the hemoglobin alert value has changed from less than 7.0 g/dL to less than or equal to 6.5 g/dL, first time per admission. Hct 43.1 34.0 - 48.0 % HISTORICAL RESULTS Comment:As of June 27, the hematocrit alert value has changed from less than 21% to less than or equal to 19.5%, first time per admission. MCV 92.1 80.0 - 100.0 fl HISTORICAL RESULTS MCH 30.6 27.0 - 33.0 pg HISTORICAL RESULTS MCHC 33.2 32.0 - 36.0 g/dl HISTORICAL RESULTS Rdw 13.2 11.5 - 14.5 % HISTORICAL RESULTS Platelets 296 140 - 400 K/cumm HISTORICAL RESULTS MPV 8.3 7.4 - 10.4 fl HISTORICAL RESULTS Neutrophils 67.4 42.0 - 75.0 % HISTORICAL RESULTS Lymphocytes 22.5 21.0 - 51.0 % HISTORICAL RESULTS Monos 7.7 2.0 - 9.0 % HISTORICAL RESULTS Eosinophils 1.9 0.0 - 10.0 % HISTORICAL RESULTS Basophils 0.5 0.0 - 1.0 % HISTORICAL RESULTS Neutrophils, abs 4.3 1.8 - 7.7 K/cumm HISTORICAL RESULTS Lymphocytes, abs 1.4 1.0 - 4.8 K/cumm HISTORICAL RESULTS Monocytes, absolute 0.5 0.0 - 0.8 K/cumm HISTORICAL RESULTS Eosinophils, abs 0.1 0.0 - 0.5 K/cumm HISTORICAL RESULTS Basophils, abs 0.0 0.0 - 0.2 K/cumm HISTORICAL RESULTS Blood specimen (specimen) 10/17/2012 1:58 PM CDT Rosa CARDOZO LAB BLOOD ORDERABLES Fin al Result HISTORICAL RESULTS * Plasma comprehensive metabolic panel (10/17/2012 1:58 PM CDT) Pathologist [facility] Sodium 137 136 - 146 mmol/L HISTORICAL RESULTS K, pl 3.9 3.3 - 4.9 mmol/L HISTORICAL RESULTS Chloride 103 98 - 108 mmol/L HISTORICAL RESULTS CO2 27 22 - 33 mmol/L HISTORICAL RESULTS BUN 17 7 - 18 mg/dl HISTORICAL RESULTS Glucose 99 70 - 140 mg/dl HISTORICAL RESULTS Comment: Glucose is assumed to be non-fasting. ?? Fasting Glucose normal ranges are: 0 days - 2 months: ? 40 mg/dL - 100 mg/dL 2 months - 999 years: ?70 mg/dL - 99 mg/dL Creatinine 0.66 0.50 - 1.50 mg/dl HISTORICAL RESULTS eGFR >60 ml/min/1.7 3 m2 HISTORICAL RESULTS Comment: GFR Reference Range: = > 60 mL/min/1.73 m2 This result has been calculated assuming the patient is Non-. ??If the patient is , please multiply this result by 1.21. The GFR value is not recommended for medication dose adjustment for renal function, creatinine clearance values should be used. Calcium 9.6 8.5 - 10.5 mg/dl HISTORICAL RESULTS Bilirubin 0.9 0.1 - 1.2 mg/dl HISTORICAL RESULTS Protein, pl 7.0 6.0 - 8.5 g/dl HISTORICAL RESULTS Alb 4.3 3.4 - 5.0 g/dl HISTORICAL RESULTS Alk phos 85 38 - 126 IUnits/L HISTORICAL RESULTS ALT 25 14 - 54 IUnits/L HISTORICAL RESULTS AST 23 15 - 41 IUnits/L HISTORICAL RESULTS Plasma 10/17/2012 1:58 PM CDT Result [facility] Rosa Payne Shikha CARDOZO LAB BLOOD ORDERABLES Fin al Result Performing Organization Address [facility] de Phone Number HISTORICAL RESULTS * Plasma C-reactive protein (10/17/2012 1:58 PM CDT) C-RP 3.0 0.00 - 10.00 mg/L HISTORICAL RESULTS Comment:Please Note: As of 0 07/20/2011, C-Reactive Protein testing is performed at [facility]. The Reference Range has changed. Plasma 10/17/2012 1:58 PM CDT Result [facility] Rosa CARDOZO LAB BLOOD ORDERABLES Fin al Result Performing Organization Address [facility] de Phone Number HISTORICAL RESULTS * Plasma complement C4 (10/17/2012 1:58 PM CDT) Complement C4 36 18 - 55 mg/dl HISTORICAL RESULTS Comment:Please Note: As of N 2011, the reference range has changed. Plasma 10/17/2012 1:58 PM CDT Result [facility] Rosa CARDOZO LAB BLOOD ORDERABLES Fin al Result Performing Organization Address City/[facility] Co de Phone Number HISTORICAL RESULTS * Plasma complement C3 (10/17/2012 1:58 PM CDT) Complement C3 120 79 - 152 mg/dl HISTORICAL RESULTS Plasma 10/17/2012 1:58 PM CDT Result [facility] Rosa CARDOZO LAB BLOOD ORDERABLES Fin al Result Performing Organization Address [facility] de Phone Number HISTORICAL RESULTS * Serum cyclic citrullinated peptide IgG 3rd generation (10/17/2012 8:58 AM CDT) CCP3 IgG <15.6 0.0 - 19.0 units HISTORICAL RESULTS Comment: Interpretive Data The following results were obtained with the [employer] CCP3 IgG JE. ??Anti-CCP values obtained with the different manufacturers' assay methods may not be used interchangeably. The magnitude of the reported IgG levels cannot be correlated to an endpoint titer. Reference ?Result Interpretation ??0-19 Units ? Negative 20-39 Units ? Weak Positive 40-59 Units ? Moderate Positive 60 or above Units ?? Strong Positive Current interpretive data was last revised on 2006. Serum 10/17/2012 8:58 AM CDT Narrative HISTORICAL RESULTS - 10/19/2012 8:49 AM CDT Test performed at [facility], [address] [facility], [address] [place], [place], [facility], [address]. Result [facility] Rosa Dumontcesario [place] LAB BLOOD ORDERABLES Fin al Result Performing Organization Address [facility] de Phone Number HISTORICAL RESULTS * DISCHARGE LABORATORY CUMULATIVE REPORT (10/17/2012) Narrative 10/17/2012 Ordered by an unspecified provider. Historical Provider LAB BLOOD ORDERABLES Ashley l Result documented in this encounter Visit Diagnoses Diagnosis Localized osteoarthrosis, hand Localized osteoarthrosis not specified whether primary or secondary, hand documented in this encounter Care Teams Instrument Room Technician Relationship Specialty Start Date End Date Luis Oscar MD PCP - General 05/12/11 11/16/12 documented as of this encounter
--- OUTSIDE RECORDS SUMMARY | 2024-06-25 23:39 | XMS_ITS | Encounter Summary ---
Author Organization [facility] Address [address] [place] [phone] Phone Care Team Providers Care Plate Cutter Name Role Phone Luis Oscar MD Primary Care Provider [phone] Andre SOLIS MD, Philippe Jones Unavailable [phone] Reason for Visit * Diagnostic Imaging (Routine) - Closed Specialty Diagnoses / Procedures Referred By Contnevaeh t Referred To Contact Diagnoses Sjogren's syndrome with keratoconjunctivitis sicca (HCC) Pain in multiple finger joints Procedures US Hand Complete Rosa Trivedi PA [address] [place] [address] Phone: tel: fax: External Order Referral ID Status Reason Start Date Expiration Date Visits Re quested Visits Authorized [id number] Closed 05/21/2021 06/20/2022 1 1 Encounter Details Date Type Department Care Team (Latest Contact Info) Description 06/02/2021 9:30 AM ACCORDION REPAIRER - 06/02/2021 11:59 PM ACCORDION REPAIRER Hospital Encounter [facility] [address] [place] [phone] Discharge Disposition: Discharge to home or self care Social History Tobacco Use Types Packs/Day Years Used Date Smoking Tobacco: Never Assessed Alcohol Use Standard Drinks/Week Comments Yes 0 (1 standard drink = 0.6 oz pur e alcohol) Comments Unknown Sex and Gender Information Value Date Recorded Sex Assigned at Not on file 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 ACCORDION REPAIRER Gender Identity Not on file Sexual Orientation [...] every bedtime as needed 0 0 07/17/2015 omeprazole (PriLOSEC) 20 mg capsule take 1 capsule (20MG) by oral route every day 30 3 08/10/2011 4 ondansetron ODT (ZOFRAN ODT) 8 mg disintegrating tablet take 1 tablet by oral route every 8 hours as needed and place on top of the tongue where it will dissolve, then swallow 30 1 04/27/2016 2 zolpidem (AMBIEN) 5 mg tablet take 1 Tablet by oral route every day at bedtime 0 0 07/17/2015 4 documented as of this encounter Discharge Disposition Disposition Code Departure Means Destination Discharge to home or self care documented in this encounter Plan of Treatment Not on file documented as of this encounter Procedures Procedure Name Priority Date/Time Associated Diagnosis Comments SCAN - RADIOLOGY/IMAGING 06/02/2021 9:30 AM ACCORDION REPAIRER documented in this encounter Results * SCAN - RADIOLOGY/IMAGING (06/02/2021 9:30 AM ACCORDION REPAIRER) Anatomical Region Laterality Modality Ultrasound us Provider Scanning Final Result documented in this encounter Visit Diagnoses Not on filedocumented in this encounter Care Teams Plate Cutter Relationship Specialty Start Date End Date Luis Oscar MD PCP - General 06/21/14 Philippe Powell III, MD [address] [place] [address] Consulting Physician Rheumatology 06/10/20 10/10/23 documented as of this encounter
--- OUTSIDE RECORDS SUMMARY | 2024-06-25 23:39 | XMS_ITS | Encounter Summary ---
Author Organization [facility] Address [address] [place] [address] Phone Care Team Providers Care Ore Washer Name Role Phone Luis Oscar MD Primary Care Provider [phone] Andre SOLIS MD, Philippe Jones Unavailable [phone] Encounter Details Date Type Department Care Team (Late st Contact Info) Description 06/03/2021 Orders Only [facility] [address] [place] [phone] Rosa Trivedi PA [address] [place] [address] Social History Tobacco Use Types Packs/Day Years Used Date Smoking Tobacco: Never Assessed Alcohol Use Standard Drinks/Week Comments Yes 0 (1 standard drink = 0.6 oz pur e alcohol) Comments Unknown Sex and Gender Information Value Date Recorded Sex Assigned at Not on file 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 Gender Identity Not on file Sexual Orientation Not on file documented as of this encounter Plan of Treatment Not on file documented as of this encounter Procedures Procedure Name Priority Date/Time Associated Diagnosis Comments SCAN - RADIOLOGY/IMAGING 06/03/2021 4:24 PM FINANCIAL HEALTH COUNSELOR documented in this encounter Results * SCAN - RADIOLOGY/IMAGING (06/03/2021 4:24 PM FINANCIAL HEALTH COUNSELOR) Anatomical Region Laterality Modality Other us Rosa CARDOZO Final Re sult documented in this encounter Visit Diagnoses Not on filedocumented in this encounter Care Teams Ore Washer Relationship Specialty Start Date End Date Luis Oscar MD PCP - General 06/21/14 Philippe Powell III, MD [address] [place] [address] Consulting Physician Rheumatology 06/10/20 10/10/23 documented as of this encounter
--- OUTSIDE RECORDS SUMMARY | 2024-06-25 23:39 | XMS_ITS | Encounter Summary ---
Author Organization [facility] Facility Care Team Providers Care Proposal Editor Name Role Phone Luis Oscar MD Primary Care Provider [phone] Encounter Details Date Type Department Care Team (Late st Contact Info) Description 01/27/2016 4:31 PM CDT - 01/27/2016 11:59 PM CDT Hospital Encounter 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 Gender Identity Not on file Sexual Orientation Not on file documented as of this encounter Medications at Time of Discharge loratadine (CLARITIN) 10 mg tablet take 1 tablet by oral route every day 0 0 11/19/2014 LORazepam (ATIVAN) 0.5 mg tablet take 1 Tablet by oral route every bedtime as needed 0 0 07/17/2015 milnacipran (SAVELLA) 25 mg tablet TAKE 1/2 TABLET IN THE MORNING AND 1 TABLET IN THE EVENING 60 0 08/10/2011 05/21/2021 omeprazole (PriLOSEC) 20 mg capsule take 1 capsule (20MG) by oral route every day 30 3 08/10/2011 10/18/2023 zolpidem (AMBIEN) 5 mg tablet take 1 Tablet by oral route every day at bedtime 0 0 07/17/2015 10/18/2023 documented as of this encounter Plan of Treatment Not on file documented as of this encounter Procedures Procedure Name Priority Date/Time Associated Diagnosis Comments PLASMA C-REACTIVE PROTEIN Routine 01/27/2016 9:55 AM CDT PLASMA COMPREHENSIVE METABOLIC PANEL Routine 01/27/2016 9:55 AM CDT BLOOD ERYTHROCYTE SEDIMENTATION RATE (ESR) Routine 01/27/2016 9:55 AM CDT BLOOD CELL COUNT (CBC), MORPHOLOGIC EXAM Routine 01/27/2016 9:55 AM CDT BLOOD HEREDITARY HEMOCHROMATOSIS GENE ANALYSIS Routine 01/27/2016 4:55 AM CDT DISCHARGE LABORATORY CUMULATIVE REPORT 01/27/2016 documented in this encounter Results * Blood erythrocyte sedimentation rate (ESR) (01/27/2016 9:55 AM CDT) Erythrocyte sedimentation rate 8.0 0.0 - 20.0 mm/hr CDR HISTORICAL RESULTS Blood specimen (specimen) 01/27/2016 9:55 AM CDT Rosa CARDOZO LAB BLOOD ORDERABLES Fin al Result CDR HISTORICAL RESULTS * (ABNORMAL) Blood cell count (CBC), morphologic exam (01/27/2016 9:55 AM CDT) WBC 6.5 3.8 - 9.9 K/cumm CDR HISTORICAL RESULTS Hct 44.9 35.6 - 45.5 % CDR HISTORICAL RESULTS RBC 4.92 3.90 - 5.20 M/cumm CDR HISTORICAL RESULTS MCV 91.3 81.3 - 96.4 fl CDR HISTORICAL RESULTS Hgb 14.3 11.9 - 15.5 g/dl CDR HISTORICAL RESULTS MCH 29.1 27.1 - 33.3 pg CDR HISTORICAL RESULTS MCHC 31.8(L) 32.3 - 35.7 g/dl CDR HISTORICAL RESULTS RDW 41.5 35.7 - 48.1 fl CDR HISTORICAL RESULTS Rdw 12.6 11.1 - 14.9 % CDR HISTORICAL RESULTS Platelets 304 150 - 400 K/cumm CDR HISTORICAL RESULTS MPV 10.1 9.1 - 12.3 fl CDR HISTORICAL RESULTS Neutrophils 60.1 44.0 - 80.0 % CDR HISTORICAL RESULTS Lymphocytes 26.6 13.0 - 44.0 % CDR HISTORICAL RESULTS Monos 9.3 2.0 - 11.0 % CDR HISTORICAL RESULTS Eosinophils 2.5 0.0 - 6.0 % CDR HISTORICAL RESULTS Basophils 0.9 0.0 - 3.0 % CDR HISTORICAL RESULTS Immature granulocytes 0.6 0.0 - 1.0 % CDR HISTORICAL RESULTS NRBC 0.0 0.0 - 0.2 % CDR HISTORICAL RESULTS Neutrophils, abs 3.9 1.7 - 6.5 K/cumm CDR HISTORICAL RESULTS Lymphocytes, abs 1.7 0.8 - 3.3 K/cumm CDR HISTORICAL RESULTS Monocytes, absolute 0.6 0.2 - 0.8 K/cumm CDR HISTORICAL RESULTS Eosinophils, abs 0.2 0.0 - 0.5 K/cumm CDR HISTORICAL RESULTS Basophils, abs 0.1 0.0 - 0.1 K/cumm CDR HISTORICAL RESULTS Immature granulocyte, abs 0.0 0.0 - 0.1 K/cumm CDR HISTORICAL RESULTS NRBC, abs 0.00 0.00 - 0.01 K/cumm CDR HISTORICAL RESULTS Blood specimen (specimen) 01/27/2016 9:55 AM CDT us Rosa CARDOZO LAB BLOOD ORDERABLES Fin al Result CDR HISTORICAL RESULTS * Plasma comprehensive metabolic panel (01/27/2016 9:55 AM CDT) Sodium 137 136 - 146 mmol/L CDR HISTORICAL RESULTS K, pl 4.5 3.3 - 4.9 mmol/L CDR HISTORICAL RESULTS Chloride 105 98 - 108 mmol/L CDR HISTORICAL RESULTS CO2 25 22 - 33 mmol/L CDR HISTORICAL RESULTS BUN 17 7 - 18 mg/dl CDR HISTORICAL RESULTS Glucose 86 70 - 140 mg/dl CDR HISTORICAL RESULTS Comment: Glucose is assumed to be non-fasting. ?? Fasting Glucose normal ranges are: 0 days - 2 months: ? 40 mg/dL - 100 mg/dL 2 months - 999 years: ?70 mg/dL - 99 mg/dL Creatinine 0.76 0.50 - 1.50 mg/dl CDR HISTORICAL RESULTS eGFR >60 ml/min/1.7 3 m2 CDR HISTORICAL RESULTS Comment: GFR Reference Range: = > 60 mL/min/1.73 m2 This result has been calculated assuming the patient is Non-. ??If the patient is , please multiply this result by 1.21. The GFR value is not recommended for medication dose adjustment for renal function, creatinine clearance values should be used. Calcium 9.7 8.5 - 10.5 mg/dl CDR HISTORICAL RESULTS Bilirubin 0.9 0.1 - 1.2 mg/dl CDR HISTORICAL RESULTS Protein, pl 7.1 6.0 - 8.5 g/dl CDR HISTORICAL RESULTS Alb 4.2 3.4 - 5.0 g/dl CDR HISTORICAL RESULTS Alk phos 116 38 - 126 IUnits/L CDR HISTORICAL RESULTS ALT 24 14 - 54 IUnits/L CDR HISTORICAL RESULTS AST 24 15 - 41 IUnits/L CDR HISTORICAL RESULTS Plasma 01/27/2016 9:55 AM CDT Rosa CARDOZO LAB BLOOD ORDERABLES Fin al Result CDR HISTORICAL RESULTS * Plasma C-reactive protein (01/27/2016 9:55 AM CDT) C-RP 3.1 0.00 - 10.00 mg/L CDR HISTORICAL RESULTS Plasma 01/27/2016 9:55 AM CDT Rosa CARDOZO LAB BLOOD ORDERABLES [facility] al Result CDR HISTORICAL RESULTS * Blood hereditary hemochromatosis gene analysis (01/27/2016 4:55 AM CDT) Referral specimen, interp COMPLEX (SEE RESULT AND INTERPRETA TION) CDR HISTORICAL RESULTS Hereditary hemochromatosis gene . CDR HISTORICAL RESULTS Comment: C282Y: Not detected. H63D: Not detected. Hereditary hemochromatosis gene, interp . CDR HISTORICAL RESULTS Comment: This result reduces the risk but does not rule out either a diagnosis of or predisposition for hereditary hemochromatosis (HH). In the [place] population, approximately 5 to 8% of individuals with HH do not have either the p.C282Y or p.H63D mutation. For other ethnicities, the proportion of individuals with HH who do not have either the p.C282Y or p.H63D alteration may differ. This assay does not rule out the presence of other disease-causing mutations in the HFE gene or in other genes associated with hemochromatosis. Genotyping results should be interpreted in the context of clinical findings, family history, and other laboratory testing (e.g. serum transferrin-iron saturation and serum ferritin). Genetic testing and other laboratory testing of an affected family member can determine if this result is of predictive value for this individual. A genetic consultation may be of benefit. ADDITIONAL INFORMATION An online research opportunity called [employer] ([email or web address]), a project of [employer], is available for the recipient of this genetic test. This patient registry collects de-identified genetic and health information to advance the knowledge of genetic variants. [facility] is a collaborator of [employer]. This may not be applicable for all tests. Test results should be interpreted in the context of clinical findings, family history, and other laboratory data. Misinterpretation of results may occur if the information provided is inaccurate or incomplete. Rare polymorphisms exist that could lead to false-negative or false-positive results. If results obtained do not match the clinical findings, additional testing should be considered. Bone Marrow transplants from allogenic donors will interfere with testing. Call [facility] [employer] [facility] for instructions for testing patients who have received a bone marrow transplant. Multiple in-silico evaluation tools may have been used to assist in the interpretation of these results. Of note, the sensitivity and specificity of these tools for the determination of pathogenicity is currently unvalidated. This test was developed and its performance characteristics determined by [facility] in a manner consistent with CLIA requirements. This test has not been cleared or approved by the U.S. Food and Drug Administration. Specimen type WB Whole Blood CDR HISTORICAL RESULTS Chromosome analysis, method . CDR HISTORICAL RESULTS Comment: A multiplex PCR based assay utilizing the [employer] platform was used to test for the following three mutations in the HFE gene; C282Y, H63D, and S65C. Because of the minimal effect on iron metabolism associated with the S65C mutation, it is only reported when it is found with the C282Y mutation (i.e. if the patient has the C282Y/S65C genotype). Blood specimen (specimen) 01/27/2016 4:55 AM CDT Narrative CDR HISTORICAL RESULTS - 02/04/2016 12:21 PM CDT Test performed at [facility] Dept of Lab Medicine and Pathology, [address] [place] [address], [id number]. Historical Provider LAB BLOOD ORDERABLES Ashley l Result CDR HISTORICAL RESULTS * DISCHARGE LABORATORY CUMULATIVE REPORT (01/27/2016) Narrative 01/27/2016 Ordered by an unspecified provider. Historical Provider LAB BLOOD ORDERABLES Ashley l Result documented in this encounter Visit Diagnoses Diagnosis Osteoarthritis Osteoarthrosis, unspecified whether generalized or localized, unspecified site documented in this encounter Care Teams Proposal Editor Relationship Specialty Start Date End Date Luis Oscar MD PCP - General 06/21/14 documented as of this encounter
--- OUTSIDE RECORDS SUMMARY | 2024-06-25 23:39 | XMS_ITS | Encounter Summary ---
Author Organization [facility] Address [address] [place] [address] Care Team Providers Care Professor In Family Studies Name Role Phone Luis Oscar MD Primary Care Provider [phone] Encounter Details Date Type Department Care Team (Latest Contact Info) Description 07/08/2014 9:49 AM DEMAND EQUIPMENT REPAIRER Hospital Encounter [facility] Rosa Moreno PA [address] [place] [address] Low back pain; Lumbosacral spondylosis without myelopathy; Localized osteoarthrosis, hand; Localized osteoarthrosis, forearm Social History Tobacco Use Types Packs/Day Years Used Date Smoking Tobacco: Never Assessed Alcohol Use Standard Drinks/Week Comments Yes 0 (1 standard drink = 0.6 oz pur e alcohol) Comments Unknown Sex and Gender Information Value Date Recorded Sex Assigned at Not on file 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 DEMAND EQUIPMENT REPAIRER Gender Identity Not on file Sexual [...] Priority Date/Time Associated Diagnosis Comments XR HAND RIGHT 2 VIEWS Routine 07/08/2014 9:53 AM DEMAND EQUIPMENT REPAIRER XR HAND LEFT 2 VIEWS Routine 07/08/2014 9:53 AM DEMAND EQUIPMENT REPAIRER XR SPINE LUMBAR 2 OR 3 VIEWS Routine 07/08/2014 9:52 AM DEMAND EQUIPMENT REPAIRER documented in this encounter Results * XR Hand Left 2 Views (07/08/2014 9:53 AM DEMAND EQUIPMENT REPAIRER) Anatomical Region Laterality Modality Upper Extremities, Hand [facility] 07/08/2014 9:53 AM DEMAND EQUIPMENT REPAIRER Impressions 07/09/2014 8:03 AM DEMAND EQUIPMENT REPAIRER ?? 1. ??No acute osseous abnormality. 2. ??Moderate osteoarthritic changes first carpometacarpal articulation. 3. ??Trivial osteoarthritic changes DIP joint. THIS IS AN ELECTRONICALLY VERIFIED REPORT 07/09/2014 7:56 AM: ??Godwin Riggs M.D. Godwin Riggs M.D. JA:tori 02:18 PM 02:22 PM [facility] [EOD] Narrative 07/09/2014 8:03 AM DEMAND EQUIPMENT REPAIRER EXAMINATION: ??Left hand, two views HISTORY: ??Pain COMPARISON: ??None available FINDINGS: ??There is no evidence of acute fracture or dislocation. ??Minor osteoarthritic changes are present at the DIP joint. ??Moderate osteoarthritic changes are present the first carpometacarpal articulation. ??Osseous mineralization is intact. ??No aggressive appearing periosteal reaction is seen. ??Soft tissues are within normal limits Procedure Note Provider, MD Erma - 10/29/2020 EXAMINATION: Left hand, two views HISTORY: Pain COMPARISON: None available FINDINGS: There is no evidence of acute fracture or dislocation. Minor osteoarthritic changes are present at the DIP joint. Moderateosteoarthritic changes are present the first carpometacarpal articulation. Osseous mineralization is intact. No aggressive appearing periosteal reaction is seen. Soft tissues are within normal limits IMPRESSION: 1. No acute osseous abnormality. 2. Moderate osteoarthritic changes first carpometacarpal articulation. 3. Trivial osteoarthritic changes DIP joint. THIS IS AN ELECTRONICALLY VERIFIED REPORT 07/09/2014 7:56 AM: Godwin Riggs M.D. Cy Christianson 02:18 PM 02:22 PM [facility] [EOD] us Rosa CARDOZO IMG XR PROCEDURES Final Result * XR Hand Right 2 Views (07/08/2014 9:53 AM DEMAND EQUIPMENT REPAIRER) Anatomical Region Laterality Modality Upper Extremities, Hand Right [facility] 07/08/2014 9:53 AM DEMAND EQUIPMENT REPAIRER Impressions 07/09/2014 8:04 AM DEMAND EQUIPMENT REPAIRER ??Moderate first carpometacarpal osteoarthritis. THIS IS AN ELECTRONICALLY VERIFIED REPORT 07/09/2014 7:57 AM: ??Godwin Riggs M.D. Cy Christianson 02:23 PM 02:27 PM [facility] [EOD] Narrative 07/09/2014 8:04 AM DEMAND EQUIPMENT REPAIRER EXAMINATION: ??Right hand, three-views HISTORY: ??Pain COMPARISON: ??None available FINDINGS: ??There is no evidence of acute fracture or dislocation. ??Moderate osteoarthritic changes are present at the first carpometacarpal articulation. ?? Trivial arthritic changes are present at the DIP joint. ??Osseous mineralization is intact. ??No aggressive appearing periosteal reaction is seen. ??Soft tissues are within normal limits Procedure Note Provider, MD Erma - 10/29/2020 EXAMINATION: Right hand, three-views HISTORY: Pain COMPARISON: None available FINDINGS: There is no evidence of acute fracture or dislocation.Moderate osteoarthritic changes are present at the first carpometacarpalarticulation. Trivial arthritic changes are present at the DIP joint. Osseous mineralization is intact. No aggressive appearing periosteal reaction is seen. Soft tissues are within normal limits IMPRESSION: Moderate first carpometacarpal osteoarthritis. THIS IS AN ELECTRONICALLY VERIFIED REPORT 07/09/2014 7:57 AM: Godwin Riggs M.D. Cy Christianson 02:23 PM 02:27 PM [facility] [EOD] us Rosa CARDOZO IMG XR PROCEDURES Final Result * XR Spine Lumbar 2 or 3 Views (07/08/2014 9:52 AM DEMAND EQUIPMENT REPAIRER) Anatomical Region Laterality Modality Spine N/A Radiographic Amanda ging 07/08/2014 9:52 AM DEMAND EQUIPMENT REPAIRER Impressions 07/09/2014 8:04 AM DEMAND EQUIPMENT REPAIRER ??Mild lumbar spondylosis favoring L4-L5 and L5-S1. THIS IS AN ELECTRONICALLY VERIFIED REPORT 07/09/2014 7:57 AM: ??Godwin Riggs M.D. Cy Christianson 02:24 PM 02:28 PM [facility] [EOD] Narrative 07/09/2014 8:04 AM DEMAND EQUIPMENT REPAIRER EXAMINATION: ??Lumbar spine, three views HISTORY: ??Lumbar pain COMPARISON: ??None available FINDINGS: ??There are five [id number] lumbar vertebral bodies. ??For the purpose of this dictation, the last fully formed intervertebral disc space will be denoted as L5-S1 The vertebral body heights are well maintained. ??There is minor multilevel loss of intervertebral disc space most pronounced at L5-S1 Mild facet hypertrophy favoring L4-L5 and L5-S1 is seen. Osseous mineralization is intact. ??No aggressive appearing periosteal reaction is seen. The visualized bowel gas pattern appears unremarkable. Procedure Note Provider, MD Erma - 10/29/2020 EXAMINATION: Lumbar spine, three views HISTORY: Lumbar pain COMPARISON: None available FINDINGS: There are five [id number] lumbar vertebral bodies. Forthe purpose of this dictation, the last fully formed intervertebral disc space will be denoted as L5-S1 The vertebral body heights are well maintained. There is minor multilevel loss of intervertebral disc space most pronounced at L5-S1 Mild facet hypertrophy favoring L4-L5 and L5-S1 is seen. Osseous mineralization is intact. No aggressive appearing periostealreaction is seen. The visualized bowel gas pattern appears unremarkable. IMPRESSION: Mild lumbar spondylosis favoring L4-L5 and L5-S1. THIS IS AN ELECTRONICALLY VERIFIED REPORT 07/09/2014 7:57 AM: Godwin Riggs M.D. Godwin Riggs M.D. JA:tori 02:24 PM 02:28 PM [facility] [EOD] Rosa CARDOZO IMG XR PROCEDURES Final Result documented in this encounter Visit Diagnoses Diagnosis Low back pain Lumbago Lumbosacral spondylosis without myelopathy Localized osteoarthrosis, hand Localized osteoarthrosis not specified whether primary or secondary, hand Localized osteoarthrosis, forearm Localized osteoarthrosis not specified whether primary or secondary, forearm documented in this encounter Care Teams Professor In Family Studies Relationship Specialty Start Date End Date Luis Oscar MD PCP - General 06/21/14 documented as of this encounter
--- OUTSIDE RECORDS SUMMARY | 2024-06-25 23:39 | XMS_ITS | Encounter Summary ---
Author Organization [facility] Address [address] [place] [address] Phone Care Team Providers Care Stringer Machine Tender Name Role Phone Luis Oscar MD Primary Care Provider [phone] Andre SOLIS MD, Philippe Jones Unavailable [phone] Reason for Referral * Diagnostic Imaging (Routine) - Closed Specialty Diagnoses / Procedures Referred By Abdelrahman aguayo Referred To Contact Diagnoses Sjogren's syndrome with keratoconjunctivitis sicca (HCC) Pain in multiple finger joints Procedures US Hand Complete Rosa Trivedi PA [address] [place] [address] Phone: tel: fax: External Order Referral ID Status Reason Start Date Expiration Date Visits Re quested Visits Authorized [id number] Closed 05/21/2021 06/20/2022 1 1 MASON * Diagnostic Imaging (Routine) - Closed Specialty Diagnoses / Procedures Referred By Abdelrahman aguayo Referred To Contact Diagnoses Sjogren's syndrome with keratoconjunctivitis sicca (HCC) Pain in multiple finger joints Procedures XR Knee Bilateral Ap Standing Rosa Trivedi PA [address] [place] [address] Phone: tel: fax: External Order Referral ID Status Reason Start Date Expiration Date Visits Re quested Visits Authorized [id number] Closed 05/21/2021 06/20/2022 1 1 MASON * Diagnostic Imaging (Routine) - Closed Specialty Diagnoses / Procedures Referred By Contac t Referred To Contact Diagnoses Sjogren's syndrome with keratoconjunctivitis sicca (HCC) Pain in multiple finger joints Procedures XR Hand Right 2 Views Rosa Trivedi PA [address] [place] [address] Phone: tel: fax: External Order Referral ID Status Reason Start Date Expiration Date Visits Re quested Visits Authorized [id number] Closed 05/21/2021 06/20/2022 1 1 MASON * Diagnostic Imaging (Routine) - Closed Specialty Diagnoses / Procedures Referred By Contac t Referred To Contact Diagnoses Sjogren's syndrome with keratoconjunctivitis sicca (HCC) Pain in multiple finger joints Procedures XR Hand Left 2 Views Rosa Trivedi PA [address] [place] [address] Phone: tel: fax: External Order Referral ID Status Reason Start Date Expiration Date Visits Re quested Visits Authorized [id number] Closed 05/21/2021 06/20/2022 1 1 MASON * Diagnostic Imaging (Routine) - Closed Specialty Diagnoses / Procedures Referred By Contac t Referred To Contact Diagnoses Sjogren's syndrome with keratoconjunctivitis sicca (HCC) Pain in multiple finger joints Procedures XR Foot Right 2 Views Rosa Trivedi PA [address] [place] [address] Phone: tel: fax: External Order Referral ID Status Reason Start Date Expiration Date Visits Re quested Visits Authorized [id number] Closed 05/21/2021 06/20/2022 1 1 MASON * Diagnostic Imaging (Routine) - Closed Specialty Diagnoses / Procedures Referred By Abdelrahman aguayo Referred To Contact Diagnoses Sjogren's syndrome with keratoconjunctivitis sicca (HCC) Pain in multiple finger joints Procedures XR Foot Left 2 Views Rosa Trivedi PA [address] [place] [address] Phone: tel: fax: External Order Referral ID Status Reason Start Date Expiration Date Visits Re quested Visits Authorized [id number] Closed 05/21/2021 06/20/2022 1 1 MASON * Diagnostic Imaging (Routine) - Closed Specialty Diagnoses / Procedures Referred By Abdelrahman aguayo Referred To Contact Diagnoses Sjogren's syndrome with keratoconjunctivitis sicca (HCC) Pain in multiple finger joints Cough Procedures XR Chest Pa Lateral 2 Views Rosa Trivedi PA [address] [place] [address] Phone: tel: fax: External Order Referral ID Status Reason Start Date Expiration Date Visits Re quested Visits Authorized [id number] Closed 05/21/2021 06/20/2022 1 1 MASON Encounter Details Date Type Department Care Team (Latest Contact Info) Description 05/21/2021 1:30 PM TILE MASON Office Visit [facility] [address] [place] [phone] Rosa Trivedi PA [address] [place] [address] Sjogren's syndrome with keratoconjunctivitis sicca (HCC) (Primary Dx); Pain in multiple finger joints; Cough; Fatigue, unspecified type; Weakness; Raynaud's phenomenon without gangrene; Osteoarthritis of ankle or foot, unspecified laterality Social History Tobacco Use Types Packs/Day Years Used Date Smoking Tobacco: Never Assessed Alcohol Use Standard Drinks/Week Comments Yes 0 (1 standard drink = 0.6 oz pur e alcohol) Comments Unknown Sex and Gender Information Value Date Recorded Sex Assigned at Not on file 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 TILE MASON Gender Identity Not on file Sexual Orientation Not on file documented as of this encounter Last Filed Vital Signs Vital Sign Reading Time Taken Comments Blood Pressure 138/73 05/21/2021 1:27 PM TILE MASON Pulse 72 05/21/2021 1:27 PM TILE MASON Temperature 36.6 ??C (97.9 ??F) 05/21/2021 1:27 PM CS T Respiratory Rate - - Oxygen Saturation 98% 05/21/2021 1:27 PM TILE MASON Inhaled Oxygen Concentration - - Weight 86.3 kg (190 lb 3.2 oz) 05/21/2021 1:27 P M TILE MASON Height - - Body Mass Index 31.65 04/27/2016 9:41 AM TILE MASON documented in this encounter Progress Notes * Rosa Trivedi PA - 05/21/2021 1:30 PM CST Images from the original note were not included. Subjective/Objective Patient ID: Christina Edmond is a 65 y.o. female. Chief Complaint No chief complaint on file. HPI Previous patient of ours, last seen in [...] past year and has discussed with her space officer Dr. Flores. Doesn't want any surgery or [...] weeks. 6 pregnancies. 5 live births. No MS, CVA. Past Medical History: +remote kidney stone, [...] for seizures. Positive for migraines Vitals BP 138/73 Pulse 72 Temp 36.6 ??C (97.9 ??F) Wt 86.3 kg (190 lb 3.2 oz) SpO2 98% BMI 31.65 kg/m?? Body mass index is 31.65 kg/m??. Physical Exam Constitutional: appears well-developed and [...] and affect. behavior is normal. Cdai = 13 Labs/Imaging Assessment/Plan Diagnoses and all orders for this visit: Sjogren's syndrome with keratoconjunctivitis sicca (HCC) (Primary) Assessment & Plan: Severe dry eyes, dry mouth. Started on new drops per eye doctor recently along with steroid ointment. Advised to continue liberal use of lubricating drops. Will repeat serologies. Consider pilocarpine/cevimeline next Orders: - C3 complement; Future - C4 complement; Future - CBC with auto differential; Future - Comprehensive metabolic panel; Future - CRP (acute phase); Future - Anti-double stranded DNA antibodies; Future - Erythrocyte sedimentation rate; Future - Protein / creatinine ratio, urine, random; Future - HEPATITIS PANEL, GENERAL; Future - Direct Antiglobulin Test (LIBERTY) with Reflex to Anti C3 and Anti IgG; Future - AVISE - Miscellaneous Test; Future - 14.3.3 ETA Protein Serum; Future - Creatine kinase (CK), total; Future - XR Chest Pa Lateral 2 Views; Future - XR Foot Left 2 Views; Future - XR Foot Right 2 Views; Future - XR Hand Left 2 Views; Future - XR Hand Right 2 Views; Future - XR Knee Bilateral Ap Standing; Future - US Hand Complete; Future Pain in multiple finger joints Assessment & Plan: Synovitis seen on hand [...] go over results. Seen with Dr. Powell. Orders: - C3 complement; Future - C4 complement; Future - CBC with auto differential; Future - Comprehensive metabolic panel; Future - CRP (acute phase); Future - Anti-double stranded DNA antibodies; Future - Erythrocyte sedimentation rate; Future - Protein / creatinine ratio, urine, random; Future - HEPATITIS PANEL, GENERAL; Future - Direct Antiglobulin Test (LIBERTY) with Reflex to Anti C3 and Anti IgG; Future - AVISE - Miscellaneous Test; Future - 14.3.3 ETA Protein Serum; Future - Creatine kinase (CK), total; Future - XR Chest Pa Lateral 2 Views; Future - XR Foot Left 2 Views; Future - XR Foot Right 2 Views; Future - XR Hand Left 2 Views; Future - XR Hand Right 2 Views; Future - XR Knee Bilateral Ap Standing; Future - US Hand Complete; Future Cough - XR Chest Pa Lateral 2 Views; Future Fatigue, unspecified type - HEPATITIS PANEL, GENERAL; Future Weakness - Creatine kinase (CK), total; Future Raynaud's phenomenon without gangrene Osteoarthritis of ankle or foot, unspecified laterality Assessment & Plan: Hallux limitus to bilat 1st MTPs. Also possible history of dactylitis to R 2nd toe a few weeks ago. Cosigned by Philippe Powell III, MD at 05/21/2021 4:55 PM TILE MASON MASON MASON documented in this encounter Miscellaneous Notes * Result Encounter Note - Rosa Trivedi PA - 05/28/2021 5:08 PM TILE MASON Will discuss next MASON * Result Encounter Note - Rosa Trivedi PA - 05/22/2021 5:27 PM TILE MASON Awaiting AVISE. Discuss at next visit MASON * Assessment & Plan Note - Rosa Trivedi PA - 05/21/2021 4:35 PM TILE MASON Associated Problem(s): Sjogren's syndrome with keratoconjunctivitis sicca (HCC) Severe dry eyes, dry mouth. Started on new drops per eye doctor recently along with steroid ointment. Advised to continue liberal use of lubricating drops. Will repeat serologies. Consider pilocarpine/cevimeline next MASON MASON * Assessment & Plan Note - Rosa Trivedi PA - 05/21/2021 4:35 PM TILE MASON Associated Problem(s): Osteoarthritis of ankle or foot Hallux limitus to bilat 1st MTPs. Also possible history of dactylitis to R 2nd toe a few weeks ago. MASON * Assessment & Plan Note - Rosa Trivedi PA - 05/21/2021 4:31 PM TILE MASON Associated Problem(s): Inflammatory polyarthritis (CMS/HCC) (HCC) Synovitis [...] go over results. Seen with Dr. Powell. MASON documented in this encounter Plan of Treatment Pending Results Name Type Priority Associated Diagnoses Date /Time US Hand Complete Imaging Schedule Routine, Read Routine (OP Routine) Sjogren's syndrome with keratoconjunctivitis sicca (HCC) Pain in multiple finger joints 06/02/2021 10:16 AM TILE MASON Scheduled Orders Name Type Priority Associated Diagnoses Orde r Schedule Direct Antiglobulin Test (LIBERTY) with Reflex to Anti C3 and Anti IgG Lab Routine Sjogren's syndrome with keratoconjunctivitis sicca (CMS/HCC) Pain in multiple finger joints Expected: 05/21/2021, Expires: 05/21/2022 14.3.3 ETA Protein Serum Lab Routine Sjogren's syndrome with keratoconjunctivitis sicca (CMS/HCC) Pain in multiple finger joints Expected: 05/21/2021, Expires: 05/21/2022 XR Chest Pa Lateral 2 Views Imaging Routine Sjogren's syndrome with keratoconjunctivitis sicca (CMS/HCC) Pain in multiple finger joints Cough Expected: 05/21/2021, Expires: 05/21/2022 XR Foot Left 2 Views Imaging Routine Sjogren's syndrome with keratoconjunctivitis sicca (CMS/HCC) Pain in multiple finger joints Expected: 05/21/2021, Expires: 05/21/2022 XR Foot Right 2 Views Imaging Routine Sjogren's syndrome with keratoconjunctivitis sicca (CMS/HCC) Pain in multiple finger joints Expected: 05/21/2021, Expires: 05/21/2022 XR Hand Left 2 Views Imaging Routine Sjogren's syndrome with keratoconjunctivitis sicca (CMS/HCC) Pain in multiple finger joints Expected: 05/21/2021, Expires: 05/21/2022 XR Hand Right 2 Views Imaging Routine Sjogren's syndrome with keratoconjunctivitis sicca (CMS/HCC) Pain in multiple finger joints Expected: 05/21/2021, Expires: 05/21/2022 XR Knee Bilateral Ap Standing Imaging Routine Sjogren's syndrome with keratoconjunctivitis sicca (CMS/HCC) Pain in multiple finger joints Expected: 05/21/2021, Expires: 05/21/2022 US Hand Complete Imaging Schedule Routine, Read Routine (OP Routine) Sjogren's syndrome with keratoconjunctivitis sicca (CMS/HCC) Pain in multiple finger joints Expected: 05/21/2021, Expires: 05/21/2022 documented as of this encounter Procedures Procedure Name Priority Date/Time Associated Diagnosis Comments MISCELLANEOUS LAB TEST Routine 05/28/2021 1:16 PM TILE MASON Sjogren's syndrome with keratoconjunctivitis sicca (HCC) Pain in multiple finger joints HEPATITIS PANEL, GENERAL Routine 05/21/2021 3:01 PM TILE MASON Sjogren's syndrome with keratoconjunctivitis sicca (HCC) Pain in multiple finger joints Fatigue, unspecified type C4 COMPLEMENT Routine 05/21/2021 3:01 PM TILE MASON Sjogren's syndrome with keratoconjunctivitis sicca (HCC) Pain in multiple finger joints ANTI-DOUBLE STRANDED DNA ANTIBODIES Routine 05/21/2021 3:01 PM TILE MASON Sjogren's syndrome with keratoconjunctivitis sicca (HCC) Pain in multiple finger joints CBC WITH AUTO DIFFERENTIAL Routine 05/21/2021 3:01 PM TILE MASON Sjogren's syndrome with keratoconjunctivitis sicca (HCC) Pain in multiple finger joints PROTEIN / CREATININE RATIO, URINE, RANDOM Routine 05/21/2021 3:01 PM TILE MASON Sjogren's syndrome with keratoconjunctivitis sicca (HCC) Pain in multiple finger joints ERYTHROCYTE SEDIMENTATION RATE Routine 05/21/2021 3:01 PM TILE MASON Sjogren's syndrome with keratoconjunctivitis sicca (HCC) Pain in multiple finger joints C3 COMPLEMENT Routine 05/21/2021 3:01 PM TILE MASON Sjogren's syndrome with keratoconjunctivitis sicca (HCC) Pain in multiple finger joints CRP (ACUTE PHASE) Routine 05/21/2021 3:0 1 PM TILE MASON Sjogren's syndrome with keratoconjunctivitis sicca (HCC) Pain in multiple finger joints CREATINE KINASE (CK), TOTAL Routine 05/21/2021 3:01 PM TILE MASON Sjogren's syndrome with keratoconjunctivitis sicca (HCC) Pain in multiple finger joints Weakness COMPREHENSIVE METABOLIC PANEL Routine 05/21/2021 3:01 PM TILE MASON Sjogren's syndrome with keratoconjunctivitis sicca (HCC) Pain in multiple finger joints documented in this encounter Results * AVISE - Miscellaneous Test (05/28/2021 1:16 PM TILE MASON) Miscellaneous Rosa CARDOZO LAB BLOOD ORDERABLES Fin al Result [facility] * Creatine kinase (CK), total (05/21/2021 3:01 PM TILE MASON) CK 56 29 - 143 U/L [facility] Blood specimen (specimen) 05/21/2021 3:01 PM TILE MASON 05/21/2021 3:03 PM TILE MASON Rosa CARDOZO LAB BLOOD ORDERABLES Fin al Result [facility] [address] [id number] * HEPATITIS PANEL, GENERAL (05/21/2021 3:01 PM TILE MASON) Hep A total NON-REACTI VE NON-REACT EDGAR [facility] Comment: For additional information, please refer to http://[employer].Stamp.it/faq/RGJ478 (This link is being provided for informational/ educational purposes only.) HBsAb (immune status) NON-REACTI VE NON-REACT EDGAR [facility] HepBsAg NON-REACTI VE NON-REACT EDGAR [facility] Hep B core IgG/IgM NON-REACTI VE NON-REACT EDGAR [facility] Hep C Ab NON-REACTI VE NON-REACT EDGAR [facility] SIGNAL TO CUT-OFF 0.01 <1.00 [facility] Comment: HCV antibody was non-reactive. There is no laboratory evidence of HCV infection. In most cases, no further action is required. However, if recent HCV exposure is suspected, a test for HCV RNA (test code 18291) is suggested. For additional information please refer to http://[employer].Stamp.it/faq/APQ96t0 (This link is being provided for informational/ educational purposes only.) Blood specimen (specimen) 05/21/2021 3:01 PM TILE MASON 05/21/2021 3:03 PM TILE MASON Rosa CARDOZO LAB BLOOD ORDERABLES Fin al Result [facility] [address] [place] [address] * Protein / creatinine ratio, urine, random (05/21/2021 3:01 PM TILE MASON) Creatinine, ur 104 20 - 275 mg/dL [facility] Protein/creatin ine ratio 67 21 - 161 mg/g creat [facility] Protein/Creatin ine Ratio 0.067 0.021 - 0.161 mg/mg creat [facility] Protein, ur, quant 7 5 - 24 mg/dL [facility] Urine 05/21/2021 3:01 PM TILE MASON 05/21/2021 3:03 PM TILE MASON Rosa Payne Shikha NM LAB URINE ORDERABLES Fin al Result Performing Organization Address [facility] de Phone Number [facility] [address] [place] [address] * Erythrocyte sedimentation rate (05/21/2021 3:01 PM TILE MASON) Erythrocyte sedimentation rate 6 < OR = 30 mm/h [facility] Blood specimen (specimen) 05/21/2021 3:01 PM TILE MASON 05/21/2021 3:03 PM TILE MASON Result [facility] Rosa Payne Shikha NM LAB BLOOD ORDERABLES Fin al Result Performing Organization Address [facility] de Phone Number [facility] [address] [place] [address] * Anti-double stranded DNA antibodies (05/21/2021 3:01 PM TILE MASON) DNA (DS) ab <1 IU/mL [facility] Comment: ? IU/mL ? Interpretation ? < or = 4 ?Negative ? 5-9 ? Indeterminate ? > or = 10 ?? Positive Blood specimen (specimen) 05/21/2021 3:01 PM TILE MASON 05/21/2021 3:03 PM TILE MASON Rosa Payne Shikha NM LAB BLOOD ORDERABLES Fin al Result [facility] [address] [place] [address] * CRP (acute phase) (05/21/2021 3:01 PM TILE MASON) Pathologist [facility] C-RP 5.1 <8.0 mg/L [facility] Blood specimen (specimen) 05/21/2021 3:01 PM TILE MASON 05/21/2021 3:03 PM TILE MASON Rosa CARDOZO LAB BLOOD ORDERABLES Fin al Result Performing Organization Address [facility] de Phone Number [facility] [address] [place] [address] * (ABNORMAL) Comprehensive metabolic panel (05/21/2021 3:01 PM TILE MASON) [facility] Glucose 87 65 - 99 mg/dL [facility] Comment: ? Fasting reference interval BUN 20 7 - 25 mg/dL [facility] Creatinine 0.81 0.50 - 0.99 mg/dL [facility] Comment: For patients >49 years of age, the reference limit for Creatinine is approximately 13% higher for people identified as -Wallisian. eGFR NON-AFR. ENGLISH 77 > OR = 60 mL/min/1 .73m2 [facility] EGFR 89 > OR = 60 mL/min/1 .73m2 [facility] BUN/creat ratio NOT APPLICABLE 6 - 22 (calc) [facility] Sodium 139 135 - 146 mmol/L [facility] Potassium, pl 4.5 3.5 - 5.3 mmol/L [facility] Chloride 106 98 - 110 mmol/L [facility] CO2 24 20 - 32 mmol/L [facility] Calcium 9.2 8.6 - 10.4 mg/dL [facility] Protein, sr 6.3 6.1 - 8.1 g/dL [facility] Albumin 4.2 3.6 - 5.1 g/dL [facility] GLOBULIN 2.1 1.9 - 3.7 g/dL (calc) [facility] Alb/glob ratio 2.0 1.0 - 2.5 (calc) [facility] Bilirubin, total 0.8 0.2 - 1.2 mg/dL [facility] Alk phos 117 37 - 153 U/L [facility] AST 31 10 - 35 U/L [facility] ALT (SGPT) 37(H) 6 - 29 U/L [facility] Blood specimen (specimen) 05/21/2021 3:01 PM TILE MASON 05/21/2021 3:03 PM TILE MASON us Rosa CARDOZO LAB BLOOD ORDERABLES Fin al Result [facility] [address] [place] [address] * CBC with auto differential (05/21/2021 3:01 PM TILE MASON) WBC 6.6 3.8 - 10.8 Thousand/u L [facility] RBC, POC 4.61 3.80 - 5.10 Million/uL [facility] Hgb 13.5 11.7 - 15.5 g/dL [facility] Hct 40.6 35.0 - 45.0 % [facility] MCV 88.1 80.0 - 100.0 fL [facility] MCH 29.3 27.0 - 33.0 pg [facility] MCHC 33.3 32.0 - 36.0 g/dL [facility] Rdw 12.6 11.0 - 15.0 % [facility] Platelets 267 140 - 400 Thousand/u L [facility] MPV 10.0 7.5 - 12.5 fL [facility] Neutrophils, abs 3,848 1,500 - 7,800 cells/uL [facility] Lymphocytes, abs 1,934 850 - 3,900 cells/uL [facility] Monocyte abs 554 200 - 950 cells/uL [facility] Eosinophils, abs 224 15 - 500 cells/uL [facility] Basophils, abs 40 0 - 200 cells/uL [facility] Neutrophils 58.3 % [facility] Lymphocyte pct 29.3 % [facility] Monocytes 8.4 % [facility] Eosinophils 3.4 % [facility] Basophils 0.6 % [facility] Blood specimen (specimen) 05/21/2021 3:01 PM TILE MASON 05/21/2021 3:03 PM TILE MASON Rosa Payne Shikha CARDOZO LAB BLOOD ORDERABLES Fin al Result Performing Organization Address [facility] de Phone Number [facility] [address] [place] [address] * C4 complement (05/21/2021 3:01 PM TILE MASON) Complement component C4C 33 15 - 57 mg/dL [facility] Blood specimen (specimen) 05/21/2021 3:01 PM TILE MASON 05/21/2021 3:03 PM TILE MASON Result [facility] Rosa Payne Shikha CARDOZO LAB BLOOD ORDERABLES Fin al Result Performing Organization Address [facility] de Phone Number [facility] [address] [place] [address] * C3 complement (05/21/2021 3:01 PM TILE MASON) Complement component C3C 128 83 - 193 mg/dL [facility] Blood specimen (specimen) 05/21/2021 3:01 PM TILE MASON 05/21/2021 3:03 PM TILE MASON Result [facility] Rosa Payne Shikha CARDOZO LAB BLOOD ORDERABLES Fin al Result Performing Organization Address [facility] de Phone Number [facility] [address] [place] [address] documented in this encounter Visit Diagnoses Diagnosis Sjogren's syndrome with keratoconjunctivitis sicca (HCC)- Primary Pain in multiple finger joints Cough Fatigue, unspecified type Weakness Other malaise and fatigue Raynaud's phenomenon without gangrene Osteoarthritis of ankle or foot, unspecified laterality documented in this encounter Discontinued Medications Medication Sig Discontinue Reason Start Date End Da te folic acid (FOLVITE) 1 mg tablet take 1 tablet by oral route every day 04/27/2016 05/21/2021 methotrexate 2.5 mg tablet take 3 tablet by oral route every week 04/27/2016 05/21/2021 milnacipran (SAVELLA) 25 mg tablet TAKE 1/2 TABLET IN THE MORNING AND 1 TABLET IN THE EVENING 08/10/2011 05/21/2021 documented as of this encounter Care Teams Stringer Machine Tender Relationship Specialty Start Date End Date Luis Oscar MD PCP - General 06/21/14 Philippe Powell III, MD [facility] [address] [place] [address] Consulting Physician Rheumatology 06/10/20 10/10/23 documented as of this encounter
== END 2024-06-19 08:43 | disposition home or self-care (01) ==
PROVIDERS: PCP Family Medicine; Visit Provider Obstetrics & Gynecology
DX: M85.89 Other specified disorders of bone density and structure, multiple sites (principal); Z12.31 Encounter for screening mammogram for malignant neoplasm of breast
CPT/HCPCS: 77063; 77067; 77080